=== PATIENT | female | born 1990 | race Caucasian/White ===

== ENCOUNTER 2023-04-15 12:43 | Outpatient (OUT) | payer OTHER, SELFPAY ==
[2023-04-15 14:11] LABS: Free T3 2.48 pg/mL (2.18-3.98); Glucose 81 mg/dL (74-106); Thyroid Stimulating Hormone 0.983 uIU/mL (0.358-3.740)
[2023-04-15 15:08] LABS: Free T4 0.96 ng/dL (0.76-1.46)
[2023-04-15 15:09] LABS: Estimated Average Glucose 108 mg/dL; Glycohemoglobin A1C 5.4 % (4.5-6.2)
[2023-04-16 04:07] LABS: Sex Horm Binding Glob, Serum 41.2 nmol/L (24.6-122.0)
[2023-04-16 06:09] LABS: Progesterone 10.7 ng/mL (.)
[2023-04-16 08:17] LABS: Thyroid Peroxidase (TPO) Ab <9 IU/mL (0-34)
[2023-04-16 13:08] LABS: C-Peptide, Serum 3.4 ng/mL (1.1-4.4)
[2023-04-16 14:10] LABS: Thyroglobulin Antibody <1.0 IU/mL (0.0-0.9)
[2023-04-18 21:06] LABS: Reverse T3, Serum 17.7 ng/dL (9.2-24.1)
[2023-04-19 19:16] LABS: Estrone, Serum 29 pg/mL (27-231)
[2023-04-20 17:20] LABS: Serotonin, Serum 131 ng/mL (31-207)
[2023-04-22 00:07] LABS: Free Testosterone(Direct) 0.3 pg/mL (0.0-4.2); Testosterone 7 ng/dL (13-71)
[2023-04-22 21:07] LABS: Cortisol, Free Dialysis, LCMS 0.227 ug/dL (.)
[2023-04-22 22:07] LABS: Thyroglobulin (TG-RIA) 4.9 ng/mL (.)
== END 2023-04-15 12:44 | disposition home or self-care (01) ==
PROVIDERS: PCP Family Medicine; Visit Provider Obstetrics & Gynecology
DX: R10.2 Pelvic and perineal pain (principal); R53.83 Other fatigue
CPT/HCPCS: 36415; 82306; 82530; 82627; 82670; 82679; 82728; 82947; 83036; 83525; 84144; 84260; 84270; 84402; 84403; 84432; 84436; 84439; 84443; 84481; 84482; 84681; 86376; 86800

== ENCOUNTER 2023-09-12 09:10 | Emergency (ER) | payer OTHER, SELFPAY ==
[2023-09-12 09:26] VITALS: BP 106/89; PULSE 127; RESP 18; TEMP 36.9; O2SAT 98; BMI 28.3
--- NOTE | 2023-09-12 09:32 | ED_ITS ---
HPI - Nausea/Vomiting/Diarrhea General Chief complaint: Abdominal Pain Stated complaint: NAUSEA Time Seen by Provider: 09/12/23 09:21 Source: patient Mode of arrival: walk-in History of Present Illness HPI Narrative: 32-year-old female presents for nausea and vomiting. The patient develop the symptoms late last night and she's been vomiting every hour. No diarrhea or fever or hematemesis. She was at a [employer] and so was around multiple people. Related Data Home Medications Medication Instructions Recorded Confirmed albuterol sulfate 90 mcg/actuation 2 inh inhalation Q6H PRN shortness 09/12/23 09/12/23 aerosol inhaler (Proventil HFA) of breath or wheezing epinephrine 0.3 mg/0.3 mL 0.3 mg IM ONCE PRN anaphylaxis 09/12/23 09/12/23 injection, auto-injector (EpiPen) lamotrigine 25 mg tablet 50 mg PO Q12H 09/12/23 09/12/23 Previous Rx's Medication Instructions Recorded dicyclomine 10 mg capsule 10 mg PO QID PRN abdominal pain 09/12/23 #20 caps ondansetron 4 mg disintegrating 4 mg PO Q6H PRN nausea and 09/12/23 tablet vomiting #20 tabs Allergies Allergy/AdvReac Type Severity Reaction Status Date / Time No Known Drug Allergies Allergy Verified 09/12/23 09:25 Review of Systems ROS Narrative A ten point review of systems is negative except as noted above. PFS PFS Surgical History (Updated 09/12/23 @ 12:10 by Wood Garcia) History of appendectomy ?Z90.49 - Acquired absence of other specified parts of digestive tract (ICD- 10) History of cholecystectomy ?Z90.49 - Acquired absence of other specified parts of digestive tract (ICD- 10) H/O: hysterectomy ?Z90.710 - Acquired absence of both cervix and uterus (ICD-10) Exam Narrative Exam Narrative: Nurses note and vital signs reviewed and patient is not hypoxic. General: The patient appears uncomfortable and in no apparent distress. Skin: Warm, dry, no pallor noted. There is no rash noted. Head: Normocephalic, atraumatic Eye: Normal conjunctiva, no drainage Ears, Nose, Mouth, and Throat: oral mucosa is moist. Nares patent. Cardiovascular: Regular Rate and Rhythm Respiratory: Patient is in no distress, no accessory muscle use, lungs are clear to auscultation, no wheezing, rales or rhonchi Back: non-tender GI: no tenderness to palpation, no masses appreciated. No rebound, guarding, or rigidity noted. Musculoskeletal: The patient has no evidence of calf tenderness, no pitting edema, symmetrical pulses noted bilaterally Neurological: A&O, normal speech Psychiatric: Cooperative Constitutional Vital Signs, click to edit/add: Last Vital Signs Temp 98.3 F 09/12/23 13:23 Pulse 96 H 09/12/23 15:57 Resp 16 09/12/23 15:57 BP 94/70 09/12/23 13:23 Pulse Ox 98 09/12/23 15:57 O2 Del Method Room Air 09/12/23 15:57 Course Vital Signs Vital signs: Vital Signs Temperature 98.5 F 09/12/23 09:26 Pulse Rate 127 H 09/12/23 09:26 Respiratory Rate 18 09/12/23 09:26 Blood Pressure 106/89 09/12/23 09:26 Pulse Oximetry 98 09/12/23 09:26 Oxygen Delivery Method Room Air 09/12/23 09:26 Temperature 98.3 F 09/12/23 13:23 Pulse Rate 96 H 09/12/23 15:57 Respiratory Rate 16 09/12/23 15:57 Blood Pressure 94/70 09/12/23 13:23 Pulse Oximetry 98 09/12/23 15:57 Oxygen Delivery Method Room Air 09/12/23 15:57 MDM - Nausea/Vomiting/Diarrhea MDM Narrative Medical decision making narrative: blood work is nonspecific. CAT scan is consistent with enteritis. She was given IV fluids and Zofran as well as a dose of IV morphine and IM Bentyl and she's feeling improved and is tolerating by mouth liquids. She doesn't require admission the hospital this point and will be discharged home. Treatment diagnosis and follow-up were discussed with the patient. Differential Diagnosis Differential diagnosis: Likely food poisoning, gastroenteritis, dehydration and other (gastritis) Lab Data Attestation: I reviewed the patient's lab results. Labs: Lab Results 09/12/23 Range/Units 09:45 WBC 10.3 (4.0-11.0) 10^3/uL RBC 4.94 (4.20-5.40) 10^6/uL Hgb 13.8 (12.0-16.0) g/dL Hct 42.1 (36.0-48.0) % MCV 85.2 (81.0-99.0) fL MCH 27.9 (26.7-34.0) pg MCHC 32.8 (29.9-35.2) g/dL RDW 12.4 (11.0-15.0) % Plt Count 342 (150-450) 10^3/uL MPV 9.0 L (9.5-13.5) fL Neut % (Auto) 87.0 H (43.0-75.0) % Lymph % (Auto) 7.2 L (20.5-60.0) % [place] % (Auto) 4.8 (1.7-12.0) % Eos % (Auto) 0.6 L (0.9-7.0) % Baso % (Auto) 0.2 (0.2-2.0) % Neut # (Auto) 9.0 H (1.4-6.5) 10^3/uL Lymph # (Auto) 0.7 L (1.2-3.8) 10^3/uL [place] # (Auto) 0.5 (0.3-0.8) 10^3/uL Eos # (Auto) 0.1 (0.0-0.7) 10^3/uL Baso # (Auto) 0.0 (0.0-0.1) 10^3/uL Abs Immat Gran (auto) 0.02 (0.00-0.03) 10^3/uL Imm/Tot Granulo (auto) 0.2 (0.0-0.5) % Sodium 134 L (136-145) mmol/L Potassium 3.5 (3.5-5.1) mmol/L Chloride 99 (98-107) mmol/L Carbon Dioxide 26.0 (21.0-32.0) mmol/L Anion Gap 12.5 BUN 13.0 (7.0-18.0) mg/dL Creatinine 0.72 (0.55-1.02) mg/dL Est GFR ( Amer) >60 (>=60) Est GFR (Non-Af Amer) >60 (>=60) BUN/Creatinine Ratio 18.1 Glucose 116 H (74-106) mg/dL Calcium 9.4 (8.5-10.1) mg/dL Imaging Data CT scan - abdomen: Radiologist's impression: Procedure: CT abdomen pelvis w con CLINICAL HISTORY: low abd pain, vomiting. Generalized abdominal pain, nausea, vomiting. EXAMINATION: Enhanced CT scan of the abdomen and pelvis: 09/12/2023. COMPARISON: Enhanced CT scan of the abdomen and pelvis: 02/21/2021. TECHNIQUE: 3 mm axial images from lung bases through ischial tuberosities following administration of intravenous contrast were obtained. No oral contrast was utilized. Sagittal, coronal reconstructions were also performed. FINDINGS: The lung bases appear normal. The heart size seems normal. CT ABDOMEN: The patient status post cholecystectomy. The liver demonstrates mild fatty infiltration without discrete lesions. Spleen, pancreas, adrenal glands, kidneys appear normal. The abdominal aorta has normal caliber. There is no retroperitoneal or mesenteric adenopathy. There is mild enhancement of the bowel wall involving several of the small bowel loops as well as there is mild thickened appearance to the ascending colon which could be secondary to incomplete distention. No significant induration of surrounding fat is seen. The patient status post appendectomy. CT PELVIS: The bladder seems normal. The uterus, ovaries are not seen. There is no ureterolithiasis. There is no pelvic adenopathy. No discrete focal fluid collections are seen. The visualized soft tissues demonstrate no gross abnormalities. IMPRESSION: 1. There is mild enhancement of some of the small bowel loops mid to lower abdomen without abnormal dilatation as well as there is mild thickened appearance to the ascending colon. These could be nonspecific changes however underlying enteritis/colitis is a consideration. There is no obstructive process. 2. Previous cholecystectomy, appendectomy, hysterectomy. 3. No nephro or ureterolithiasis. Electronically authenticated by: SUSAN HERMAN Date: 09/12/2023 13:49 Discharge Plan Discharge Chief Complaint: Abdominal Pain Clinical Impression: Gastroenteritis Patient Disposition: Home, Self-Care Time of Disposition Decision: 16:22 Condition: Good Mode of Transportation: Private Vehicle Prescriptions / Home Meds: New dicyclomine 10 mg capsule 10 mg PO QID PRN (Reason: abdominal pain) Qty: 20 0RF ondansetron 4 mg tablet,disintegrating 4 mg PO Q6H PRN (Reason: nausea and vomiting) Qty: 20 0RF No Action lamotrigine 25 mg tablet 50 mg PO Q12H Patient Comments: 50 mg in the am albuterol sulfate [Proventil HFA] 90 mcg/actuation HFA aerosol inhaler 2 inh inhalation Q6H PRN (Reason: shortness of breath or wheezing) epinephrine [EpiPen] 0.3 mg/0.3 mL auto-injector 0.3 mg IM ONCE PRN (Reason: anaphylaxis) Rx Instructions: for 2 doses Instructions: Gastroenteritis (DC), Acute Nausea and Vomiting (DC) Stand Alone Forms: Portal Instructions Referrals: RONNIE SHUKLA [Primary Care Provider] - 1 week
[2023-09-12 09:53] LABS: Basophils Percent Auto 0.2 % (0.2-2.0); Eosinophils Absolute Auto 0.1 10^3/uL (0.0-0.7); Eosinophils Percent Auto 0.6 % (0.9-7.0); Hematocrit 42.1 % (36.0-48.0); Hemoglobin 13.8 g/dL (12.0-16.0); Immature Granulocytes Abs Auto 0.02 10^3/uL (0.00-0.03); Immature Granulocytes Pct Auto 0.2 % (0.0-0.5); Lymphocytes Absolute Auto 0.7 10^3/uL (1.2-3.8); Lymphocytes Percent Auto 7.2 % (20.5-60.0); Mean Corpuscular HGB Conc 32.8 g/dL (29.9-35.2); Mean Corpuscular Hemoglobin 27.9 pg (26.7-34.0); Mean Corpuscular Volume 85.2 fL (81.0-99.0); Monocytes Absolute Auto 0.5 10^3/uL (0.3-0.8); Monocytes Percent Auto 4.8 % (1.7-12.0); Platelet Count 342 10^3/uL (150-450); Red Blood Count 4.94 10^6/uL (4.20-5.40); Red Cell Distribution Width 12.4 % (11.0-15.0); White Blood Count 10.3 10^3/uL (4.0-11.0)
[2023-09-12] MEDS: ONDANSETRON PF 4 MG/2 ML VIAL IV ×2 (09:53→11:55)
[2023-09-12] MEDS: 0.9 % SODIUM CHLORIDE 1,000 ML 1000 ML IV ×2 (09:53→11:55)
[2023-09-12 10:00] LABS: Anion Gap 12.5; BUN Creatinine Ratio 18.1; Calcium 9.4 mg/dL (8.5-10.1); Chloride 99 mmol/L (98-107); Estimated GFR (African America >60 (>=60); Estimated GFR (Non-African Ame >60 (>=60); Glucose 116 mg/dL (74-106); Potassium 3.5 mmol/L (3.5-5.1); Sodium 134 mmol/L (136-145)
[2023-09-12 11:00] VITALS: BP 110/67; PULSE 99; RESP 16; TEMP 36.9; O2SAT 100
--- NOTE | 2023-09-12 11:50 | CT_ITS ---
The [address] [address] Patient Name: GRACIELA SORIA MRN: [id number] date: 1990 Sex: F Assigned Patient Location: ER Current Patient Location: ER Accession/Order Number: [id number] Exam Date: 09/12/2023 12:15 Report Date: 09/12/2023 13:49 At the request of: MYAH MEYERS Procedure: CT abdomen pelvis w con CLINICAL HISTORY: low abd pain, vomiting. Generalized abdominal pain, nausea, vomiting. EXAMINATION: Enhanced CT scan of the abdomen and pelvis: 09/12/2023. COMPARISON: Enhanced CT scan of the abdomen and pelvis: 02/21/2021. TECHNIQUE: 3 mm axial images from lung bases through ischial tuberosities following administration of intravenous contrast were obtained. No oral contrast was utilized. Sagittal, coronal reconstructions were also performed. FINDINGS: The lung bases appear normal. The heart size seems normal. CT ABDOMEN: The patient status post cholecystectomy. The liver demonstrates mild fatty infiltration without discrete lesions. Spleen, pancreas, adrenal glands, kidneys appear normal. The abdominal aorta has normal caliber. There is no retroperitoneal or mesenteric adenopathy. There is mild enhancement of the bowel wall involving several of the small bowel loops as well as there is mild thickened appearance to the ascending colon which could be secondary to incomplete distention. No significant induration of surrounding fat is seen. The patient status post appendectomy. CT PELVIS: The bladder seems normal. The uterus, ovaries are not seen. There is no ureterolithiasis. There is no pelvic adenopathy. No discrete focal fluid collections are seen. The visualized soft tissues demonstrate no gross abnormalities. CT/CT abdomen pelvis w con IMPRESSION: 1. There is mild enhancement of some of the small bowel loops mid to lower abdomen without abnormal dilatation as well as there is mild thickened appearance to the ascending colon. These could be nonspecific changes however underlying enteritis/colitis is a consideration. There is no obstructive process. 2. Previous cholecystectomy, appendectomy, hysterectomy. 3. No nephro or ureterolithiasis. Electronically authenticated by: SUSAN HERMAN Date: 09/12/2023 13:49
[2023-09-12 13:23] VITALS: BP 94/70; PULSE 101; RESP 16; TEMP 36.8; O2SAT 100
[2023-09-12] MEDS: MORPHINE SULFATE 4 MG/ML VIAL IV (14:11)
[2023-09-12] MEDS: DICYCLOMINE HCL 20 MG/2 ML VIAL IM (14:11)
[2023-09-12 15:57] VITALS: PULSE 96; RESP 16; O2SAT 98
[2023-09-12 16:36] VITALS: BP 108/70; PULSE 96; RESP 16; O2SAT 99
== END 2023-09-12 16:40 | disposition home or self-care (01) ==
PROVIDERS: Emergency Provider Emergency Medicine; PCP Family Medicine
DX: K52.9 Noninfective gastroenteritis and colitis, unspecified (principal); Z79.899 Other long term (current) drug therapy; Z90.49 Acquired absence of other specified parts of digestive tract; Z90.710 Acquired absence of both cervix and uterus
CPT/HCPCS: 36415; 74177; 80048; 85025; 96361; 96372; 96374; 96375; 96376; 99285; J0500; Q9967

== ENCOUNTER 2025-05-13 15:05 | Emergency (ER) | payer OTHER, SELFPAY ==
--- OUTSIDE RECORDS SUMMARY | 2025-05-13 15:13 | XMS_ITS | CCD ---
Author Organization [facility] Care Team Providers Care Cath Lab Radiological Technologist Name Role Phone Annabel Ibarra Primary Care Provi chio ANNABEL IBARRA Primary Care Un available ANNABEL IBARRA Primary Care Un available JOHNY POLO Attending Unavailable PEDRO GARCIA Admitting Unavaila ble PEDRO GARCIA Attending Unavaila ble Annabel Carvajal Primary Care Unavailable ADRIAN DAVIDSON Consulting Unavaila ble Adrian Davidson Consulting Unavaila ble SpychAngely avitia Consulting Unavailable Charles Christianson Consulting Unavailable ANNABEL CARVAJAL Unav ailable Annabel Carvajal Primary Care Unavailable Giedraitis, Andrius Vytautas Attending Krystal vailable EBRAHEIM, SERA Admitting Unavailable EBRAHEIM, SERA Attending Unavailable SELF, REFERRED Referring Unavailable SELF, REFERRED Primary Care Unavailable DO Edgar Chase Attending Provider MD Annabel Shukla Primary Care Provider DESIRE ., DR LÓPEZ Admitting Unavailable DESIRE ., DR LÓPEZ Attending Unavailable POINT LOOKOUT, DR AMARILIS Huizar Consulting Unavailable GAYLA, DR TRUJILLO Primary Care Unavailable DESIRE ., DR LÓPEZ Consulting Unavailable REQUEST, DR SANTAMARIA LISTED Consulting Unavaila ble REQUEST, DR SANTAMARIA LISTED Consulting Unavaila ble DESIRE ., DR LÓPEZ Admitting Unavailable DESIRE ., DR LÓPEZ Attending Unavailable GAYLA, DR TRUJILLO Primary Care Unavailable DESIRE ., DR LÓPEZ Attending Unavailable DESIRE ., DR LÓPEZ Consulting Unavailable DESIRE ., DR LÓPEZ Admitting Unavailable GAYLA, DR TRUJILLO Primary Care Unavailable REQUEST, DR SANTAMARIA LISTED Consulting Unavaila ble DESIRE ., DR LÓPEZ Admitting Unavailable DESIRE ., DR LÓPEZ Attending Unavailable GAYLA, DR TRUJILLO Primary Care Unavailable OscarCaitlyne Unavailable Annabel Shukla MD Primary Care Provider Josué RECTIFICATION PRINTER, Anabelle Duncan Unavailable Jhonatan Hooper DO Unavailable [facility], Akiko Unavailable Rose HARDY, Bret Arana Attending Provider Bret Rose Attending Unavailable Bret Rose Admitting Unavailable ANNABEL SHUKLA Primary Care Unavailable Bret Rose Attending Unavailable Bret Rose Admitting Unavailable TIMMIS, JEISON Kendrick Referring Unavailable CRISSYMIS, JEISON H Consulting Unavailable Josué RECTIFICATION PRINTER, Anabelle A Unavailable DEBI TORRES Attending Unavailable [place], ANABELLE A Attending Unavailab le [place], ANABELLE A Referring Unavailab le [place], ANABELLE A Referring Unavailab le [place], ANABELLE A Referring Unavailab le TIMMIS, JEISON H Attending Unavailable KEDARCKENBUR[place], ANABELLE A Referring Unavailab le CRISSYMISJEISON H Attending Unavailable VAN AGUILA Attending Unavailable TIMMIS, JEISON Marks Referring Unavailable VAN AGUILA Referring Unavailable ANNABEL SHUKLA Attending Unavailable ANNABEL SHUKLA Attending Unavailable Allergies Allergy Classification Reported Allergen(s) Allergy Type Date of Onset Reaction(s) Facility (20 sources) Coconut Oil; Translations: [Unknown] Drug Allergy 06-25-20 Unknown [facility] (1 source) No Known Medication Allergies; Translations: [No Known Medication Allergies] Propensity to adverse reactions to drug (disorder) [facility]ository (3 sources) Coconut extract; Translations: [Coconut] Drug Allergy 09-11-20 13 Blurry Vision [facility] Repository (3 sources) Scopolamine; Translations: [scopolamine] Drug Allergy 11-14-19 24 vision disturbance [facility] (20 sources) butylscopolamine Drug Allergy 01-27-20 23 Unknown [facility] (20 sources) Coconut extract Drug Allergy 07-17-20 19 Anaphylaxis, Rash, Swelling, Unknown [facility] (20 sources) Honey bee venom Propensity to adverse reactions 05-03-20 19 [facility] Work Phone: (20 sources) Coconut Fatty Acid Propensity to adverse reactions 01-09-20 18 Angioedema [facility] (1 source) Coconut extract Drug Allergy 11-14-19 [facility] Repository (1 source) Scopolamine Drug Allergy 11-14-19 [facility] Repository (1 source) Beechams Veno's Expectorant; Translations: [Beechams Veno's Expectorant] Propensity to adverse reactions (disorder) [facility] Repository (11 sources) guaiFENesin Drug Allergy 03-28-20 25 [facility] Medications Current Medications Medication Drug Class(es) Dates Sig (Normalized) Sig (Original) [id number] 200 actuat albuterol 0.09 mg/actuat metered dose inhaler (20 sources) beta2-Adrenergic Agonist Start: 11-14-2023 Albuterol Sulfate 90 mcg/actuation HFA aerosol inhaler Active INHALATION November 14, 2023 1:00am Start: 09-25-2023 take 1-2 puff(s) by inhalation every four to six hours as needed Albuterol Sulfate HFA 108 (90 Base) MCG/ACT 1-2 puffs as needed Inhalation every 4-6 hours for 14 days Aug, Active Start: 06-02-2013 take 2 puff(s) by in halation every four hours albuterol HFA (Proventil HFA) 90 mcg/act inhaler Inhale 2 puffs every 4 (four) hours if needed 06/02/2013 Active take 1 puff(s) by in halation every four hours as needed Albuterol Sulfate HFA 108 (90 Base) MCG/ACT 1 puff as needed Inhalation every 4 hrs Active amoxicillin 500 mg oral capsule (9 sources) Penicillin-class Antibacterial Start: 11-14-2023 End: 02-03-2025 take 1 capsule by mouth in the morning amoxicillin (Amoxil) 500 MG capsule Take 500 mg by mouth in the morning and 500 mg before bedtime. 11/14/2023 02/03/2025 Discontinued amoxicillin 875 mg / clavulanate 125 mg oral tablet (1 source) Penicillin-class Antibacterial Start: 09-25-2023 take 1 tablet by mouth every twelve hours Amoxicillin-Pot Clavulanate 875-125 MG 1 tablet Orally every 12 hrs for 10 day(s) Aug, Active benzonatate 100 mg oral capsule (1 source) Non-narcotic Antitussive Start: 09-25-2023 take 1 capsule by mouth three times daily as needed Tessalon Perles 100 MG 1 capsule as needed Orally Three times a day for 7 days Aug, Active betamethasone 0.5 mg/ml / clotrimazole 10 mg/ml topical cream (8 sources) Azole Antifungal, Corticosteroid Start: 03-08-2024 End: 02-03-2025 clotrimazole-beta methasone (Lotrisone) cream Indications: Rash Apply 1 application topically Daily Apply to affected area daily for 7 days 45 g 03/08/2024 02/03/2025 Discontinued [id number] 0.3 ml EPINEPHrine 1 mg/ml auto-injector (20 sources) alpha-Adrenergic Agonist, beta-Adrenergic Agonist, Catecholamine Start: 11-14-2023 Epinephrine (Epipen) 0.3 mg/0.3 mL auto-injector Active 0.3 MG IM Every 4 hours as needed November 14, 2023 1:00am Start: 04-02-2015 EPINEPHrine (E piPen 2-Karl) 0.3 MG/0.3ML injection syringe 1 (one) time each day at the same time 04/02/2015 Active EpiPen Active esomeprazole 40 mg delayed release oral capsule (5 sources) Proton Pump Inhibitor Start: 04-10-2025 End: 04-10-2026 take 1 capsule by mouth before mealtime esomeprazole (NexIUM) [address] capsule Indications: Weight loss, unintentional , Epigastric pain Take 1 capsule (40 mg) by mouth in the morning. Take before meals. Do not open capsule. 30 capsule 04/10/2025 04/10/2026 Active ethinyl estradiol 0.035 mg / norgestimate 0.25 mg oral tablet (1 source) Progestin, Estrogen take 1 tablet by mouth once daily norgestimate-ethiny l estradiol (SPRINTEC 28) 0.25-35 MG-MCG per tablet Take 1 tablet by mouth daily 0 Active ibuprofen 600 mg oral tablet (20 sources) Nonsteroidal Anti-inflammatory Drug Start: 05-22-2019 take 1 tablet by mouth every six hours as needed ibuprofen 600 MG tablet Take 1 tablet by mouth every 6 (six) hours if needed 05/22/2019 Active lamoTRIgine 25 mg oral tablet (20 sources) Mood Stabilizer, Anti-epileptic Agent Start: 01-01-2025 End: 01-31-2025 take 2 tablets by mouth in the morning lamoTRIgine (LaMICtal) 25 MG tablet Indications: Seizure (HCC) Take 2 tablets (50 mg) by mouth in the morning and 2 tablets (50 mg) before bedtime. 120 tablet 01/01/2025 Active Start: 11-14-2023 Lamotrigine 25 mg tablet Active MG PO November 14, 2023 1:00am LaMICtal 25 MG 1 tablet Orally Active methocarbamol 750 mg oral tablet (1 source) Muscle Relaxant take 1 tablet by mouth once daily methocarbamol (ROBAXIN) 750 MG tablet Take 750 mg by mouth nightly 0 Active methylPREDNISolone 4 mg oral tablet (1 source) Corticosteroid Start: 2022 methylPREDNISolone 4 MG as directed Orally as directed on packaging for Aug, Active Multiple Vitamin (MULTIVITAMIN ADULT PO) (20 sources) take 1 tablet by mouth once daily Multiple Vitamin (MULTIVITAMIN ADULT PO) Take 1 tablet by mouth Daily Active Multivitamin tablet (1 source) Start: 2023 take 1 tablet by mouth once daily Multivitamin tablet Active 1 TAB PO Daily November 14, 2023 1:00am ondansetron 4 mg disintegrating oral tablet (8 sources) Serotonin-3 Receptor Antagonist Start: 2022 End: 2024 ondansetron ODT (Zofran-ODT) 4 MG disintegrating tablet dissolve 1 tablet ON TONGUE every 6 hours if needed for nausea OR vomiting 09/13/2023 02/03/2025 Discontinued predniSONE 10 mg oral tablet (1 source) take 2 tablets by mouth twice daily predniSONE (DELTASONE) 10 MG tablet Take 20 mg by mouth 2 times daily 0 Active divalproex sodium 250 mg delayed release oral tablet (1 source) Mood Stabilizer, Anti-epileptic Agent take 1 tablet by mouth twice daily divalproex (DEPAKOTE) [address] tablet Take 250 mg by mouth 2 times daily 0 Active Completed/Discontinued Medications Medication Drug Class(es) Dates Sig (Normalized) Sig (Original) 1 ml ketorolac tromethamine 15 mg/ml cartridge (1 source) Nonsteroidal Anti-inflammatory Drug, Cyclooxygenase Inhibitor Start: 05-22-2019 End: 05-22-2019 ketorolac (TORADOL) injection 15 mg 2 ml orphenadrine citrate 30 mg/ml injection (1 source) Muscle Relaxant Start: 06-06-2019 End: 06-06-2019 orphenadrine (NORFLEX) injection 60 mg Problems Active Problems Problem Classification Problem Date Documented Date Episodic/Chronic Abdominal pain (8 sources) Pelvic and perineal pain; Translations: [Epigastric pain] Onset: 01-01-2023 Episodic Allergic reactions (20 sources) Atopic dermatitis; Translations: [Other atopic dermatitis] Onset: 11-14-2019 01-26-2023 Chronic Anxiety disorders (20 sources) Mixed anxiety and depressive disorder; Translations: [Other specified anxiety disorders] Onset: 08-30-2015 01-26-2023 Chronic Asthma (20 sources) Asthma without status asthmaticus; Translations: [Unspecified asthma, uncomplicated] Onset: 11-05-2016 01-26-2023 Chronic Epilepsy; convulsions (20 sources) Seizure disorder; Translations: [Epilepsy, unspecified, not intractable, without status epilepticus] Onset: 01-26-2023 01-09-2025 Chronic Headache; including migraine (2 sources) Headache; Translations: [Headache, unspecified headache type] 01-14-2025 Episodic Lymphadenitis (20 sources) Lymphadenopathy; Translations: [Generalized enlarged lymph nodes] Onset: 03-28-2025 01-29-2025 Episodic Miscellaneous mental health disorders (20 sources) Primary insomnia; Translations: [Primary insomnia] Onset: 05-17-2018 03-04-2023 Chronic Mood disorders (2 sources) Mood disorder; Translations: [Unspecified mood [affective] disorder] 01-14-2025 Chronic Nutritional deficiencies (20 sources) Vitamin D deficiency; Translations: [Vitamin D deficiency, unspecified] Onset: 01-26-2023 01-26-2023 Chronic Other aftercare (2 sources) Patient encounter status; Translations: [Encounter for therapeutic drug level monitoring] 01-09-2025 Episodic Other complications of (20 sources) Anemia of ; Translations: [Anemia complicating , unspecified trimester] Onset: 10-27-2016 03-04-2023 Chronic Other connective tissue disease (1 source) Plantar fasciitis; Translations: [Plantar fasciitis] Episodic Other diseases of veins and lymphatics (1 source) 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, unspecified; Translations: [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, unspecified] Onset: 02-27-2025 Chronic Other inflammatory condition of skin (2 sources) Generalized pruritus ; Translations: [Pruritus, unspecified] 01-29-2025 Episodic Other liver diseases (2 sources) Elevated liver enzymes level; Translations: [Abnormal levels of other serum enzymes] 04-10-2025 Episodic Other nervous system disorders (20 sources) Ulnar neuropathy; Translations: [Lesion of ulnar nerve, unspecified upper limb] Onset: 03-04-2023 03-04-2023 Chronic Other non-traumatic joint disorders (20 sources) Joint pain; Translations: [Pain in unspecified joint] Onset: 03-04-2023 03-04-2023 Episodic Other nutritional; endocrine; and metabolic disorders (4 sources) Unintentional weight loss; Translations: [Abnormal weight loss] 01-29-2025 Episodic Other screening for suspected conditions (not mental disorders or infectious disease) (8 sources) Encounter for screening, unspecified; Translations: [Encounter for screening for malignant neoplasm of cervix] Onset: 03-19-2022 Episodic Past or Other Problems Problem Classification Problem Date Documented Date Episodic/Chronic Cancer of cervix (20 sources) Cervicovaginal cytology: Low grade squamous intraepithelial lesion; Translations: [Low grade squamous intraepithelial lesion on cytologic smear of cervix (LGSIL)] Onset: 01-26-2023 01-26-2023 Episodic Conditions associated with dizziness or vertigo (20 sources) Dizziness; Translations: [Dizziness and giddiness] Onset: 05-20-2023 01-09-2025 Episodic Deficiency and other anemia (20 sources) Iron deficiency anemia; Translations: [Iron deficiency anemia, unspecified] Onset: 01-26-2023 01-26-2023 Episodic Epilepsy; convulsions (20 sources) Seizure; Translations: [Unspecified convulsions] Onset: 04-08-2018 03-04-2023 Episodic Immunizations and screening for infectious disease (20 sources) Encounter for screening for human papillomavirus (HPV); Translations: [Anti-nuclear factor positive] Onset: 03-20-2022 03-04-2023 Episodic Mood disorders (20 sources) Mood disorders Onset: 11-20-2023 11-20-2023 Other complications of (20 sources) ultrasound scan abnormal; Translations: [Abnormal ultrasonic finding on screening of mother] Onset: 10-28-2016 03-04-2023 Episodic Other complications of (20 sources) Seizure disorder; Translations: [Diseases of the nervous system complicating , unspecified trimester] Onset: 10-27-2016 03-04-2023 Episodic Other connective tissue disease (20 sources) Pain of left upper arm; Translations: [Pain in left upper arm] Onset: 06-10-2020 03-04-2023 Episodic Other female genital disorders (1 source) Other specified noninflammatory disorders of vagina; Translations: [OTH SPEC NONINFLAMMATORY D/O VAGINA] Onset: 03-20-2022 Episodic Other nervous system disorders (20 sources) Abnormal gait; Translations: [Unspecified abnormalities of gait and mobility] Onset: 11-16-2019 03-04-2023 Episodic Other nervous system disorders (20 sources) Impairment of balance; Translations: [Other abnormalities of gait and mobility] Onset: 05-20-2023 05-20-2023 Episodic Other upper respiratory infections (20 sources) Acute pansinusitis, unspecified; Translations: [Sore throat symptom] Onset: 11-19-2023 Episodic Spondylosis; intervertebral disc disorders; other back problems (20 sources) Sciatica; Translations: [Sciatica, unspecified side] Onset: 06-05-2019 03-04-2023 Episodic Unclassified (1 source) Suspected COVID-19 virus infection Z20.822 Results Test Name Value Interpretation Reference Range Facility CT SOFT TISSUE NECK W IV CON TRASTon 04-09-2025 CT SOFT TISSUE NECK W IV CONTRAST CT SOFT TISSUE NECK WITH INTRAVENOUS CONTRAST MEDIUM. HISTORY: MILDLY PROMINENT LYMPH NODES, BILATERAL NECK. TECHNICAL FACTORS: CT soft tissue neck obtained and formatted as 2.5 mm contiguous axial images. Sagittal and coronal reconstruction obtained during postprocessing. COMPARISON: CT soft tissue neck, February 07, 2025. FINDINGS: Skull base:Normal Orbits: . Bilateral ocular globes, extraocular muscles, optic nerves, retrobulbar fat without anomaly. Facial sinuses: Bilateral frontal, ethmoid, sphenoid, and maxillary sinuses are patent. Nasopharynx: Normal Mastoids: Air cells well aerated. Oral cavity: Without anomaly. Oropharynx: Without anomaly. Bilateral parapharyngeal spaces and retropharyngeal spaces: Preserved. Salivary glands: Normal Hypopharynx, larynx, supraglottis, infra-glottis: : Without anomaly.. Lymph nodes: No lymph node enlargement. Vascular: Vascular structures enhance uniformly. Thyroid: Normal. Lung apices: Without anomaly. IMPRESSION: Negative CT soft tissue neck. All CT scans at this facility use dose modulation, iterative reconstruction, and/or weight based dosing when appropriate to reduce radiation dose to as low as reasonably achievable. ELECTRONICALLY SIGNED BY: Van Mata MD Invalid Interpretation Code Not Available Coding Summaryon 03-14-2025 Coding Summary HTMLBase 64 CebfypjeTVp3pSi+PGhlYWQ +[id number] NMTElOSywgQVBQTElOSyIgb mDbLN3bxLUcCFYj IC8+KG6jFJSzYvwhuSEzk1Q 2cSK9A69sil3jRIpecTH5GY DsWuZhdpvua9xjyGc5OTdkV mluOyBt WSGszE46VXA3zQ19Bu06tDX iyHYcc2roiSx8BbTpKSYyKR L7xEdrOCckr1QuNBMbT61ee SQmf0S3 OHMyrMsazRXkNeLokXS8oV8 kEOnjekxwq8hludjfMli8em 48wYSbq9Y4rJS0D9RpggB9J GJvbGQg TzsbrNLRdE3lqngso7ppndb aRhGvVPKmSPz5RKj7TUWndH fsUuRaYH52FEF9TVZlupXyH 2FsLWFs iQefJzO7d3G1Qu9PP8NSEra gA0TELTIHMKadhUU+PC90cj 07K0OkIvlkPkr4VWGbYJL2g GX3gD1r OBIdESzbn8B2nHI2P6LkrqQ tqh0db5ovETBdFNpzH74xhS Wrs0W3SQHzsAW6VRJvvRglH iBzaG93 Oyc+EFVozRwja4JaLeuxu1n xr5flaCo6PedrPVCxjmUlfL uhMSS9z9TlVf1bQQIxqRF6s OM9dW5r RjIoEtR5HWvdP006FhEkcKO dEjmaJ92qP1RswIX+PHRyPj u6KMZfhFasZB7nY5XqNPRoe mctbGVm cLsyOV2kVNFzdussUYMlxU5 wELCpB0y6IkZrLfL9CZqhD5 OgKONeildfRd58lU5vMiOlI oN1MSlp Z2PesaJ0NRYuxGYcCQvlSHI 8P28qz1R5KMJnGQXkMOS0fF N8oR6dlRzwaalcoWJerJhlw mVydGlj MPrqMSgdW793PDXnpIjgWfH vZGluZyBEYXRlOiAgMDYvMT gvMjAyNTwvdGQ+IDKmIHQ5s WxlPSAn xYJpNKzpDk5lvGdqjIotON3 mJIUqlanxKLZxoJ5wKPOdoJ GrnNmqDY5aCTHejsous371V iAxMHB0 JWBgeYWgD5JxgY0mNmCrLGQ nSVXeF4PmsBQhEFjkE459WA osXcL7CEXiozZfT8KsQDDkx WduOiB0 p6V1Pl1In5GjbdjkP1ZsgFW hQeUvVgbxPFs1F2AzSltciP I+UI94SDPqBD26QIc5QCQ8p WxlPSdi XIEpA5LryB0oKaCwNYTeNOS kOyc+PHRhYmxlIHdpZHRoPS qdIDZvHpXzuGlsOL8yDo9xN GVyLWNv eIgnwMXtIwEvq0dnWGBzQTn nXW2azMwjF0UbxIS3EHOrq3 y5Fe91K78pN1MulLY+PGNvb UJ2bPP8 eA4eQgMmEjP9WFguO675MbY ffARxJibnq7lip3jmiIk7Ob D5LASrjoOflWweUHJ3v3MfF t34E17d IHdpZHRoPSIxNSUiIHZhbGl bsq6thL4cRz7+FHSajYX7uJ L9kH4dXcMwOiS1KGvsP752I nRvcCIv Urlbz1ofc6estXm8QjMzLRG yjgLdqWbeDUV6e2OqAa12A0 GosEopz7PbNaq5mb93hPUmw 2N0kZP5 W6LnNQMyvbnkdQIjoTaeHQ1 xYAWamjthGPQzwN4mEVNeE2 y6GzXvDfV0CBuqX9FvjsP7I GJvbGQg AIOwpTZVjA2cnelgj8ccjlm vMpSzYFNeRFb9PRw9CDMvfL ysRiEjNPB1SoZ5MCI5sEYkh C4rvJjn micccC0vIpn+LKJ2bNDkpHR DFR8sNyifeXL+HWYbLNS0qF fyMCbkHDMopP3hCFIvP1v6E iAwLjA1 GFbpC9QeosR1IYCkwLGxVLM alBFBkH4syjvrd3vatjurDd XpZEDeOEm2LFj5QLUwyYrhW iBsZWZ0 RiM6WPE1dOZmjH3xtFoyqpv iaI9pVem+SqrzuPgjMJD2ML p6E0JfPhi9WYUddQmnSB0qx GFkZGlu Dm3bjVocvPouQN3vRJZvgsy du501XwWvo2dfWALflVDjFI piYFR3Z93vr9N9DEXbLJHsF BM8jXC5 tL2fmBlhjvduyUQvuLbbqpM cpTzpMFayYRawL832ZCGwjO coBoAbEFi8Q5FxXet9FGTes BoxQL9c tNZoROkcEm0kqDkcjSnrOJ9 eAQMhykpxl123SnDbn4wyEA NxmKCiALcfKTM2L34bm0S6I CMwMDAw NZJ6xTM1aI2obUzuoxnpwQH mdDsgdmVydGljYWwtYWxpZ2 40EGAcwUgpPzVkfHz2Y5RtW xk7GBYn cWmmLS7ewCGpIYlbJl9deVg nbUzxHM8zHBBhrfesm203Bg Mfq8tkVBJzrWXjIRlmFRT2L 48rh8K9 QEZmSONaTZW6jPW1kP2ecMi nbjogbGVmdDsgdmVydGljYW atDImzJ536JORbkSruCkNme GllbnQg WAnaDMs3D9QqDuumxLI+PC9 5ICNvAB73wTTbgHGde9iboR m7NtOqXTImBBZ5vJvvIAtrm 3JkZXIt K01bkSVte7G1HFVkrFctyUM tLwIqaBS5qX9kPMekzgadp0 vwgmunXoevm8ffsc19uN95X 29sIHdp ZHRoPSIzMCUiIHZhbGlnbj0 ppN3zZm6+MBFkpAW7dAD3dG 8vCCBhKrM8QBarQ307PaFpg CIvPjxj f2aao7gsjFs8CqP4AWEbmsR xrPfhBEZ0y9QhPj79N85jPC dpZHRoPSIyMCUiIHZhbGlnb h5uuU3k Ii8+EOVraUJ1tAW2dE1gJlF xVnL0AVbdQ540YbXjtDFjOs gbA00fF8GifZW+PBJbNbq8Z CBzdHls NT9seFDvJNpmZv6oNLE0ZvM iKqGlZKziV5HnQPFhisxolh nflAP7QAEkNKRsiX64Tv2xc DogMTBw jHEXlV3foilid4csjcqdFuQ fLEQiNLo1USm2YUMakVkcHt GhEMP7RdE2VLH5eCRkdV0sy Glnbjog hL3hP6WrBYStqvhlHz67yF2 yZmSjTpK1JKkoZsr+TU9SQU xFUywgTUFSSVNTQTwvdGQ+P HRkIHN0 lRuuMRcoUEVnyJ2gEYAoX1w 7BpIvZlL5TQutB7TrLZMlpf jkJl59kD2dGfLvNcU5WQrzM 6DlweC3 LBHgyZNcWYvtXPB5Z70le8F 3AHYvDJAwXGB5hDV6aB3spK lnbjogbGVmdDsgdmVydGljY WwtYWxp C304EPVbdEroRpYuAxK5VuJ 0ZSM4M1LzZpc2IDCaxJgpPT 6abXGbZMzeMl7nrZfgiSmfH Q2sJBJg lrmsBGKddD2qIPKncUVgiSd sQC1iVLOirwmnj784RhMqCC J0TFBnhUDsD1OonQ3aNgLgX DAwMDAw C2IykMYiDSefQ873IWbqFiJ 4UNNfdlOjT7VxIHLknWhlUs X8c8T3Zm8uJwUYNVXoxrwrz GQ+PHRk WMP4bSysNRbwNYSmmA1gSER iR0s9LrHhQkL7PTtfD2HzIS DxxyyzNg90oR8yGhMoIdB3V FfgW6Uq reJ7XZQssWEnYEueCRT1J27 ud6J9NVZbUEHtUDW6iMI7eE 1hbGlnbjogbGVmdDsgdmVyd GljYWwt MXqpQ287FBXnmOdhPzCHBJN MRTwvdGQ+GFIbDFX3kGaiDQ ecRDOdsI4hDUSwA2w2QsQhM cQ4VKye W7FsDQCehhgbXv86bW9oFxZ jYnV0QLglO4JsvzE6ZJHtsH JcNClsBUE4L09ab4L9TXNgY DAwMDA7 rGU9oW0rlHnvledytFHqgOj yfcSccIzkUYmxBFzcP609QJ NkmNawWo8EQS40XG70Y9EdP jwvdGFi bGU+PHRhYmxlIHdpZHRoPSc fWJQxVjMfqNgcSM9dIc6sWH VsVJAtzVkywVDaYyZmj4jfR XBzZTsg MF1xdQcnU6HzoFF6NTTvk6b 3Lj52C09mH1NblED+PGNvbC V1eWA4aF0qUxLfVmX1AIrkE 249InRv qQGjBgiom1cbo4csrOz7TzC vOWIzbvSlkMozBIK9k9TrFr 56O77qCYrxZHCkKSTeNRWqD HZhbGln rm9ubK0dTk7+TCKfyMU2wUT 9fV3aYhGwDlX8NTgvP215Bl DniEDjUlhvW01mT8VzlZD+P HRyPjx0 SQImjEkrGZ0lnBJuKRyqUi3 qSQI1HwMyDcDpODrjA6QdNJ PaosmqwjahlOL9SIZiNUJvr R86Ia8p rIzsFu5nAXFeYEO3KFJlpIN eJ8YqyB7gPrChHJKoBGEzD5 ZkkHVoKHjjK363TWgpSxY5R HZlcnRp O7JyPUSjmSvqLdU0s7B8Wy3 WwGdwpGIcXZ4xIiLgZIb6P7 EwOzr5KHZnsWliYH4yoIJqH VuhYa3z hVrwvGfgKN9yBHApfhguo72 8VjJef5fzTSEmlENpIBlfIC N4V89yt1P1DWMhVSXmLLD6r FM5mR6s bGlnbjogbGVmdDsgdmVydGl xOInqZNsvB504DYCsrPadHb YJFjx4X9AdHjm3ARXthBpzD Q9zoNUr ILepPw5coLpnhNqoFD9fLYK nxtodj313OaPto4byVOAutS YhJCqlTTX1W65qb4O3APJqQ DAwMDA7 jKG5jC4ymNqbmrvspIRchZf ewwAazKemQHrsHFelZ719AQ LsdAovSj9JZub3J1QnGfv6S CBzdHls PZ5zpWUxLDasPt2aeXqutNr jZK6vAJVfmozfy269XfHye9 iaOHCoiLKyRAeqQIN0Q98ab 0T1DOUg ZOZqNNF0cHA1cN6udRgxubk gbGVmdDsgdmVydGljYWwtYW qyI469BDUipGuvVmCtqAUwJ jwvdGQ+ IM70co43M9UlWmsoBvn7FGW dFGX8jLY7hX8tDXDyYYurg7 N7dSP9E6TnpuEnet5ct5gsP XBzZTog Y29 (more content not included)... [facility] Results [id number]#1.00OT GTIFF [facility] Results [id number]#1.00OT GTIFF [facility] Pathology Sendout [facility] Pathology Send Out. See Report Normal [facility] Comment on above: Order Comment: Left supraclaicular lymph node biopsy tissue samples in sterile cup. Sent for pathology and flow cytometry. Performed By: #### [id number] #### [facility] (DEFAULT) [address] [place] [address] Karlos [birth year]25 L --- Specimen: [id number] Received: 03/01/25 Status: ESMER Ramírez Num: [id number] Spec Type: Surgical Subm Dr: JEISON DELGADO MD Tissues: A Lymph Node - Biopsy (Needle or Incisional) (LEFT SUPRACLAICULAR LYMPH NO) Procedures: CD45, HE/2, Gross/Micro L4, AE1-AE3, BCL-2, BCL-6, CD10, CD138, CD20, CD23, CD30, CD5, CYCLIN D1, Ki-67, IHC First AB, IHC Add AB/10, DIFF QWIK Age/ Patient Sex Location Account Attending Physician Unique Haque 34/F [facility] [id number] Bret Rose MD SPEC NUM: [id number] RECD: 03/01/25 STATUS: ESMER RAMÍREZ NUM: [id number] [place]O: 03/01/[address] [facility] [address]: JEISON DELGADO MD ENTERED: 03/01/[address] [facility] [address]: [place],Lab Bret Rose MD SPEC TYPE: Surgical DEPT: MAG TEE ENTERED BY: [id number] RECV BY: [id number] ORDERED: CD45, HE/2, Gross/Micro L4, AE1-AE3, BCL-2, BCL-6, CD10, CD138, CD20, CD23, CD30, CD5, CYCLIN D1, Ki-67, IHC First AB, IHC Add AB/10, DIFF QWIK ORDERED: CD45, HE/2, Gross/Micro L4, AE1-AE3, BCL-2, BCL-6, CD10, CD138, CD20, CD23, CD30, CD5, CYCLIN D1, Ki-67, IHC First AB, IHC Add AB/10, IMMUNOHISTOCHEM, DIFF QWIK Supplemental Report Addendum 1 Entered: 03/07/25 Flow cytometry was canceled due to the inadequate specimen. Addendum Signed (signature on file) Bg Roman MD 03/07/25 1029 Pathological Diagnosis Supraclavicular lymph node, needle biopsy: - Small fragments of lymphoid tissue, favor reactive. - See Comment. Comment: Immunohistochemical stains were performed on the tissue block with appropriate staining controls.? B-cells are seen in interfollicular areas by CD20.? CD45, CD5 and BCL-2 highlight T-cells in the interfollicular area.? No follicles are highlighted with CD10 and BCL-6.? Specimen: [id number] Received: 03/01/25 Status: ESMER Ramírez Num: [id number] Spec Type: Surgical Subm Dr: JEISON DELGADO MD Tissues: A Lymph Node - Biopsy (Needle or Incisional) (LEFT SUPRACLAICULAR LYMPH NO) Procedures: CD45, HE/2, Gross/Micro L4, AE1-AE3, BCL-2, BCL-6, CD10, CD138, CD20, CD23, CD30, CD5, CYCLIN D1, Ki-67, IHC First AB, IHC Add AB/10, DIFF QWIK Patient: Unique Haque [id number] (Continued) Specimen: [id number] Received: 03/01/25 (Continued) Pathological Diagnosis (Continued) Signed (signature on file) Bg Roman MD 03/06/25 1540 Specimen: [id number] Received: 03/01/25 Status: ESMER Ramírez Num: [id number] Spec Type: Surgical Subm Dr: JEISON DELGADO MD Tissues: A Lymph Node - Biopsy (Needle or Incisional) (LEFT SUPRACLAICULAR LYMPH NO) Procedures: CD45, HE/2, Gross/Micro L4, AE1-AE3, BCL-2, BCL-6, CD10, CD138, CD20, CD23, CD30, CD5, CYCLIN D1, Ki-67, IHC First AB, IHC Add AB/10, DIFF QWIK Patient: Unique Haque [id number] (Continued) Specimen: [id number] Received: 03/01/25 (Continued) Pathological Diagnosis (Continued) CD23 highlight dendritic follicular cells.? AE1/AE3, CD30, Cyclin-D1 and CD138 are negative. Ki67 proliferative index is high in follicular cells (about 70%).? Immunostains support reactive lymphoid tissue. Pending flow cytometry. Clinical Information Enlarged lymph nodes R59.9 Gross Description Received in formalin labeled with the patients name, date of , and supraclavicular lymph node are two pale billy, focally erythematous, delicate needle core biopsy, 0.8 and 1 cm in length. Touch prep slides are prepared. One half of each core is placed in RPMI media hold for flow cytometry. The remainder of the specimen is entirely submitted in a single cassette for routine H E processing. (1, ns, [id number] A) Microscopic Description Microscopic examination is performed. CPT Codes 28870, 72107, 38103, 86508 x10, 89095 (more content not included)... Normal [facility] US Guidance for Aspiration/I nject/Biopsyon 03-01-2025 US Guidance for Aspiration/Inject/ Biopsy Begin Addendum #1 COLLECTION DATE: 03/01/2025 PATHOLOGICAL DIAGNOSIS: Supraclavicular lymph node, needle biopsy: -Small fragment of lymphoid tissue, favor reactive. - See comment COMMENT: Immunohistochemical stains were performed on the tissue block with appropriate staining controls. B-cells are seen in interfollicular areas by CD20. CD45, Cd5 and BCL-2 highlight T-cells in the interfollicular area. No follicles are highlighted with CD10 and BCL-6. CD23 highlight dendritic follicular cells. AE 1/AE3, CD30, Cyclin-D1 and CD138 are negative. Ki67 proliferative index is high in follicular cells (about 70%). Immunostains support reactive lymphoid tissue. Pending flow cytometry. Supplemental report Flow cytometry was cancelled due to the inadequate specimen. Final Dictated by: Bret Rose MD Dictated DT/TM: 03/13/25 9:16 Signed (Electronic Signature): Bret Rose MD 03/13/25 9:16 am Technologist: KENN LOPEZ EXAMINATION: US Guidance for Aspiration/Inject/Biops y HISTORY: Abnormal Lymph Node COMPARISON: CT soft tissue neck 02/07/2025, ultrasound soft tissue palpable mass 02/01/2025 TECHNIQUE: After obtaining informed consent, ultrasound-guided fine needle aspiration was performed in the usual sterile manner. FINDINGS: IMAGING: Ultrasound. BIOPSY NEEDLE: 25 gauge; 4 separate passes. LOCATION: Lower lateral left neck area of palpable lump. 11 mm slightly abnormal appearing lymph node; adjacent slightly smaller but similar appearing lymph node was sampled due to its proximity to vascular structures. SPECIMEN TYPE: Cellular tissue. LOCAL ANESTHETIC: Buffered Xylocaine. COMPLICATIONS: None. LABORATORY: Prepared slide smears and washings for cell block evaluation. OTHER: Negative. PATHOLOGY: Pending. An addendum will be added when results are available. IMPRESSION: 1. Uneventful ultrasound guided fine needle aspiration (FNA). 2. Pathology results are pending. Final Dictated by: Bret Rose MD Dictated DT/TM: 03/01/25 3:23 Signed (Electronic Signature): Bret Rose MD 03/01/25 3:28 pm Technologist: KENN LOPEZ [facility] Provider Orderson 02-21-2025 Provider Orders [id number] TGTIFF [facility] CT SOFT TISSUE NECK W IV CON TRASTon 02-07-2025 CT SOFT TISSUE NECK W IV CONTRAST CT SOFT TISSUE NECK W IV CONTRAST Reason for exam: Enlarged lymph nodes left side of neck Axial sections were obtained, with sagittal and coronal reconstructions. Findings: Sinuses: Unremarkable. Salivary glands:Unremarkable. Oral cavity/floor of mouth:Symmetric. Unremarkable. Tonsils:Symmetric. Unremarkable. Vallecula/epiglottis/pi riform sinuses:Symmetric. Unremarkable. Larynx: Symmetric. Unremarkable. Cervical trachea: Unremarkable. Thyroid: Unremarkable. Vascular structures: Unremarkable. Lymphadenopathy/masses: There are mildly prominent but not pathologically enlarged level II and posterior triangle lymph nodes on both sides of the neck, nonspecific. Osseous structures: Intact. Impression: Normal study. No evidence of pathologically enlarged lymph nodes or other masses in the neck. Dictated on: 02/07/2025 12:05 PM This report has been electronically signed and approved by the interpreting Radiologist. All CT scans at this institution are performed using dose optimization techniques as appropriate for the performed exam including the following: Automated exposure control Adjustment of the mA and/or kV according to patient size Use of iterative reconstruction technique Dictated on: 02/07/2025 12:03 PM This report has been electronically signed and approved by the interpreting Radiologist. Normal Not Available Comment on above: Order Comment: ENLAR GED LYMPH NODES LT SIDE OF NECK X 4 WKS US SOFT TISSUE PALPABLE MASS on 02-01-2025 US SOFT TISSUE PALPABLE MASS Ultrasound lump left neck HISTORY: Palpable lump for 2 weeks Grayscale and color Doppler sonography was performed to evaluate the palpable area of concern in the lower left neck. There are multiple round to ovoid hypoechoic lymph nodes. The largest of these measures 1.8 x 1.2 x 1 cm but 4 separate abnormal-appearing nodes are present. These do not appear to have normal gabriella architecture. IMPRESSION: Abnormal enlarged lymph nodes in the area of palpable concern. The largest of these measures 1.8 cm in dimension. Differential considerations include reactive lymph nodes from recent or ongoing infection although malignancy, specifically lymphoproliferative diseases, are not excluded. Normal Not Available CBC (INCLUDES DIFF/PLT)on Basophils (Bld) [#/Vol] 0.021 10*3/uL Normal 0-200 [facility] Comment on above: Performed By: #### 6 533, 43200 #### [facility] [address] [facility], [address] [place] [address] Nursing Home Director: Chetan Stovall MD #### [id number] #### [facility] [address] [address] [facility] [place] [address] Nursing Home Director: Amandeep Lockhart M.D.,PhD Basophils/100 WBC (Bld) 0.4 % Normal [facility] Comment on above: Performed By: #### 6 263, 35261 #### [facility] of [place] [address] [address] , [address] [place], [place] [id number] Nursing Home Director: Chetan Stovall MD #### [id number] #### [facility] [place] Director: Amandeep Lockhart M.D.,PhD Eosinophils (Bld) [#/Vol] 0.08 10*3/uL Normal 15-500 [facility] Comment on above: Performed By: #### 6 399, 16940 #### [facility] of [place] [address] [address] , [address] [place], [place] [phone] Nursing Home Director: Chetan Stovall MD #### [id number] #### [facility] [address] [place] [address] [place] Director: Amandeep Lockhart M.D.,PhD Eosinophils/100 WBC (Bld) 1.5 % Normal [facility] Comment on above: Performed By: #### 6 399, 71210 #### [facility] of [place] [address] [address] , [address] [place], [place] [phone] Nursing Home Director: Chetan Stovall MD #### [id number] #### [facility] [address] [place] [address] [place] Director: Amandeep Lockhart M.D.,PhD Erythrocyte distribution width (RBC) [Ratio] 12.9 % Normal 11.0-15.0 [facility] Comment on above: Performed By: #### 6 399, 60472 #### [facility] of [place] [address] [address] , [address] [place], [place] [phone] Nursing Home Director: Chetan Stovall MD #### [id number] #### [facility] [place] Director: Amandeep Lockhart M.D.,PhD Hematocrit (Bld) [Volume fraction] 41.1 % Normal 35.0-45.0 [facility] Comment on above: Performed By: #### 6 399, 58217 #### [facility] of [place] [address] [address] , [address] [place], [place] [phone] Nursing Home Director: Chetan Stovall MD #### [id number] #### [facility] [place] Nursing [place] Director: Amandeep Lockhart M.D.,PhD Hemoglobin (Bld) [Mass/Vol] 13.4 g/dL Normal 11.7-15.5 [facility] Comment on above: Performed By: #### 6 399, 37197 #### [facility] of [address], [address] [place], [place] [phone] Nursing Home Director: Chetan Stovall MD #### [id number] #### [facility] [address] [place] [address] [place] Director: Amandeep Lockhart M.D.,PhD Lymphocytes (Bld) [#/Vol] 1.813 10*3/uL Normal 850-3900 [facility] Comment on above: Performed By: #### 6 399, 82974 #### [facility] of [place] [address] [address] , [address] [place], [place] [address] Nursing Home Director: Chetan Stovall MD #### [id number] #### [facility] [place] Nursing [place] Director: Amandeep Lockhart M.D.,PhD Lymphocytes/100 WBC (Bld) 34.2 % Normal [facility] Comment on above: Performed By: #### 6 399, 51317 #### [facility] of [address], [address] [place], [place] [address] Nursing Home Director: Chetan Stovall MD #### [id number] #### [facility] [place] Director: Amandeep Lockhart M.D.,PhD MCH (RBC) [Entitic mass] 28.3 pg Normal 27.0-33.0 [facility] Comment on above: Performed By: #### 6 399, 32745 #### [facility] of [place] [address] Nursing Home Director: Chetan Stovall MD #### [id number] #### [facility] [place] Nursing [place] Director: Amandeep Lockhart M.D.,PhD MCHC (RBC) [Mass/Vol] 32.6 g/dL Normal 32.0-36.0 [facility] Comment on above: Result Comment: For adults, a slight decrease in the calculated MCHC value (in the range of 30 to 32 g/dL) is most likely not clinically significant; however, it should be interpreted with caution in correlation with other red cell parameters and the patient's clinical condition. Performed By: #### 6 399, 51165 #### [facility] [address] Nursing Home Director: Chetan Stovall MD #### [id number] #### [facility] [place] Nursing [place] Director: Amandeep Lockhart M.D.,PhD MCV (RBC) [Entitic vol] 86.9 fL Normal 80.0-100.0 [facility] Comment on above: Performed By: #### 6 399, 79593 #### [facility] of [place] [phone] Nursing Home Director: Chetan Stovall MD #### [id number] #### [facility] [place] Nursing [place] Director: Amandeep Lockhart M.D.,PhD Monocytes (Bld) [#/Vol] 0.313 10*3/uL Normal 200-950 [facility] Comment on above: Performed By: #### 6 399, 00141 #### [place] [address] Nursing Home Director: Chetan Stovall MD #### [id number] #### [facility]/[address] [place] Director: Amandeep Lockhart M.D.,PhD Monocytes/100 WBC (Bld) 5.9 % Normal [facility] Comment on above: Performed By: #### 6 399, 80023 #### [facility] of [place] [address], [address] [place], [place] [phone] Nursing Home Director: Chetan Stovall MD #### [id number] #### [facility]/[address] [place] Nursing [place] Director: Amandeep Lockhart M.D.,PhD Neutrophils (Bld) [#/Vol] 3.074 10*3/uL Normal 9786-5417 [facility] Comment on above: Performed By: #### 6 399, 23910 #### [facility] of [address], [address] [place], [place] [phone] Nursing Home Director: Chetan Stovall MD #### [id number] #### [facility]/[place] [id number] [facility] [place] Nursing [place] Director: Amandeep Lockhart M.D.,PhD Neutrophils/100 WBC (Bld) 58 % Normal [facility] Comment on above: Performed By: #### 6 399, 99681 #### [facility] of [address], [address] [place], [place] [address] Nursing Home Director: Chetan Stovall MD #### [id number] #### [facility] [place] Nursing [place] Director: Amandeep Lockhart M.D.,PhD Platelet mean volume (Bld) [Entitic vol] 10.0 fL Normal 7.5-12.5 [facility] Comment on above: Performed By: #### 6 399, 31186 #### [facility] of [place] [address], [address] [place], [place] [phone] Nursing Home Director: Chetan Stovall MD #### [id number] #### [facility]/[place] [id number] [facility] [place] Nursing [place] Director: Amandeep Lockhart M.D.,PhD Platelets (Bld) [#/Vol] 315 10*3/uL Normal 140-400 [facility] Comment on above: Performed By: #### 6 399, 19023 #### [facility] of [place] [address], [address] [place], [place] [phone] Nursing Home Director: Chetan Stovall MD #### [id number] #### [facility]/[place] [id number] [facility] [place] Nursing [place] Director: Amandeep Lockhart M.D.,PhD RBC (Bld) [#/Vol] 4.73 10*6/uL Normal 3.80-5.10 [facility] Comment on above: Performed By: #### 6 399, 39810 #### [facility] of [place] [address] [address] , [address] [place], [place] [phone] Nursing Home Director: Chetan Stovall MD #### [id number] #### [facility]/[place] [id number] [facility] [place] Nursing [place] Director: Amandeep Lockhart M.D.,PhD WBC (Bld) [#/Vol] 5.3 10*3/uL Normal 3.8-10.8 [facility] Comment on above: Performed By: #### 6 399, 60652 #### [facility] of [place] [address] [address] , [address] [place], [place] [phone] Nursing Home Director: Chetan Stovall MD #### [id number] #### [facility] [place] Nursing [place] Director: Amandeep Lockhart M.D.,PhD COMPREHENSIVE METABOLIC PANE [facility] 01-31-2025 Albumin [Mass/Vol] 5.2 g/dL High 3.6-5.1 [facility] Comment on above: Performed By: #### 6 399, 76515 #### [facility] of [place] [address] Nursing Home Director: Chetan Stovall MD #### [id number] #### [facility]/[place] [id number] [facility] [place] Nursing Home Director: Amandeep Lockhart M.D.,PhD Albumin/Globulin [Mass ratio] 2.3 {ratio} Normal 1.0-2.5 [facility] Comment on above: Performed By: #### 6 399, 06300 #### [facility] [place] [address] Nursing Home Director: Chetan Stovall MD #### 56505 #### [facility]/[place] [id number] [facility] [place] Nursing [place] Director: Amandeep Lockhart M.D.,PhD ALP [Catalytic activity/Vol] 52 U/L Normal 31-125 [facility] Comment on above: Performed By: #### 6 399, 59682 #### [facility] of [place] [address] Nursing Home Director: Chetan Stovall MD #### 57304 #### [facility]/[address] [place] Nursing [place] Director: Amandeep Lockhart M.D.,PhD ALT [Catalytic activity/Vol] 40 U/L High 6-29 [facility] Comment on above: Performed By: #### 6 399, 79133 #### [facility] [place] [id number] Nursing Home Director: Chetan Stovall MD #### [id number] #### [facility] [place] Nursing Home Director: Amandeep Lockhart M.D.,PhD AST [Catalytic activity/Vol] 31 U/L High 10-30 [facility] Comment on above: Performed By: #### 6 399, 33366 #### [facility] of [address], [address] [place] [address] Nursing Home Director: Chetan Stovall MD #### 80823 #### [facility]/[place] [id number] [facility] [place] Nursing [place] Director: Amandeep Lockhart M.D.,PhD Bilirubin [Mass/Vol] 0.8 mg/dL Normal 0.2-1.2 [facility] Comment on above: Performed By: #### 6 399, 54753 #### [facility] of [address], [address] [place] [address] Nursing Home Director: Chetan Stovall MD #### [id number] #### [facility] [place] Nursing [place] Director: Amandeep Lockhart M.D.,PhD BUN/CREATININE RATIO SEE NOTE: Normal 03-18 [facility] Comment on above: Result Comment: Not Reported: BUN and Creatinine are within reference range. Performed By: #### 6 399, 32171 #### [facility] of [address], [address] [place] [address] Nursing Home Director: Chetan Stovall MD #### 13977 #### [facility]/[address] [place] Nursing [place] Director: Amandeep Lockhart M.D.,PhD Calcium [Mass/Vol] 9.9 mg/dL Normal 8.6-10.2 [facility] Comment on above: Performed By: #### 6 399, 58599 #### [facility] of [address], [address] [place], [place] [address] Nursing Home Director: Chetan Stovall MD #### 27186 #### [facility] [place] Nursing [place] Director: Amandeep Lockhart M.D.,PhD Chloride [Moles/Vol] 104 mmol/L Normal 98-110 [facility] Comment on above: Performed By: #### 6 399, 07103 #### [facility] of [address], [address] [place], [place] [address] Nursing Home Director: Chetan Stovall MD #### 07998 #### [facility]/[address] [place] Nursing [place] Director: Amandeep Lockhart M.D.,PhD CO2 [Moles/Vol] 24 mmol/L Normal 20-32 [facility] Comment on above: Performed By: #### 6 399, 23070 #### [facility] of [place] [id number] Nursing Home Director: Chetan Stovall MD #### 07822 #### [facility]/[address] [place] Nursing [place] Director: Amandeep Lockhart M.D.,PhD Creatinine [Mass/Vol] 0.69 mg/dL Normal 0.50-0.97 [facility] Comment on above: Performed By: #### 6 399, 83887 #### [facility] of [place] [address] Nursing Home Director: Chetan Stovall MD #### [id number] #### [facility] [place] Nursing Home Director: Amandeep Lockhart M.D.,PhD GFR/1.73 sq M.predicted among non-blacks MDRD (S/P/Bld) [Vol rate/Area] 118 mL/min/{1.73_m2} Normal > OR = 60 [facility] Comment on above: Performed By: #### 6 399, 49052 #### [facility] of [address], [address] [place], [place] [address] Nursing Home Director: Chetan Stovall MD #### 06646 #### [facility] [place] Nursing [place] Director: Amandeep Lockhart M.D.,PhD Globulin (S) [Mass/Vol] 2.3 g/dL Normal 1.9-3.7 [facility] Comment on above: Performed By: #### 6 399, 48796 #### [facility] [address], [address] [place], [place] [address] Nursing Home Director: Chetan Stovall MD #### 46779 #### [facility] [place] Nursing Home Director: Amandeep Lockhart M.D.,PhD Glucose [Mass/Vol] 79 mg/dL Normal 65-99 [facility] Comment on above: Result Comment: Fasting reference interval Performed By: #### 6 399, 60563 #### [facility] [address], [address] [place] [address] Nursing Home Director: Chetan Stovall MD #### 71702 #### [facility] [place] Nursing Home Director: Amandeep Lockhart M.D.,PhD Potassium [Moles/Vol] 3.5 mmol/L Normal 3.5-5.3 [facility] Comment on above: Performed By: #### 6 399, 49009 #### [facility] [address], [address] [place], [place] [id number] Nursing Home Director: Chetan Stovall MD #### 93327 #### [facility] [place] Nursing [place] Director: Amandeep Lockhart M.D.,PhD Protein [Mass/Vol] 7.5 g/dL Normal 6.1-8.1 [facility] Comment on above: Performed By: #### 6 399, 17305 #### [facility] [address], [address] [place], [place] [address] Nursing Home Director: Chetan Stovall MD #### 92801 #### [facility] [place] Nursing [place] Director: Amandeep Lockhart M.D.,PhD Sodium [Moles/Vol] 139 mmol/L Normal 135-146 [facility] Comment on above: Performed By: #### 6 399, 66071 #### [facility] [address], [address] [place] [address] Nursing Home Director: Chetan Stovall MD #### [id number] #### [facility] [place] Nursing [place] Director: Amandeep Lockhart M.D.,PhD Urea nitrogen [Mass/Vol] 9 mg/dL Normal 7-25 [facility] Comment on above: Performed By: #### 6 399, 70463 #### [facility] [place] [address] Nursing Home Director: Chetan Stovall MD #### 99553 #### [facility] [place] Nursing Home Director: Amandeep Lockhart M.D.,PhD LAMOTRIGINEon 01-31-2025 LAMOTRIGINE 3.5 mcg/mL Normal 2.5-15.0 [facility] Comment on above: Result Comment: This test was developed and its analytical performance characteristics have been determined by [employer] [place], [place]. It has not been cleared or approved by the U.S. Food and Drug Administration. This assay has been validated pursuant to the CLIA regulations and is used for clinical purposes. Performed By: #### 6 399, 03356 #### [facility] [address], [address] [place] [address] Nursing Home Director: Chetan Stovall MD #### [id number] #### [facility] [place] Nursing Home Director: Amandeep Lockhart M.D.,PhD CBC W Auto Differential pane l (Bld)on 01-30-2025 Basophils (Bld) [#/Vol] 21 10*3/uL [facility] Basophils/100 WBC (Bld) 0.4 % [facility] Eosinophils (Bld) [#/Vol] 80 10*3/uL [facility] Eosinophils/100 WBC (Bld) 1.5 % [facility] Erythrocyte distribution width (RBC) [Ratio] 12.9 % 11.0 - 15.0 % [facility] Hematocrit (Bld) [Volume fraction] 41.1 % 35.0 - 45.0 % [facility] Hemoglobin (Bld) [Mass/Vol] 13.4 g/dL 11.7 - 15.5 g/dL [facility] Lymphocytes (Bld) [#/Vol] 1813 10*3/uL [facility] Lymphocytes/100 WBC (Bld) 34.2 % [facility] MCH (RBC) [Entitic mass] 28.3 pg 27.0 - 33.0 pg [facility] MCHC (RBC) [Mass/Vol] 32.6 g/dL 32.0 - 36.0 g/dL [facility] Comment on above: For adults, a slight decrease in the calculated MCHC value (in the range of 30 to 32 g/dL) is most likely not clinically significant; however, it should be interpreted with caution in correlation with other red cell parameters and the patient's clinical condition. MCV (RBC) [Entitic vol] 86.9 fL 80.0 - 100.0 fL [facility] Monocytes (Bld) [#/Vol] 313 10*3/uL [facility] Monocytes/100 WBC (Bld) 5.9 % [facility] Neutrophils (Bld) [#/Vol] 3074 10*3/uL [facility] Neutrophils/100 WBC (Bld) 58 % [facility] Platelet mean volume (Bld) [Entitic vol] 10 fL 7.5 - 12.5 fL [facility] Platelets (Bld) [#/Vol] 315 10*3/uL [facility] RBC (Bld) [#/Vol] 4.73 10*6/uL [facility] WBC (Bld) [#/Vol] 5.3 10*3/uL [facility] Performing Organizat ion Information Site ID: QPT Name: [email or web address] [facility] Address: [address] [place] [address], [address] [place] [id number] Director: Chetan Stovall MD [facility] XR CHEST 2 VIEWSon XR CHEST 2 VIEWS TITLE OF EXAM: XR CH EST 2 VIEWS REASON FOR EXAM: Enlarged lymph nodes, no chest concerns TECHNIQUE: Two radiographs of the chest. COMPARISON: None FINDINGS: Normal lung expansion. No diffuse or focal pulmonary abnormality. No significant effusion or pneumothorax. The cardiomediastinal silhouette is normal. No acute osseous or upper abdominal abnormality. IMPRESSION: No acute cardiopulmonary abnormality. DICTATED ON: 01/29/2025 11:00 AM This report has been electronically signed in approved by the interpreting radiologist. Normal Not Available COVID + FLU Quick Testingon 09-25-2023 SARS-CoV-2 (COVID-19) RNA MIGUELITO+probe Ql (Unsp spec) Negative [facility] Other COVID + FLU Quick Testing Negative [facility] Other US PELVIS AND TRANSVAGon US PELVIS AND TRANSVAG EXAMINATION: US PELVIS AND TRANSVAG HISTORY: Pelvic and perineal pain COMPARISON: 11/15/2020 FINDINGS: Transabdominal and transvaginal images The uterus is surgically absent The right ovary is normal in appearance measuring 2.6 x 1.5 x 1.5 cm The left ovary is normal in appearance measuring 1.5 x 1.6 x 1.1 cm No free fluid IMPRESSION: Normal appearance of the ovaries Electronically authenticated by: AMARILIS VELÁSQUEZ Date: 2023-01-01 11:59 Normal [facility] PAP ACOG PANEL 2: 21 to 29on 03-24-2022 . . Normal [facility] Comment on above: Performed By: #### [id number] #### [facility] [address] [place] [address] Dr. Avel Santizo Age Gdln ACOG Testing 21-29 Normal [facility] Comment on above: Performed By: #### [id number] #### [facility] [address] [place] [address] Dr. Avel Santizo DIAGNOSIS: Comment Normal [facility] Comment on above: Result Comment: NEGA TIVE FOR INTRAEPITHELIAL LESION OR MALIGNANCY. PREDOMINANCE OF COCCOBACILLI CONSISTENT WITH SHIFT IN VAGINAL THANIA IS PRESENT. Performed By: #### [id number] #### [facility] [address] [place] [address] Dr. Avel Santizo Methodology: Comment Normal [facility] Comment on above: Result Comment: This liquid based ThinPrep(R) pap test was screened with the use of an image guided system. Performed By: #### [id number] #### [facility] [address] [place] [address] Dr. Avel Santizo Note: Comment Normal [facility] Comment on above: Result Comment: The Pap smear is a screening test designed to aid in the detection of premalignant and malignant conditions of the uterine cervix. It is not a diagnostic procedure and should not be used as the sole means of detecting cervical cancer. Both false-positive and false-negative reports do occur. . Performed By: #### [id number] #### [facility] [address] [place] [address] Dr. Avel Santizo Performed by: Comment Normal [facility] Comment on above: Result Comment: Jennifer Berger Rolling Machine Operator Automatic (ASCP) Performed By: #### [id number] #### [facility] [address] [place] [address] Dr. Avel Santizo Reflex Criteria: Comment Normal [facility] Comment on above: Result Comment: The HPV DNA reflex criteria were not met with this specimen result therefore, no HPV testing was performed. . Performed By: #### 4 [id number] #### [facility] [address] [place] [address] Dr. Avel Santizo Specimen adequacy: Comment Normal [facility] Comment on above: Result Comment: Sati sfactory for evaluation. Endocervical and/or squamous metaplastic cells (endocervical component) are present. Performed By: #### 4 [id number] #### [facility] [address] [place] [address] Dr. Avel Santizo VAGINITIS/VAGINOSIS DNA PROB Mitch 03-22-2022 Alba species Negative Normal Negative [facility] Comment on above: Performed By: #### V AGINT #### [facility] [address] [place] [address] Dr. Avel Santizo Gardnerella vaginalis Positive Abnormal Negative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 2-Karl 0.3 mg injectable kit, 0.3 mg, IM, Once, PRN gabapentin 100 mg oral capsule, 100 mg, Oral, TID Pickaway-Linyah 0.25 mg-35 mcg oral tablet, 1 tabs, Oral, Daily predniSONE 20 mg oral tablet, 20 mg, 1 tabs, Oral, BID Vitamin B12 with Folic Acid sublingual tablet, 1 tabs, SL, Daily Allergies Coconut Oil (Unknown) Social History Alcohol Never Tobacco Never (less than 100 in lifetime) Use:. Diagnostic Results No qualifying data available (XRay) No qualifying data available (CT) No qualifying data available (Ultrasound) No qualifying data available (MRI) Electronically signed by ___ Taylor Figueroa MD 06/12/19 13:22 EDT Diagnosis: Lumbar neuritis Electronically signed by ___ Taylor Figueroa MD 06/26/19 14:28 EDT [facility] Inpatient Clinical Summaryon 06-08-2019 Inpatient Clinical Summary [address] [address] Clinical Summary Person Information Name: Unique Haque Age: 28 Years : 1990 Sex: Female PCP: Sha Shukla MD, Annabel Michelle Marital Status: Single Phone: PCP: [phone] Race: White Ethnicity: Not or Language: Mozambican Visit Id: Visit Reason: Back pain; Leg pain-swelling; Leg Pain Speciality: Acuity: Enc Type: Observation Med Service: Emergency Medicine Arrival: 06/07/2019 02:53:00 Discharge: Dispo Type: Place in Observation Address: [facility] [address] [place] [id number] Diagnosis: 1:Right low back pain; 2:Inability to walk; 3:Sacroiliac pain Discharged To: Home Treatments: Devices/Equipment: Professional Skilled Services: Special Services and Community Resources: Mode of Discharge Transportation: Discharge Orders Activity Restrictions No driving, until issues resolve with right leg and cleared by primary doctor. Diet Instruction Regular home diet Follow up 06/08/19 10:19:00 EDT, Provider: Sha Shukla MD, Annabel Martinez, 1 to 2 days Transmit to [facility] 06/08/19 10:51:00 EDT, Home Health, PT/OT Allergies Coconut Oil (Unknown) Functional Status: Sensory Deficits: None History of Falls: Mobility Assistance Prior to Admission: ADLs: Minimal assistance Gait: Unable to assess Ambulation Assist: Assistive Device: Gait belt, Walker Special Orthopedic Devices: Current Level of Assistance for Self-Care/Mobility: Cognitive Status: Orientation: Orientation Assessment Oriented x 4 Level of Consciousness: Alert Characteristics of Speech: Clear Aspiration Risk: None Affect/Behavior: Appropriate, Anxious, Fearful Laboratory or Other Results This Visit (last charted value for your 06/07/2019 visit) Hematology 06/07/2019 6:30 AM WBC: 12.4 x10 RBC: 4.31 x10 MCV: 83.2 fL -- Normal range between ( 80.0 and 100.0 ) MCHC: 33.7 % -- Normal range between ( 31.0 and 37.0 ) Hct: 35.9 % -- Normal range between ( 36.0 and 46.0 ) MCH: 28.1 pg -- Normal range between ( 27.0 and 35.0 ) Hgb: 12.1 g/dL -- Normal range between ( 12.0 and 16.0 ) Mean Platelet Volume: 7.8 fL -- Normal range between ( 6.7 and 10.6 ) Platelet: 366 x10 RDW: 14.5 % -- Normal range between ( 11.6 and 14.8 ) 06/07/2019 3:31 AM Sed Rate: 11 mm/hr -- Normal range between ( 0 and 23 ) Urinalysis 06/07/2019 3:31 AM UA Spec Grav: 1.009 -- Normal range between ( 1.003 and 1.035 ) UA pH: 8.0 Chemistry 06/07/2019 6:30 AM Creatinine Lvl: 0.54 mg/dL -- Normal range between ( 0.44 and 1.03 ) BUN: 5 mg/dL -- Normal range between ( 8 and 26 ) Glucose Lvl: 122 mg/dL -- Normal range between ( 74 and 118 ) Potassium Lvl: 4.1 mmol/L -- Normal range between ( 3.4 and 4.8 ) Sodium Lvl: 139 mmol/L -- Normal range between ( 133 and 142 ) Calcium Lvl: 9.4 mg/dL -- Normal range between ( 8.5 and 10.3 ) Chloride: 104 mmol/L -- Normal range between ( 98 and 110 ) CO2: 23 mmol/L -- Normal range between ( 22 and 32 ) Anion Gap: 16 -- Normal range between ( 7 and 17 ) eGFR Non-AA: >60 mL/min/1.73m? eGFR AA: >60 mL/min/1.73m? BUN Crea Ratio: 9.3 -- Normal range between ( 10.0 and 20.0 ) 06/07/2019 3:31 AM CRP: 0.79 mg/dL -- Normal range between ( 0.00 and 0.75 ) Ur Creatinine Tox Scrn: 51.3 mg/dL Toxicology 06/07/2019 3:31 AM Ur PCP Scrn: Negative ng/mL Ur Opiate Scrn: Negative ng/mL Ur Methadone Scn: Negative ng/mL Ur Cannab Scrn: Negative ng/mL Ur Amph Scrn: Negative ng/mL Ur Benzodia Scrn: Negative ng/mL Ur Lala Scrn: Negative ng/mL Ur Cocaine Scrn: Negative ng/mL Ur Oxy Screen: Negative ng/mL Diagnostic Radiology 06/07/2019 5:52 AM XR Hip 2-3 Views Right: XR Hip 2-3 Views Right Magnetic Resonance Imaging 06/07/2019 12:50 PM MRI Hip w/o Contrast Right: MRI Hip w/o Contrast Right 06/07/2019 4:57 AM MRI Spine Lumbar w/o Contrast: MRI Spine Lumbar w/o Contrast MRI Spine Thoracic w/o Contrast: MRI Spine Thoracic w/o Contrast Measurements: Height: Weight: Blood Pressure: 125 mmHg / BMI: Respiratory: Respirations: Unlabored, Quiet Respiratory Symptoms: None Cardiovascular: Heart Sounds: Heart Rhythm: Regular Gastrointestinal: GI Symptoms: Bowel Sounds: Hyperactive Vital Signs: Temp Axillary: Temp Temporal Artery: Temp Oral: 36.7 degC Temp Rectal: Apical Heart Rate: Peripheral Pulse Rate: 70 bpm Heart Rate: Respiratory Rate: 16 br/min Diet Diet: Feeding Tolerance: Appetite: Good [place] Assessment: 20 Procedures No Procedures Documented Immunizations No Immunizations Documented This Visit HERE ARE THE MEDICATION CHANGES THAT OCCURRED DURING YOUR HOSPITAL STAY New Medications Printed Prescriptions baclofen (baclofen 10 mg oral tablet) 10 Milligram Oral (given by mouth) every 6 hours standard times as needed spasm for 30 Days. Refills: 0. Last Dose: __ DME Refills: 0. Last Dose: __ gabapentin (gabapentin 100 mg oral capsule) 100 Milligram Oral (given by mouth) 3 times a day for 30 Days. Refills: 0. Last Dose: __ Medications That Were Updated - Follow Current Instructions Other Medications Current: divalproex sodium (Depakote 250 mg oral delayed release tablet) 1 Tabs Oral (given by mouth) 2 times a day. Last Dose: __ Medications That Have Not Changed Other Medications albuterol (albuterol 90 mcg/inh inhalation aerosol) 2 Puffs Inhale (breathe in) every 4 hours as needed as needed for wheezing. Last Dose: __ EPINEPHrine (EpiPen 2-Karl 0.3 mg injectable kit) 0.3 Milligram Intramuscular (in a muscle) once as needed allergic reaction. Last Dose: __ multivitamin (Vitamin B12 with Folic Acid sublingual tablet) 1 Tabs Sublingual (dissolve under the tongue) every day. Last Dose: __ norgestimate-ethinyl estradiol (Pickaway-Linyah 0.25 mg-35 mcg oral tablet) 1 Tabs Oral (given by mouth) every day. Last Dose: __ predniSONE (predniSONE 20 mg oral tablet) 1 Tabs Oral (given by mouth) 2 times a day for 5 Days. Last Dose: __ These Medications Were Removed and Should No Longer Be Taken methocarbamol (methocarbamol 750 mg oral tablet) 1 Tabs Oral (given by mouth) once a day (at bedtime) for 14 Days. Stop Taking Reason: Physician Request PROVIDED FOR YOU IS A LIST OF YOUR PATIENT?S CURRENT MEDICATIONS Printed Prescriptions baclofen (baclofen 10 mg oral tablet) 10 Milligram Oral (given by mouth) every 6 hours standard times as needed spasm for 30 Days. Refills: 0. DME Refills: 0. gabapentin (gabapentin 100 mg oral capsule) 100 Milligram Oral (given by mouth) 3 times a day for 30 Days. Refills: 0. Other Medications albuterol (albuterol 90 mcg/inh inhalation aerosol) 2 Puffs Inhale (breathe in) every 4 hours as needed as needed for wheezing. divalproex sodium (Depakote 250 mg oral delayed release tablet) 1 Tabs Oral (given by mouth) 2 times a day. EPINEPHrine (EpiPen 2-Karl 0.3 mg injectable kit) 0.3 Milligram Intramuscular (in a muscle) once as needed allergic reaction. multivitamin (Vitamin B12 with Folic Acid sublingual tablet) 1 Tabs Sublingual (dissolve under the tongue) every day. norgestimate-ethinyl estradiol (Pickaway-Linyah 0.25 mg-35 mcg oral tablet) 1 Tabs Oral (given by mouth) every day. predniSONE (predniSONE 20 mg oral tablet) 1 Tabs Oral (given by mouth) 2 times a day for 5 Days. Care Team Members: Attending Physician: Pedro Garcia MD Consulting Physician: Adrina Davidson III, MD Referring Physician: Follow up: [facility] Neurosurgery Progress Noteon 06-08-2019 Neurosurgery Progress Note Objective Vitals & Measurements T: 36.6 ?C (Oral) RR: 16 BP: 116/72 SpO2: 98% HT: 162 cm WT: 67.8 kg DOSE WT: 68.9 kg BMI: 25.83 Additional Vitals Peripheral Pulse Rate: 52 bpm Low Lab Results Microbiology No qualifying data available. Diagnostic Results Diagnostic Radiology XR Hip 2-3 Views Right 06/07/19 06:17:21 IMPRESSION: No acute fracture or dislocation of the pelvis or right hip is seen. If there is concern for an occult injury, cross-sectional imaging is recommended. Signed By: Satya HARDY, Turner Grant Computed Tomography No qualifying data available. Ultrasound No qualifying data available. Magnetic Resonance Imaging MRI Hip w/o Contrast Right 06/07/19 13:58:50 IMPRESSION: 1. There appears to be a possible small nondisplaced tear of the anterior labrum of the right hip. However, there is no evidence of significant chondromalacia of the right hip. 2. Possible mild peritendinitis adjacent to the right gluteus minimus tendon at its insertion on the greater trochanter without evidence of significant tendinopathy or tear of the tendon. Signed By: Lazarus Doss MD MRI Spine Lumbar w/o Contrast 06/07/19 05:08:59 IMPRESSION: Small right paracentral disc bulge with tiny annular tear at L3/L4 without central canal stenosis. This produces minimal encroachment upon the caudal aspect of the right neural foramen. Otherwise unremarkable MRI lumbar spine. Signed By: Meek HARDY, Lazarus Sood MRI Spine Thoracic w/o Contrast 06/07/19 05:15:46 IMPRESSION: No posterior disc abnormality, central canal stenosis, or foraminal narrowing at any thoracic level. No cord signal abnormality. Signed By: Meek HARDY, Lazarus Sood Nuclear Medicine No qualifying data available. Medications Inpatient acetaminophen, 650 mg, Oral, q6hr, PRN acetaminophen, 650 mg, Oral, q6hr, PRN albuterol 90 mcg/inh inhalation aerosol, 180 mcg, 2 puffs, Inhale, q4hr, PRN baclofen, 10 mg, Oral, [id number] Times, PRN Depakote, 250 mg, Oral, BID docusate sodium, 100 mg, Oral, Daily, PRN gabapentin, 100 mg, Oral, TID ketorolac, 30 mg, 1 mL, IV Push, q6hr, PRN Lidoderm 5% topical film, 1 patches, Topical, Daily MiraLax, 17 g, 1 EA, Oral, Daily, PRN naloxone, 0.4 mg, 1 mL, IV Push, q2min, PRN [place] 5 mg-325 mg oral tablet, 1 tabs, Oral, q4hr, PRN Normal Saline Flush 0.9% injectable solution, 10 mL, IV Push, As Indicated, PRN Normal Saline Flush 0.9% injectable solution, 10 mL, IV Push, BID ondansetron, 4 mg, 2 mL, IV Push, q4hr, PRN Assessment/Plan 1. Right low back pain 2. Inability to walk 3. Sacroiliac pain Patient reports she is a bit more comfortable Notes that if she is absolutely still, pain is well-controlled. Movement, such as walking, significantly increases her pain Tolerating diet No change to exam Assessment/plan Right sacroiliac and gluteal pain of uncertain etiology. The pain has a mechanical nature to it is indicated by her increasing pain with mobilization/weightbear ing. Given the absence of major structural abnormality in the spinal axis, may represent bursitis, sacroiliac dysfunction, gluteal tendinosis. No neurosurgical intervention specifically required May benefit from orthopedic evaluation and or pain management Neurosurgery will follow peripherally Electronically signed by ___ Adrian Davidson III, MD 06/08/19 06:13 EDT [facility] .eGFRon 06-07-2019 eGFR AA >60 Normal >=60 [facility] Comment on above: Result Comment: Resu lt = 0-14.9 mL/min/1.73 m2 Kidney failure or Dialysis Result = 15-29 mL/min/1.73 m2 Severe decrease in GFR Result = 30-59 mL/min/1.73 m2 Moderate decrease in GFR Result >= 60 mL/min/1.73 m2 Normal or increased GFR Performed By: #### C [id number] #### [facility] [address] [place] [address] eGFR Non-AA >60 Normal >=60 [facility] Comment on above: Result Comment: Resu lt = 0-14.9 mL/min/1.73 m2 Kidney failure or Dialysis Result = 15-29 mL/min/1.73 m2 Severe decrease in GFR Result = 30-59 mL/min/1.73 m2 Moderate decrease in GFR Result >= 60 mL/min/1.73 m2 Normal or increased GFR Chronic kidney disease is defined as either kidney damage or GFR < 60 mL/min/1.73 m2 for >= 3 months. Kidney damage is defined as pathologic abnormalities or markers of damage including abnormalities in blood or urine tests or imaging studies. This GFR is NOT used for medication dosing. Performed By: #### C [id number] #### [address] [address] Basic Metabolic Profon 06-07 (cont.) [facility] Comment on above: Result Comment: Aver age GFR for 20-29 years old: 116 mL/min/1.73sq m Chronic Kidney Disease: <60 mL/min/1.73sq m Kidney failure: <15 mL/min/1.73sq m eGFR calculated using average adult body mass. Additional eGFR calculator available at: http://www.[employer]/multiple_crcl_2012.htm Performed By: #### B MP, CDP #### [facility] [address] [place] [address] Hydro Plant Site Manager: Dilip Segura MD Anion gap [Moles/Vol] 15 mmol/L Normal 9-17 [facility] Comment on above: Performed By: #### B MP, CDP #### [facility] [address] [place], [place] [id number] [employer] Plant Site Manager: Dilip Segura MD BUN/CRE Ratio 11 Normal 9-20 [facility] Comment on above: Performed By: #### B MP, CDP #### [facility] [address] [place] [address] [employer] Plant Site Manager: Dilip Segura MD Calcium [Mass/Vol] 9.2 mg/dL Normal 8.6-10.4 [facility] Comment on above: Performed By: #### B MP, CDP #### [facility] [address] [place] [address] [employer] Plant Site Manager: Dilip Segura MD Chloride [Moles/Vol] 102 mmol/L Normal 98-107 [facility] Comment on above: Performed By: #### B MP, CDP #### [facility] [address] [place] [address] [employer] Plant Site Manager: Dilip Segura MD CO2 [Moles/Vol] 22 mmol/L Normal 20-31 [facility] Comment on above: Performed By: #### B MP, CDP #### [facility] [address] [place] [address] [employer] Plant Site Manager: Dilip Segura MD Creatinine [Mass/Vol] 0.56 mg/dL Normal 0.50-0.90 [facility] Comment on above: Performed By: #### B MP, CDP #### [facility] [address] [place], [place] [id number] [employer] Site Manager: Dilip Segura MD GFR, Amer >60 Normal >60 [facility] Comment on above: Performed By: #### B MP, CDP #### [facility] [address] [place], [place] [id number] [employer] Site Manager: Dilip Segura MD GFR,non Amer >60 Normal >60 [facility] Comment on above: Performed By: #### B MP, CDP #### [facility] [address] [place] [id number] [employer] Site Manager: Dilip Segura MD Glucose [Mass/Vol] 153 mg/dL High 70-99 [facility] Comment on above: Performed By: #### B MP, CDP #### [facility] [address] [place] [id number] [employer] Plant Site Manager: Dilip Segura MD Potassium [Moles/Vol] 3.6 mmol/L Low 3.7-5.3 [facility] Comment on above: Performed By: #### B MP, CDP #### [facility] [address] [place], [place] [id number] [employer] Plant Site Manager: Dilip Segura MD Sodium [Moles/Vol] 139 mmol/L Normal 135-144 [facility] Comment on above: Performed By: #### B MP, CDP #### [facility] [address] [place], [place] [id number] [employer] Plant Site Manager: Dilip Segura MD Staging: Normal [facility] Comment on above: Result Comment: Stag e 1: Some kidney damage normal GFR Stage 2: Mild kidney damage GFR 60-89 Stage 3: Moderate kidney damage GFR 30-59 Stage 4: Severe kidney damage GFR 15-29 Stage 5: Severe kidney damage GFR <15 ESRD - chronic treatment by dialysis or transplant Performed By: #### B MP, CDP #### [facility] [address] [place], [place] [id number] [employer] Site Manager: Dilip Segura MD Urea nitrogen [Mass/Vol] 6 mg/dL Normal 6-20 [facility] Comment on above: Performed By: #### B MP, CDP #### [facility] [address] [place], [place] [id number] [employer] Plant Site Manager: Dilip Segura MD Basic Metabolic Profileon Anion gap [Moles/Vol] 16 mmol/L Normal 7-17 [facility] Comment on above: Performed By: #### C [id number] #### [address] [address] Calcium [Mass/Vol] 9.4 mg/dL Normal 8.5-10.3 [facility] Comment on above: Performed By: #### C [id number] #### [address] [address] Chloride [Moles/Vol] 104 mmol/L Normal 98-110 [facility] Comment on above: Performed By: #### C [id number] #### [address] [address] CO2 [Moles/Vol] 23 mmol/L Normal 22-32 [facility] Comment on above: Performed By: #### C [id number] #### [address] [address] Creatinine [Mass/Vol] 0.54 mg/dL Normal 0.44-1.03 [facility] Comment on above: Performed By: #### C [id number] #### [address] [address] Glucose [Mass/Vol] 122 mg/dL High 74-118 [facility] Comment on above: Performed By: #### C [id number] #### [address] [address] Potassium [Moles/Vol] 4.1 mmol/L Normal 3.4-4.8 [facility] Comment on above: Performed By: #### C [id number] #### [address] [address] Sodium [Moles/Vol] 139 mmol/L Normal 133-142 [facility] Comment on above: Performed By: #### C [id number] #### [address] [address] Urea nitrogen [Mass/Vol] 5 mg/dL Low 8-26 [facility] Comment on above: Performed By: #### C [id number] #### [address] [address] Urea nitrogen/Creatinin e [Mass ratio] 9.3 mg/mg Low 10.0-20.0 [facility] [facility] Comment on above: Performed By: #### C [id number] #### [address] [address] CBCon 06-07-2019 Erythrocyte distribution width (RBC) [Ratio] 14.5 % Normal 11.6-14.8 [facility] Comment on above: Performed By: #### C BCI #### [address] [address] Hematocrit (Bld) [Volume fraction] 35.9 % Low 36.0-46.0 [facility] Comment on above: Performed By: #### C BCI #### [address] [address] Hemoglobin (Bld) [Mass/Vol] 12.1 g/dL Normal 12.0-16.0 [facility] Comment on above: Performed By: #### C BCI #### [address] [address] MCH (RBC) [Entitic mass] 28.1 pg Normal 27.0-35.0 [facility] Comment on above: Performed By: #### C BCI #### [address] [address] MCHC (RBC) [Mass/Vol] 33.7 % Normal 31.0-37.0 [facility] Comment on above: Performed By: #### C BCI #### [address] [address] MCV (RBC) [Entitic vol] 83.2 fL Normal 80.0-100.0 [facility] Comment on above: Performed By: #### C BCI #### [address] [address] Platelet mean volume (Bld) [Entitic vol] 7.8 fL Normal 6.7-10.6 [facility] Comment on above: Performed By: #### C BCI #### [address] [address] Platelets (Bld) [#/Vol] 366 x10*3/mcL High 150-350 [facility] Comment on above: Performed By: #### C BCI #### [address] [address] RBC (Bld) [#/Vol] 4.31 x10*6/mcL Normal 3.80-5.20 [facility] Comment on above: Performed By: #### C BCI #### [address] [address] WBC (Bld) [#/Vol] 12.4 x10*3/mcL High 4.5-11.0 [facility] Comment on above: Performed By: #### C BCI #### [address] [address] CBC with Diffon 06-07-2019 Abs. Basophil 0.03 k/uL Normal 0.00-0.20 [facility] Comment on above: Performed By: #### B SAMSON, CDP #### [address] [place], [facility] [employer] Site Manager: Dilip Segura MD Abs.Imm.Granulocyt e 0.08 k/uL Normal 0.00-0.30 [facility] Comment on above: Performed By: #### B SAMSON, CDP #### [facility] [address] [place] [address] [employer] Site Manager: Dilip Segura MD Abs.Neutrophil (Seg) 11.32 k/uL High 1.50-8.10 [facility] Comment on above: Performed By: #### B SAMSON, CDP #### [facility] [address] [place], [place] [id number] [employer] Site Manager: Dilip Segura MD Basophils/100 WBC (Bld) 0 % Normal 0-2 [facility] Comment on above: Performed By: #### B MP, CDP #### [facility] [address] [place], [place] [id number] [employer] Site Manager: Dilip Segura MD Eosinophils (Bld) [#/Vol] 10*3/uL Normal 0.00-0.44 [facility] Comment on above: Performed By: #### B MP, CDP #### [facility] [address] [place], [place] [id number] [employer] Site Manager: Dilip Segura MD Eosinophils/100 WBC (Bld) 0 % Low 1-4 [facility] Comment on above: Performed By: #### B MP, CDP #### [address] [place], [facility] [employer] Site Manager: Dilip Segura MD Erythrocyte distribution width (RBC) [Ratio] 13.6 % Normal 11.8-14.4 [facility] Comment on above: Performed By: #### B SAMSON, CDP #### [address] [place], [place] [id number] [employer] Site Manager: Dilip Segura MD Hematocrit (Bld) [Volume fraction] 37.2 % Normal 36.3-47.1 [facility] Comment on above: Performed By: #### B MP, CDP #### [address] [place], [place] [id number] [employer] Site Manager: Dilip Segura MD Hemoglobin (Bld) [Mass/Vol] 11.8 g/dL Low 11.9-15.1 [facility] Comment on above: Performed By: #### B MP, CDP #### [facility] [address] [place], [place] [id number] [employer] Site Manager: Dilip Segura MD Immature granulocytes (Bld) [#/Vol] 1 % High 0 [facility] Comment on above: Performed By: #### B MP, CDP #### [facility] [address] [place], [place] [id number] [employer] Site Manager: Dilip Segura MD Lymphocytes (Bld) [#/Vol] 1.23 10*3/uL Normal 1.10-3.70 [facility] Comment on above: Performed By: #### B MP, CDP #### [facility] [address] [place], [place] [id number] [employer] Site Manager: Dilip Segura MD Lymphocytes/100 WBC (Bld) 9 % Low 24-43 [facility] Comment on above: Performed By: #### B MP, CDP #### [facility] [address] [place], [place] [id number] [employer] Site Manager: Dilip Segura MD MCH (RBC) [Entitic mass] 27.8 pg Normal 25.2-33.5 [facility] Comment on above: Performed By: #### B MP, CDP #### [facility] [address] [place], [place] [id number] [employer] Site Manager: Dilip Segura MD MCHC (RBC) [Mass/Vol] 31.7 g/dL Normal 28.4-34.8 [facility] Comment on above: Performed By: #### B SAMSON, CDP #### [facility] [address] [place], [place] [id number] [employer] Site Manager: Dilip Segura MD MCV (RBC) [Entitic vol] 87.5 fL Normal 82.6-102.9 [facility] Comment on above: Performed By: #### B MP, CDP #### [facility] [address] [place] [address] [employer] Site Manager: Dilip Segura MD Monocytes (Bld) [#/Vol] 0.52 10*3/uL Normal 0.10-1.20 [facility] Comment on above: Performed By: #### B MP, CDP #### [facility] [address] [place], [place] [address] [employer] Site Manager: Dilip Segura MD Monocytes/100 WBC (Bld) 4 % Normal 3-12 [facility] Comment on above: Performed By: #### B MP, CDP #### [facility] [address] [place] [address] [employer] Site Manager: Dilpi Segura MD Neutrophil (Seg) 86 % High 36-65 [facility] Comment on above: Performed By: #### B MP, CDP #### [facility] [address] [place], [place] [id number] [employer] Site Manager: Dilip Segura MD NRBC Automated 0.0 per 100 WBC Normal 0.0 [facility] Comment on above: Performed By: #### B MP, CDP #### [facility] [address] [place], [place] [id number] [employer] Site Manager: Dilip Segura MD Platelet mean volume (Bld) [Entitic vol] 9.3 fL Normal 8.1-13.5 [facility] Comment on above: Performed By: #### B MP, CDP #### [facility] [address] [place] [address] [employer] Site Manager: Dilip Segura MD Platelets (Bld) [#/Vol] 357 10*3/uL Normal 138-453 [facility] Comment on above: Performed By: #### B MP, CDP #### [facility] [address] [place] [address] [employer] Site Manager: Dilip Segura MD RBC (Bld) [#/Vol] 4.25 10*6/uL Normal 3.95-5.11 [facility] Comment on above: Performed By: #### B MP, CDP #### [facility] [address] [place], [place] [id number] [employer] Site Manager: Dilip Segura MD WBC (Bld) [#/Vol] 13.2 10*3/uL High 3.5-11.3 [facility] Comment on above: Performed By: #### B MP, CDP #### [facility] [address] [place] [address] [employer] Site Manager: Dilip Segura MD Auto Diff Performed NOT REPORTED Normal [facility] Comment on above: Performed By: #### B MP, CDP #### [facility] [address] [place] [address] [employer] Site Manager: Dilip Segura MD Platelets (Bld) [#/Vol] NOT REPORTED Normal [facility] Comment on above: Performed By: #### B MP, CDP #### [facility] [address] [place] [address] [employer] Site Manager: Dilip Segura MD RBC morphology finding Nom (Bld) NOT REPORTED Normal [facility] Comment on above: Performed By: #### B MP, CDP #### [facility] [address] [place] [address] [employer] Site Manager: Dilip Segura MD WBC Morphology NOT REPORTED Normal [facility] Comment on above: Performed By: #### B MP, CDP #### [facility] [address] [place] [address] [employer] Plant Site Manager: Dilip Segura MD CRPon 06-07-2019 CRP [Mass/Vol] 0.79 mg/dL High 0.00-0.75 [facility] Comment on above: Result Comment: CRP measurement is useful for assessment of non-specific INFLAMMATORY RESPONSE to infection or injury AND is a sensitive MARKER of ACUTE INFLAMMATION including CARDIAC RISK ASSESSMENT. CARDIAC patients with elevated CRP are POTENTIALLY at a HIGHER RISK OF FUTURE CARDIAC EVENTS. Performed By: #### C RP #### [facility] [address] [place] [address] CT LUMBAR SPINE WO CONTRASTo n 06-07-2019 CT LUMBAR SPINE WO CONTRAST EXAMINATION: CT OF THE LUMBAR SPINE WITHOUT CONTRAST 06/06/2019 TECHNIQUE: CT of the lumbar spine was performed without the administration of intravenous contrast. Multiplanar reformatted images are provided for review. Dose modulation, iterative reconstruction, and/or weight based adjustment of the mA/kV was utilized to reduce the radiation dose to as low as reasonably achievable. COMPARISON: None HISTORY: ORDERING SYSTEM PROVIDED HISTORY: Fall TECHNOLOGIST PROVIDED HISTORY: Fall FINDINGS: BONES/ALIGNMENT: There is normal alignment of the spine. The vertebral body heights are maintained. No osseous destructive lesion is seen. DEGENERATIVE CHANGES: No significant degenerative changes of the lumbar spine. SOFT TISSUES/RETROPERITONEUM : No paraspinal mass is seen. Prior cholecystectomy. IMPRESSION: Unremarkable non-contrast CT of the lumbar spine. Interpreted by: Jose Eduardo Boyd DO Signed by: Jose Eduardo Boyd DO 06/07/19 Final result Normal [facility] CT Lumbar Spine WO Contrasto n 06-07-2019 Unremarkable non-contrast CT of the lumbar spine. [facility] [employer] [place] [employer] Incoming Radiant Results From [place] [employer] - 06/07/2019 1:09 AM EDT EXAMINATION: CT OF THE LUMBAR SPINE WITHOUT CONTRAST 06/06/2019 TECHNIQUE: CT of the lumbar spine was performed without the administration of intravenous contrast. Multiplanar reformatted images are provided for review. Dose modulation, iterative reconstruction, and/or weight based adjustment of the mA/kV was utilized to reduce the radiation dose to as low as reasonably achievable. COMPARISON: None HISTORY: ORDERING SYSTEM PROVIDED HISTORY: Fall TECHNOLOGIST PROVIDED HISTORY: Fall FINDINGS: BONES/ALIGNMENT: There is normal alignment of the spine. The vertebral body heights are maintained. No osseous destructive lesion is seen. DEGENERATIVE CHANGES: No significant degenerative changes of the lumbar spine. SOFT TISSUES/RETROPERITONEUM : No paraspinal mass is seen. Prior cholecystectomy. IMPRESSION: Unremarkable non-contrast CT of the lumbar spine. [facility] [employer] EXAMINATION: CT OF T HE LUMBAR SPINE WITHOUT CONTRAST 06/06/2019 TECHNIQUE: CT of the lumbar spine was performed without the administration of intravenous contrast. Multiplanar reformatted images are provided for review. Dose modulation, iterative reconstruction, and/or weight based adjustment of the mA/kV was utilized to reduce the radiation dose to as low as reasonably achievable. COMPARISON: None HISTORY: ORDERING SYSTEM PROVIDED HISTORY: Fall TECHNOLOGIST PROVIDED HISTORY: Fall FINDINGS: BONES/ALIGNMENT: There is normal alignment of the spine. The vertebral body heights are maintained. No osseous destructive lesion is seen. DEGENERATIVE CHANGES: No significant degenerative changes of the lumbar spine. SOFT TISSUES/RETROPERITONEUM : No paraspinal mass is seen. Prior cholecystectomy. [facility], [place] [employer] Progress Noteon 06-07-2019 [employer] Progress Note Met with patient regarding transitions of care. Patient states that she has family support, transportation to and from appointments, and can afford her medications. She denies the need for a walker or cane but has not been up with physical therapy yet. My information left at bedside should patient need assistance at discharge. At this time patient denies needs and will return home when medically stable. Patient discussed in transitions of care huddle. Electronically signed by ___ Azucena Bradley 06/07/19 09:31 EDT Attempted to make an appointment with pain management. They states that the process was for physician to put in a referral and their doctors will go over the information accept the patient and then the office will call the patient to make the appointment. An appointment was not able to be made at this time. Hospitalist aware. Electronically signed by ___ Azucena Bradley 06/07/19 09:58 EDT [facility] ED Clinical Summaryon 2018 ED Clinical Summary [address] [address] ED Clinical Summary Person Information Name: Unique Haque Andreina[place] Age: 28 Years : 1990 Sex: Female PCP: Sha Shukla MD, Annabel Martinez Marital Status: Single Phone: Race: White Ethnicity: Not or Language: Mozambican Visit Reason: Back pain; Leg pain-swelling; Leg Pain Acuity: 3 Enc Type: Observation Med Service: Emergency Medicine Arrival: 06/07/2019 02:53:00 Discharge: LOS: 000 03:07 Checkin: 06/07/2019 02:53:00 Checkout: 06/07/2019 06:00:06 Dispo Type: Place in Observation Address: [address] [place] [address] Provider Notes: History of Present Illness Patient is a 28 her female previously healthy presents for evaluation of right lower back pain. Patient has had pain?over the last 1 week. Patient states that she has had multiple visits secondary to same. Pain is located in the right lower back.?No significant radiation.?She states that she feels as though she was having right lower extremity weakness and decreased sensation now as well.?She denies any fevers, chills, systemic symptoms. There is no neck pain or headache.?She denies any upper extremity or facial numbness, weakness, paresthesias.?She denies any history of intravenous drug abuse. She denies any history of cancer.?She denies any history of immunocompromise.?Denie s any loss of bowel or bladder control.?She denies any previous surgeries or problems to the lower back.?Patient was seen in outside hospital emergency room tonight.?Patient was transferred to our hospital for MRI?of the spine after consultation with neurosurgeon, Dr. Davidson who is requesting an MRI of the T/L spine. Review of Systems GENERAL: [Negative for weakness, malaise] EYES: [Negative for injury, pain, redness, discharge] ENT: [Negative for injury, pain , sore throat and discharge] NECK: [Negative for injury, pain, swelling, and stiffness] CARDIOVASCULAR: [Negative for chest pain, palpitations] RESPIRATORY: [Negative for shortness of breath, cough, wheezing, and pleuritic chest pain] ABDOMEN/GI: [Negative for pain, nausea, vomiting] BACK: [Negative for injury or bruising] : [Negative for injury, bleeding, discharge, frequency, hematuria, urgency] MUSCULOSKELETAL: [Positive for back pain.?Negative for arthralgias, injury and deformity] SKIN: [Negative for injury, rash, discoloration] NEURO: [Positive for weakness, numbness to the right leg.?Negative for tingling] Physical Exam CONSTITUTIONAL: [well appearing in no acute distress] SKIN: [Warm, dry, and intact without rash] EYES: [extraocular movements are grossly intact, clear conjunctiva] HENT: [Normocephalic, atraumatic, moist mucus membranes] NECK: [no obvious swelling, normal range of motion] PULMONARY: [normal chest rise and fall, no respiratory distress or stridor CARDIOVASCULAR: [regular rate, distal extremities are warm and well perfused] GASTROINSTESTINAL: [nondistended, non-tender] NEUROLOGIC: [normal speech, moves all extremities. Strength is 5/5 in the bilateral upper extremities with normal sensation bilaterally.?In the left leg, strength is 5/5 all areas tested including the hip, knee, ankle.?In the right leg,?patient does have some discomfort with moving?the right hip which does prohibit adequate strength testing.?Strength appears to be 5/5?at the knee?with flexion, extension and at the ankle. There is diminished sensation?over all areas tested in the right leg.?Normal sensation over the left side.] MUSCULOSKELETAL: [There is no pain to the cervical or thoracic spine.?There is some discomfort to the lumbar spine, particularly over the right paraspinal muscles.?No visible swelling or deformity. No palpable step-off. There is pain with inversion and eversion of the right hip.] PSYCHIATRIC: [normal mood and affect] Diagnosis: 1:Right low back pain; 2:Inability to walk Problems No Problems Documented Smoking Status: Smoking Status Never (less than 100 in lifetime) Functional Status: Sensory Deficits: History of Falls: Mobility Assistance Prior to Admission: ADLs: Current Level of Assistance for Self-Care/Mobility: Cognitive Status: Allergies No Known Allergies Laboratory or Other Results This Visit (last charted value for your 06/07/2019 visit) Hematology 06/07/2019 3:31 AM Sed Rate: 11 mm/hr -- Normal range between ( 0 and 23 ) Urinalysis 06/07/2019 3:31 AM UA Spec Grav: 1.009 -- Normal range between ( 1.003 and 1.035 ) UA pH: 8.0 Chemistry 06/07/2019 3:31 AM CRP: 0.79 mg/dL -- Normal range between ( 0.00 and 0.75 ) Ur Creatinine Tox Scrn: 51.3 mg/dL Toxicology 06/07/2019 3:31 AM Ur PCP Scrn: Negative ng/mL Ur Opiate Scrn: Negative ng/mL Ur Methadone Scn: Negative ng/mL Ur Cannab Scrn: Negative ng/mL Ur Amph Scrn: Negative ng/mL Ur Benzodia Scrn: Negative ng/mL Ur Lala Scrn: Negative ng/mL Ur Cocaine Scrn: Negative ng/mL Ur Oxy Screen: Negative ng/mL Measurements: Height: Weight: 68.9 kg Blood Pressure: /82 mmHg BMI: Procedures No Procedures Documented Immunizations No Immunizations Documented This Visit Final Med List: No Medications Documented Care Team Members: Attending Physician: Pedro Garcia MD Consulting Physician: Adrian Davidson III, MD Referring Physician: Provider Role Assigned Unassigned Zoya HARDY, Casey Soto ED Provider 06/07/2019 02:58:01 Beatriz Orellana ED Nurse 06/07/2019 03:11:20 Follow up: Discharge Orders: Place in Observation 06/07/19 5:31:00 EDT, Ortho/Neuro 6th floor, 06/07/19 5:31:00 EDT, Didi HARDY, Didi Vasquez MD, Madhusudhan Request for Admit 06/07/19 5:29:00 EDT, 06/07/19 5:29:00 EDT, Ortho/Neuro 6th floor Patient Education Information: [facility] Poison Help line: . [facility] Hotline: [place] Tobacco Quit Line: [place], [place]) [address]: [phone] [place], [place]) [address]: [phone] [facility] [address] [facility] [place], [place]: [phone] [facility] ED Note-Physicianon 06-07-20 19 ED Note-Physician Chief Complaint pt comes [place] [facility] right leg pain/numbness History of Present Illness Patient is a 28 her female previously healthy presents for evaluation of right lower back pain. Patient has had pain over the last 1 week. Patient states that she has had multiple visits secondary to same. Pain is located in the right lower back. No significant radiation. She states that she feels as though she was having right lower extremity weakness and decreased sensation now as well. She denies any fevers, chills, systemic symptoms. There is no neck pain or headache. She denies any upper extremity or facial numbness, weakness, paresthesias. She denies any history of intravenous drug abuse. She denies any history of cancer. She denies any history of immunocompromise. Denies any loss of bowel or bladder control. She denies any previous surgeries or problems to the lower back. Patient was seen in outside hospital emergency room tonight. Patient was transferred to our hospital for MRI of the spine after consultation with neurosurgeon, Dr. Davidson who is requesting an MRI of the T/L spine. Review of Systems GENERAL: [Negative for weakness, malaise] EYES: [Negative for injury, pain, redness, discharge] ENT: [Negative for injury, pain , sore throat and discharge] NECK: [Negative for injury, pain, swelling, and stiffness] CARDIOVASCULAR: [Negative for chest pain, palpitations] RESPIRATORY: [Negative for shortness of breath, cough, wheezing, and pleuritic chest pain] ABDOMEN/GI: [Negative for pain, nausea, vomiting] BACK: [Negative for injury or bruising] : [Negative for injury, bleeding, discharge, frequency, hematuria, urgency] MUSCULOSKELETAL: [Positive for back pain. Negative for arthralgias, injury and deformity] SKIN: [Negative for injury, rash, discoloration] NEURO: [Positive for weakness, numbness to the right leg. Negative for tingling] Physical Exam CONSTITUTIONAL: [well appearing in no acute distress] SKIN: [Warm, dry, and intact without rash] EYES: [extraocular movements are grossly intact, clear conjunctiva] HENT: [Normocephalic, atraumatic, moist mucus membranes] NECK: [no obvious swelling, normal range of motion] PULMONARY: [normal chest rise and fall, no respiratory distress or stridor CARDIOVASCULAR: [regular rate, distal extremities are warm and well perfused] GASTROINSTESTINAL: [nondistended, non-tender] NEUROLOGIC: [normal speech, moves all extremities. Strength is 5/5 in the bilateral upper extremities with normal sensation bilaterally. In the left leg, strength is 5/5 all areas tested including the hip, knee, ankle. In the right leg, patient does have some discomfort with moving the right hip which does prohibit adequate strength testing. Strength appears to be 5/5 at the knee with flexion, extension and at the ankle. There is diminished sensation over all areas tested in the right leg. Normal sensation over the left side.] MUSCULOSKELETAL: [There is no pain to the cervical or thoracic spine. There is some discomfort to the lumbar spine, particularly over the right paraspinal muscles. No visible swelling or deformity. No palpable step-off. There is pain with inversion and eversion of the right hip.] PSYCHIATRIC: [normal mood and affect] Vitals & Measurements T: 36.7 ?C (Oral) RR: 16 BP: 128/82 SpO2: 99% DOSE WT: 68.9 kg Additional Vitals Peripheral Pulse Rate: 80 bpm Procedure No qualifying data available. ASA Documentation Medical Decision Making Patient presents for evaluation of right low back pain. Physical examination, pain is primarily paraspinal. There is no significant midline tenderness cervical, thoracic, lumbar spine. This is into the low low back. Patient is holding the hip in nearly a flexed fashion. Patient did complain of some paresthesias over the frontal portion of the leg going down towards the toes. Psych cannot explain. Patient adamantly denies any drug use could inject or drug use. She does not have any history of immunocompromise. MRIs were obtained of the thoracic and lumbar spine. I did review these with the neurosurgeon. He does not believe that there is any surgical pathology visualized. Radiologist does say possible small right paracentral disc bulge at L3/L4. This would not be expected to cause severe pain likely. On examination, there is pain with inversion and eversion of the right hip. I attribute from outside hospital did show a slight leukocytosis, 13. Patient's urine sample is clean without signs of infection per outside hospital urinalysis. There is no flank pain therefore believe kidney stone is less likely. Patient has already had an appendectomy which would make something like an appendicitis less likely. Patient has not had any vaginal bleeding, vaginal discharge, lower suspicion for pelvic pathology. Patient was tried to ambulate and she still continues to have pain with any sort of weight onto the right hip. I question whether there could be a hip pathology however given normal ESR, this would make something such as a septic arthritis much less likely. Additionally, patient is afebrile. We will obtain x-ray of the right hip with plan for admission to the hospital for symptomatic control, possible orthopedic surgery evaluation and further evaluation inpatient as necessary. Given that she has pain into the lower portion of her back, it is felt that primary intracranial or cervical pathology would be less likely therefore MRIs of this area have been deferred. Assessment/Plan 1. Right low back pain 2. Inability to walk Orders: MRI Spine Lumbar w/o Contrast MRI Spine Thoracic w/o Contrast Request for Admit Problem List/Past Medical History Ongoing No qualifying data Historical No qualifying data Medications Home No active home medications Inpatient acetaminophen, 1000 mg, Oral, Once fentaNYL, 25 mcg, 0.5 mL, IV Push, Once Valium, 5 mg, Oral, Once Prescriptions No active Prescriptions Allergies No active allergies Lab Results Miscellaneous Hematology LATEST RESULTS Sed Rate 06/07/19 03:31 11 Routine Chemistry LATEST RESULTS CRP 06/07/19 03:31 0.79 High Random Urine Chemistry LATEST RESULTS Ur Creatinine Tox Scrn 06/07/19 03:31 51.3 Urine Toxicology LATEST RESULTS Ur Amph Scrn 06/07/19 03:31 Negative Ur Lala Scrn 06/07/19 03:31 Negative Ur Benzodia Scrn 06/07/19 03:31 Negative Ur Cannab Scrn 06/07/19 03:31 Negative Ur Cocaine Scrn 06/07/19 03:31 Negative Ur Methadone Scn 06/07/19 03:31 Negative Ur Oxy Screen 06/07/19 03:31 Negative Ur Opiate Scrn 06/07/19 03:31 Negative Ur PCP Scrn 06/07/19 03:31 Negative UA Macroscopic LATEST RESULTS UA Spec Grav 06/07/19 03:31 1.009 UA pH 06/07/19 03:31 8.0 Abnormal Diagnostic Results XRay No qualifying data available (XRay) Computerized Tomagraphy No qualifying data available (CT) Ultrasound No qualifying data available (Ultrasound) Magnetic Resonance Imaging MRI Spine Lumbar w/o Contrast * Preliminary * 06/07/19 05:08:59 IMPRESSION: 1. Small right paracentral disc bulge with tiny annular tear at L3/L4 without central canal stenosis. This produces minimal encroachment upon the caudal aspect of the right neural foramen. Otherwise unremarkable MRI lumbar spine. Signed By: Meek HARDY, Lazarus Sood MRI Spine Thoracic w/o Contrast * Preliminary * 06/07/19 05:15:46 IMPRESSION: 1. No posterior disc abnormality, central canal stenosis or foraminal narrowing at any thoracic level. No cord signal abnormality. Signed By: Meek HARDY, Lazarus Sood Electronically signed by ___ Zoya HARDY, Casey Soto 06/07/19 05:39 EDT [facility] ESRon 06-07-2019 ESR (Bld) [Velocity] 11 mm/h Normal 0-23 [facility] Comment on above: Performed By: #### E SR #### [facility] [address] [place] [address] HCG, ,Urineon 06-07 Beta HCG ( test) Ql (U) Negative Normal NEG [facility] Comment on above: Result Comment: Spec imens with hCG levels near the threshold of the test (25 mIU/mL) may give a negative or indeterminate result. In such cases, another test should be performed with a new specimen in 48-72 hours. If early is suspected clinically in this setting, correlation with quantitative serum b-hCG level is suggested. [facility] has confirmed the use of plasma for this test. This has not been cleared or approved by the U.S. Food and Drug Administration. The FDA has determined that such clearance is not necessary. Performed By: #### U AX, ALEXANDRA, [facility] #### [facility] [address] [place] [address] [employer] Site Manager: Dilip Segura MD History and Physicalon 06-07 History and Physical Chief [facility]/numbness History of Present Illness 28 year old female with history of Asthma is presented with 2 weeks of right lower back pain, hip pain, numbness and weakness in right leg. she woke up with this pain. Pain radiates down to right leg. She is having difficulty walking. she feel numb in right leg. she also feel weakness in right leg. She denies injury. She denies any other neurological symptoms. Bowel and bladder function normal. she denies chronic back pain. She took two courses of Medrol dose pack and robaxin without much relief. She feels much better when she lay on left side. She even fell due to not able to weight bear on right leg. ER events: Out side ER showed leucocytosis. CT without contrast L spine negative per ER. Report not sent. Out side ER spoke to Dr. Davidson who recommended MRI T/L spine. She is sent to out ER. CRP mildly increased. drug screen negative. MRI without contrast showed tiny annular lear L3/4 with right paracentral disc bulge. patient recieved Fentanyl, Valium, Toradol, Tylenol Review of Systems Constitutional: [No fevers, chills, sweats] Eye: [No recent visual problems] ENMT: [No ear pain, nasal congestion, sore throat] Respiratory: [No shortness of breath, cough] Cardiovascular: [No Chest pain, palpitations, syncope] Gastrointestinal: [No nausea, vomiting, diarrhea] Genitourinary: [No hematuria] Dudley/Lymph: [Negative for bruising tendency, swollen lymph glands] Endocrine: [Negative for excessive thirst, excessive hunger] Musculoskeletal: [severe back pain, no neck pain, joint pain, muscle pain, Right hip decreased range of motion] Integumentary: [No rash, pruritus, abrasions] Neurologic: [Alert & oriented X 4] Psychiatric: [No anxiety, depression] Physical Exam Vitals & Measurements T: 36.7 ?C (Oral) RR: 16 BP: 128/82 SpO2: 99% DOSE WT: 68.9 kg General: [Alert and oriented, well nourished, no acute distress]. Eye: [PERRL, EOMI, normal conjunctiva]. HENT: [Normocephalic, clear tympanic membranes, normal hearing, moist oral mucosa, no scleral icterus, no sinus tenderness]. Neck: [Supple, non-tender, no carotid bruits, no JVD, no lymphadenopathy]. Lungs: [Clear to auscultation and percussion, non-labored respiration]. Heart: [Normal rate, regular rhythm, no murmur, gallop or edema]. Abdomen: [Soft, non-tender, non-distended, normal bowel sounds, no masses]. Musculoskeletal: [severe right hip tenderness. SLR positive. decrease sensations in right leg with decreased reflexes]. Skin: [Skin is warm, dry and pink, no rashes or lesions]. Neurologic: [Awake, alert, and oriented X3, CN II-XII intact]. Psychiatric: [Cooperative, appropriate mood and affect]. Additional Vitals Peripheral Pulse Rate: 80 bpm Assessment/Plan 1. Right low back pain Pain control. MRI Hip with and without contrast. obtain blood cultures due to leucocytosis. Dr. Davidson consult. Once patient pain controlled, if patient continue to have neurological symptoms, consider MRI L spine with contrast. 2. Inability to walk PT eval Problem List/Past Medical History Ongoing No qualifying data Historical No qualifying data Medications Home No active home medications Inpatient acetaminophen, 650 mg, Oral, q6hr, PRN acetaminophen, 650 mg, Oral, q6hr, PRN docusate sodium, 100 mg, Oral, Daily, PRN ketorolac, 30 mg, 1 mL, IV Push, q6hr, PRN Lidoderm 5% topical film, 1 patches, Topical, Daily MiraLax, 17 g, 1 EA, Oral, Daily, PRN naloxone, 0.4 mg, 1 mL, IV Push, q2min, PRN Normal Saline Flush 0.9% injectable solution, 10 mL, IV Push, As Indicated, PRN Normal Saline Flush 0.9% injectable solution, 10 mL, IV Push, BID ondansetron, 4 mg, 2 mL, IV Push, q4hr, PRN Robaxin, 500 mg, Oral, QID, PRN traMADol, 50 mg, Oral, q6hr, PRN Prescriptions No active Prescriptions Allergies No Known Allergies Social History Alcohol Never Tobacco Never (less than 100 in lifetime) Use:. Lab Results Microbiology No qualifying data available. Diagnostic Results Diagnostic Radiology No qualifying data available. Computed Tomography No qualifying data available. Ultrasound No qualifying data available. Magnetic Resonance Imaging MRI Spine Lumbar w/o Contrast * Preliminary * 06/07/19 05:08:59 IMPRESSION: 1. Small right paracentral disc bulge with tiny annular tear at L3/L4 without central canal stenosis. This produces minimal encroachment upon the caudal aspect of the right neural foramen. Otherwise unremarkable MRI lumbar spine. Signed By: Meek HARDY, Lazarus Sood MRI Spine Thoracic w/o Contrast * Preliminary * 06/07/19 05:15:46 IMPRESSION: 1. No posterior disc abnormality, central canal stenosis or foraminal narrowing at any thoracic level. No cord signal abnormality. Signed By: Meek HARDY, Lazarus Sood Nuclear Medicine No qualifying data available. Electronically signed by ___ Didi HARDY, [facility] 06/07/19 07:21 EDT [facility] MRI Hip w/o Contrast Righton 06-07-2019 MRI Hip w/o Contrast Right History: Low back pain radiating into the right hip and down the right leg for the past 2 weeks. Numbness and tingling sensations in the right lower extremity. Inability to walk on the right leg. MRI right hip 06/07/2019. COMPARISON: Radiographs of the pelvis and right hip 06/07/2019. TECHNIQUE: Multiplanar, multisequence MRI images of bilateral hips and the right hip were obtained without contrast. FINDINGS: There is no evidence of avascular necrosis or fracture of the proximal right femur. No significant chondromalacia of the right hip is seen. There is a small, subtle linear focus of increased signal intensity extending between the anterior labrum and the adjacent acetabulum as best seen on the axial oblique proton density sequence. No paralabral cyst is seen. There is a small amount of soft tissue edema adjacent to the distal right gluteus minimus tendon at its insertion. No significant tendinopathy or tear of the gluteal tendons is seen. There is no iliopsoas bursitis. No muscle edema is seen. IMPRESSION: 1. There appears to be a possible small nondisplaced tear of the anterior labrum of the right hip. However, there is no evidence of significant chondromalacia of the right hip. 2. Possible mild peritendinitis adjacent to the right gluteus minimus tendon at its insertion on the greater trochanter without evidence of significant tendinopathy or tear of the tendon. Final Dictated by: Lazarus Doss MD Dictated DT/TM: 06/07/2019 1:58 pm Signed by: Lazarus Doss MD Signed (Electronic Signature): 06/07/2019 2:05 pm (If Report Is Signed, Electronically Signed in Other Vendor System) [facility] MRI Spine Lumbar w/o Contras ton 06-07-2019 MRI Spine Lumbar w/o Contrast EXAM: MRI Spine Lumbar w/o Contrast HISTORY: Weakness, low back pain radiating down right leg. Right leg numbness and tingling. Symptoms started 2 weeks ago have gotten worse over the past couple of days. COMPARISON: None. TECHNIQUE: Sagittal T1, T2, and STIR images of the lumbar spine as well as axial T1 and T2 images at the level the intervertebral disc spaces were performed. No intravenous contrast was administered. FINDINGS: Lumbar vertebral body height and alignment are preserved. No focal marrow signal abnormality. There is preservation of the disc space without loss of disc T2 signal intensity. Cord terminates at approximately the level of L1. At T12/L1, there is no significant posterior disc abnormality, central canal stenosis, or foraminal narrowing on the sagittal images. At L1/L2 and L2/L3, there is no significant posterior disc abnormality, central canal stenosis, or foraminal narrowing. At L3/L4 there is a small right paracentral disc bulge with tiny annular tear without central canal stenosis. Minimal encroachment upon the caudal aspect of the right neural foramen. At L4/L5, there is no significant posterior disc abnormality, central canal stenosis, or foraminal narrowing. No significant posterior disc abnormality, central canal stenosis, or foraminal narrowing at L5/S1. Paraspinal soft tissues are unremarkable. IMPRESSION: Small right paracentral disc bulge with tiny annular tear at L3/L4 without central canal stenosis. This produces minimal encroachment upon the caudal aspect of the right neural foramen. Otherwise unremarkable MRI lumbar spine. Final Dictated by: Lazarus Eden MD Dictated DT/TM: 06/07/2019 5:08 am Signed by: Lazarus Eden MD Signed (Electronic Signature): 06/07/2019 7:08 am Transcribed DT/TM: 06/07/2019 5:22 (If Report Is Signed, Electronically Signed in Other Vendor System) [facility] MRI Spine Thoracic w/o Contr fawad 06-07-2019 MRI Spine Thoracic w/o Contrast EXAM: MRI Spine Thoracic w/o Contrast HISTORY: Weakness, low back pain, and right leg pain that began 2 weeks ago and has gotten worse over the past couple of days. COMPARISON: None. TECHNIQUE: Triplane localizer, sagittal T1, T2 and STIR images and axial T2 images of the thoracic spine were performed. No intravenous contrast was administered. FINDINGS: Thoracic vertebral body height and alignment are preserved. No severe vertebral disc space narrowing or abnormal loss of disc signal intensity. No cord signal abnormality is identified. No posterior disc abnormality, central canal stenosis or foraminal narrowing at any thoracic level. IMPRESSION: No posterior disc abnormality, central canal stenosis, or foraminal narrowing at any thoracic level. No cord signal abnormality. Final Dictated by: Lazarus Eden MD Dictated DT/TM: 06/07/2019 5:15 am Signed by: Lazarus Eden MD Signed (Electronic Signature): 06/07/2019 7:08 am Transcribed DT/TM: 06/07/2019 5:23 (If Report Is Signed, Electronically Signed in Other Vendor System) [facility] Neurosurgery Consultationon 06-07-2019 Neurosurgery Consultation Chief Complaint pt comes from [facility] c.o right leg pain/numbness Physical Exam Vitals & Measurements T: 36.7 ?C (Oral) RR: 18 BP: 110/72 SpO2: 97% WT: 67.8 kg DOSE WT: 68.9 kg Additional Vitals Body Mass Index Measured: 25.83 kg/m2 Peripheral Pulse Rate: 73 bpm Assessment/Plan 1. Right low back pain 2. Inability to walk 3. Sacroiliac pain Very pleasant 28-year-old right-handed female with a history of elbow fracture left side with resultant ulnar neuropathy-patient was offered ulnar transposition in [facility] and the patient refused. Patient has chronic numbness in the left ulnar distribution consistent with compression at the elbow. Otherwise, the patient proves to be fairly healthy other than depression and seizure disorder for which she is on Depakote. Approximately 2 weeks ago, she developed pain in her right foot and visited the emergency room. She was told she had plantar fasciitis and subsequently followed up with a protective services case worker who informed her that she did not have plantar fasciitis and had a pinched nerve in the back as well as tendinitis of the foot. Steroids were ordered and provided no relief. Her syndrome continued to worsen and noted only involved her right foot but she developed pain in the right sacroiliac region. This is progressed to the point where the patient collapsed yesterday and was unable to walk. She subsequently went to the emergency room in [place] and was transferred to [facility]. Patient denies any recent infections, fevers, chills. No recent trauma such as falls or motor vehicle accidents. Patient reports generalized numbness in the entire right lower extremity. Denies any symptoms of headache, nausea, vomiting, diplopia, syncope. Denies chest pain or shortness breath. Denies symptoms in the upper extremities or left lower extremity nor any cervical or thoracic pain. 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 with a bachelor's in software design and a planned Masters in engineering Denies nicotine or alcohol No legal or Workmen's Compensation claims on today's visit Constitutional: [No fevers, chills, sweats] Eye: [No recent visual problems] ENMT: [No ear pain, nasal congestion, sore throat] Respiratory: [No shortness of breath, cough] Cardiovascular: [No Chest pain, palpitations, syncope] Gastrointestinal: [No nausea, vomiting, diarrhea] Genitourinary: [No hematuria] GENERAL PHYSICAL EXAM: GENERAL: well developed, well nourished, modest distress with any movement of the right lower extremity HEAD: normocephalic, atraumatic EYES: anicteric, atraumatic MUCOUS MEMBRANES: Moist, no evidence of dehydration NECK: supple, full age-appropriate range of motion, no deformity noted; no cervical adenopathy; no tracheal deviation; no winging of the scapula; no drooping of the shoulder; no evidence of neurotension signs such as Lhermitte's or Spurling sign CHEST: CARDIAC: SHOULDER: Full range of motion on active and passive evaluation; no evidence of impingement or rotator cuff tendinopathy, negative empty can testing [] PERIPHERAL NERVES: no tinel's signs carpal, cubital, or peroneal, no digital compression provocation except left cubital tunnel where she has tenderness to percussion/Tinel sign consistent with her history SPINE: no evidence of scoliosis, rib hump, deformities or step-offs. No trigger points or myospasm cervical, thoracic, lumbar spine VASCULAR: strong pulses with rapid capillary refill, no evidence of Raynaud's phenomenon, autonomic disturbance, venous insufficiency, or thoracic outlet syndrome. HIP: no Fabere's or Amandeep's sign LUMBAR: Limited range of motion on straight leg raise secondary to increased pain at the sacroiliac SACROILIAC: March tenderness over the sacroiliac region right side PAIN BEHAVIOR: No evidence of Chava's findings or overt pain behavior. NEUROLOGICAL EXAM: MENTAL STATUS: Awake alert and appropriate with normal mental status exam and executive function CRANIAL NERVES: Round reactive pupils without ophthalmoplegia, no visual field defects to confrontation, no nystagmus, no evidence of Nuirka syndrome, equal facies, equal auditory perception to confrontation, bilaterally upgoing palate, midline tongue without atrophy or fasciculations and full range of motion, equal trapezial strength and sternocleidomastoid strength. MOTOR: normal tone and bulk in all groups with full power taking into account giveaway power and pain aversion; no evidence of atrophy or fasciculations. DEEP TENDON REFLEXES: All reflexes 2+ ;no evidence of myelopathic features such as Sellers's, pectoral reflex, clonus, Babinski SENSORY EXAM: CEREBELLAR: No lateralization, no dysmetria or dysdiadochokinesia. GAIT: Laboratory: C reactive protein minimally elevated and sedimentation rate 11 Imaging: MRI thoracic spine [facility] May 2019 unremarkable MRI lumbar spine [facility] May 2019 reveals annular tear L3 4 with no neurologic impingement; no evidence of instability, spondylolysis, infectious process nor neoplasm Assessment/plan: Young female with a 2 week history of initially right foot pain followed by numbness and now significant right sacroiliac dysfunction. Her imaging demonstrates small annular tear at L3 4, but otherwise, patient has no structural explanation for her presentation and has no requirement for neurosurgical intervention. The patient may be suffering myospasm induced by annular tear leading to sacroiliac dysfunction/right lower extremity dysfunction or may have independent sacroiliac arthrosis. She certainly does not have neural compressive phenomenon to explain her presentation based on imaging of the cervical, thoracic, and lumbar spine. The remote possibility of autoimmune condition is present but with the unremarkable inflammatory markers, this seems less likely, particularly given the absence of polyarthralgia or myalgia No specific surgical recommendations Recommend therapy evaluation by PT and OT Consideration of pain management consultation for consideration of sacroiliac blockade Standard thromboembolic prophylaxis Neurosurgery will follow peripherally Time spent evaluating the patient-approximately 25 minutes [id number] Problem List/Past Medical History Ongoing Sacroiliac pain Historical No qualifying data Medications Home No active home medications Inpatient acetaminophen, 650 mg, Oral, q6hr, PRN acetaminophen, 650 mg, Oral, q6hr, PRN docusate sodium, 100 mg, Oral, Daily, PRN ketorolac, 30 mg, 1 mL, IV Push, q6hr, PRN Lidoderm 5% topical film, 1 patches, Topical, Daily MiraLax, 17 g, 1 EA, Oral, Daily, PRN naloxone, 0.4 mg, 1 mL, IV Push, q2min, PRN Normal Saline Flush 0.9% injectable solution, 10 mL, IV Push, As Indicated, PRN Normal Saline Flush 0.9% injectable solution, 10 mL, IV Push, BID ondansetron, 4 mg, 2 mL, IV Push, q4hr, PRN Robaxin, 500 mg, Oral, QID, PRN traMADol, 50 mg, Oral, q6hr, PRN Prescriptions No active Prescriptions Allergies No Known Allergies Social History Alcohol Never Tobacco Never (less than 100 in lifetime) Use:. Lab Results Microbiology No qualifying data available. Electronically signed by ___ Adrian Davidson III, MD 06/07/19 06:39 EDT [facility] Progress Note - [facility] Progress Note - Generic Subjective Patient seen and evaluated resting in bed still having pain in her right side and decreased sensation of the right foot and positive straight leg raise of the right leg. Review of Systems Constitutional: No fevers, chills, sweats Respiratory: No shortness of breath, cough Cardiovascular: No Chest pain, palpitations, syncope Gastrointestinal: No nausea, vomiting, diarrhea Genitourinary: No hematuria Peripheral: no calf tenderness numbness or tingling Objective Vitals & Measurements T: 36.4 ?C (Oral) RR: 16 BP: 123/77 SpO2: 98% HT: 162 cm WT: 67.8 kg DOSE WT: 68.9 kg BMI: 25.83 Additional Vitals Body Mass Index Measured: 25.83 kg/m2 Peripheral Pulse Rate: 91 bpm Lab Results Microbiology No qualifying data available. Labs (Last four charted values) WBC H 12.4 (JUN 07) Hgb 12.1 (JUN 07) Hct L 35.9 (JUN 07) Plt H 366 (JUN 07) Na 139 (SEP ) K 4.1 (SEP ) CO2 23 (JUN 07) Cl 104 (JUN 07) Cr 0.54 (JUN 07) BUN L 5 (JUN 07) Diagnostic Results Diagnostic Radiology XR Hip 2-3 Views Right 06/07/19 06:17:21 IMPRESSION: No acute fracture or dislocation of the pelvis or right hip is seen. If there is concern for an occult injury, cross-sectional imaging is recommended. Signed By: Satya HARDY, [facility] Magnetic Resonance Imaging MRI Spine Lumbar w/o Contrast 06/07/19 05:08:59 IMPRESSION: Small right paracentral disc bulge with tiny annular tear at L3/L4 without central canal stenosis. This produces minimal encroachment upon the caudal aspect of the right neural foramen. Otherwise unremarkable MRI lumbar spine. Signed By: Meek HARDY, Lazarus Sood MRI Spine Thoracic w/o Contrast 06/07/19 05:15:46 IMPRESSION: No posterior disc abnormality, central canal stenosis, or foraminal narrowing at any thoracic level. No cord signal abnormality. Signed By: Meek HARDY, Lazarus Sood Physical Exam Lungs: Clear to auscultation, non-labored respiration Heart: Normal rate, regular rhythm, no murmur, gallop or edema. Abdomen: Soft, non-tender, non-distended, normal bowel sounds, no masses. Mental Status: Alert and oriented x3. Skin: pink warm dry and intact Peripheral: 2+ dorsalis pedal pulses and 2+ radial pulses Musculoskeletal: 5/5 strength ambika ue right leg weakness Medications Inpatient acetaminophen, 650 mg, Oral, q6hr, PRN acetaminophen, 650 mg, Oral, q6hr, PRN albuterol 90 mcg/inh inhalation aerosol, 180 mcg, 2 puffs, Inhale, q4hr, PRN baclofen, 10 mg, Oral, [id number] Times, PRN Depakote, 250 mg, Oral, BID docusate sodium, 100 mg, Oral, Daily, PRN gabapentin, 100 mg, Oral, TID ketorolac, 30 mg, 1 mL, IV Push, q6hr, PRN Lidoderm 5% topical film, 1 patches, Topical, Daily methocarbamol, 750 mg, Oral, HS (at bedtime) MiraLax, 17 g, 1 EA, Oral, Daily, PRN naloxone, 0.4 mg, 1 mL, IV Push, q2min, PRN [place] 5 mg-325 mg oral tablet, 1 tabs, Oral, q4hr, PRN Normal Saline Flush 0.9% injectable solution, 10 mL, IV Push, As Indicated, PRN Normal Saline Flush 0.9% injectable solution, 10 mL, IV Push, BID ondansetron, 4 mg, 2 mL, IV Push, q4hr, PRN Assessment/Plan 1. Right low back pain -mri of the right hip pain -add baclofen and gabapentin -norco for severe pain -no improvement with steroids hold, ok to continue toradol 2. Inability to walk -pt eval 3. Sacroiliac pain -pain management If patient is able to walk and no acute findings on mri can be discharged home tonight or tomorrow, pain management referral made. Orders: albuterol, 2 puffs, Inhale, Aerosol, q4hr, PRN wheezing, First Dose: 06/07/19 10:01:00 EDT, [facility], 10 mg, Oral, Tab, [id number] Times, PRN spasm, First Dose: 06/07/19 9:24:00 EDT, Dispense From Location: [id number] divalproex sodium, 250 mg, Oral, Tab-DR, BID, First Dose: 06/07/19 10:14:00 EDT, Dispense From Location: [id number] gabapentin, 100 mg, Oral, Cap, TID, First Dose: 06/07/19 14:00:00 EDT, Dispense From Location: [id number]-[id number] hydrocodone-acetaminoph en, 1 tabs, Oral, Tab, q4hr, PRN severe pain [7-10 on pain scale], First Dose: 06/07/19 10:10:00 EDT, Dispense From Location: [place] methocarbamol, 750 mg, Oral, Tab, HS (at bedtime), First Dose: 06/07/19 21:00:00 EDT, Dispense From Location: [place] Communication Order Consult to Case Management Occupational Therapy Evaluation and Treatment Inpatient Referral to Pain Specialist Electronically signed by ___ Kat Jeffries CNP 06/07/19 10:52 EDT Normal [facility] UA w/Reflex Cultureon 2018 Acetoacetic Acid,Ur Negative Normal NEG [facility] Comment on above: Performed By: #### ALEXANDRA PAIGE PANDA #### [facility] [address] [place] [address] Hydro Plant Site Manager: Dilip Segura MD Bilirubin, SemiQt,Ur Negative Normal NEG [facility] Comment on above: Performed By: #### ALEXANDRA PAIGE UHCG #### [facility] [address] [place], [place] [id number] [employer] Plant Site Manager: Dilip Segura MD Color (U) YELLOW Normal YEL [facility] Comment on above: Performed By: #### U AX, UMICAO, UHCG #### [facility] [address] [place], [place] [id number] [employer] Plant Site Manager: Dilip Segura MD Glucose Ql (U) Negative Normal NEG [facility] in Hospital Comment on above: Performed By: #### U AX, UMICAO, CG #### [facility] [address] [place], [place] [id number] [employer] Plant Site Manager: Dilip Segura MD Hemoglobin, Ur TRACE Abnormal NEG [facility] Comment on above: Performed By: #### U AXDULCEO CG #### [facility] [address] [place] [address] [place] [place], [place] [id number] [employer] Site Manager: Dilip Segura MD Leukocyte esterase Test strip Ql (U) Negative Normal NEG [facility] Comment on above: Performed By: #### U [facility]DRA [facility] #### [address] [place], [place] [phone] Hydro Plant Site Manager: Dilip Segura MD Nitrite,Ur Negative Normal [facility] Comment on above: Performed By: #### U AXRACHEALICAO CG #### [facility] [address] [place], [place] [id number] Hydro Plant Site Manager: Dilip Segura MD pH (U) 6.5 [pH] Normal 5.0-9.0 [facility] Comment on above: Performed By: #### U AXDULCEO CG #### [facility] [address] [place], [place] [phone] [employer] Plant Site Manager: Dilip Segura MD Protein Ql (U) Negative Normal NEG [facility] in [facility] Comment on above: Performed By: #### U AX UMICAO [facility] #### [facility] [address] [place], [place] [id number] [employer] Plant Site Manager: Dilip Segura MD Specific gravity (U) [Rel density] 1.025 High 1.010-1.020 [facility] Comment on above: Performed By: #### U AX RACHEALPERNELL [facility] #### [facility] [address] [place], [place] [phone] Hydro Plant Site Manager: Dilip Segura MD Turbidity CLEAR Normal CLEAR [facility] Comment on above: Performed By: #### U [facility] #### [facility] [address] [place], [place] [id number] Hydro Plant Site Manager: Dilip Segura MD Urobilinogen,Ur Normal Normal NORM [facility] Comment on above: Performed By: #### U [facility] #### [facility] [address] [place], [place] [id number] Hydro Plant Site Manager: Dilip Segura MD Comment NOT REPORTED Normal [facility] Comment on above: Performed By: #### U [facility] #### [facility] [address] [place], [place] [id number] Hydro Plant Site Manager: Dilip Segura MD [facility] 06-07-2019 Creatinine [Mass/Vol] 51.3 mg/dL Normal [facility] Comment on above: Performed By: #### C D:[id number] #### [facility] [address] [place] [address] Ur Amph Scrn Negative Normal NEG = <1000 [facility] Comment on above: Performed By: #### C D:[id number] #### [address] [place] [address] Ur Lala Scrn Negative Normal NEG = <200 [facility] Comment on above: Performed By: #### C D:[id number] #### [address] [address] [place] [address] Ur Benzodia Scrn Negative Normal NEG = <200 [facility] Comment on above: Performed By: #### C D:[id number] #### [facility] [address] [place] [address] Ur Cannab Scrn Negative Normal NEG = <50 [facility] Comment on above: Performed By: #### C D:[id number] #### [facility] [address] [place] [address] Ur Cocaine Scrn Negative Normal NEG = <300 [facility] Comment on above: Performed By: #### C [id number] #### [address] [place] [address] Ur Methadone Scn Negative Normal NEG = <300 [facility] Comment on above: Performed By: #### C D:[id number] #### [address] [place] [address] Ur Opiate Scrn Negative Normal NEG = <300 [facility] Comment on above: Performed By: #### C D:[id number] #### [facility] [address] [place] [address] [place] [address] Ur Oxy Screen Negative Normal NEG = <100 [facility] Comment on above: Performed By: #### C D:[id number] #### [address] [place] [address] Ur Oxy Scrn Qnt 0 ng/mL Normal <=99 [facility] Comment on above: Performed By: #### C D:[id number] #### [facility] [address] [place] [address], [place] [address] Ur PCP Scrn Negative Normal NEG = <25 [facility] Comment on above: Performed By: #### C D:[id number] #### [address] [place] [address] UA pH 8.0 Abnormal 4.5 - 7.8 [facility] Comment on above: Performed By: #### C D:[id number] #### [facility] [address] [place] [address] UA Spec Grav 1.009 Normal 1.003-1.035 [facility] Comment on above: Performed By: #### C D:[id number] #### [facility] [address] [place] [address] Urinalysis,Microon 9 ----- Normal [facility] Comment on above: Performed By: #### [facility] #### [facility] [address] [place] [address] Hydro Plant Site Manager: Dilip Segura MD Bacteria LM.HPF (Urine sed) [#/Area] 1+ Abnormal NONE [facility] Comment on above: Performed By: #### ALEXANDRA PAIGE [facility] #### [facility] [address] [place] [phone] Hydro Plant Site Manager: Dilip Segura MD Epithelial cells LM.HPF (Urine sed) [#/Area] 2 TO 5 Normal 0-25 [facility] Comment on above: Performed By: #### U [facility] #### [address] [place] [phone] [employer] Site Manager: Dilip Segura MD Mucus Strands 3+ Abnormal [facility] Comment on above: Performed By: #### U ALEXANDRA NIETO [facility] #### [facility] [address] [place] [phone] [employer] Site Manager: Dilip Segura MD RBC (U) [#/Vol] 0 TO 2 Normal 0-2 [facility] Comment on above: Performed By: #### [facility] #### [facility] [address] [place] [address] Hydro Plant Site Manager: Dilip Segura MD WBC (U) [#/Vol] 0 TO 2 Normal 0-5 [facility] Comment on above: Performed By: #### U AX, UMICAO, UHCG #### [facility] [address] [place] [address] [employer] Plant Site Manager: Dilip Segura MD Amorphous sediment LM Ql (Urine sed) NOT REPORTED Normal NONE [facility] Comment on above: Performed By: #### U AX, UMICAO, UHCG #### [facility] [address] [place], [place] [phone] [employer] Plant Site Manager: Dilip Segura MD Casts LM.LPF (Urine sed) [#/Area] NOT REPORTED Normal [facility] Comment on above: Performed By: #### U AX, UMICAO, UHCG #### [facility] [address] [place] [address] Hydro Plant Site Manager: Dilip Segura MD Crystals LM Nom (Urine sed) NOT REPORTED Normal [facility] Comment on above: Performed By: #### U AX, UMICAO, UHCG #### [facility] [address] [place] [address] Hydro Plant Site Manager: Dilip Segura MD Epithelial, Renal NOT REPORTED Normal 0 [facility] Comment on above: Performed By: #### U AX, UMICAO, UHCG #### [facility] [address] [place] [address] [employer] Plant Site Manager: Dilip Segura MD Other Observations NOT REPORTED Normal NREQ [facility] Comment on above: Performed By: #### U AX, UMICAO, UHCG #### [facility] [address] [place] [address] Hydro Plant Site Manager: Dilip Segura MD Trichomonas NOT REPORTED Normal NONE [facility] Comment on above: Performed By: #### U AX, UMICAO, UHCG #### [facility] [address] [place], [place] [phone] Hydro Plant Site Manager: Dilip Segura MD Yeast LM Ql (Urine sed) NOT REPORTED Normal NONE [facility] Comment on above: Performed By: #### U ALEXANDRA NIETO, [facility] #### [facility] [address] [place] [address] Hydro Plant Site Manager: Dilip Segura MD XR Hip 2-3 Views Righton XR Hip 2-3 Views Right EXAM: XR Hip 2-3 Views Right HISTORY: Injury. COMPARISON: None available. TECHNIQUE: One view of the pelvis and one view of the right hip were obtained. FINDINGS: No acute fracture or dislocation is seen. The femoral heads are well-seated in the acetabula. The sacroiliac joints, hip joints, and pubic symphysis are preserved. A surgical clip overlies the right hemipelvis. IMPRESSION: No acute fracture or dislocation of the pelvis or right hip is seen. If there is concern for an occult injury, cross-sectional imaging is recommended. Final Dictated by: Turner Hernadez MD Dictated DT/TM: 06/07/2019 6:17 am Signed by: Turner Hernadez MD Signed (Electronic Signature): 06/07/2019 6:36 am Transcribed DT/TM: 06/07/2019 6:20 (If Report Is Signed, Electronically Signed in Other Vendor System) Normal [facility] Basic Metabolic Panelon 05-28 Anion gap [Moles/Vol] 15 mmol/L 9 - 17 mmol/L [place] Bun/Cre Ratio 11 [place] Calcium [Mass/Vol] 9.2 mg/dL 8.6 - 10. 4 mg/dL [place] Chloride [Moles/Vol] 102 mmol/L 98 - 107 mmol/L [place] CO2 [Moles/Vol] 22 mmol/L 20 - 31 mmol/L [place] Creatinine [Mass/Vol] 0.56 mg/dL 0.5 - 0.9 mg/dL [place] GFR >60 >60 mL/min [place] GFR Non- >60 >60 mL/min [place] Glucose [Mass/Vol] 153 mg/dL High 70 - 99 mg/dL [place] Interpretation and review of laboratory results Abnormal [place] Potassium [Moles/Vol] 3.6 mmol/L Low 3.7 - 5.3 mmol/L [place] Sodium [Moles/Vol] 139 mmol/L 135 - 144 mmol/L [place] Urea nitrogen [Mass/Vol] 6 mg/dL 6 - 20 mg/dL [place] CBC auto differentialon 05-28 Basophils (Bld) [#/Vol] 0.03 10*3/uL [place] Basophils/100 WBC (Bld) 0 % 0 - 2 % [place] Differential Type NOT REPORTED [place] Eosinophils (Bld) [#/Vol] 10*3/uL [place] Eosinophils/100 WBC (Bld) 0 % Low 1 - 4 % [place] Erythrocyte distribution width (RBC) [Ratio] 13.6 % 11.8 - 14.4 % [place] Hematocrit (Bld) [Volume fraction] 37.2 % 36.3 - 47.1 % [place] Hemoglobin (Bld) [Mass/Vol] 11.8 g/dL Low 11.9 - 15.1 g/dL [place] Immature granulocytes (Bld) [#/Vol] 1 % High 0 [place] Immature granulocytes (Bld) [#/Vol] 0.08 10*3/uL [place] Interpretation and review of laboratory results Abnormal [place] Lymphocytes (Bld) [#/Vol] 1.23 10*3/uL [place] Lymphocytes/100 WBC (Bld) 9 % Low 24 - 43 % [place] MCH (RBC) [Entitic mass] 27.8 pg 25.2 - 33.5 pg [place] MCHC (RBC) [Mass/Vol] 31.7 g/dL 28.4 - 34.8 g/dL [place] MCV (RBC) [Entitic vol] 87.5 fL 82.6 - 102.9 fL [place] Monocytes (Bld) [#/Vol] 0.52 10*3/uL [place] Monocytes/100 WBC (Bld) 4 % 3 - 12 % [place] Platelet mean volume (Bld) [Entitic vol] 9.3 fL 8.1 - 13.5 fL [place] Platelets (Bld) [#/Vol] 357 10*3/uL [place] Platelets (Bld) [#/Vol] NOT REPORTED [place] RBC (Bld) [#/Vol] 4.25 10*6/uL 3.95 - 5.1 1 m/uL [place] RBC morphology finding Nom (Bld) NOT REPORTED [place] Segmented neutrophils/100 WBC (Bld) 86 % High 36 - 65 % [place] Segs Absolute 11.32 [place] WBC (Bld) [#/Vol] 0.0 10*3/uL 0.0 per 10 0 WBC [place] WBC (Bld) [#/Vol] 13.2 10*3/uL [place] WBC Morphology NOT REPORTED [place] Metabolic Panelon 06-06-2019 GFR/1.73 sq M predicted among non-blacks MDRD (S/P/Bld) [Vol rate/Area] [place] Comment on above: Stage 1: Some kidney damage normal GFR Stage 2: Mild kidney damage GFR 60-89 Stage 3: Moderate kidney damage GFR 30-59 Stage 4: Severe kidney damage GFR 15-29 Stage 5: Severe kidney damage GFR <15 ESRD - chronic treatment by dialysis or transplant Average GFR for 20-2 9 years old: 116 mL/min/1.73sq m Chronic Kidney Disease: <60 mL/min/1.73sq m Kidney failure: <15 mL/min/1.73sq m eGFR calculated using average adult body mass. Additional eGFR calculator available at: http://www.[employer]Spot [employer]/multiple_crcl_2012.htm Microscopic Urinalysison Amorphous, UA NOT REPORTED None [place] Bacteria, UA 1+ Abnormal None [place] Casts UA NOT REPORTED /LPF [place] Crystals UA NOT REPORTED None /HPF [place] Epithelial Cells UA 2 TO 5 [place] Interpretation and review of laboratory results Abnormal [place] Mucus, UA 3+ Abnormal None [place] Other Observations UA NOT REPORTED NOT REQ. [place] RBC (U) [#/Vol] 0 TO 2 [place] Renal Epithelial, Urine NOT REPORTED 0 /HPF [place] Trichomonas, UA NOT REPORTED None [facility] [place] WBC, UA 0 TO 2 [place] Yeast, UA NOT REPORTED None [place] - [place] , Urineon 9 Beta HCG ( test) Ql (U) Negative NEGATIVE [place] Comment on above: Specimens with hCG l evels near the threshold of the test (25 mIU/mL) may give a negative or indeterminate result. In such cases, another test should be performed with a new specimen in 48-72 hours. If early is suspected clinically in this setting, correlation with quantitative serum b-hCG level is suggested. [facility] has confirmed the use of plasma for this test. This has not been cleared or approved by the U.S. Food and Drug Administration. The FDA has determined that such clearance is not necessary. Urinalysis Reflex to Culture on 06-06-2019 Bilirubin Urine Negative NEGATIVE [place] Color, UA YELLOW YELLOW [place] Glucose, Ur Negative NEGATIVE [place] Interpretation and review of laboratory results Abnormal [place] Ketones Ql (U) Negative NEGATIVE [place] Leukocyte esterase Test strip Ql (U) Negative NEGATIVE [place] Nitrite, Urine Negative NEGATIVE [place] pH, UA 6.5 [place] Protein (U) [Mass/Vol] Negative NEGATIVE [place] Specific [place], UA 1.025 High [place] Turbidity UA CLEAR CLEAR [place] Urinalysis Comments NOT REPORTED [place] Urine Hgb TRACE Abnormal NEGATIVE [place] Urobilinogen, Urine Normal Normal [place] XR FOOT RIGHT (MIN 3 VIEWS)o n 05-22-2019 XR FOOT RIGHT (MIN 3 VIEWS) EXAMINATION: THREE XRAY VIEWS OF THE RIGHT FOOT 05/22/2019 1:19 pm COMPARISON: None. HISTORY: ORDERING SYSTEM PROVIDED HISTORY: pain to foot TECHNOLOGIST PROVIDED HISTORY: pain to foot FINDINGS: No fracture or malalignment identified. The joint spaces are maintained. Bipartite medial sesamoid. No discrete soft tissue abnormality identified. IMPRESSION: No acute osseous abnormality or arthropathic features identified. Interpreted by: Casey Hanna MD Signed by: Casey Hanna MD 05/22/19 Final result Normal [facility] No acute osseous abnormality or arthropathic features identified. [place] EXAMINATION: THREE X RAY VIEWS OF THE RIGHT FOOT 05/22/2019 1:19 pm COMPARISON: None. HISTORY: ORDERING SYSTEM PROVIDED HISTORY: pain to foot TECHNOLOGIST PROVIDED HISTORY: pain to foot FINDINGS: No fracture or malalignment identified. The joint spaces are maintained. Bipartite medial sesamoid. No discrete soft tissue abnormality identified. [place] An[place], [facility] Incoming Radiant Results From [employer] - 05/22/2019 1:26 PM EDT EXAMINATION: THREE XRAY VIEWS OF THE RIGHT FOOT 05/22/2019 1:19 pm COMPARISON: None. HISTORY: ORDERING SYSTEM PROVIDED HISTORY: pain to foot TECHNOLOGIST PROVIDED HISTORY: pain to foot FINDINGS: No fracture or malalignment identified. The joint spaces are maintained. Bipartite medial sesamoid. No discrete soft tissue abnormality identified. IMPRESSION: No acute osseous abnormality or arthropathic features identified. [place] Vital Signs Date Time Vital Sign Value Performing Clinician Facility 05-01-2025 10: Body height 162.6 cm Annabel Shukla MD Work Phone: [facility] 05-01-2025 [id number] Body mass index (BMI) [Ratio] 26.3 kg/m2 Annabel Shukla MD Work Phone: [facility] 05-01-2025 10:11-0400 Body weight 69.49 kg Annabel Shukla MD Work Phone: [facility] 05-01-2025 10:11-0400 Diastolic blood pressure 70 mm[Hg] Annabel Shukla MD Work Phone: [facility] 05-01-2025 10:11-0400 Heart rate 74 /min Annabel Shukla MD Work Phone: [facility] 05-01-2025 10:11-0400 SaO2% (BldA) [Mass fraction] 96 % Annabel Shukla MD Work Phone: [facility] 05-01-2025 10:11-0400 Systolic blood pressure 118 mm[Hg] Annabel Shukla MD Work Phone: [facility] 04-10-2025 10:39-0400 Body height 162.6 cm Annabel Shukla MD Work Phone: [facility] 04-10-2025 10:39-0400 Body mass index (BMI) [Ratio] 26.71 kg/m2 Annabel Shukla MD Work Phone: [facility] 04-10-2025 10:39-0400 Body weight 70.58 kg Annabel Shukla MD Work Phone: [facility] 04-10-2025 10:39-0400 Diastolic blood pressure 78 mm[Hg] Annabel Shukla MD Work Phone: [facility] 04-10-2025 10:39-0400 Heart rate 70 /min Annabel Shukla MD Work Phone: [facility] 04-10-2025 10:39-0400 SaO2% (BldA) [Mass fraction] 99 % Annabel Shukla MD Work Phone: [facility] 04-10-2025 10:39-0400 Systolic blood pressure 122 mm[Hg] Annabel Shukla MD Work Phone: [facility] 04-02-2025 14:39-0400 Body height 162.6 cm Van Aguila DO Work Phone: [facility] 04-02-2025 14:39-0400 Body mass index (BMI) [Ratio] 28.49 kg/m2 Van Aguila DO Work Phone: [facility] 04-02-2025 14:39-0400 Body weight 75.3 kg Van Aguila DO Work Phone: [facility] 03-28-2025 08:57-0400 Body height 162.6 cm Jeison Delgado MD Work Phone: [facility] 03-28-2025 08:57-0400 Body mass index (BMI) [Ratio] 28.49 kg/m2 Jeison Delgado MD Work Phone: [facility] 03-28-2025 08:57-0400 Body weight 75.3 kg Jeison Delgado MD Work Phone: [facility] 03-28-2025 08:57-0400 Diastolic blood pressure 74 mm[Hg] Jeison Delgado MD Work Phone: [facility] 03-28-2025 08:57-0400 Heart rate 79 /min Jeison Delgado MD Work Phone: [facility] 03-28-2025 08:57-0400 Systolic blood pressure 124 mm[Hg] Jeison Delgado MD Work Phone: [facility] 02-14-2025 10:26-0400 Body height 162.6 cm Jeison Delgado MD Work Phone: [facility] 02-14-2025 10:26-0400 Body mass index (BMI) [Ratio] 28.49 kg/m2 Jeison Delgado MD Work Phone: [facility] 02-14-2025 10:26-0400 Body weight 75.3 kg Jeison Delgado MD Work Phone: [facility] 02-14-2025 10:26-0400 Diastolic blood pressure 77 mm[Hg] Jeison Delgado MD Work Phone: [facility] 02-14-2025 10:26-0400 Heart rate 78 /min Jeison Delgado MD Work Phone: [facility] 02-14-2025 10:26-0400 Systolic blood pressure 136 mm[Hg] Jeison Delgado MD Work Phone: [facility] 01-29-2025 11:58-0400 Body height 162.6 cm Anabelle Hagonzaloenburg RECTIFICATION PRINTER Work Phone: [facility] 01-29-2025 11:58-0400 Body mass index (BMI) [Ratio] 28.49 kg/m2 Anabelle Hackenburg RECTIFICATION PRINTER Work Phone: [facility] 01-29-2025 11:58-0400 Body weight 75.3 kg Anabelle Hagonzaloenburg RECTIFICATION PRINTER Work Phone: [facility] 01-29-2025 11:58-0400 Diastolic blood pressure 70 mm[Hg] Anabelle Hackenburg RECTIFICATION PRINTER Work Phone: [facility] 01-29-2025 11:58-0400 Heart rate 66 /min Anabelle Hackenburg RECTIFICATION PRINTER Work Phone: [facility] 01-29-2025 11:58-0400 Respiratory rate 18 /min Anabelle Hackenburg RECTIFICATION PRINTER Work Phone: [facility] 01-29-2025 11:58-0400 SaO2% (BldA) [Mass fraction] 98 % Anabelle Hackenburg RECTIFICATION PRINTER Work Phone: [facility] 01-29-2025 11:58-0400 Systolic blood pressure 118 mm[Hg] Anabelle Hackenburg RECTIFICATION PRINTER Work Phone: [facility] 01-09-2025 10:19-0400 Body height 162.6 cm Debi Brian RECTIFICATION PRINTER Work Phone: [facility] 01-09-2025 10:19-0400 Body mass index (BMI) [Ratio] 29.7 kg/m2 Debi Torres RECTIFICATION PRINTER Work Phone: [facility] [employer] 01-09-2025 10:19-0400 Body weight 78.47 kg Debi Torres RECTIFICATION PRINTER Work Phone: [facility] [employer] 01-09-2025 10:19-0400 Diastolic blood pressure 78 mm[Hg] Debi Torres RECTIFICATION PRINTER Work Phone: [facility] [employer] 01-09-2025 10:19-0400 Heart rate 67 /min Debi Torres RECTIFICATION PRINTER Work Phone: [facility] [employer] 01-09-2025 10:19-0400 Respiratory rate 16 /min Debi Torres RECTIFICATION PRINTER Work Phone: [facility] [employer] 01-09-2025 10:19-0400 SaO2% (BldA) [Mass fraction] 100 % Debi Torres RECTIFICATION PRINTER Work Phone: [facility] [employer] 01-09-2025 10:19-0400 Systolic blood pressure 118 mm[Hg] Debi Torres RECTIFICATION PRINTER Work Phone: [facility] [employer] 09-25-2023 10:30-0500 Body height 162.56 cm Ana Moore Other [employer] Other 09-25-2023 10:30-0500 Body mass index (BMI) [Ratio] 28.42 kg/m2 Ana Moore Other [facility] Other 09-25-2023 10:30-0500 Body temperature 98.2 [degF] Ana Moore Other [facility] Other 09-25-2023 10:30-0500 Body weight 75.12 kg Ana Moore Other [facility] Other 09-25-2023 10:30-0500 Respiratory rate 18 /min Ana Moore Other [facility] Other 09-25-2023 10:30-0500 SaO2% (BldA) [Mass fraction] 96 % Ana Gallegohn Other [facility] Other 06-06-2019 22:30-0400 BMI (Body Mass Index) 23.17 kg/m2 [facility] 06-06-2019 22:30-0400 Body Temperature 98.6 [degF] [facility] 06-06-2019 22:30-0400 Body weight 61.24 kg [facility] , [place] 06-06-2019 22:30-0400 BP Diastolic 87 mm[Hg] [facility] , [place] 06-06-2019 22:30-0400 BP Systolic 125 mm[Hg] [facility] , [place] 06-06-2019 22:30-0400 Height 162.6 cm [facility] [place] 06-06-2019 22:30-0400 Pulse (Heart Rate) 93 /min [facility] 06-06-2019 22:30-0400 Pulse Oximetry 98 % [facility] [place] 06-06-2019 22:30-0400 Respiratory Rate 16 /min [facility] 05-22-2019 13:46-0400 Respiratory Rate 16 /min [facility] [place] [facility] 13:09-0400 Body Temperature 97.9 [degF] Annabel [facility], [place] 05-22-2019 13:09-0400 BP Diastolic 91 mm[Hg] Annabel [facility] 05-22-2019 13:09-0400 BP Systolic 128 mm[Hg] Annabel [facility] 05-22-2019 13:09-0400 Pulse (Heart Rate) 78 /min [facility] 13:09-0400 Pulse Oximetry 99 % Annabel Ibarra [facility] Encounters Encounter Date Encounter Type Care Provider Facility Start: 05-01-2025 End: 05-01-2025 Julio César Shukla MD Work Phone: [facility] Start: 05-01-2025 End: 05-01-2025 Bamboo flowsbhumika Shukla MD Work Phone: [facility] Start: 05-01-2025 End: 05-01-2025 Office outpatient visit 15 minutes Annabel Shukla MD Work Phone: [facility] Comment on above: Epigastric pain (Kassei pj Dx); Arthralgia, unspecified joint Start: 05-01-2025 End: 05-01-2025 ambulatory ANNABEL SHUKLA Not Available Start: 04-10-2025 End: 04-10-2025 Bamboo flowsbhumika Shukla MD Work Phone: [facility] Start: 04-10-2025 End: 04-10-2025 Bamboo deanna Shukla MD Work Phone: [facility] Start: 04-10-2025 End: 04-10-2025 Office outpatient visit 25 minutes Annabel Shukla MD Work Phone: [facility] Comment on above: Weight loss, uninten tional (Primary Dx); Epigastric pain; Elevated liver enzymes; Lymphadenopathy Start: 04-10-2025 End: 04-10-2025 ambulatory ANNABEL SHUKLA Not Available Start: 04-09-2025 End: 04-09-2025 ambulatory VAN AGUILA Not Available Start: 04-02-2025 End: 04-02-2025 Office outpatient visit 25 minutes Van Aguila DO Work Phone: [facility] [place] Comment on above: LAD (lymphadenopathy ), supraclavicular Start: 04-02-2025 End: 04-02-2025 ambulatory VAN AGUILA Not Available Start: 04-02-2025 End: 04-02-2025 Bamboo flowsheet Van Aguila DO Work Phone: [facility] [place] Start: 04-02-2025 End: 04-02-2025 Bamboo flowsheet Van Aguila DO Work Phone: [facility] [place] Start: 03-28-2025 End: 03-28-2025 Bamboo flowsheet Jeison Delgado MD Work Phone: [facility] Start: 03-28-2025 End: 03-28-2025 Bamboo flowsbhumika Delgado MD Work Phone: [facility] Start: 03-28-2025 End: 03-28-2025 Office outpatient visit 25 minutes Jeison Delgado MD Work Phone: [facility] Comment on above: LAD (lymphadenopathy ), supraclavicular (Primary Dx) Start: 03-28-2025 End: 03-28-2025 ambulatory JEISON DELGADO Not Available Start: 03-01-2025 End: 03-01-2025 Departed Referred Bret Rose MD Work Phone: [facility] Start: 03-01-2025 End: 03-01-2025 ambulatory Bret Rose [facility] Work Phone: Start: 02-14-2025 End: 02-14-2025 Bamboo flowsbhumika Delgado MD Work Phone: [facility] Start: 02-14-2025 End: 02-14-2025 Bamboo flowsbhumika Delgado MD Work Phone: [facility] Start: 02-14-2025 End: 02-14-2025 Office outpatient new 45 minutes Jeison Delgado MD Work Phone: [facility] Comment on above: Enlarged lymph nodes Start: 02-14-2025 End: 02-14-2025 ambulatory JEISON DELGADO Not Available Start: 02-07-2025 End: 02-07-2025 ambulatory ANABELLE A HAGONZALOENBURG Not Available Start: 02-03-2025 End: 02-03-2025 Orders Only Anabelle A Hagonzaloenburg RECTIFICATION PRINTER Work Phone: [facility] Comment on above: Enlarged lymph nodes (Primary Dx); Lymphadenopathy Start: 02-01-2025 End: 02-01-2025 ambulatory ANABELLE A HACKENBURG Not Available Start: 01-29-2025 End: 01-29-2025 Bamboo flowsheet Anabelle A Hackenburg RECTIFICATION PRINTER Work Phone: [facility] Start: 01-29-2025 End: 01-30-2025 Bamboo flowsheet Anabelle A Hackenburg RECTIFICATION PRINTER Work Phone: [facility] Start: 01-29-2025 End: 01-30-2025 External Result Encounter Debi Torres RECTIFICATION PRINTER Work Phone: [facility] Unsolicited Start: 01-29-2025 End: 02-01-2025 Follow-up encounter Anabelle Banuelosburg RECTIFICATION PRINTER Work Phone: [facility] Start: 01-29-2025 End: 01-29-2025 Office outpatient visit 25 minutes Anabelle A Hagonzaloenburg RECTIFICATION PRINTER Work Phone: [facility] Comment on above: Generalized pruritus (Primary Dx); Lymphadenopathy; Weight loss, unintentional Start: 01-29-2025 End: 01-29-2025 ambulatory ANABELLE A HACKENBURG Not Available Start: 01-09-2025 End: 01-09-2025 Office outpatient visit 15 minutes Debi Brian RECTIFICATION PRINTER Work Phone: [facility] [place] Comment on above: Seizure disorder (CM S/HCC) (Primary Dx); Encounter for medication monitoring; Mood disorder (CMS/HCC); Headache, unspecified headache type; Dizziness Start: 01-09-2025 End: 01-09-2025 ambulatory DEBI TORRES Not Available Start: 09-25-2023 End: 09-25-2023 ambulatory Ana Moore Other [place] [employer] Other Start: 09-25-2023 Office outpatient ne w 20 minutes Ana Moore [facility] [place] Start: 01-01-2023 End: 01-02-[address] JHONATAN HOOPER . Facility: Start: 12-31-2022 End: 01-01-2023 ambulatory NONE LISTED REQUEST Facility: Start: 11-25-2022 End: 11-25-2022 ambulatory MD Annabel Shukla Work Phone: [facility] Work Phone: Start: 11-25-2022 End: 11-25-2022 Patient encounter procedure MD Annabel Shukla Work Phone: [facility] [place] Work Phone: Start: 03-19-2022 End: 03-19-[address] JHONATAN HOOPER . Facility: Start: 06-28-2020 End: 07-15-2020 Patient encounter procedure SERA ESPANA Facility:[facility] Start: 06-26-2019 End: 06-26-2019 Patient encounter procedure Annabel Shukla Facility:[facility] Start: 06-07-2019 End: 06-08-2019 Patient encounter procedure PEDRO GARCIA Facility:[facility] Start: 06-07-2019 End: 06-07-2019 Emergency department patient visit ANNABEL Posadas [facility] Start: 06-06-2019 End: 06-07-2019 Emergency department patient visit Johny Polo Work Phone: [facility] Start: 05-22-2019 End: 05-22-2019 Emergency department patient visit [facility]NABEL Posadas [facility] Start: 05-22-2019 End: 05-22-2019 Emergency department patient visit Annabel [facility] Comment on above: Plantar fasciitis (P rimary Dx) Procedures Date Procedure Procedure Detail Performing Clinician Start: 01-29-2025 Complete blood count with white cell differential, automated Debi Torres RECTIFICATION PRINTER Work Phone: Start: 03-19-2022 Microscopic observat ion [Identifier] in Cervix by Cyto stain Debi Torres RECTIFICATION PRINTER Work Phone: Start: 06-07-2019 Ct lumbar spine w/o contrast material ANNABEL SHULTZTERESAGAYLA Start: 06-07-2019 Basic metabolic pane l calcium total ANNABEL BREWSTERTIENJOSÉ Start: 06-07-2019 Blood count complete auto&auto difrntl wbc ANNABEL BREWSTERTIENJOSÉ Start: 06-07-2019 Urinalysis microscop ic only ANNABEL BELLAANAIGAYLA Start: 06-07-2019 Urine test visual color cmprsn meths ANNABEL IBARRA Start: 06-07-2019 Urnls dip stick/tabl et rgnt auto w/o microscopy ANNABEL SHULTZJORDANJOSÉ Start: 06-06-2019 Ct lumbar spine w/o contrast material Johny A [employer] Work Phone: Start: 06-06-2019 Basic metabolic pane l calcium total Johny A Chris Work Phone: Start: 06-06-2019 Blood count complete auto&auto difrntl wbc Johny A [employer] Work Phone: Start: 06-06-2019 Urinalysis microscop ic only Johny A Crhis Work Phone: Start: 06-06-2019 Urine test visual color cmprsn meths Johny A Chris Work Phone: Start: 06-06-2019 Urnls dip stick/tabl et rgnt auto w/o microscopy Johny A Chris Work Phone: Start: 05-22-2019 Radex foot complete minimum 3 views ANNABEL IBARRA Start: 05-22-2019 Radex foot complete minimum 3 views Yolanda Francisco Work Phone: Plan of Treatment Date Care Activity Detail Author Start: 03-19-2027 Screening for malignant neoplasm of cervix [facility] Start: 07-17-2025 End: 07-17-2025 Patient encounter procedure 07/17/2025 11:00 AM EDT Office Visit [facility] [place] [address] [address] [place] [phone] Debi Torres NP [address] [place] [phone] [facility] [place] Start: 05-28-2025 Influenza vaccination [facility] Start: 05-07-2025 End: 05-07-2025 Patient encounter procedure 05/07/2025 2:15 PM EDT Office Visit [facility] [place] [address] [place] [phone] Van Aguila DO [address] [place] [address] [facility] Start: 05-01-2025 End: 05-01-2026 Nuclear Ab [Titer] in Serum by Immunofluorescence [facility] Lab Routine Arthralgia, unspecified joint Expected: 05/01/2025 (Approximate), Expires: 05/01/2026 [facility] Work Phone: Comment on above: Expected: 05/01/2025 (Approximate), Expi res: 05/01/2026 Start: 05-01-2025 End: 05-01-2025 Patient encounter procedure 05/01/2025 10:20 AM EDT Office Visit [facility] [address] [facility] [place] [address] Annabel Shukla MD [address] [facility] [address] [place], [place] [id number] Arrived [facility] Comment on above: Arrived Start: 04-10-2025 End: 04-10-2026 CBC W Auto Differential panel - Blood CBC and differential Lab Routine Weight loss, unintentional Expected: 04/10/2025 (Approximate), Expires: 04/10/2026 [facility] Work Phone: Comment on above: Expected: 04/10/2025 (Approximate), Expi res: 04/10/2026 Start: 04-10-2025 End: 04-10-2026 Erythrocyte sedimentation rate Sedimentation rate, automated Lab Routine Weight loss, unintentional Expected: 04/10/2025 (Approximate), Expires: 04/10/2026 [facility] Comment on above: Expected: 04/10/2025 (Approximate), Expi res: 04/10/2026 Start: 04-10-2025 End: 04-10-2026 Lactate dehydrogenase [Enzymatic activity/volume] in Serum or Plasma by Lactate to pyruvate reaction Lactate dehydrogenase Lab Routine Weight loss, unintentional Expected: 04/10/2025 (Approximate), Expires: 04/10/2026 [facility] Comment on above: Expected: 04/10/2025 (Approximate), Expi res: 04/10/2026 Start: 04-10-2025 End: 04-10-2026 Protein electrophoresis, serum Protein electrophoresis, serum Lab Routine Weight loss, unintentional Expected: 04/10/2025 (Approximate), Expires: 04/10/2026 [facility] Comment on above: Expected: 04/10/2025 (Approximate), Expi res: 04/10/2026 Start: 04-10-2025 End: 04-10-2025 Patient encounter procedure 04/10/2025 10:40 AM EDT Office Visit [facility] [address] [place] [phone] Annabel Shukla MD [address] [place] [address] Arrived [facility] Comment on above: Arrived Start: 04-02-2025 End: 04-02-2025 Patient encounter procedure 04/02/2025 3:00 PM EDT Office Visit [facility] [place] [address] [place] [address] Van Aguila W, DO [address] [place] [address] LAD (lymphadenopathy), supraclavicular [facility] Comment on above: LAD (lymphadenopathy), supraclavicular Start: 04-02-2025 End: 04-02-2026 CT Neck W contrast IV CT soft tissue neck w IV contrast Imaging STAT LAD (lymphadenopathy), supraclavicular Expected: 04/02/2025, Expires: 04/02/2026 [facility] Work Phone: Comment on above: Expected: 04/02/2025, Expires: Start: 03-28-2025 End: 03-28-2025 Patient encounter procedure 03/28/2025 9:00 AM EDT Office Visit [facility] [address] [facility] [address] [place] [address] Jeison Delgado MD [address] [place] [address] [place] [address] Arrived [facility] Comment on above: Arrived Start: 02-14-2025 End: 02-14-2025 Patient encounter procedure 02/14/2025 10:30 AM EDT Office Visit [facility] [address] [facility] [address] [place] [address] Jeison Delgado MD [address] [facility] [address] [place] [address] Enlarged lymph nodes [facility] Comment on above: Enlarged lymph nodes Start: 02-03-2025 End: 02-03-2026 CT Neck W contrast IV CT soft tissue neck w IV contrast Imaging STAT Enlarged lymph nodes Lymphadenopathy Expected: 02/03/2025, Expires: 02/03/2026 [facility] Work Phone: Comment on above: Expected: 02/03/2025, Expires: Start: 02-01-2025 End: 02-01-2025 Professional / ancillary services management 02/01/2025 10:45 AM EDT Ancillary Procedure [facility] [address] [address] [place] [phone] [facility] Start: 01-29-2025 End: 01-29-2026 TSH W/REFLEX TO FT4 TSH W/REFLEX TO FT4 Lab Routine Generalized pruritus Lymphadenopathy Expected: 01/29/2025 (Approximate), Expires: 01/29/2026 [facility] Work Phone: Comment on above: Expected: 01/29/2025 (Approximate), Expi res: 01/29/2026 Start: 01-29-2025 End: 01-29-2026 US Soft Tissue Palpable Mass US Soft Tissue Palpable Mass Imaging Routine Lymphadenopathy Expected: 01/29/2025, Expires: 01/29/2026 [facility] Comment on above: Expected: 01/29/2025, Expires: Start: 01-29-2025 End: 01-29-2026 XR Chest 2 Views XR chest 2 views Imaging STAT Generalized pruritus Lymphadenopathy Expected: 01/29/2025, Expires: 01/29/2026 [facility] Comment on above: Expected: 01/29/2025, Expires: Start: 01-29-2025 End: 01-29-2025 Patient encounter procedure 01/29/2025 12:00 PM EDT Office Visit [facility] [address] [facility] [place] [phone] Anabelle Moses NP [address] [facility], [place] [phone] Arrived [facility] Comment on above: Arrived Start: 01-09-2025 End: 01-09-2026 CBC W Auto Differential panel - Blood CBC and differential Lab Routine Encounter for medication monitoring Expected: 01/09/2025 (Approximate), Expires: 01/09/2026 [facility] Work Phone: Comment on above: Expected: 01/09/2025 (Approximate), Expi res: 01/09/2026 Start: 01-09-2025 End: 01-09-2026 Comprehensive metabolic 2000 panel - Serum or Plasma Comprehensive metabolic panel Lab Routine Encounter for medication monitoring Expected: 01/09/2025 (Approximate), Expires: 01/09/2026 [facility] Comment on above: Expected: 01/09/2025 (Approximate), Expi res: 01/09/2026 Start: 01-09-2025 End: 01-09-2026 Lamotrigine level Lamotrigine level Lab Routine Encounter for medication monitoring Expected: 01/09/2025 (Approximate), Expires: 01/09/2026 [facility] Comment on above: Expected: 01/09/2025 (Approximate), Expi res: 01/09/2026 Start: 11-25-2022 MR Unspecified body region [facility] Start: 11-25-2022 MRI of head MR head/brain wo/w con [facility] Start: 05-28-2019 Influenza vaccination Flu vaccine (#1) [place], [place] Start: 2013 Cervical cancer screen Cervical cancer screen [place], [place] Start: 2011 DTaP/Tdap/Td vaccine (1 - Tdap) DTaP/Tdap/Td vaccine (1 - Tdap) [place] Start: 2007 HIV screen HIV screen [place], [place] Start: 2007 HPV vaccine (1 - Female 3-dose series) HPV vaccine (1 - Female 3-dose series) [place] Start: 2005 Varicella Vaccine (1 of 2 - 13+ 2-dose series) Varicella Vaccine (1 of 2 - 13+ 2-dose series) [place] Immunizations Immunization Date Immunization Notes Care Provider Laura villanueva 06-07-2021 influenza, injectabl e, quadrivalent, preservative free Debi Torres RECTIFICATION PRINTER Work Phone: [facility] 06-07-2021 influenza virus vacc ine, unspecified formulation Debi Torres RECTIFICATION PRINTER Work Phone: [facility] 01-28-2021 Moderna SARS-CoV-2 Vaccination Debi Torres RECTIFICATION PRINTER Work Phone: [facility] 12-30-2020 Moderna SARS-CoV-2 Vaccination Debi Torres RECTIFICATION PRINTER Work Phone: [facility] 08-28-2019 influenza, seasonal, injectable Debi Torres RECTIFICATION PRINTER Work Phone: [facility] 06-05-2019 influenza, injectabl e, quadrivalent, preservative free Debi Torres RECTIFICATION PRINTER Work Phone: [facility] 06-05-2019 Seasonal trivalent influenza vaccine, adjuvanted, preservative free Debi oTrres RECTIFICATION PRINTER Work Phone: [facility] 10-08-2014 tetanus toxoid, redu kip diphtheria toxoid, and acellular pertussis vaccine, adsorbed Debi Torres RECTIFICATION PRINTER Work Phone: [facility] Payers Date Payer Category Payer Private Health Insurance [employer] [id number] 2025 Self-pay [id number] 2023 Private Health Insurance [id number] 2019 Unknown 2019 Unknown [facility] xxxxxxxxxxxx 2019-Present [phone] [address] [place] [address] xxxxxxxxxxxx [id number] 1992 Unknown [id number] [id number] 73 1992 Unknown [id number] 2.16.840.1.119962.3.579.2.1 73 1992 Unknown [id number] 2.16.840.1.534536.3.579.2.1 96 1992 Unknown [id number] 2.16.840.1.247702.3.579.2.1 96 1992 Unknown [id number] 2.16.840.1.675855.3.579.2.6 47 1992 Unknown [id number] 2.16.840.1.349000.3.579.2.5 93 1992 Unknown [id number] 2.16.840.1.173150.3.579.2.5 93 1992 Unknown [id number] 2.16.840.1.862651.3.579.2.5 93 1992 Unknown [id number] 2.16.840.1.463151.3.579.2.5 93 1992 Unknown [id number] 2.16.840.1.359062.3.579.2.7 18 1992 Unknown [id number] 2.16.840.1.223948.3.579.2.1 259 1992 Unknown [id number] 2.16.840.1.182627.3.579.2.1 259 1992 Unknown [id number] 2.16.840.1.161409.3.579.2.1 259 1992 Unknown [id number] 2.16.840.1.548551.3.579.2.1 259 1992 Unknown [id number] 2.16.840.1.684577.3.579.2.1 259 1992 Unknown [id number] 2.16.840.1.402014.3.579.2.1 259 1992 Unknown [id number] 2.16.840.1.498628.3.579.2.1 259 1992 Unknown [id number] 2.16.840.1.738736.3.579.2.1 259 1992 Unknown [id number] 2.16.840.1.770515.3.579.2.1 259 1992 Unknown [id number] 2.16.840.1.927238.3.579.2.1 259 1992 Unknown [id number] 2.16.840.1.499257.3.579.2.1 259 1959 Unknown [id number] Unknown [id number] 2.16.840.1.484924.19 Unknown [id number] 2.16.840.1.168812.3.579.2.5 31 Social History Date Type Detail Facility Start: 05-22-2019 End: 06-06-2019 Tobacco smoking status MEIS Never smoker [place], [place] Start: 1990 Sex Assigned At Not on file [place], [place] Start: 1990 Sex Assigned At Female [facility] Start: 09-16-2023 End: 05-01-2025 Sex Assigned At [facility] Start: 02-27-2023 End: 02-14-2025 Tobacco smoking status [facility] Ex-smoker [facility] History of tobacco use Current smoker [facility] History of tobacco use Cigarette Smoker [facility] Start: 02-27-2023 End: 02-14-2025 Tobacco use and exposure Smokeless tobacco non-user [facility] Start: 01-09-2025 End: 05-01-2025 Alcoholic beverage intake Ex-drinker (finding) [facility] Start: 09-16-2023 End: 05-01-2025 History of Social function [facility] Within the last year , have you been afraid of your partner or ex-partner? No [facility] Do you belong to any clubs or organizations such as sikhism groups, unions, fraternal or athletic groups, or school groups? Yes [facility] Are you now , , , , never or living with a partner? Living with partner [facility] How often to you hav e a drink containing alcohol? Monthly or less [facility] How many standard dr inks containing alcohol do you have on a typical day? 1 or 2 [facility] How often do you hav e 6 or more drinks on 1 occasion? Never [facility] How hard is it for y ou to pay for the very basics like food, housing, medical care, and heating Somewhat hard [facility] Do you feel stress - tense, restless, nervous, or anxious, or unable to sleep at night because your mind is troubled all the time - these days [OSQ] Only a little [facility] (I/We) worried wheth er (my/our) food would run out before (I/we) got money to buy more. Never true [facility] In the past 12 month s, has lack of transportation kept you from medical appointments or from getting medications? No [facility] Start: 03-01-2023 Alcohol Comment caffeine: coffee [facility] Start: 02-14-2025 Tobacco Comment Smoked for 3 months in High school [facility] Tobacco smoking stat us MEIS Unknown if ever smoked [facility] Work Phone: Start: 03-02-2025 Sex Female (finding) [facility] Clinical Notes 09-25-2023 to 05-01-2025 Annabel Shukla MD - 05/01/2025 10:20 AM Nida Shukla MD - 04/10/2025 10:40 AM Nida Shukla MD - 04/10/2025 10:40 AM Romie Aguila DO - 04/02/2025 3:00 PM EDT Note Date & Type Note Facility 05-01-2025 History of Presen t illness Narrative Subjective Patient ID: Unique Haque is a 34 y.o. female who presents for Follow-up. HPI History of Present Illness The patient presents for abdominal pain, constipation, fatigue, and hair loss. She reports persistent abdominal pain, which she describes as sharp and stabbing, causing immediate nausea upon eating. This pain has been ongoing for several years. She has previously consulted a diamond finishing supervisor who found no abnormalities and also saw a general surgeon for her abdominal pain. She has been taking Nexium 40 mg, which she believes is causing her to feel unwell. Even after reducing the dose to 20 mg, she continues to experience nausea and fatigue. She takes gummies at night to stimulate her appetite, as she struggles to eat during the day. She has been trying to maintain a healthy diet and has started taking multivitamins, magnesium, vitamin C, vitamin D, and vitamin B2. She has been taking magnesium supplements at night to manage her constipation, which has improved but not completely resolved. She also reports constant fatigue and hair loss. She experiences constant pain in her legs and arms. She recalls seeing a dielectric testing machine operator between 2013 and 2015 due to arm pain and a nerve issue in her elbow. The dielectric testing machine operator suggested surgery, but she declined as it would have rendered her arm unusable for several months. She had a hysterectomy due to continuous bleeding and was diagnosed with endometriosis. She has noticed unusual sores on her labia since her hysterectomy, which she attributes to thin skin. She uses an estrogen cream for relief. Social History: Diet: She tries to eat health-conscious foods and takes gummies at night to stimulate her appetite. PAST SURGICAL HISTORY: - Hysterectomy due to continuous bleeding and endometriosis - Nerve issue in elbow (surgery declined) FAMILY HISTORY The patient's family history includes breast cancer, ovarian cancer, diabetes, heart issues requiring stents (mostly in men), lupus (in women), fibromyalgia, and severe dermatitis requiring medicated shampoos, lotions, and face washes. Objective BP 118/70 Pulse 74 Ht 5' 4 Wt 153 lb 3.2 oz SpO2 96% BMI 26.30 kg/m Physical Exam Physical Exam General Appearance: Patient appears drowsy and fatigued. Vital signs: Within normal limits. Skin: Warm and dry, no rash. Neurological: Normal. Psychiatric: Normal. Assessment & Plan Assessment & Plan 1. Abdominal pain. - Weight loss has stabilized. - Nexium 20 mg causes nausea and fatigue without alleviating abdominal pain. - Referral to a diamond finishing supervisor will be made for further evaluation. She has not seen GI, but saw a GS for EGD and sopef - Advised to discontinue Nexium and monitor if fatigue improves. 2. Constipation. - Magnesium taken at night has shown some improvement in constipation. 3. Fatigue. - Liver enzymes have normalized, suggesting a viral process may have been the cause of previous symptoms, including swollen lymph nodes and elevated liver enzymes. - CHINTAN test will be conducted today to rule out lupus or other rheumatologic conditions. 4. Hair loss. - Thyroid function is normal, which is a common cause of hair loss. - Further evaluation will be conducted based on the results of the CHINTAN test. documented in this encounter [facility] 04-10-2025 History of Presen t illness Narrative Associated Problem(s): Lymphadenopathy Per CT, resolved in the neck. Subjective Patient ID: Unique Haque is a 34 y.o. female who presents for Follow-up. HPI History of Present Illness The patient presents for evaluation of weight loss, abdominal pain, lymphadenopathy, and eye swelling. She has been experiencing headaches every 2 weeks, as reported to her neurologist in 12/2024. She was advised to monitor the frequency and intensity of these headaches. In 12/2024, she weighed 187 pounds but noticed a decrease to 177 pounds during a subsequent visit. She consulted Dr. Kim after discovering a lump in her neck, which was confirmed by the doctor. An ultrasound revealed 4 enlarged lymph nodes, leading to a referral to an ENT specialist. Her partner observed that she frequently falls ill with fever or fatigue, often monthly. She has been experiencing more frequent fevers, lasting longer than before. Last week, she had a fever from Wednesday to Wednesday, accompanied by night sweats. She continues to feel the lymph node and questions if an infection would be reflected in her white blood cell count. She has no history of liver issues and does not consume alcohol. She underwent x-rays and lab tests, which showed elevated liver enzymes. A recheck of her liver enzymes last week showed normal results. She also reports persistent skin itchiness, for which she has been taking Benadryl and using gummies to aid sleep. In 01/2025, she began experiencing stomach pain after eating, which she believes may have contributed to her unintentional weight loss. She consulted Dr. Delgado in 02/2025 when her weight was 166 pounds, indicating a loss of 20 pounds. She has been losing about 2 pounds every 2 weeks, with her current weight being 152 pounds. A biopsy was performed, but insufficient tissue was obtained for a flow test. She was referred to Dr. Aguila, who performed an ultrasound and advised a follow-up scan in a month. Dr. Delgado suggested that her pathology report could indicate a reactive lymph node, possibly due to an infection or reaction to another part of her body. She experiences severe stomach cramps and goosebumps all over her body but has regular bowel movements hours later. She can only consume a few bites of food before experiencing pain and cannot drink anything cold directly in the morning, midday, or at night. She has been consuming saltines excessively as it is the only food her stomach can tolerate. She vomited yesterday after attempting to eat pizza. She takes gummies at night to alleviate her stomach pain and itching, allowing her to eat and sleep normally. She has tried medication to reduce stomach acid but did not find it helpful. She does not experience acid reflux symptoms. She had her gallbladder removed due to similar symptoms in the past. Last month, she woke up with a painful, puffy eye, which she initially thought was a stye. The swelling recurred last week. The swelling is not on her eyelid or inside the eye. The swelling subsided with the use of heat compresses. Diet: She has been consuming saltines excessively as it is the only food her stomach can tolerate. Alcohol: She does not consume alcohol. Coffee/Tea/Caffeine-containing Drinks: She drinks tea in the morning. PAST SURGICAL HISTORY: - Gallbladder removal due to similar symptoms in the past. FAMILY HISTORY The patient is adopted and knows that there is no history of liver issues in her biological family. Breast cancer, ovarian cancer, diabetes, and heart issues run in her biological family. Objective BP 122/78 Pulse 70 Ht 5' 4 Wt 155 lb 9.6 oz SpO2 99% BMI 26.71 kg/m Physical Exam Physical Exam General Appearance: Normal. Vital signs: Within normal limits. HEENT: Within normal limits. Respiratory: Clear to auscultation, no wheezing, rales or rhonchi. Cardiovascular: regular rate and rhythm with no murmur. Gastrointestinal: Soft, tenderness over epigastrium, no distention, no masses. Extremities: no edema, palpable pulses. Skin: Warm and dry, no rash. Neurological: Normal. Psychiatric: Normal. Assessment & Plan Weight loss, unintentional Orders: CBC and differential; Future Sedimentation rate, automated; Future Lactate dehydrogenase; Future Protein electrophoresis, serum; Future esomeprazole (NexIUM) [address] capsule; Take 1 capsule (40 mg) by mouth in the morning. Take before meals. Do not open capsule. Epigastric pain Orders: esomeprazole (NexIUM) [address] capsule; Take 1 capsule (40 mg) by mouth in the morning. Take before meals. Do not open capsule. Elevated liver enzymes Resolved. She may have had a mono or CMV type virus that caused reacticve nodes and elevated LFTS. Lymphadenopathy Per CT, resolved in the neck. Assessment & Plan 1. Weight loss. - Weight has decreased from 187 pounds to 155 pounds without intentional efforts. - Weight loss is concerning, especially given ongoing abdominal pain. - Blood work will be conducted today to investigate potential causes. - Results will be communicated upon receipt. 2. Abdominal pain. - Pain described as stabbing and twisting, exacerbated by eating and drinking certain beverages. - Prescribing medication to alleviate stomach discomfort. - If medication does not provide relief, a scope may be necessary to evaluate for the presence of an ulcer. 3. Lymphadenopathy. - Lymph nodes have resolved, and liver enzymes have normalized. - Continues to experience weight loss, fevers, and other symptoms. - Could be a reactive process; further blood work will be conducted today to investigate potential causes. 4. Eye swelling. - Reported experiencing eye swelling and pain last month, managed with heat compresses. - Swelling recurred last week. - No immediate intervention planned, but will be monitored. documented in this encounter [facility] 04-02-2025 History of Presen t illness Narrative Allergies as of 04/02/2025 - Reviewed 03/28/2025 Allergen Reaction Noted Coconut (cocos nucifera) Anaphylaxis, Rash, Swelling, and Unknown 07/17/2019 Coconut fatty acid Angioedema 01/08/2018 Bee venom 05/03/2019 Coconut oil Unknown 06/25/2021 Guaifenesin 03/28/2025 Scopolamine Unknown 01/26/2023 Past Medical History: Diagnosis Date Allergic Anxiety Asthma (HCC) BMI 28.0-28.9,adult Cholecystitis COVID-19 Depression Elbow fracture Generalized epilepsy (HCC) Groin pain Low grade squamous intraepithelial lesion (LGSIL) on Papanicolaou smear of cervix Pap smear of cervix to confirm normal smear following abnormal smear Seizures (HCC) Shingles Strain of muscle, fascia and tendon of long head of biceps, left arm, initial encounter biceps tendon strain left arm Torticollis Current Outpatient Medications: albuterol HFA (Proventil HFA) 90 mcg/act inhaler, Inhale 2 puffs every 4 (four) hours if needed, Disp: , Rfl: EPINEPHrine (EpiPen 2-Karl) 0.3 MG/0.3ML injection syringe, 1 (one) time each day at the same time, Disp: , Rfl: ibuprofen 600 MG tablet, Take 1 tablet by mouth every 6 (six) hours if needed, Disp: , Rfl: lamoTRIgine (LaMICtal) 25 MG tablet, Take 2 tablets (50 mg) by mouth in the morning and 2 tablets (50 mg) before bedtime., Disp: 120 tablet, Rfl: 0 Multiple Vitamin (MULTIVITAMIN ADULT PO), Take 1 tablet by mouth Daily, Disp: , Rfl: Past Surgical History: Procedure Laterality Date APPENDECTOMY 2012 CHOLECYSTECTOMY COLONOSCOPY EGD EXPLORATORY LAPAROTOMY FRACTURE SURGERY elbow fracture HYSTERECTOMY 2020 [place] LAP,DIAGNOSTIC ABDOMEN VAGINAL DELIVERY WISDOM TOOTH EXTRACTION Bilateral Social History Socioeconomic History Marital status: Unmarried Spouse name: Not on file Number of children: Not on file Years of education: Not on file Highest education level: Not on file Occupational History Not on file Tobacco Use Smoking status: Former Types: Cigarettes Smokeless tobacco: Never Tobacco comments: Smoked for 3 months in High school Vaping Use Vaping status: Never Used Substance and Sexual Activity Alcohol use: Not Currently Comment: caffeine: coffee Drug use: Not Currently Comment: THC gummie Sexual activity: Yes Partners: Male control/protection: None Other Topics Concern Not on file Social History Narrative Not on file Social Drivers of Health Financial Resource Strain: Medium Risk (09/16/2023) Overall Financial Resource Strain (CARDIA) Difficulty of Paying Living Expenses: Somewhat hard Food Insecurity: No Food Insecurity (09/16/2023) Hunger Vital Sign Worried About Running Out of Food in the Last Year: Never true Ran Out of Food in the Last Year: Never true Transportation Needs: No Transportation Needs (09/16/2023) PRAPARE - Transportation Lack of Transportation (Medical): No Lack of Transportation (Non-Medical): No Physical Activity: Insufficiently Active (09/16/2023) Exercise Vital Sign Days of Exercise per Week: 3 days Minutes of Exercise per Session: 10 min Stress: No Stress Concern Present (09/16/2023) Citizen Of [place] of Occupational Health - Occupational Stress Questionnaire Feeling of Stress : Only a little Social Connections: Moderately Integrated (09/16/2023) Social Connection and Isolation Panel [NHANES] Frequency of Communication with Friends and Family: More than three times a week Frequency of Social Gatherings with Friends and Family: Never Attends Sikh Services: Never Active Member of Clubs or Organizations: Yes Attends Club or Organization Meetings: 1 to 4 times per year Marital Status: Living with partner Intimate Partner Violence: Not At Risk (09/16/2023) Humiliation, Afraid, Rape, and Kick questionnaire Fear of Current or Ex-Partner: No Emotionally Abused: No Physically Abused: No Sexually Abused: No Housing Stability: Low Risk (09/16/2023) Housing Stability Vital Sign Unable to Pay for Housing in the Last Year: No Number of Places Lived in the Last Year: 1 Unstable Housing in the Last Year: No Subjective Patient ID: HPI 34-year-old female referred by Dr. Delgado for consideration of a left posterior lymph node biopsy. Patient noted an enlarged left posterior triangle lymph node couple of months ago. I have a CT scan that was performed in January showing a somewhat rounded left posterior inferior triangle lymph node that measures little over a cm and a half. She apparently underwent at least a needle biopsy, possibly a core biopsy which were nondiagnostic. She has some very minor potential B symptoms such as night sweats. The weight loss. No infectious history. Review of Systems ROS The specialty specific review of systems is noncontributory except for that recorded in the intake questionnaire and /or described in the history of present illness. Objective ENT Physical Exam Physical Exam Constitutional: Appearance: Normal appearance. HENT: Head: Atraumatic. Ears: External ear shows no abnormality Bilateral ear canals are clear Tympanic membranes intact, no evidence of middle ear fluid or other pathology. Nose: External nose appears to be normal Nares patent. Septal deviation to the right No evidence of polyp, mass or pus bilaterally. Oral Cavity: No evidence of trismus Lips appear normal Dental decent Tongue of normal size and configuration, floor of mouth mucosa clear. Buccal mucosa shows no evidence of ulceration, mass or other abnormality Hard palate soft palate mucosa intact with no evidence of mass, ulceration or other abnormality Uvula of normal size and configuration Oropharynx: Tonsils small Posterior pharyngeal wall normal Neck: No evidence of palpable abnormality Thyroid without evidence of thyromegaly or mass. No cervical lymphadenopathy present. Cardiovascular: Rate and Rhythm: Normal rate and regular rhythm. . Skin: General: Skin is warm and dry. Neurological: General: No focal deficit present. Mental Status: alert and oriented to person, place, and time. THYROID ULTRASOUND EXAMINATION Indication: Cervical adenopathy After informed consent was obtained the patient was placed supine on the examining table. Patient was asked to extend the neck. Topical ultrasound jelly was used. Interrogation left posterior neck with ultrasound as well as anterior jugular chain does not show any pathologic adenopathy. A few small lymph nodes measuring up to 1.03 cm were noted all of which are ovoid with a nice fatty hilus. Assessment/Plan Unique was seen today for swollen glands. Diagnoses and all orders for this visit: LAD (lymphadenopathy), supraclavicular Comments: This more likely represents reactive lymphadenopathy and discussed that with the patient. Orders: - Ambulatory referral to ENT - CT soft tissue neck w IV contrast; Future There is nothing concerning at least at this point by palpation and/or ultrasound. I reassured the patient. I am going to repeat the CT scan in a month if it. So the 1 done in January. I will see her back in a month documented in this encounter [facility] 03-28-2025 History of Presen t illness Narrative Subjective Patient ID: Unique Haque is a 34 y.o. female who presents for Enlarged lymph nodes (Follow up [facility] 03/01/25) Path most c/w reactive LAD. Flow cytometry sample was not adequate for evaluation. Pt has had 25# wt loss, unexplained fevers and night sweats. Family History Adopted: Yes Problem Relation Name Age of Onset No Known Problems Sister No Known Problems Brother No Known Problems Daughter Active Ambulatory Problems Diagnosis Date Noted Asthma without status asthmaticus ([facility]) 01/26/2023 Mixed anxiety and depressive disorder 01/26/2023 Epilepsy ([facility]) 01/26/2023 Iron deficiency anemia 01/26/2023 Low grade squamous intraepithelial lesion (LGSIL) on cervicovaginal cytologic smear 01/26/2023 Other atopic dermatitis 01/26/2023 Panic attacks 01/26/2023 Vitamin D deficiency 01/26/2023 Abnormal gait 11/16/2019 Anemia affecting ([facility]) 10/27/2016 Echogenic bowel of fetus on ultrasound 10/28/2016 Joint pain 03/04/2023 Pain of left upper arm 06/10/2020 Positive antinuclear antibody 03/04/2023 Primary insomnia 05/17/2018 Ulnar neuropathy 03/04/2023 Sciatica 06/05/2019 Exacerbation of asthma ([facility]) 11/05/2016 Seizure disorder during ([facility]) 10/27/2016 Seizure ([facility]) 04/08/2018 Panic disorder 08/30/2015 Atopic dermatitis 11/14/2019 Cervicalgia 05/20/2023 Vertigo of central origin 05/20/2023 Balance disorder 05/20/2023 Sore throat 11/19/2023 Anxiety 03/28/2025 Lymphadenopathy 03/28/2025 Resolved Ambulatory Problems Diagnosis Date Noted No Resolved Ambulatory Problems Past Medical History: Diagnosis Date Allergic Asthma ([facility]) BMI 28.0-28.9,adult Cholecystitis COVID-19 Depression Elbow fracture Generalized epilepsy ([facility]) Groin pain Low grade squamous intraepithelial lesion (LGSIL) on Papanicolaou smear of cervix Pap smear of cervix to confirm normal smear following abnormal smear Seizures ([facility]) Shingles Strain of muscle, fascia and tendon of long head of biceps, left arm, initial encounter Torticollis Past Surgical History: Procedure Laterality Date APPENDECTOMY 2012 CHOLECYSTECTOMY COLONOSCOPY EGD EXPLORATORY LAPAROTOMY FRACTURE SURGERY elbow fracture HYSTERECTOMY 2020 [place] LAP,DIAGNOSTIC ABDOMEN VAGINAL DELIVERY WISDOM TOOTH EXTRACTION Bilateral Allergies Allergen Reactions Coconut (Cocos Nucifera) Anaphylaxis, Rash, Swelling and Unknown Coconut Fatty Acid Angioedema Bee Venom Coconut Oil Unknown Guaifenesin Scopolamine Unknown Current Outpatient Medications on File Prior to Visit Medication Sig Dispense Refill albuterol HFA (Proventil HFA) 90 mcg/act inhaler Inhale 2 puffs every 4 (four) hours if needed EPINEPHrine (EpiPen 2-Karl) 0.3 MG/0.3ML injection syringe 1 (one) time each day at the same time ibuprofen 600 MG tablet Take 1 tablet by mouth every 6 (six) hours if needed lamoTRIgine (LaMICtal) 25 MG tablet Take 2 tablets (50 mg) by mouth in the morning and 2 tablets (50 mg) before bedtime. 120 tablet 0 Multiple Vitamin (MULTIVITAMIN ADULT PO) Take 1 tablet by mouth Daily No current facility-administered medications on file prior to visit. Objective Last Recorded Vitals Vitals: 03/28/25 0857 BP: 124/74 Pulse: 79 ENT Physical Exam Constitutional Appearance: patient appears well-developed, well-nourished and well-groomed, Communication/Voice: communication appropriate for developmental age; vocal quality normal; Assessment/Plan Diagnoses and all orders for this visit: LAD (lymphadenopathy), supraclavicular Core needle bx and flow cytometry are nondiagnostic, though lean toward reactive LAD. Given pt's wt loss, elevated LFTs, and B sx all c/w lymphoma, I would recommend an excisional bx. I will have Unique see Dr Aguila for his opinion and tx. documented in this encounter [facility] 02-27-2025 Note Education Materials Oncology Surgery to Biopsy a Lymph Node: What to Expect A lymph node biopsy is a procedure to remove a small piece of tissue from your lymph node. Lymph nodes are clumps of tissue that help your body fight infections and get rid of harmful germs. They're part of your body's defense system, or immune system. A lymph node biopsy may be done to: ? Look for infections or cancer cells in a lymph node. ? Find out why a lymph node is swollen. ? Find out more about a condition you have. Tell a health care provider about: ? Any allergies you have. ? All medicines you take. These include vitamins, herbs, eye drops, and creams. ? Any problems you or family members have had with anesthesia. ? Any bleeding problems you have. ? Any surgeries you have had. ? Any medical conditions you have. ? Whether you're or may be . What are the risks? Your health care provider will talk with you about risks. These may include: ? Infection. ? Bleeding. ? Allergic reactions to medicines. ? Damage to nearby structures or organs, such as a nerve. ? Damage to lymph vessels, causing a buildup of fluid (lymphedema). What happens before the procedure? When to stop eating and drinking Eat and drink only as you've been told. You may be told this: ? 8 hours before your procedure ? Stop eating most foods. Do not eat meat, fried foods, or fatty foods. ? Eat only light foods, such as toast or crackers. ? All liquids are OK except energy drinks and alcohol. ? 6 hours before your procedure ? Stop eating. ? Drink only clear liquids, such as water, clear fruit juice, black coffee, plain tea, and sports drinks. ? Do not drink energy drinks or alcohol. ? 2 hours before your procedure ? Stop drinking all liquids. ? You may be allowed to take medicines with small sips of water. If you don't eat and drink as told, your procedure may be delayed or canceled. Medicines ? Ask about changing or stopping: ? Any medicines you take. ? Any vitamins, herbs, or supplements you take. ? Do not take aspirin or ibuprofen unless you're told to. Surgery safety For your safety, you may: ? Need to wash your skin with a soap that kills germs. ? Get antibiotics. ? Have your procedure site marked. ? Have hair removed at the procedure site. General instructions ? Do not smoke, vape, or use nicotine or tobacco for at least 2 weeks before the procedure. ? If you'll be going home right after the procedure, plan to have a responsible adult: ? Drive you home from the hospital or clinic. You won't be allowed to drive home. ? Stay with you for the time you're told. What happens during the procedure? ? An IV will be put into a vein in your hand or arm. ? You may be given: ? A sedative to help you relax. ? Anesthesia to keep you from feeling pain. ? The surgeon will make a cut where the lymph node is located. ? A small piece of tissue from the lymph node will be removed and sent to a lab for testing. ? The cut from surgery will be closed with stitches (sutures) or skin glue. A small bandage may be taped over the cut from surgery. These steps may vary. Ask what you can expect. What happens after the procedure? ? You'll be watched closely until you leave. This includes checking your pain level, blood pressure, heart rate, and breathing rate. ? You'll be given pain medicine as needed. ? Ask when your test results will be ready and how to get them. You may need to call or meet with your provider to get your results. This information is not intended to replace advice given to you by your health care provider. Make sure you discuss any questions you have with your health care provider. Document Revised: 03/06/2024 Document Reviewed: 03/06/2024 [employer] Patient Education ? 2023 [employer] Surgery to Biopsy a Lymph Node: What to Know After After surgery to biopsy a lymph node, it's common to have soreness, mild swelling, and bruising. Follow these instructions at home: Medicines ? Take your medicines only as told. ? Take your antibiotics as told. Do not stop taking them even if you start to feel better. ? You may need to take steps to help treat or prevent trouble pooping (constipation), such as: ? Taking medicines to help you poop. ? Eating foods high in fiber, like beans, whole grains, and fresh fruits and vegetables. ? Drinking more fluids as told. ? Ask your health care provider if it's safe to drive or use machines while taking your medicine. Incision care ? Take care of your cut as told. Make sure you: ? Wash your hands with soap and water for at least 20 seconds before and after you change your bandage. If you can't use soap and water, use hand crew scheduler. ? Change your bandage. ? Leave stitches or skin glue alone. ? Leave tape strips alone unless you're told to take them off. You may trim the edges of the tap (more content not included)... [facility] 02-14-2025 History of Presen t illness Narrative Subjective Patient ID: Unique Haque is a 34 y.o. female who presents for Enlarged Lymp Nodes Pt reports a couple week h/o left supraclavicular pain and discomfort. Noticed a nodule in the area. US obtained that shows an 18mm LN, and a CT shows multiple mildly enlarge supraclavicular LN. CBC and CMP unremarkable. No blood thinners. 25# wt loss in 3 mo. Last week febrile, and the next day she was fine. Sig other notes pt has been ill monthly. No night sweats. Review of Systems All other systems reviewed and are negative. Family History Adopted: Yes Problem Relation Name Age of Onset No Known Problems Sister No Known Problems Brother No Known Problems Daughter Active Ambulatory Problems Diagnosis Date Noted Asthma without status asthmaticus ([facility]) 01/26/2023 Mixed anxiety and depressive disorder 01/26/2023 Epilepsy 01/26/2023 Iron deficiency anemia 01/26/2023 Low grade squamous intraepithelial lesion (LGSIL) on cervicovaginal cytologic smear 01/26/2023 Other atopic dermatitis 01/26/2023 Panic attacks ([facility]) 01/26/2023 Vitamin D deficiency 01/26/2023 Abnormal gait 11/16/2019 Anemia affecting 10/27/2016 Echogenic bowel of fetus on ultrasound 10/28/2016 Joint pain 03/04/2023 Pain of left upper arm 06/10/2020 Positive antinuclear antibody 03/04/2023 Primary insomnia 05/17/2018 Ulnar neuropathy 03/04/2023 Sciatica 06/05/2019 Exacerbation of asthma ([facility]) 11/05/2016 Seizure disorder during ([facility]) 10/27/2016 Seizure ([facility]) 04/08/2018 Panic disorder ([facility]) 08/30/2015 Atopic dermatitis 11/14/2019 Cervicalgia 05/20/2023 Vertigo of central origin 05/20/2023 Balance disorder 05/20/2023 Sore throat 11/19/2023 Resolved Ambulatory Problems Diagnosis Date Noted No Resolved Ambulatory Problems Past Medical History: Diagnosis Date Allergic Anxiety Asthma BMI 28.0-28.9,adult Cholecystitis COVID-19 Depression ([facility]) Elbow fracture Generalized epilepsy ([facility]) Groin pain Low grade squamous intraepithelial lesion (LGSIL) on Papanicolaou smear of cervix Pap smear of cervix to confirm normal smear following abnormal smear Seizures ([facility]) Shingles Strain of muscle, fascia and tendon of long head of biceps, left arm, initial encounter Torticollis Past Surgical History: Procedure Laterality Date APPENDECTOMY 2012 CHOLECYSTECTOMY COLONOSCOPY EGD EXPLORATORY LAPAROTOMY FRACTURE SURGERY elbow fracture HYSTERECTOMY 2020 [place] LAP,DIAGNOSTIC ABDOMEN VAGINAL DELIVERY WISDOM TOOTH EXTRACTION Bilateral Allergies Allergen Reactions Coconut (Cocos Nucifera) Anaphylaxis, Rash, Swelling and Unknown Coconut Fatty Acid Angioedema Bee Venom Coconut Oil Unknown Scopolamine Unknown Current Outpatient Medications on File Prior to Visit Medication Sig Dispense Refill albuterol HFA (Proventil HFA) 90 mcg/act inhaler Inhale 2 puffs every 4 (four) hours if needed EPINEPHrine (EpiPen 2-Karl) 0.3 MG/0.3ML injection syringe 1 (one) time each day at the same time ibuprofen 600 MG tablet Take 1 tablet by mouth every 6 (six) hours if needed lamoTRIgine (LaMICtal) 25 MG tablet Take 2 tablets (50 mg) by mouth in the morning and 2 tablets (50 mg) before bedtime. 120 tablet 0 Multiple Vitamin (MULTIVITAMIN ADULT PO) Take 1 tablet by mouth Daily No current facility-administered medications on file prior to visit. Objective Last Recorded Vitals Vitals: 02/14/25 1026 BP: 136/77 Pulse: 78 ENT Physical Exam Constitutional Appearance: patient appears well-developed, well-nourished and well-groomed, Head and Face Appearance: head appears normal and face appears atraumatic; Ear Ear Canals: right ear canal normal; left ear canal normal; Tympanic Membranes: right tympanic membrane normal; left tympanic membrane normal; Nose External Nose: nares patent bilaterally; external nose normal; Internal Nose: septum normal; Oral Cavity/Oropharynx Tongue: normal; Oral mucosa: normal; Hard palate: normal; Soft palate: normal; Tonsils: normal; Neck Neck: neck normal; neck palpation normal; Thyroid: thyroid normal; Neck comments: LT supraclavicular LN c/w CT and US. Respiratory Inspection: breathing unlabored; normal breathing rate; Auscultation: breath sounds are clear; Cardiovascular Inspection: extremities are warm and well perfused; no peripheral edema present; Auscultation: regular rate and rhythm; Assessment/Plan Diagnoses and all orders for this visit: Enlarged lymph nodes - Ambulatory referral to ENT Pt has moderately enlarged left supraclavicular LN and B sx concerning for lymphoma. This is also the location of Virchow nodes that drain the chest and abdomen. I will arrange for an US-guided core needle bx for path and flow cytometry. If not diagnostic, pt will need an excisional bx. documented in this encounter [facility] 02-03-2025 Telephone encount er Note Please let her know that Dr. Delgado wants her to get a neck CT. The order is in. Once she gets that scheduled, she should call their office to schedule an appointment. [facility] 02-03-2025 Miscellaneous Notes Formattin g of this note might be different from the original. Please let her know that Dr. Delgado wants her to get a neck CT. The order is in. Once she gets that scheduled, she should call their office to schedule an appointment. documented in this encounter [facility] 02-01-2025 Telephone encount er Note Pt does not have preference. Go ahead and schedule [facility] 02-01-2025 Miscellaneous Notes Formattin g of this note might be different from the original. Pt does not have preference. Go ahead and schedule documented in this encounter [facility] 01-29-2025 History of Presen t illness Narrative Images from the original note were not included. Unique Haque is a 34 y.o. female presents with chief complaint of Annual Exam HPI: HPI History of Present Illness The patient presents for evaluation of pruritus and weight loss. She reports experiencing generalized pruritus, which she manages with Claritin. When Claritin is ineffective, she resorts to Benadryl, which induces sleep. However, the efficacy of Benadryl has diminished, prompting her to seek alternative solutions, including taking a quarter of a gummy to alleviate itching and aid sleep. Approximately 2 weeks ago, she observed an increase in the size of previously noted swollen areas on her neck. She does not report any other swollen lymph nodes. Concurrently, she experienced a widespread breakout on her scalp, characterized by redness and hair loss. She initiated treatment with Head and Shoulders shampoo and a specialized lotion, which resolved the facial symptoms. The rest of her body remains itchy without any rashes. She also reports redness on her hand, attributed to frequent use of crew scheduler. She has no history of thyroid disease, liver issues, or kidney problems. She reports no fevers or night sweats but does report feeling cold constantly. She has not yet completed the blood work ordered by her previous physician. No one else at home is experiencing itching. She has experienced unintentional weight loss, with her current weight being 163 pounds, down from 173 pounds during her last doctor's visit. SOCIAL HISTORY She tries not to smoke. She quit her job to stay at home with the [employer] and works 2 days a week from -[employer]. SUBJECTIVE: MEDICATIONS: Current Outpatient Medications Medication Instructions albuterol HFA (Proventil HFA) 90 mcg/act inhaler 2 puffs, Every 4 hours PRN amoxicillin (AMOXIL) 500 mg, 2 times daily clotrimazole-betamethasone (Lotrisone) cream 1 application , Topical, Daily, Apply to affected area daily for 7 days EPINEPHrine (EpiPen 2-Karl) 0.3 MG/0.3ML injection syringe Every 24 hours ibuprofen 600 MG tablet 1 tablet, Every 6 hours PRN lamoTRIgine (LAMICTAL) 50 mg, Oral, 2 times daily Multiple Vitamin (MULTIVITAMIN ADULT PO) 1 tablet, Daily ondansetron ODT (Zofran-ODT) 4 MG disintegrating tablet dissolve 1 tablet ON TONGUE every 6 hours if needed for nausea OR vomiting I have reviewed and reconciled the history and medication list with the patient today. REVIEW OF SYMPTOMS: Review of Systems Constitutional: Positive for unexpected weight change. Skin: Negative for rash. Itching Hematological: Positive for adenopathy. OBJECTIVE: Visit Vitals BP 118/70 Pulse 66 Resp 18 Ht 5' 4 Wt 166 lb SpO2 98% BMI 28.49 kg/m Smoking Status Former BSA 1.84 m Physical Exam Vitals and nursing note reviewed. Constitutional: Appearance: Normal appearance. HENT: Head: Normocephalic and atraumatic. Right Ear: Tympanic membrane normal. Left Ear: Tympanic membrane normal. Nose: Nose normal. Eyes: Extraocular Movements: Extraocular movements intact. Conjunctiva/sclera: Conjunctivae normal. Pupils: Pupils are equal, round, and reactive to light. Neck: Comments: Left supraclavicular adenopathy Cardiovascular: Rate and Rhythm: Normal rate and regular rhythm. Heart sounds: Normal heart sounds. Pulmonary: Effort: Pulmonary effort is normal. Breath sounds: Normal breath sounds. Musculoskeletal: Cervical back: Normal range of motion and neck supple. Skin: General: Skin is warm and dry. Neurological: Mental Status: She is alert. ASSESSMENT AND PLAN: Assessment/Plan Diagnoses and all orders for this visit: Generalized pruritus - TSH W/REFLEX TO FT4; Future - XR chest 2 views; Future Lymphadenopathy - TSH W/REFLEX TO FT4; Future - XR chest 2 views; Future - US Soft Tissue Palpable Mass; Future Weight loss, unintentional Assessment & Plan 1. Pruritus. - Reports generalized itching and has been using Claritin and Benadryl with limited relief. - No associated rashes or history of thyroid, liver, or kidney issues. - An ultrasound of the nodules will be conducted. - A chest x-ray will be ordered to rule out any potential lymphadenopathy. Blood work, including thyroid function tests, will be performed. 2. Weight loss. - Experienced unintentional weight loss, dropping from 173 pounds to 163 pounds. - No associated symptoms such as night sweats or fever. - Blood work will be conducted to further investigate the cause of the weight loss. - Thyroid function tests will be included in the blood work. documented in this encounter [facility] 01-09-2025 History of Presen t illness Narrative Images from the original note were not included. Chief Complaint Patient presents with Seizure Disorder Headache Subjective Unique Haque is a 34 y.o. female. History of Present Illness The patient presents today for follow-up. She had labs completed for review. She was most recently evaluated in our office on 08/11/2023. She denies any dizziness since that time. The patient continues to take lamotrigine 50 mg twice a day and denies any seizure-like activity since the prior neurology appointment. In particular, she denies loss of consciousness, alteration of awareness, staring episodes, involuntary movements, or tonic-clonic activity. She also denies confusion upon arousal from sleep, tongue or cheek lacerations, bowel or bladder incontinence, or unexplained injuries. The patient does not miss doses of lamotrigine. Her most recent seizure was in 2017. She confirms these were triggered by stress, alcohol use, and in the past. 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 The patient does report new onset headaches which started approximately 6 months ago. She is having approximately 1 headache every 2 weeks. These are located in the left frontal region. Severity is moderate, and she describes them as throbbing. They are not accompanied by nausea, vomiting, or increased sensitivity to light or sounds. They have no associated features. She denies visual disturbance including worsening vision, double vision, or vision loss. She denies pulsatile tinnitus. She notes her headaches worsen when laying down. She denies any further new concerns. Review of Systems Constitutional: Negative for appetite change, chills, fatigue, fever and unexpected weight change. HENT: Negative for trouble swallowing and voice change. Eyes: Negative for visual change, double vision or loss of vision Respiratory: Negative for cough, shortness of breath and wheezing. Cardiovascular: Negative for chest pain and palpitations. Gastrointestinal: Negative for abdominal pain, blood in stool, nausea and vomiting. Musculoskeletal: Negative for arthralgias, back pain, gait problem and myalgias. Neurological: Positive for headaches. Negative for dizziness, tremors, seizures, syncope, facial asymmetry, speech difficulty, weakness, light-headedness and numbness. Psychiatric/Behavioral: Negative for confusion, hallucinations and suicidal ideas. Positive for history of anxiety and depression Home Medication List EpiPen 2-Karl 0.3 MG/0.3ML injection syringe; Generic drug: EPINEPHrine ibuprofen 600 MG tablet lamoTRIgine 25 MG tablet; Commonly known as: LaMICtal; Take 2 tablets (50 mg) by mouth in the morning and 2 tablets (50 mg) before bedtime. MULTIVITAMIN ADULT PO Proventil HFA 90 mcg/act inhaler; Generic drug: albuterol HFA Past Medical History: Diagnosis Date Allergic Anxiety Asthma BMI 28.0-28.9,adult Cholecystitis COVID-19 Depression (CMS/HCC) Elbow fracture Generalized epilepsy (CMS/HCC) Groin pain Low grade squamous intraepithelial lesion (LGSIL) on Papanicolaou smear of cervix Pap smear of cervix to confirm normal smear following abnormal smear Seizures (CMS/HCC) Strain of muscle, fascia and tendon of long head of biceps, left arm, initial encounter biceps tendon strain left arm Torticollis Past Surgical History: Procedure Laterality Date APPENDECTOMY 2013 CHOLECYSTECTOMY COLONOSCOPY EGD EXPLORATORY LAPAROTOMY FRACTURE SURGERY elbow fracture HYSTERECTOMY [place] LAP,DIAGNOSTIC ABDOMEN VAGINAL DELIVERY WISDOM TOOTH EXTRACTION Bilateral Family History Adopted: Yes Problem Relation Name Age of Onset No Known Problems Sister No Known Problems Brother No Known Problems Daughter Social History Tobacco Use Smoking status: Former Types: Cigarettes Smokeless tobacco: Never Substance Use Topics Alcohol use: Not Currently Comment: caffeine: coffee Allergies: Coconut (cocos nucifera), Coconut fatty acid, Bee venom, Coconut oil, and Scopolamine Vitals: 01/09/25 1019 BP: 118/78 Pulse: 67 Resp: 16 SpO2: 100% Body mass index is 29.7 kg/m . weight: 173 lb Neurologic exam: Mental status and general appearance: Awake and alert with unlabored respirations. Oriented to person, place, and time. Recent and remote memory are intact. Speech is clear and fluent without aphasia. Speech is non-dysarthric. Attention and concentration are normal. Fund of knowledge is appropriate for level of education. Pleasant. Cranial nerves: CN II: Visual acuity is normal. Visual morrison full to confrontation. CN III, IV, : Pupils are equal, round, and reactive to light. Extraocular movements intact. No ptosis present. CN V: Facial sensation is normal. CN VII: Full and symmetric facial movement. CN VIII: Hearing is normal to finger rub bilaterally. CN IX and X: Palate elevates symmetrically. CN XI: Shoulder shrug is normal bilaterally. CN XII: Tongue is midline without atrophy or fasciculation. Motor: RUE strength deltoid , biceps , triceps , wrist extensors , wrist flexor , and duplicating machine operator strength 5/5. LUE strength deltoid , biceps , triceps , wrist extensors , wrist flexor , and duplicating machine operator strength 5/5. RLE strength iliopsoas, quadriceps, tibialis anterior, and plantar flexion strength 5/5. LLE strength iliopsoas, quadriceps, tibialis anterior, and plantar flexion strength 5/5. Tone and bulk are normal. Sensory: Sensation is intact to light touch throughout all four extremities. Reflexes: RUE biceps reflex 2+ , brachioradialis reflex 2+. LUE biceps reflex 2+ , brachioradialis reflex 2+. RLE knee reflex 2+. LLE knee reflex 2+. Sellers's sign negative. Coordination: [id number] testing normal. Rapid alternating movements are normal. Gait: Normal. Review and summary of old records: CMP on 09/23/2023: Within normal limits aside from BUN 6 (L). GFR 124. [place] [facility]: No acute cranial pathology or abnormal postcontrast enhancement. There is a punctate nonspecific focus of T2 and FLAIR hyperintense signal in the subcortical white matter of the parasagittal right frontal lobe. Routine EEG at [facility] on 11/18/22: Normal. The patient states she also had an EEG completed in [place], [place], previously which she was told was normal. Assessment/Plan Diagnoses and all orders for this visit: Seizure disorder ([facility]) Ms. Haque is a 34-year-old female with a longstanding history of seizure. She has not had a known seizure since 2017. She reports having generalized tonic-clonic seizures triggered by stress, alcohol use, and period in the past. She also reports more recent episodes of syncope with convulsive symptoms. She states these were different than her seizures. They were preceded by a sensation of warmth and lightheadedness. Given the brief duration, quick awakening, and absence of confusion/lethargy after regaining consciousness, I believe her more recent episodes may be more likely to represent convulsive syncope than seizure. Would also consider PNES, though my suspicion for these is lower. She previously took Depakote and has been maintained on lamotrigine more recently. No seizure-like activity or syncope reported since the prior neurology appointment. Routine EEG on 11/18/22 was normal, and MRI brain on 11/25/22 did not identify any definitive epileptogenic focus. PLAN: - The patient is taking lamotrigine 50 mg by mouth twice a day (for mental health purposes, however, this would also provide coverage for epileptic seizure prevention) - Medication compliance and stress management discussed - Consider further work up and/or cardiology referral if episodes return. Deferred today Encounter for medication monitoring Lamotrigine use. PLAN: - Check labs (CBC, CMP, and lamotrigine use) Mood disorder (CMS/HCC) The patient has a documented history of borderline personality disorder, bipolar 2 disorder, anxiety, and depression which could certainly increase her risk of psychogenic nonepileptic seizures. PLAN: - Follow up closely with psychiatry for management Headache, unspecified headache type The patient presents today reporting new onset headaches starting approximately 6 months ago. She is having approximately 2 per month. These seem to be located in the left frontal region and have no accompanying features. They are positional and can worsen when laying down which raises suspicion for possible intracranial hypertension. She denies any subjective visual disturbance including vision loss, visual field defect, or double vision, and she denies pulsatile tinnitus. Her neurologic exam today is generally unremarkable. Does not meet criteria for migraine. PLAN: - Though no confirmed diagnosis, I informed the patient that positional headaches such as the ones she is describing do raise suspicion for possible increased pressure in the skull. I recommended MRI of the brain to investigate for possible findings of IIH, intracranial tumor, or alternative abnormality which could explain her symptoms. I also recommended consideration of lumbar puncture thereafter. The patient verbalizes understanding but does not wish to pursue any work up for symptoms at this time and politely declines. She understands that, without further work up, underlying pathology could be missed, and this could be debilitating. She understands that IIH cannot be definitively diagnosed without further workup, and this could lead to visual impairment or vision loss if not properly identified and treated. She understands these risks - Follow up with eye doctor for updated eye exams to assess for possible papilledema Dizziness The patient previously reported intermittent dizziness in addition to vague, subjective imbalance. MRI of the brain on 11/25/22 was unremarkable for central etiology. Symptoms resolved with vestibular rehabilitation and have not returned since. This would suggest a possible peripheral cause. PLAN: - Continue home VT exercises as needed Diagnosis and treatment options discussed in detail. All questions answered. The patient verbalizes understanding and is agreeable to the plan. Discussion in layman's terms. Follow up in the office within 6 months (the patient does not wish to follow up sooner than this). The patient understands to call our office for a sooner follow-up appointment should she develop worsening headaches or any subjective visual changes. Also, if she develops any new symptoms or neurologic concerns. Debi Torres NP [facility] Advanced Neurology documented in this encounter [facility] 09-25-2023 Evaluation note Encounter Date Diagnosis Assessment Notes Aug, Suspected COVID-19 virus infection (ICD-10 - Z20.822) Aug, Acute non-recurrent pansinusitis (ICD-10 - J01.40) Advised flu and covid were negative. Will tx tody for bacterial sinusitis based on physical exam and duration of symptoms. Take antibiotic as prescribed, complete entire course of therapy even if symptoms resolve. Steroid as directed, with food, avoid additional NSAIDs while on steroid. Supportive care as directed, push fluids and rest, Tylenol as directed for aches/fever, warm moist compress over sinuses several times a day, cool mist humidifier, nasal saline spray as directed. Symptoms should improve in the next 3 days, if symptoms persist follow up with PCP. Immediate eval for warning s/sx as discussed including worsening SOB, fevers unresponsive to antipyretic, severe dehydration. Patient verbalizes understanding and is agreeable to treatment plan. DrDoctor Other Evaluation noteNo assessment information available [facility] Work Phone: Evaluation note* Diagnosis Seizure disorder (CMS/HCC)- Primary Unspecified epilepsy without mention of intractable epilepsy Encounter for medication monitoring Encounter for therapeutic drug monitoring Mood disorder ([facility]/HCC) Unspecified episodic mood disorder Headache, unspecified headache type Dizziness Dizziness and giddiness documented in this encounter [facility] HealthcareEvaluation note* Diagnosis Generalized pruritus- Primary Unspecified pruritic disorder Lymphadenopathy Enlargement of lymph nodes Weight loss, unintentional Loss of weight documented in this encounter [facility] HealthcareEvaluation note* Diagnosis Enlarged lymph nodes- Primary Enlargement of lymph nodes Lymphadenopathy Enlargement of lymph nodes documented in this encounter [facility] HealthcareEvaluation note* Diagnosis Enlarged lymph nodes Enlargement of lymph nodes documented in this encounter [facility]Evaluation note* Diagnosis LAD (lymphadenopathy), supraclavicular- Primary documented in this encounter [facility]* Diagnosis LAD (lymphadenopathy), supraclavicular documented in this encounter [facility]* Diagnosis Weight loss, unintentional- Primary Loss of weight Epigastric pain Abdominal pain, epigastric Elevated liver enzymes Other nonspecific abnormal serum enzyme levels Lymphadenopathy Enlargement of lymph nodes documented in this encounter [facility]* Diagnosis Weight loss, unintentional- Primary Loss of weight Epigastric pain Abdominal pain, epigastric Elevated liver enzymes Other nonspecific abnormal serum enzyme levels Lymphadenopathy Enlargement of lymph nodes Epigastric pain- Primary Abdominal pain, epigastric Arthralgia, unspecified joint documented [facility] Narrative - Reported* Type Description Date Medical History Seizures Medical History chronic depression Surgical History elbow surgery 2001 Surgical History appendectomy 2012 Surgical History cholecystectomy 2014 Surgical History laparoscopy 2019 Surgical History hysterectomy 2020 Hospitalization History See Above DrDoctor Other Discharge Instructions * Instructions* Yolanda Francisco PA-C - 05/22/2019 Ice and stretch your foot. Call to arrange follow-up with footwear sales representative for continued pain. * Attachments The following attachments cannot be sent through Care Everywhere. 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 Advance Directives and Living Will Power of Overhead Foreman Advance Directive Response Recorded Date/ Time Advance Directives No May 5:31pm Advance Directive Response Recorded Date/ Time Advance Directives No May 6:31pm Summary Purpose Family History No Family History Records FoundNo Family History Records FoundNo Family History Records FoundNo Family History Records FoundNo Family History Records FoundNo Family History Records FoundNo Family History Records FoundNo Family History Records FoundNo Family History Records Found Procedure Findings Note PROCEDURE: Right L3 transfor aminal epidural steroid injection under fluoroscopic guidance. Physician: Taylor Figueroa MD PRE- AND POSTOPERATIVE DIAGNOSES: Pain secondary to lumbar spinal stenosis with neurogenic claudication. SOLUTION USED: 80 mg Depo-Medrol, 1 mL 2% preservative free lidocaine, 1 mL 0.9% normal saline, 1 mL 0.125 preservative free Marcaine. COMPLICATIONS: None. ANESTHESIA: Local. PROCEDURE DESCRIPTION: After informed consent was obtained, the patient was brought to the operating room and was placed in the prone position. Standard monitoring was applied. The skin overlying the area was prepped and draped in standard sterile fashion. A 22-gauge spinal needle was inserted through the skin and directed toward the indicated nerve root foramen under fluoroscopic guidance. Omnipaque dye 0.3 mL was injected and appropriate epidural distribution was established without intravascular or intrathecal spread. Subsequently, 1 mL of the corticosteroid and local anesthetic solut (more content not included)... Note Admission Information Date o f Arrival: 06/07/2019 Date of Discharge: 06/08/2019 Discharge Dx: Right low back pain, inability to walk, sacroiliac pain, anterior labrum tear of the right hip, mild peritendinitis adjacent to the right gluteus minimus tendon. Consulting Providers: Dr. Davidson (Neuro surgery) History of Present Illness 28 year old female with history of Asthma is presented with 2 weeks of right lower back pain, hip pain, numbness and weakness in right leg. she woke up with this pain. Pain radiates down to right leg. She is having difficulty walking. she feel numb in right leg. she also feel weakness in right leg. She denies injury. She denies any other neurological symptoms. Bowel and bladder function normal. she denies chronic back pain. She took two courses of Medrol dose pack and robaxin without much relief. She feels much better when she lay on left side. She even fell due to not able to weight bear on right leg. ER events: Out side ER showed leucocytosis. CT without co (more content not included)... Hospital Course Note Admission Information Date o f Arrival: 06/07/2019 Date of Discharge: 06/08/2019 Discharge Dx: Right low back pain, inability to walk, sacroiliac pain, anterior labrum tear of the right hip, mild peritendinitis adjacent to the right gluteus minimus tendon. Consulting Providers: Dr. Davidson (Neuro surgery) History of Present Illness 28 year old female with history of Asthma is presented with 2 weeks of right lower back pain, hip pain, numbness and weakness in right leg. she woke up with this pain. Pain radiates down to right leg. She is having difficulty walking. she feel numb in right leg. she also feel weakness in right leg. She denies injury. She denies any other neurological symptoms. Bowel and bladder function normal. she denies chronic back pain. She took two courses of Medrol dose pack and robaxin without much relief. She feels much better when she lay on left side. She even fell due to not able to weight bear on right leg. ER events: Out side ER showed leucocytosis. CT without co (more content not included)... Chief Complaint and Reason for Visit Chief Complaint g40.909 Chief Complaint Admit Date Unknown March 01, 2025 1:31p m Additional Source Comments Reason for Visit (unrecogniz ed section and content) Reason Comments Foot Pain right foot and ankle pain started when waking up this morning. no know injury Reason Comments Fall approx 2100, has pin ched nerve x2 weeks. Now patient states that she can not walk or bear weight. No LOC Reason Comments Seizure Disorder Headache Reason Comments Annual Exam Reason Comments Enlarged Lymp Nodes Specialty Diagnoses / Procedures Referred By Contantonio t Referred To Contact Otolaryngology Diagnoses Enlarged lymph nodes Procedures OK OFFICE/OUTPATIENT [facility] 60 MINUTES Anabelle Moses NP [address] [place] [address] Phone: tel: fax: Jeison Delgado MD [address] [place] [id number] Phone: tel: fax: Referral ID Status Reason Start Date Expiration Date V isits Requested Visits Authorized [id number] Closed Specialty Services Required 02/02/2025 08/01/2025 1 1 Reason Comments Enlarged lymph nodes Follow up [facility] 03/01/25 Reason Comments Swollen Glands Shirley referral Specialty Diagnoses / Procedures Referred By Contac t Referred To Contact Otolaryngology Diagnoses LAD (lymphadenopathy), supraclavicular Procedures OK OFFICE/OUTPATIENT [facility] 60 MINUTES Jeison Delgado MD [address] [address] Phone: tel: fax: Van Aguila W, DO [address] [facility] [place] [address] Phone: tel: fax: Referral ID Status Reason Start Date Expiration Date V isits Requested Visits Authorized [id number] Closed Specialty Services Required 03/28/2025 09/24/2025 1 1 Reason Comments Follow-up INFORMATION SOURCE (unrecogn ized section and content) DATE CREATED AUTHOR 06/07/2019 [facility] DATE CREATED AUTHOR AUTHOR'S ORGANIZ ATION 07/20/2019 [facility] DATE CREATED AUTHOR AUTHOR'S ORGANIZ ATION 07/14/2020 [facility] DATE CREATED AUTHOR AUTHOR'S ORGANIZ ATION 01/18/2022 [facility] DATE CREATED AUTHOR AUTHOR'S ORGANIZ ATION 01/29/2023 [facility] DATE CREATED AUTHOR AUTHOR'S ORGANIZ ATION 02/02/2025 [facility] DATE CREATED AUTHOR AUTHOR'S ORGANIZ ATION 03/08/2025 [facility] DATE CREATED AUTHOR AUTHOR'S ORGANIZ ATION 03/20/2025 [facility] DATE CREATED AUTHOR AUTHOR'S ORGANIZ ATION 05/04/2025 [facility] EPIC Care Teams (unrecognized sec tion and content) Team Status: Inactive Member Role Status Dates Edgar Chase DO Attending Provider Active Annabel Shukla MD Primary Care Provider Active Team Status: Active Member Role Status Dates Annabel Shukla MD Primary Care Provider Active Cath Lab Radiological Technologist Relationship Specialty Start Date End Date Annabel Shukla MD [address] [facility] [address] PCP - General Family Medicine 02/16/23 Jhonatan Hooper DO [address] [place] [address] [place] [address] PCP - FFS [facility] 09/27/24 Anabelle Moses NP [address] [facility] [place], [place] [id number] Nurse Practitioner Family Medicine 02/16/23 Cath Lab Radiological Technologist Relationship Specialty Start Date End Date Annabel Shukla MD [address] [place] [facility] [place] [address] PCP - General Family Medicine 02/16/23 Jhonatan Hooper, DO [facility] [place] [address] PCP - S [facility] 09/27/24 Anabelle Moses NP [address] [facility] [place] [address] Nurse Practitioner Family Medicine 02/16/23 Cath Lab Radiological Technologist Relationship Specialty Start Date End Date Annabel Shukla MD [address] [facility] [address] PCP - General Family Medicine 02/16/23 Jhonatan Hooper, DO [facility] [place] [address] PCP - S [facility] 09/27/24 Anabelle Moses RECTIFICATION PRINTER [address] [place] [address] Nurse Practitioner Family Medicine 02/16/23 Cath Lab Radiological Technologist Relationship Specialty Start Date End Date Annabel Shukla MD [address] [facility] [place] [address] PCP - General Family Medicine 02/16/23 Jhonatan Hooper, DO [facility] [place] [address] PCP - [facility] 09/27/24 Anabelle Moses NP [address] [place] [address] Nurse Practitioner Family Medicine 02/16/23 Cath Lab Radiological Technologist Relationship Specialty Start Date End Date Annabel Shukla MD [address] [place] [address] PCP - General Family Medicine 02/16/23 Jhonatan Hooper DO [address] [place] [address] [place] [address] [facility] 09/27/24 Anabelle Moses NP [address] [place] [address] Nurse Practitioner Family Medicine 02/16/23 Cath Lab Radiological Technologist Relationship Specialty Start Date End Date Annabel Shukla MD [address] [place] [address] PCP - General Family Medicine 02/16/23 Jhonatan Hooper DO [address] [place] [address] [place] [address] PCP [facility] 09/27/24 Anabelle Moses NP [address] [place] [address] Nurse Practitioner Family Medicine 02/16/23 Akiko Bhagat LSW Physical Trainer Family Medicine 02/07/25 Cath Lab Radiological Technologist Relationship Specialty Start Date End Date Annabel Shukla MD [address] [place] [address] PCP - General Family Medicine 02/16/23 Jhonatan Hooper, [address] [place] [address] PCP - S [facility] 09/27/24 Anabelle Moses NP [address] [facility] [place] [address] Nurse Practitioner Family Medicine 02/16/23 Akiko Bhagat LSW Physical Trainer Family Medicine 02/07/25 Team Status: Inactive Member Role Status Dates Bret Rose MD Attending Provider Active Start: March 01, 2025 End: March 01, 2025 Cath Lab Radiological Technologist Relationship Specialty Start Date End Date Annabel Shukla MD [address] [facility] [place] [address] PCP - General Family Medicine 02/16/23 Jhonatan Hooper, DO [address] [place] [address] PCP - S [facility] 09/27/24 Anabelle Moses NP [address] [facility] [place] [address] Nurse Practitioner Family Medicine 02/16/23 Cath Lab Radiological Technologist Relationship Specialty Start Date End Date Annabel Shukla MD [address] [facility] [place] [address] PCP - General Family Medicine 02/16/23 Jhonatan Hooper, DO [address] [place] [address] PCP - S [facility] 09/27/24 Anabelle Moses NP [address] [place] [address] Nurse Practitioner Family Medicine 02/16/23 Cath Lab Radiological Technologist Relationship Specialty Start Date End Date Annabel Shukla MD [address] [place] [address] PCP - General Family Medicine 02/16/23 Jhonatan Hooper, DO [facility] [place] [address] PCP [facility] 09/27/24 Anabelle Moses NP [address] [place] [address] Nurse Practitioner Family Medicine 02/16/23 Cath Lab Radiological Technologist Relationship Specialty Start Date End Date Annabel Shukla MD [address] [place] [address] PCP - General Family Medicine 02/16/23 Jhonatan Hooper, DO [address] [place], [place] [address] [address] PCP - [facility] 09/27/24 Anabelle Moses NP [address] [place] [address] Nurse Practitioner Family Medicine 02/16/23 Cath Lab Radiological Technologist Relationship Specialty Start Date End Date Annabel Shukla MD [address] [place] [address] PCP - General Family Medicine 02/16/23 Anabelle Moses NP [address] [facility] [place] [address] Nurse Practitioner Family Medicine 02/16/23 Cath Lab Radiological Technologist Relationship Specialty Start Date End Date Annabel Shukla MD [address] [facility] [place] [address] PCP - General Family Medicine 02/16/23 Anabelle Mosse NP [address] [facility] [place] [address] Nurse Practitioner Family Medicine 02/16/23 Goals (unrecognized section and content) Goals may be documented in a n alternate sectionNo InformationGoals may be documented in an alternate section FOR RECORDS PERTAINING TO PATIENTS WHO ARE OR HAVE BEEN ENROLLED IN A CHEMICAL DEPENDENCY/SUBSTANCEABUSE PROGRAM, SOME INFORMATION MAY BE OMITTED. This clinical summary was aggregated from multiple sources. Caution should be exercised in using it in the provision of clinical care. This summary normalizes information from multiple sources, and as a consequence, information in this document may materially change the coding, format and clinical context of patient data. In addition, data may be omitted in some cases. CLINICAL DECISIONS SHOULD BE BASED ON THE PRIMARY CLINICAL RECORDS. [employer] provides no warranty or guarantee of the accuracy or completeness of information in this document.
[2025-05-13 15:16] VITALS: BP 137/71; PULSE 83; TEMP 36.8; O2SAT 98; BMI 26.6
--- NOTE | 2025-05-13 15:17 | ED_ITS ---
HPI HPI - Extremity Injury (Upper) General Chief Complaint: Extremity Injury, Upper Stated Complaint: INJURED R WRIST Time Seen by Provider: 05/13/25 15:08 Source: patient and family History of Present Illness HPI narrative: 34-year-old female presents to the ER for evaluation of right wrist pain. She is right-hand dominant. Prior to arrival patient was using a battery-operated sawzall to trim a tree branch when it became jammed and kicked back hitting her wrist. Patient's hand was on the handle. She denies falling on her wrist. States her wrist quickly became painful with this incident and she noticed that even the metal blade bent in half. She denies pain to her elbow or shoulder. She does note pain to be moderate radiating from her wrist up to her mid forearm on the radial aspect. She denies pain to the distal thumb or index finger. Patient did not take any medication prior to arrival and then declines the need for any Tylenol or Motrin but was willing to accept an ice pack. complaint: injury to: Reports right Onset (ago): minute(s) Other Extremity Injury: Right: wrist Hand dominance: right Place: Reports home Severity: moderate Relieving factors: Reports rest Exacerbating factors: Reports movement of extremity Associated symptoms: Reports denies other symptoms Related Data Home Medications ?Medication ?Instructions ?Recorded ?Confirmed albuterol sulfate 90 mcg/actuation 2 inh inhalation Q6 H PRN shortness 09/12/23 09/12/23 aerosol inhaler (Proventil HFA) of breath or wheezing epinephrine 0.3 mg/0.3 mL 0.3 mg IM ONCE PRN anaphylax is 09/12/23 09/12/23 injection, auto-injector (EpiPen) lamotrigine 25 mg tablet 50 mg PO Q12H 09/12/2309/12 Previous Rx's ?Medication ?Instructions ?Recorded dicyclomine 10 mg capsule 10 mg PO QID PRN abdominal p ain 09/12/23 #20 caps ondansetron 4 mg disintegrating 4 mg PO Q6H PRN nausea and 09/12/23 tablet vomiting #20 tabs Allergies Allergy/AdvReac Type Severity Reaction Status Date / Time No Known Drug Allergies Allergy Verified 05/13/25 15:09 Opioid HPI Opioid Management Most Recent Pain and Opioid Data: Last Pain Scale 6 09/12/23, 14:11 Review of Systems ROS Constitutional Denies: fever or chills Eyes Denies: change in vision or blurry vision Ears, nose, mouth, and throat Denies: neck pain Cardiovascular Denies: chest pain Respiratory Denies: cough Musculoskeletal Reports: extremity pain (right wrist); Denies: back pain or neck pain Integumentary/Breast Denies: rash or itching Neurological Denies: numbness in extremities Hematologic/Lymphatic Denies: easy bruising PFSH PFSH Surgical History (Updated 09/12/23 @ 12:10 by Wood Garcia) History of appendectomy ?Z90.49 - Acquired absence of other specified parts of digestive tract (ICD- 10) History of cholecystectomy ?Z90.49 - Acquired absence of other specified parts of digestive tract (ICD- 10) H/O: hysterectomy ?Z90.710 - Acquired absence of both cervix and uterus (ICD-10) Exam Narrative Exam Narrative: Nurse's notes and vital signs reviewed. Patient is not hypoxic. General: The patient appears well and in no apparent distress. Patient is resting comfortably on cart. Skin: Warm, dry, no pallor noted. no skin injury Head: Normocephalic, atraumatic Eye: Normal conjunctiva Respiratory: Patient is in no distress Musculoskeletal: The Right wrist shows no obvious deformity. There was slight swelling noted radial aspect of wrist/ base of thumb. The patient had limited ROM due to pain at the wrist. The patient had tenderness noted on the distal radial styloid and anatomical snuff box. Mild pain mid wrist scapholunate region. compartments are soft. no pain to metacarpals 2-5. The patient had no tenderness to ulnar aspect on palpation, but axial loading could not be preformed with acute pain. The patient had no pain with axial loading of the thumb of gentle stressing of IP and MCP joint. no Ulnar collateral tenderness. Pulses are intact at brachial and radial 2+. There was no deficit at the elbow or shoulder. The patient has normal capillary refill to all distal digits. The patient has no evidence of cyanosis or mottling. The patient is able to flex and extend all digits without difficulty. Neurological: A&O x4, normal sensory, normal motor Psychiatric: Cooperative MDM - Extremity Injury (Upper) MDM Narrative Medical decision making narrative: Patient declined the need for Motrin or Tylenol and ice pack was applied, x-ray performed given location of pain. We discussed the possibility of an occult scaphoid injury given her location of pain and mechanism of injury, significant force into the webspace of her thumb and index finger. She does have limited range of motion of her wrist as well most likely diagnosis is wrist sprain pending further rule out of a scaphoid injury. We discussed the importance of follow-up with orthopedics for reevaluation and x-ray at a later date even if symptoms are improved. Patient be placed in a Velcro thumb spica today encouraged not to lift push or pull with the right hand pending follow-up with orthopedics. Patient may take Tylenol Motrin as needed for pain. Patient placed in a Velcro thumb spica to right wrist and neurovascular intact status post application with good alignment. The patient is to followup with primary care physician orthopedics in next 7- 10 days or to return to the emergency department should any of the signs or symptoms worsen or new symptoms develop. Patient had questions answered. The patient agrees with the following Diagnosis and Treatment plan and the patient will be discharged home. Patient was able to verbalize the importance of follow-up for reevaluation and likely repeat imaging given her location of pain to rule out scaphoid fracture. And for further management of her sprain. She has no pain to the thumb involving the UCL and is able to make the okay sign without difficulty against resistance Differential Diagnosis Differential diagnosis: Likely sprain and strain of wrist, fracture of wrist and other Imaging Data Right wrist x-ray 4 view: My impression: AP lateral oblique and scaphoid view: Normal alignment, no acute fracture. Minimal soft tissue swelling along the first dorsal compartment. Discharge Plan Discharge Chief Complaint: Extremity Injury, Upper Clinical Impression: Acute pain of right wrist, Right wrist sprain Patient Disposition: Home, Self-Care Condition: Good Prescriptions / Home Meds: No Action lamotrigine 25 mg tablet 50 mg PO Q12H Patient Comments: 50 mg in the am albuterol sulfate [Proventil HFA] 90 mcg/actuation HFA aerosol inhaler 2 inh inhalation Q6H PRN (Reason: shortness of breath or wheezing) epinephrine [EpiPen] 0.3 mg/0.3 mL auto-injector 0.3 mg IM ONCE PRN (Reason: anaphylaxis) Rx Instructions: for 2 doses dicyclomine 10 mg capsule 10 mg PO QID PRN (Reason: abdominal pain) Qty: 20 0RF ondansetron 4 mg tablet,disintegrating 4 mg PO Q6H PRN (Reason: nausea and vomiting) Qty: 20 0RF Print Language: Estonian Instructions: Wrist Injury (ED) Additional Instructions: Please call either PCP or ortho for follow up in 7-10 days for re-evaluation: Repeat imaging may be needed to rule out occult fracture. Referrals: RONNIE SHUKLA [Primary Care Provider, Family Practice] - 1 week Yobani eMyer DO [Physician, Orthopedics] - 1 week
--- NOTE | 2025-05-13 15:17 | XR_ITS ---
The [address] [address] Patient Name: GRACIELA SORIA MRN: [id number] date: 1990 Sex: F Assigned Patient Location: ED.MAIN Current Patient Location: ED.MAIN Accession/Order Number: [id number] Exam Date: 05/13/2025 15:41 Report Date: 05/13/2025 15:43 At the request of: ANGEL MENDEZ Procedure: XR wrist RT min 3V RIGHT WRIST - 4 views CLINICAL HISTORY: pain snuff box COMPARISON: None FINDINGS: No acute bony process. Joint spaces appear maintained. No bony erosions. No focal soft tissue abnormality. XR/XR wrist RT min 3V IMPRESSION: NO ACUTE BONY PROCESS. Impression dictated by: Reyes Bah Jr., D.O. 05/13/2025 3:43 PM Dictation Location: [place] [address] Electronically authenticated by: [id number] Date: 05/13/2025 15:43
== END 2025-05-13 15:46 | disposition home or self-care (01) ==
PROVIDERS: Emergency Provider Emergency Medicine; PCP Family Medicine
DX: M25.531 Pain in right wrist (principal); S63.591A Other specified sprain of right wrist, initial encounter; W31.2XXA Contact with powered woodworking and forming machines, initial encounter
CPT/HCPCS: 73110; 99283

== ENCOUNTER 2025-05-29 12:36 | Outpatient (REF) | payer OTHER, SELFPAY ==
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
--- OUTSIDE RECORDS SUMMARY | 2025-05-18 14:30 | XMS_ITS | Encounter Summary ---
Author Organization [facility] Address [address] [place] [address] Care Team Providers Care Ham Passer Name Role Phone Annabel Boyd MD Primary Care Provider [phone] Noris Moses ASSEMBLING MACHINE OPERATOR Unavailable [phone] Encounter Details Date Type Department Care Team (Latest Contact Info) Description 05/18/2025 2:30 PM EDT Ancillary Procedure [facility] [address] [place] [address] Right wrist pain Social History Tobacco Use Types Packs/Day [...] 09/16/2023 How often do you attend chur or temple services? Never 09/16/2023 Do you belong to any clubs o r organizations such as anabaptist groups, unions, fraternal or athletic groups, or [...] Recorded Patient Health Questionnaire-2 Score 0 09/16/2023 [facility] Occupational Stress Questionnaire Answer Date [...] place to sleep or slept in a half-way (including now)? No 09/16/2023 Comments Unknown Sex and Gender Information Value Date Recorded Sex Assigned at Not on file Legal Sex Female 6:54 PM EDT Gender Identity Not on file Sexual Orientation Not on file documented as of this encounter Plan of Treatment Upcoming Encounters Date Type Department Care Team (Late st Contact Info) Description 06/04/2026 9:00 AM EDT Procedure Visit [facility] [address] [place] [place] [address] Jhonatan Hooper DO [address] [place] [address] documented as of this encounter Procedures Procedure Name Priority Date/Time Associated Diagnosis Comments XR WRIST 3+ VIEWS RIGHT Routine 05/18/2025 2:52 PM EDT Right wrist pain documented in this encounter Results * XR wrist 3+ [...] abnormality. ELECTRONICALLY SIGNED BY: Chester Rincon DO us Annabel Boyd MD IMG XR PROCEDURES Final Resul t documented in this encounter Visit Diagnoses Diagnosis Right wrist pain Pain in joint, forearm documented in this encounter Additional Health Concerns Assessment Noted Time PHQ-9 Depression Total Score: 0 11/20/19 24 10:04 AM EST documented as of this encounter Care Teams Ham Passer Relationship Specialty Start Date End Date Annabel Boyd MD [address] [place] [address] PCP - General Family Medicine 02/16/23 Noris Moses NP [address] [place] [address] Nurse Practitioner Family Medicine 02/16/23 documented as of this encounter
--- OUTSIDE RECORDS SUMMARY | 2025-05-29 10:30 | XMS_ITS | Encounter Summary ---
Author Organization [facility] Address [address] [place] [address] Care Team Providers Care White Kid Buffer Name Role Phone Annabel Boyd MD Primary Care Provider [phone] Noris Moses GATE AGENT Unavailable [phone] Reason for Visit * Reason Comments Well Women Visit Encounter Details Date Type Department Care Team (Latest Contact Info) Description 05/29/2025 10:30 AM EDT Procedure Visit [facility] [address] [phone] Oralia Fitzpatrick PA [address] [place] [address] Well woman exam with routine gynecological exam; Chronic vaginitis Social History Tobacco Use Types Packs/Day Years [...] How often do you attend chur or mandaeism services? Never 09/16/2023 Do you belong to any clubs o r organizations such as alevism groups, unions, fraternal or athletic groups, or [...] Recorded Patient Health Questionnaire-2 Score 0 09/16/2023 [facility] - Occupational Stress [...] a half-way (including now)? No 09/16/2023 Comments No Sex and Gender Information Value Date Recorded Sex Assigned at Not on file Legal Sex Female 6:54 PM EDT Gender Identity Not on file Sexual Orientation Not on file documented as of this encounter Last Filed Vital Signs Vital Sign Reading Time Taken Comments Blood Pressure 120/72 05/29/2025 10:37 AM EDT Pulse - - Temperature - - Respiratory Rate - - Oxygen Saturation - - Inhaled Oxygen Concentration - - Weight 71.4 kg (157 lb 6.4 oz) 05/29/2025 10:37 AM EDT Height - - Body Mass Index 27.02 05/18/2025 2:19 PM EDT documented in this encounter Progress Notes * VANESSA Hidalgo - 05/29/2025 10:30 AM EDT Reason for Appointment: Patient ID: Unique Haque is a 34 y.o. female who presents for Well Women Visit Patient presents today for Annual Exam. MEDICATIONS Current Outpatient Medications Medication Instructions albuterol HFA (Proventil HFA) 90 mcg/act inhaler 2 puffs, Every 4 hours PRN clobetasol (Temovate) 0.05 % cream 1 application , Topical, Daily EPINEPHrine (EpiPen 2-Karl) 0.3 MG/0.3ML injection syringe Every 24 hours ibuprofen 600 MG tablet 1 tablet, Every 6 hours PRN lamoTRIgine (LAMICTAL) 50 mg, Oral, 2 times daily Multiple Vitamin (MULTIVITAMIN ADULT PO) 1 tablet, Daily ALLERGIES Allergies Allergen Reactions Coconut (Cocos Nucifera) Anaphylaxis, Rash, Swelling and Unknown Coconut Fatty Acid Angioedema Bee Venom Coconut Oil Unknown Guaifenesin Scopolamine Unknown PROBLEMS Active Ambulatory Problems Diagnosis Date Noted Asthma without status asthmaticus ([facility]) 01/26/2023 Mixed anxiety and depressive disorder 01/26/2023 Epilepsy ([facility]) 01/26/2023 Iron deficiency anemia 01/26/2023 Low grade squamous intraepithelial lesion (LGSIL) on cervicovaginal cytologic smear 01/26/2023 Other atopic dermatitis 01/26/2023 Panic attacks 01/26/2023 Vitamin D deficiency 01/26/2023 Abnormal gait 11/16/2019 Anemia affecting ([facility]) 10/27/2016 Echogenic bowel of fetus on ultrasound 10/28/2016 Joint pain 03/04/2023 Pain of left upper arm 06/10/2020 Positive antinuclear antibody 03/04/2023 Primary insomnia 05/17/2018 Ulnar neuropathy 03/04/2023 Sciatica 06/05/2019 Exacerbation of asthma ([facility]) 11/05/2016 Seizure disorder during ([facility]) 10/27/2016 Seizure ([facility]) 04/08/2018 Panic disorder 08/30/2015 Atopic dermatitis 11/14/2019 Cervicalgia 05/20/2023 Vertigo of central origin 05/20/2023 Balance disorder 05/20/2023 Sore throat 11/19/2023 Anxiety 03/28/2025 Lymphadenopathy 03/28/2025 Resolved Ambulatory Problems Diagnosis Date Noted No Resolved Ambulatory Problems Past Medical History: Diagnosis Date Allergic Asthma ([facility]) BMI 28.0-28.9,adult Cholecystitis COVID-19 Depression Elbow fracture Generalized epilepsy ([facility]) Groin pain Low grade squamous intraepithelial lesion (LGSIL) on Papanicolaou smear of cervix Pap smear of cervix to confirm normal smear following abnormal smear Seizures ([facility]) Shingles Strain of muscle, fascia and tendon of long head of biceps, left arm, initial encounter Torticollis HISTORY PAST MEDICAL HISTORY SOCIAL HISTORY Past Medical History: Diagnosis Date Allergic Anxiety [...] encounter biceps tendon strain left arm Torticollis Social History Tobacco Use Smoking status: Former Types: Cigarettes Smokeless tobacco: Never Tobacco comments: Smoked for 3 months in High school Vaping Use Vaping status: Never Used Substance Use Topics Alcohol use: Not Currently Comment: caffeine: coffee Drug use: Not Currently Comment: THC gummie FAMILY HISTORY Family History Adopted: Yes Problem Relation Name Age of Onset No Known Problems Sister No Known Problems Brother No Known Problems Daughter SURGICAL HISTORY Past Surgical History: Procedure Laterality Date APPENDECTOMY 2012 CHOLECYSTECTOMY COLONOSCOPY EGD EXPLORATORY LAPAROTOMY FRACTURE SURGERY elbow fracture HYSTERECTOMY 2020 ND LAP,DIAGNOSTIC ABDOMEN VAGINAL DELIVERY WISDOM TOOTH EXTRACTION Bilateral REVIEW OF SYSTEMS Review of Systems: Review of Systems Constitutional: Negative. HENT: Negative. Eyes: Negative. Respiratory: Negative. Cardiovascular: Negative. Gastrointestinal: Negative. Genitourinary: Negative. Musculoskeletal: Negative. Skin: Negative. Neurological: Negative. All other systems reviewed and are negative. Hematological: Negative. Endocrine: Negative. Allergic/Immunologic: Negative. OBJECTIVE Objective: Physical Exam Constitutional: Appearance: Normal appearance. Genitourinary: Right Adnexa: absent. Cervix is absent. Breasts: Breasts are soft. Right: Normal. Left: Normal. HENT: Head: Normocephalic. Nose: Nose normal. Mouth/Throat: Mouth: Mucous membranes are moist. Cardiovascular: Rate and Rhythm: Normal rate. Pulmonary: Effort: Pulmonary effort is normal. Abdominal: General: Bowel sounds are normal. Palpations: Abdomen is soft. Musculoskeletal: General: Normal range of motion. Cervical back: Normal range of motion. Neurological: General: No focal deficit present. Mental Status: She is alert. Skin: General: Skin is warm and dry. Psychiatric: Mood and Affect: Mood normal. Vitals and nursing note reviewed. Exam conducted with a fabrication inspector present. Vitals: Estimated body mass index is 27.02 kg/m?? as calculated from the following: Height as of 05/18/25: 5' 4 . Weight as of this encounter: 157 lb 6.4 oz. BP: 120/72 No LMP recorded. Patient has had a hysterectomy. ASSESSMENT & PLAN ICD-10-CM 1. Well woman exam with routine gynecological exam Z01.419 Pap Smear HPV DNA probe, amplified DISCONTINUED: clobetasol (Temovate) 0.05 % cream 2. Chronic vaginitis N76.1 clobetasol (Temovate) 0.05 % cream Annual Exam: Patient presents today for an annual exam. Patient states she is doing well and has no complaints. Pap was obtained without difficulty. Orders Placed This Encounter Procedures HPV DNA probe, amplified Follow Up: Patient is to return in one year for annual unless needed otherwise. Documented by VANESSA Hidalgo on behalf of: VANESSA Hidalgo documented in this encounter Plan of Treatment Upcoming Encounters Date Type Department Care Team (Late st Contact Info) Description 06/04/2026 9:00 AM EDT Procedure Visit [facility] [address] [place] [address] Jhonatan Hooper DO [address] [place] [address] Scheduled Orders Name Type Priority Associated Diagnoses Orde r Schedule Pap Smear Pathology and Cytology Routine Well woman exam with routine gynecological exam Ordered: 05/29/2025 HPV DNA probe, amplified Microbiology Routine Well woman exam with routine gynecological exam Ordered: 05/29/2025 documented as of this encounter Visit Diagnoses Diagnosis Well woman exam with routine gynecological exam Routine gynecological examination Chronic vaginitis Unspecified vaginitis and vulvovaginitis documented in this encounter Additional Health Concerns Assessment Noted Time PHQ-9 Depression Total Score: 0 11/20/19 24 10:04 AM EST documented as of this encounter Care Teams White Kid Buffer Relationship Specialty Start Date End Date Annabel Boyd MD [address] [place] [address] PCP - General Family Medicine 02/16/23 Noris Moses NP [address] [place] [address] Nurse Practitioner Family Medicine 02/16/23 documented as of this encounter
--- OUTSIDE RECORDS SUMMARY | 2025-05-29 12:40 | XMS_ITS | Encounter Summary ---
Author Organization [facility] Address [address] [place] [address] Care Team Providers Care Field Producer Name Role Phone Annabel Boyd MD Primary Care Provider [phone] Noris Moses SEQUINS SLINGER Unavailable [phone] Jhonatan Hooper DO Unavailable Encounter Details Date Type Department Care Team (Late st Contact Info) Description 03/07/2025 Orders Only [facility] [address] [place] [address] Malinda Watson MD [address] [facility] [address] [place] [address] Social History Tobacco Use Types Packs/Day Years [...] How often do you attend chur or roman catholic services? Never 09/16/2023 Do you belong to any clubs o r organizations such as yazidi groups, unions, fraternal or athletic groups, or [...] Recorded Patient Health Questionnaire-2 Score 0 09/16/2023 [facility] Occupat ional Health - [...] place to sleep or slept in a fdc (including now)? No 09/16/2023 Comments Unknown Sex [...] EDT Procedure Visit [facility] [address] [facility] [place] [address] Jhonatan Hooper DO [address] [facility] [place] [address] documented as of this encounter Procedures Procedure Name Priority Date/Time Associated Diagnosis Comments GENERAL PATHOLOGY Routine 03/01/2025 6:56 AM EDT documented in this encounter Results * GENERAL PATHOLOGY (03/01/2025 6:56 AM EDT) Malinda Watson MD [facility] Final Result documented in this encounter Visit Diagnoses Not on filedocumented in this encounter Additional Health Concerns Assessment Noted Time PHQ-9 Depression Total Score: 0 11/20/19 24 10:04 AM EST documented as of this encounter Care Teams Field Producer Relationship Specialty Start Date End Date Annabel Boyd MD [address] [place] [address] PCP - General Family Medicine 02/16/23 Jhonatan Hooper DO [address] [place] [address] [place] [address] PCP - FFS [facility] 09/27/24 03/26/25 Noris Moses NP [address] [place] [address] Nurse Practitioner Family Medicine 02/16/23 documented as of this encounter
--- OUTSIDE RECORDS SUMMARY | 2025-05-29 12:40 | XMS_ITS | Encounter Summary ---
Author Organization [facility] Healthcare Address [address] [place] [address] Care Team Providers Care Casino Games Dealer Name Role Phone Annabel Boyd MD Primary Care Provider [phone] Noris Moses BUILDING MAINTENANCE MECHANIC Unavailable [phone] Jhonatan Hooper DO Unavailable Akiko Bhagat SPORTS DEVELOPMENT OFFICER Unavailable [phone] Encounter Details Date Type Department Care Team (Late st Contact Info) Description 02/08/2025 Results Follow-Up [facility] Family Medicine [address] [place] [address] Noris Moses BUILDING MAINTENANCE MECHANIC [address] [place] [phone] CT soft tissue neck w IV contrast Social History Tobacco Use Types Packs/Day Years Used Date Smoking Tobacco: Former Cigarettes Smokeless Tobacco: Never Alcohol Use Standard Drinks/Week Comments Not Currently [...] How often do you attend chur or muslim services? Never 09/16/2023 Do you belong to any clubs o r organizations such as shinto groups, unions, fraternal or athletic groups, or [...] Recorded Patient Health Questionnaire-2 Score 0 09/16/2023 [facility] of Occupat ional Health - Occupational [...] place to sleep or slept in a usp (including now)? No 09/16/2023 Comments Unknown Sex and Gender Information Value Date Recorded Sex Assigned at Not on file Legal Sex Female 6:54 PM EDT Gender Identity Not on file Sexual Orientation Not on file documented as of this encounter Miscellaneous Notes * Telephone Encounter - Annabel Cancino MA - 02/08/2025 9:42 AM EDT Scheduled 02/14 * Telephone Encounter - Annabel Cancino MA - 02/08/2025 9:42 AM EDT ----- Message from Noris Moses sent at 02/08/2025 8:52 AM EDT ----- CT looks normal. She should be able to call [facility] office to schedule an appointment. ----- Message ----- From: Kaylie,Incoming Img Gladis Sent: 02/07/2025 2:17 PM EDT To: Noris Moses NP documented in this encounter Plan of Treatment Upcoming Encounters Date Type Department Care Team (Late st Contact Info) Description 06/04/2026 9:00 AM EDT Procedure Visit [facility] [address] [place] [address] Jhonatan Hooper DO [address] [place] [address] documented as of this encounter Visit Diagnoses Not on filedocumented in this encounter Additional Health Concerns Assessment Noted Time PHQ-9 Depression Total Score: 0 11/20/19 10:04 AM EST documented as of this encounter Care Teams Casino Games Dealer Relationship Specialty Start Date End Date Annabel Boyd MD [address] [facility] [place] [address] PCP - General Family Medicine 02/16/23 Jhonatan Hooper DO [address] [place] [address] PCP - FFS [facility] 09/27/24 03/26/25 Noris Moses NP [address] [place] [address] Nurse Practitioner Family Medicine 02/16/23 Akiko Bhagat LSW [address] [place] [address] Spice Cleaner Family Medicine 02/07/25 03/05/25 documented as of this encounter
--- OUTSIDE RECORDS SUMMARY | 2025-05-29 12:40 | XMS_ITS | Encounter Summary ---
Author Organization [facility] Address [address] [place] [address] Care Team Providers Care Pipe Organ Technician Name Role Phone Annabel Boyd MD Primary Care Provider [phone] Noris Moses MATRIX REPAIRER Unavailable [phone] Jhonatan Hooper DO Unavailable Akiko Bhagat STAFFING MGR Unavailable [phone] Encounter Details Date Type Department Care Team (Late st Contact Info) Description 03/04/2025 Abstract [facility] [place] [facility] [address] [place] [address] Annabel Boyd MD [address] [place] [address] Social History Tobacco Use Types Packs/Day Years [...] How often do you attend chur or uatsdin services? Never 09/16/2023 Do you belong to any clubs o r organizations such as buddhist groups, unions, fraternal or athletic groups, or [...] Recorded Patient Health Questionnaire-2 Score 0 09/16/2023 [facility] of Occupat ional Health - [...] place to sleep or slept in a prison (including now)? No 09/16/2023 Comments Unknown Sex [...] Procedure Visit [facility] [address] [facility] [address] [place] [address] Jhonatan Hooper DO [address] [facility] [place] [address] documented as of this encounter Visit Diagnoses Not on filedocumented in this encounter Additional Health Concerns Assessment Noted Time PHQ-9 Depression Total Score: 0 11/20/19 24 10:04 AM EST documented as of this encounter Care Teams Pipe Organ Technician Relationship Specialty Start Date End Date Annabel Boyd MD [address] [place] [address] PCP - General Family Medicine 02/16/23 Jhonatan Hooper DO [address] [place] [address] [place] [address] PCP - [facility] 09/27/24 03/26/25 Noris Moses NP [address] [place] [address] Nurse Practitioner Family Medicine 02/16/23 Akiko Bhagat LSW [address] [place] [address] Government Operations Consultant Family Medicine 02/07/25 03/05/25 documented as of this encounter
--- OUTSIDE RECORDS SUMMARY | 2025-05-29 12:40 | XMS_ITS | Encounter Summary ---
Author Organization [facility] Healthcare Address [address] [place] [address] Care Team Providers Care Agricultural Produce Packer Name Role Phone Annabel Boyd MD Primary Care Provider [phone] Noris Moses RETAIL MARKETING MANAGER Unavailable [phone] Encounter Details Date Type Department Care Team (Late st Contact Info) Description 04/03/2025 Results Follow-Up [facility] Family Medicine [address] [place] [address] Noris Moses RETAIL MARKETING MANAGER [address] [place] [phone] AST, ALT Social History Tobacco Use Types Packs/Day Years [...] often do you attend chur ch or sikh services? Never 09/16/2023 Do you belong to any clubs o r organizations such as mandaen groups, unions, fraternal or athletic groups, or [...] Recorded Patient Health Questionnaire-2 Score 0 09/16/2023 [facility] Occupat ional Health - [...] money to buy more. Never true 09/16/20 Within the past 12 months, t he [...] place to sleep or slept in a long-term (including now)? No 09/16/2023 Comments Unknown Sex and Gender Information Value Date Recorded Sex Assigned at Not on file Legal Sex Female 6:54 PM EDT Gender Identity Not on file Sexual Orientation Not on file documented as of this encounter Plan of Treatment Upcoming Encounters Date Type Department Care Team (Late st Contact Info) Description 06/04/2026 9:00 AM EDT Procedure Visit [facility] [place] [address] [place] [address] Jhonatan Hooper DO [address] [facility] [address] [place], [place] [address] documented as of this encounter Visit Diagnoses Not on filedocumented in this encounter Additional Health Concerns Assessment Noted Time PHQ-9 Depression Total Score: 0 11/20/19 10:04 AM EST documented as of this encounter Care Teams Agricultural Produce Packer Relationship Specialty Start Date End Date Annabel Boyd MD [address] [place] [address] PCP - General Family Medicine 02/16/23 Noris Moses NP [address] [place] [address] Nurse Practitioner Family Medicine 02/16/23 documented as of this encounter
--- OUTSIDE RECORDS SUMMARY | 2025-05-29 12:40 | XMS_ITS | Encounter Summary ---
Author Organization [facility] Address [address] [place] [address] Care Team Providers Care Shuttle Spotter Name Role Phone Annabel Boyd MD Primary Care Provider [phone] Noris Moses LIQUID YEAST SUPERVISOR Unavailable [phone] Noris Moses LIQUID YEAST SUPERVISOR Unavailable [phone] Jhonatan Hooper DO Unavailable Akiko Bhagat ASSISTANT PRODUCTION EDITOR Unavailable [phone] Encounter Details Date Type Department Care Team (Late st Contact Info) Description 09/22/2023 Abstract [facility] [address] [place] [address] Debi Torres NP Social History Tobacco Use Types Packs/Day Years [...] How often do you attend chur or latter day services? Never 09/16/2023 Do you belong to any clubs o r organizations such as restorationism groups, unions, fraternal or athletic groups, or [...] Recorded Patient Health Questionnaire-2 Score 0 09/16/2023 [facility] of Occupat ional Health - Occupational [...] place to sleep or slept in a assisted (including now)? No 09/16/2023 Comments Unknown Sex [...] EDT Procedure Visit [facility] [address] [facility] [place] [place] [address] Jhonatan Hooper DO [address] [facility] [place] [address] documented as of this encounter Visit Diagnoses Not on filedocumented in this encounter Additional Health Concerns Assessment Noted Time PHQ-9 Depression Total Score: 6 09/16/20 4:33 PM EST documented as of this encounter Care Teams Shuttle Spotter Relationship Specialty Start Date End Date Annabel Boyd MD [address] [place] [address] PCP - General Family Medicine 02/16/23 Noris Moses NP [address] [facility] [address] [place] [address] [facility] - [facility] 03/27/2312/25 Jhonatan Hooper DO [address] [place] [address] [place] [address] PCP - [facility] 09/27/24 03/26/25 Noris Moses NP [address] [place] [address] Nurse Practitioner Family Medicine 02/16/23 Akiko Bhagat LSW [address] [place] [address] Social Work Job Titles Family Medicine 02/07/25 03/05/25 documented as of this encounter
--- OUTSIDE RECORDS SUMMARY | 2025-05-29 12:40 | XMS_ITS | Encounter Summary ---
Author Organization [facility] Address [address] [place] [address] Care Team Providers Care Leather Splitter Name Role Phone Annabel Boyd MD Primary Care Provider [phone] Noris Moses SPORTS LAWYER Unavailable [phone] Reason for Visit * Reason Onset Date Comments Med Refill 05/01/2025 Encounter Details Date Type Department Care Team (Late st Contact Info) Description 05/01/2025 Refill [facility] [address] [place] [phone] Debi Torres NP Seizure (HCC) Social History Tobacco Use Types Packs/Day Years [...] often do you attend chur ch or hoahaoism services? Never 09/16/2023 Do you belong to any clubs o r organizations such as mosque groups, unions, fraternal or athletic groups, or [...] Recorded Patient Health Questionnaire-2 Score 0 09/16/2023 [facility] Answer Date Recorded [...] place to sleep or slept in a snf (including now)? No 09/16/2023 Comments Unknown Sex and Gender Information Value Date Recorded Sex Assigned at Not on file Legal Sex Female 6:54 PM EDT Gender Identity Not on file Sexual Orientation Not on file documented as of this encounter Plan of Treatment Upcoming Encounters Date Type Department Care Team (Late st Contact Info) Description 06/04/2026 9:00 AM EDT Procedure Visit [facility] [address] [facility] [place] [address] Jhonatan Hopoer DO [address] [facility] [address] [place], [place] [address] documented as of this encounter Visit Diagnoses Diagnosis Seizure (HCC) Other convulsions documented in this encounter Additional Health Concerns Assessment Noted Time PHQ-9 Depression Total Score: 0 11/20/19 24 10:04 AM EST documented as of this encounter Care Teams Leather Splitter Relationship Specialty Start Date End Date Annabel Boyd MD [address] [facility] [place] [address] PCP - General Family Medicine 02/16/23 Noris Moses NP [address] [place] [address] Nurse Practitioner Family Medicine 02/16/23 documented as of this encounter
--- OUTSIDE RECORDS SUMMARY | 2025-05-29 12:40 | XMS_ITS | Encounter Summary ---
Author Organization [facility] Address [address] [place] [address] Care Team Providers Care Septic Tank Servicer Name Role Phone Annabel Boyd MD Primary Care Provider [phone] Noris Moses RESTAURANT CULINARY MANAGER Unavailable [phone] Encounter Details Date Type Department Care Team (Late st Contact Info) Description 05/14/2025 [facility] [address] [place] [phone] Annabel Boyd MD [address] [place], [place] [address] Social History Tobacco Use Types Packs/Day Years [...] often do you attend chur ch or roman catholic services? Never 09/16/2023 Do [...] Recorded Patient Health Questionnaire-2 Score 0 09/16/[address]23 [facility] - Occupational Stress Questionnaire Answer Date [...] place to sleep or slept in a jail (including now)? No 09/16/2023 Comments Unknown Sex [...] Procedure Visit [facility] [address] [place] [address] Jhonatan Hooper DO [address] [facility] [address] [place], [place] [address] documented as of this encounter Visit Diagnoses Not on filedocumented in this encounter Additional Health Concerns Assessment Noted Time PHQ-9 Depression Total Score: 0 11/20/19 24 10:04 AM EST documented as of this encounter Care Teams Septic Tank Servicer Relationship Specialty Start Date End Date Annabel Boyd MD [address] [place] [address] PCP - General Family Medicine 02/16/23 Noris Moses NP [address] [place] [address] Nurse Practitioner Family Medicine 02/16/23 documented as of this encounter
--- OUTSIDE RECORDS SUMMARY | 2025-05-29 12:40 | XMS_ITS | Encounter Summary ---
Author Organization [facility] Healthcare Address [address] [place] [address] Care Team Providers Care Manager Math Name Role Phone Annabel Boyd MD Primary Care Provider [phone] Noris Moses KETTLE SKIMMER Unavailable [phone] Encounter Details Date Type Department Care Team (Late st Contact Info) Description 05/02/2025 Results Follow-Up [facility] Family Medicine [address] [place] [address] Debi Martinez NP [address] [place] [address] [place] Social History Tobacco Use Types Packs/Day Years [...] any clubs o r organizations such as denominational groups, unions, fraternal or athletic groups, or [...] Recorded Patient Health Questionnaire-2 Score 0 09/16/2023 [facility] Occupat ional [facility] - Occupational Stress Questionnaire Answer Date [...] place to sleep or slept in a retirement (including now)? No 09/16/2023 Comments Unknown Sex and Gender Information Value Date Recorded Sex Assigned at Not on file Legal Sex Female 6:54 PM EDT Gender Identity Not on file Sexual Orientation Not on file documented as of this encounter Plan of Treatment Upcoming Encounters Date Type Department Care Team (Late st Contact Info) Description 06/04/2026 9:00 AM EDT Procedure Visit [facility] [address] [place] [address] Jhonatan Hooper DO [address] [facility] [address] [place], [place] [address] documented as of this encounter Visit Diagnoses Not on filedocumented in this encounter Additional Health Concerns Assessment Noted Time PHQ-9 Depression Total Score: 0 11/20/19 24 10:04 AM EST documented as of this encounter Care Teams Manager Math Relationship Specialty Start Date End Date Annabel Boyd MD [address] [place] [address] PCP - General Family Medicine 02/16/23 Noris Moses NP [address] [place] [address] Nurse Practitioner Family Medicine 02/16/23 documented as of this encounter
--- OUTSIDE RECORDS SUMMARY | 2025-05-29 12:40 | XMS_ITS | Encounter Summary ---
Author Organization [facility] Healthcare Address [address] [place] [address] Care Team Providers Care Metal Reed Tuner Name Role Phone Annabel Boyd MD Primary Care Provider Noris Moses COLLATOR Unavailable [phone] Encounter Details Date Type Department Care Team (Late st Contact Info) Description 05/14/2025 Results Follow-Up [facility] Orthopaedics [address] [place] [address] Dilip Ching PA [address] [place] [address] XR wrist 3+ views right Social History Tobacco Use Types Packs/Day Years [...] any clubs o r organizations such as taoist groups, unions, fraternal or athletic groups, or [...] place to sleep or slept in a longterm (including now)? No 09/16/2023 Comments Unknown Sex [...] EDT Procedure Visit [facility] [address] [facility] [place] [address] Jhonatan Hooper DO [address] [facility] [place] [address] documented as of this encounter Visit Diagnoses Not on filedocumented in this encounter Additional Health Concerns Assessment Noted Time PHQ-9 Depression Total Score: 0 11/20/19 24 10:04 AM EST documented as of this encounter Care Teams Metal Reed Tuner Relationship Specialty Start Date End Date Annabel Boyd MD [address] [place] [address] PCP - General Family Medicine 02/16/23 Noris Moses NP [address] [place] [address] Nurse Practitioner Family Medicine 02/16/23 documented as of this encounter
--- OUTSIDE RECORDS SUMMARY | 2025-05-29 12:40 | XMS_ITS | Encounter Summary ---
Author Organization [facility] Address [address] [place] [address] Care Team Providers Care Ict Support Engineer Name Role Phone Annabel Boyd MD Primary Care Provider [phone] Noris Moses VICE PRESIDENT SUPPLY CHAIN Unavailable [phone] Noris Moses VICE PRESIDENT SUPPLY CHAIN Unavailable [phone] Jhonatan Hooper DO Unavailable Akiko Bhagat IT SOLUTIONS ARCHITECT Unavailable [phone] Encounter Details Date Type Department Care Team (Late st Contact Info) Description 03/01/2023 Abstract [facility] [address] [facility] [place] [address] Jhonatan Hooper DO [address] [facility] [address] [place], [place] [address] Social History Tobacco Use Types Packs/Day Years Used Date Smoking Tobacco: Former Cigarettes Smokeless Tobacco: Never Alcohol Use Standard Drinks/Week Comments Not Currently 0 (1 standard drink = 0.6 oz pur e alcohol) caffeine: coffee PHQ-2 Answer Date Recorded Patient Health Questionnaire-2 Score 0 02/16/2023 Comments Unknown Sex and Gender Information Value Date Recorded Sex Assigned at Not on file Legal Sex Female 6:54 PM EDT Gender Identity Not on file Sexual Orientation Not on file documented as of this encounter Plan of Treatment Upcoming Encounters Date Type Department Care Team (Late Contact Info) Description 06/04/2026 9:00 AM EDT Procedure Visit [facility] [place] [facility] [address] [place] [address] Jhonatan Hooper DO [address] [place] [address] documented as of this encounter Visit Diagnoses Not on filedocumented in this encounter Care Teams Ict Support Engineer Relationship Specialty Start Date End Date Annabel Boyd MD [address] [facility] [place] [address] PCP - General Family Medicine 02/16/23 Noris Moses NP [address] [facility] 1 [place] [address] PCP - [facility] 03/27/2312/25 Jhonatan Hooper DO [address] [place] [address] PCP - [facility] 09/27/24 03/26/25 Noris Moses NP [address] [facility] [place] [address] Nurse Practitioner Family Medicine 02/16/23 Akiko Bhagat, TREVOR [address] [place] [address] Landmen Family Medicine 02/07/25 03/05/25 documented as of this encounter
--- OUTSIDE RECORDS SUMMARY | 2025-05-29 12:40 | XMS_ITS | Encounter Summary ---
Author Organization [facility] Address [address] [place] [address] Care Team Providers Care Machine Former Name Role Phone Annabel Boyd MD Primary Care Provider [phone] Noris Moses BIOMATERIALS ENGINEER Unavailable [phone] Noris Moses BIOMATERIALS ENGINEER Unavailable [phone] Jhonatan Hooper DO Unavailable Akiko Bhagat NEPHROLOGIST Unavailable [phone] Encounter Details Date Type Department Care Team (Late st Contact Info) Description 09/22/2023 Abstract [facility] [address] [facility] [place] [phone] Debi Torres NP Social History Tobacco Use [...] How often do you attend chur or sabianism services? Never 09/16/2023 Do you belong to any clubs o r organizations such as muslim groups, unions, fraternal or athletic groups, or [...] Recorded Patient Health Questionnaire-2 Score 0 09/16/2023 [facility] of Occupat ional Health - Occupational [...] place to sleep or slept in a group home (including now)? No 09/16/2023 Comments Unknown Sex [...] [address] [facility] [place] [address] Jhonatan Hooper DO [address] [facility] [address] [place], [place] [address] documented as of this encounter Visit Diagnoses Not on filedocumented in this encounter Additional Health Concerns Assessment Noted Time PHQ-9 Depression Total Score: 6 09/16/20 4:33 PM EST documented as of this encounter Care Teams Machine Former Relationship Specialty Start Date End Date Annabel Boyd MD [address] [place] [address] PCP - General Family Medicine 02/16/23 Noris Moses NP [address] [facility] [address] [place] [address] PCP - [facility] 03/27/2312/25 Jhonatan Hooper DO [address] [place] [address] [place] [address] PCP - [facility] 09/27/24 03/26/25 Noris Moses NP [address] [place], [place] [address] Nurse Practitioner Family Medicine 02/16/23 Akiko Bhagat, TREVOR [address] [facility] [place] [address] Knitter Mechanic Family Medicine 02/07/25 03/05/25 documented as of this encounter
--- OUTSIDE RECORDS SUMMARY | 2025-05-29 12:40 | XMS_ITS | Encounter Summary ---
Author Organization [facility] Address [address] [place] [address] Care Team Providers Care Procedures Tech Name Role Phone Annabel Boyd MD Primary Care Provider [phone] Noris Moses WATER TESTER Unavailable [phone] Noris Moses WATER TESTER Unavailable [phone] Jhonatan Hooper DO Unavailable Akiko Bhagat INSTRUMENTATION AND CONTROLS TECHNICIAN Unavailable [phone] Encounter Details Date Type Department Care Team (Late st Contact Info) Description 05/20/2023 Abstract [facility] [address] [place] [address] Annabel Boyd MD [address] [place], [place] [id number] Social History Tobacco Use Types Packs/Day Years [...] Description 06/04/2026 9:00 AM EDT Procedure Visit [facility] [address] [facility] [address] Jhonatan Hooper DO [address] [facility] [place] [address] documented as of this encounter Visit Diagnoses Not on filedocumented in this encounter Care Teams Procedures Tech Relationship Specialty Start Date End Date Annabel Boyd MD [address] [facility] [place] [address] PCP - General Family Medicine 02/16/23 Noris Moses NP [address] [facility] 1 [place] [address] PCP - [facility] 03/27/2312/25 Jhonatan Hooper DO [address] [facility] [place] [address] PCP - [facility] 09/27/24 03/26/25 Noris Moses NP [address] [facility] [place] [address] Nurse Practitioner Family Medicine 02/16/23 Akiko Bhagat LSW [address] [facility] [place] [address] [facility] 02/07/25 03/05/25 documented as of this encounter
--- OUTSIDE RECORDS SUMMARY | 2025-05-29 12:40 | XMS_ITS | Encounter Summary ---
Author Organization [facility] Address [address] [place] [address] Care Team Providers Care Lab Coordinator Name Role Phone Annabel Boyd MD Primary Care Provider [phone] Noris Moses CARDIOLOGY TECHNICIAN Unavailable [phone] Noris Moses CARDIOLOGY TECHNICIAN Unavailable [phone] Jhonatan Hooper DO Unavailable Akiko Bhagat SANDBLASTING SUPERVISOR Unavailable [phone] Encounter Details Date Type Department Care Team (Late st Contact Info) Description 08/12/2023 Abstract [facility] [address] [place] [address] Annabel Boyd MD [address] [place], [place] [id number] Social History Tobacco Use Types Packs/Day Years [...] AM EDT Procedure Visit [facility] [address] [facility] [place] [address] Jhonatan Hooper DO [address] [facility] [place] [address] documented as of this encounter Visit Diagnoses Not on filedocumented in this encounter Care Teams Lab Coordinator Relationship Specialty Start Date End Date Annabel Boyd MD [address] [facility] [place] [address] PCP - General Family Medicine 02/16/23 Noris Moses NP [address] [facility] 1 [place] [address] PCP - [facility] 03/27/2312/25 Jhonatan Hooper DO [address] [facility] [place] [address] PCP - [facility] 09/27/24 03/26/25 Noris Moses NP [address] [facility] [place] [address] Nurse Practitioner Family Medicine 02/16/23 Akiko Bhagat LSW [address] [facility] [place] [address] Lens Grinding Machine Operator Family Medicine 02/07/25 03/05/25 documented as of this encounter
--- OUTSIDE RECORDS SUMMARY | 2025-05-29 12:40 | XMS_ITS | Encounter Summary ---
Author Organization [facility] Address [address] [place] [address] Care Team Providers Care Leadership Program Intern Name Role Phone Annabel Boyd MD Primary Care Provider [phone] Noris Moses GENERAL CAR SUPERVISOR YARD Unavailable [phone] Noris Moses GENERAL CAR SUPERVISOR YARD Unavailable [phone] Jhonatan Hooper DO Unavailable Akiko Bhagat DOG BEAUTICIAN Unavailable [phone] Encounter Details Date Type Department Care Team (Late st Contact Info) Description 02/27/2023 Abstract [facility] [address] [facility] [place] [address] Jhonatan Hooper DO [address] [facility] [address] [place], [place] [id number] Social History Tobacco Use Types Packs/Day Years Used Date Smoking Tobacco: Former Cigarettes Smokeless Tobacco: Never Tobacco Cessation:Counseling Given: Not Answered Alcohol Use Standard Drinks/Week Comments Not Currently [...] EDT Procedure Visit [facility] [address] [facility] [place] [address] Jhonatan Hooper DO [address] [place] [address] documented as of this encounter Visit Diagnoses Not on filedocumented in this encounter Care Teams Leadership Program Intern Relationship Specialty Start Date End Date Annabel Boyd MD [address] [facility] [place] [address] PCP - General Family Medicine 02/16/23 Noris Moses NP [facility] 1 [place] [address] PCP - [facility] 03/27/2312/25 Jhonatan Hooper DO [facility] [place] [address] PCP - [facility] 09/27/24 03/26/25 Noris Moses NP [address] [place] [address] Nurse Practitioner Family Medicine 02/16/23 Akiko Bhagat LSW [address] [place] [address] [facility] Director Family Medicine 02/07/25 03/05/25 documented as of this encounter
--- OUTSIDE RECORDS SUMMARY | 2025-05-29 12:40 | XMS_ITS | Encounter Summary ---
Author Organization [facility] Address [address] [place] [address] Care Team Providers Care Readers' Advisory Service Librarian Name Role Phone Annabel Boyd MD Primary Care Provider [phone] Noris Moses SHEET METAL HELPER Unavailable [phone] Reason for Visit * Reason Onset Date Comments Med Refill 04/12/2025 Encounter Details Date Type Department Care Team (Late st Contact Info) Description 04/12/2025 Refill CHINTAN EULA [address] [place] [phone] Debi Torres NP Seizure (HCC) Social History [...] often do you attend chur ch or jain services? Never 09/16/2023 Do you belong to any clubs o r organizations such as presybeterian groups, unions, fraternal or athletic groups, or [...] Score 0 09/16/2023 [facility] Questionnaire Answer Date Recorded [...] EDT Procedure Visit [facility] [address] [place] [address] Jhonatan Hooper DO [address] [facility] [address] [place], [place] [address] documented as of this encounter Visit Diagnoses Diagnosis Seizure (HCC) Other convulsions documented in this encounter Additional Health Concerns Assessment Noted Time PHQ-9 Depression Total Score: 0 11/20/19 24 10:04 AM EST documented as of this encounter Care Teams Readers' Advisory Service Librarian Relationship Specialty Start Date End Date Annabel Boyd MD [address] [facility] [place] [address] PCP - General Family Medicine 02/16/23 Noris Moses NP [address] [place] [address] Nurse Practitioner Family Medicine 02/16/23 documented as of this encounter
--- OUTSIDE RECORDS SUMMARY | 2025-05-29 12:40 | XMS_ITS | Encounter Summary ---
Author Organization [facility] Address [address] [place] [address] Care Team Providers Care Wood Furniture Assembler Name Role Phone Annabel Boyd MD Primary Care Provider [phone] Noris Moses DIMENSIONAL ENGINEER Unavailable [phone] Encounter Details Date Type Department Care Team (Latest Contact Info) Description 04/16/2025 Results Follow-Up [facility] Family Medicine [address] [place] [address] Annabel Boyd MD [address] [place] [address] CBC and differential, Sedimentation rate, automated, Lactate dehydrogenase, Protein electrophoresis, serum Social History Tobacco Use Types Packs/Day Years [...] How often do you attend chur or cheondoism services? Never 09/16/2023 Do you belong to any clubs o r organizations such as yarsani groups, unions, fraternal or athletic groups, or [...] Recorded Patient Health Questionnaire-2 Score 0 09/16/2023 [facility] Occupat ional Health - Occupational [...] place to sleep or slept in a custodial (including now)? No 09/16/2023 Comments Unknown Sex [...] EDT Procedure Visit [facility] [address] [facility] [place] [address] Jhonatan Hooper DO [address] [facility] [address] [place], [place] [address] documented as of this encounter Visit Diagnoses Not on filedocumented in this encounter Additional Health Concerns Assessment Noted Time PHQ-9 Depression Total Score: 0 11/20/19 24 10:04 AM EST documented as of this encounter Care Teams Wood Furniture Assembler Relationship Specialty Start Date End Date Annabel Boyd MD [address] [place] [address] PCP - General Family Medicine 02/16/23 Noris Moses NP [address] [place] [address] Nurse Practitioner Family Medicine 02/16/23 documented as of this encounter
--- OUTSIDE RECORDS SUMMARY | 2025-05-29 12:40 | XMS_ITS | Encounter Summary ---
Author Organization [facility] Address [address] [place] [address] Care Team Providers Care Cell Changer Name Role Phone Annabel Boyd MD Primary Care Provider [phone] Noris Moses BULB FARMWORKER Unavailable [phone] Encounter Details Date Type Department Care Team (Late st Contact Info) Description 03/28/2025 Orders Only [facility] [address] [place] [address] Malinda Watson MD [address] [facility] [address] [place] [address] Social History Tobacco Use Types Packs/Day Years [...] How often do you attend chur or yazdanism services? Never 09/16/2023 Do you belong to [...] Recorded Patient Health Questionnaire-2 Score 0 09/16/2023 [facility] - Occupational Stress Questionnaire Answer Date [...] place to sleep or slept in a chcf (including now)? No 09/16/2023 Comments Unknown Sex [...] EDT Procedure Visit [facility] [address] [facility] [place] [address] Jhonatan Hooper DO [address] [facility] [place] [address] documented as of this encounter Procedures Procedure Name Priority Date/Time Associated Diagnosis Comments GENERAL PATHOLOGY Routine 03/01/2025 8:53 AM EDT documented in this encounter Results * GENERAL PATHOLOGY (03/01/2025 8:53 AM EDT) us Malinda Watson MD [facility] Final Result documented in this encounter Visit Diagnoses Not on filedocumented in this encounter Additional Health Concerns Assessment Noted Time PHQ-9 Depression Total Score: 0 11/20/19 24 10:04 AM EST documented as of this encounter Care Teams Cell Changer Relationship Specialty Start Date End Date Annabel Boyd MD [address] [place] [address] PCP - General Family Medicine 02/16/23 Noris Moses NP [address] [place] [address] Nurse Practitioner Family Medicine 02/16/23 documented as of this encounter
--- OUTSIDE RECORDS SUMMARY | 2025-05-29 12:41 | XMS_ITS | Encounter Summary ---
Author Organization [facility] Address [address] [place] [address] Care Team Providers Care Demurrage Clerk Name Role Phone Annabel Boyd MD Primary Care Provider [phone] Noris Moses OPERATIONAL ASSISTANT Unavailable [phone] Encounter Details Date Type Department Care Team (Late st Contact Info) Description 05/13/2025 Orders Only [facility] Family Medicine [address] [place] [address] Dilip Ching, PA [address] [place] [address] Social History Tobacco Use Types Packs/Day Years [...] often do you attend chur ch or episcopal services? Never 09/16/2023 Do you belong to any clubs o r organizations such as islam groups, unions, fraternal or athletic groups, or [...] 09/16/2023 [facility]at ional [facility] - Occupational Stress Questionnaire Answer Date [...] the money to buy more. Never true 12/21/20 23 Within the past 12 months, t [...] place to sleep or slept in a alf (including now)? No 09/16/2023 Comments Unknown Sex [...] EDT Procedure Visit [facility] [address] [facility] [place] [address] Jhonatan Hooper DO [address] [facility] [place] [address] documented as of this encounter Procedures Procedure Name Priority Date/Time Associated Diagnosis Comments XR WRIST 3+ VIEWS RIGHT Routine 05/13/2025 5:20 PM EDT documented in this encounter Results * XR wrist 3+ views right (05/13/2025 5:20 PM EDT) Anatomical Region Laterality Modality Upper Extremities, Wrist Right Radiogr aphic Imaging us Dilip MENDEZ IMG XR PROCEDURES Final Resul t documented in this encounter Visit Diagnoses Not on filedocumented in this encounter Additional Health Concerns Assessment Noted Time PHQ-9 Depression Total Score: 0 11/20/19 24 10:04 AM EST documented as of this encounter Care Teams Demurrage Clerk Relationship Specialty Start Date End Date Annabel Boyd MD [address] [place] [address] PCP - General Family Medicine 02/16/23 Noris Moses NP [address] [place] [address] Nurse Practitioner Family Medicine 02/16/23 documented as of this encounter
--- OUTSIDE RECORDS SUMMARY | 2025-05-29 12:41 | XMS_ITS | Clinical Summary ---
Author Organization [facility] Address [address] [place] [address] Care Team Providers Care Benefits Director Name Role Phone Annabel Ibarra MD Primary Care Prov ider Allergies Active Allergy Reactions Criticality Noted Date Comments Bee Venom 05/03/2019 Coconut Fatty Acids Angioedema (swelling) High 01/08 Coconut Oil Rash,Swelling 07/17/2019 Medications EPINEPHrine 0.1 MG/0.1ML Solution Auto-injector Inject as directed Indications: Life Threatening Allergic Reaction. Active norgestimate-et hinyl estradiol 0.25-35 MG-MCG Tab tablet Take 1 tablet by mouth Daily (with dinner). Active divalproex (DEPAKOTE) [address] tablet EC/DR At bedtime. Activ e Active Problems No known active problems Social History Tobacco Use Types Packs/Day Years Used Date Smoking Tobacco: Never Assessed Comments Unknown Sex and Gender Information Value Date Recorded Sex Assigned at Not on file Legal Sex Female 1:12 PM EDT Gender Identity Not on file Sexual Orientation Not on file Last Filed Vital Signs Vital Sign Reading Time Taken Comments Blood Pressure - - Pulse - - Temperature - - Respiratory Rate - - Oxygen Saturation - - Inhaled Oxygen Concentration - - Weight 61.2 kg (135 lb) 07/17/2019 2:37 PM EDT Height 162.6 cm (5' 4 ) 07/17/2019 2:37 PM EDT Body Mass Index 23.17 07/17/2019 2:37 PM EDT Plan of Treatment Health Maintenance Due Date Last Done Comments HEPATITIS C VIRUS SCREENING 1992 HIV SCREENING DISCUSSION 2007 HEP B VACCINE (1 of 3 - 19+ 3-dose series) 2011 CERVICAL CANCER SCREENING DISCUSSION 2013 HPV VACCINE (1 - 3-dose SCDM series) 2019 COVID-19 VACCINE (1 - 2023-2 5 season) 2024 TETANUS 10/08/2024 10/08/2014 INFLUENZA VACCINE (#1) 2025 06/05/2019 TDAP (ADULT) Completed 10/08/2014 PNEUMOCOCCAL VACCINE SERIES Aged Out No longer eligible based on patient's age to complete this topic Insurance Medicare [employer] Care Teams Benefits Director Relationship Specialty Start Date End Date Annabel Ibarra MD [address] [place] [address] PCP - General Family Medicine 07/11/19
--- OUTSIDE RECORDS SUMMARY | 2025-05-29 12:41 | XMS_ITS | Encounter Summary ---
Author Organization [facility] Address [address] [place] [address] Care Team Providers Care Cartographic Designer Name Role Phone Annabel Boyd MD Primary Care Provider [phone] Noris Moses METAL HANDLER Unavailable [phone] Encounter Details Date Type Department Care Team (Late st Contact Info) Description 05/21/2025 Results [facility] Family Medicine [address] [place] [address] Annabel Boyd MD [address] [place] [address] XR wrist 3+ views right Social History [...] How often do you attend chur or mormon services? Never 09/16/2023 Do you belong to any clubs o r organizations such as anglican groups, unions, fraternal or athletic groups, or [...] Recorded Patient Health Questionnaire-2 Score 0 09/16/2023 [facility] of Occupat ional Health - Occupational [...] Telephone Encounter - Annabel Cancino MA - 05/21/2025 3:15 PM EDT Spoke with pt and she voices understanding * Telephone Encounter - Annabel Cancino MA - 05/21/2025 3:15 PM EDT ----- Message from Dr. Annabel Boyd sent at 05/21/2025 1:51 PM EDT ----- This xray also says negative. She can try without the brace and if pain recurs, we will need to proceed with MRI of the wrist to look at scaphoid. ----- Message ----- From: Interface, Incoming Img Psone Background Sent: 05/18/2025 4:03 PM EDT To: Annabel Boyd MD documented in this encounter Plan of Treatment Upcoming Encounters Date Type Department Care Team (Late st Contact Info) Description 06/04/2026 9:00 AM EDT Procedure Visit [facility] [address] [facility] [place] [address] Jhonatan Hooper DO [address] [facility] [place] [address] documented as of this encounter Visit Diagnoses Not on filedocumented in this encounter Additional Health Concerns Assessment Noted Time PHQ-9 Depression Total Score: 0 11/20/19 10:04 AM EST documented as of this encounter Care Teams Cartographic Designer Relationship Specialty Start Date End Date Annabel Boyd MD [address] [facility] [place] [address] PCP - General Family Medicine 02/16/23 Noris Moses NP [address] [facility] [place] [address] Nurse Practitioner Family Medicine 02/16/23 documented as of this encounter
--- OUTSIDE RECORDS SUMMARY | 2025-05-29 12:41 | XMS_ITS | Encounter Summary ---
Author Organization [facility] Address [address] [place] [address] Care Team Providers Care Curb Worker Name Role Phone Annabel Boyd MD Primary Care Provider [phone] Noris Moses MEASUREMENT OPERATOR Unavailable [phone] Encounter Details Date Type Department Care Team (Late st Contact Info) Description 05/18/2025 Bamboo flowsheet [facility] [place] [facility] [address] [place] [phone] Annabel Boyd MD [address] [place] [address] Social History Tobacco Use Types [...] often do you attend chur ch or sabianist services? Never 09/16/2023 Do you belong to any clubs o r organizations such as yarsanism groups, unions, fraternal or athletic groups, or [...] Recorded Patient Health Questionnaire-2 Score 0 09/16/2023 [facility] Occupat ional [facility] - Occupational Stress Questionnaire Answer Date Recorded [...] Procedure Visit [facility] [address] [place] [address] Jhonatan Hooper DO [address] [facility] [address] [place], [place] [address] documented as of this encounter Visit Diagnoses Not on filedocumented in this encounter Additional Health Concerns Assessment Noted Time PHQ-9 Depression Total Score: 0 11/20/19 24 10:04 AM EST documented as of this encounter Care Teams Curb Worker Relationship Specialty Start Date End Date Annabel Boyd MD [address] [place] [address] PCP - General Family Medicine 02/16/23 Noris Moses NP [address] [place] [address] Nurse Practitioner Family Medicine 02/16/23 documented as of this encounter
--- OUTSIDE RECORDS SUMMARY | 2025-05-29 12:41 | XMS_ITS | Clinical Summary ---
Author Organization [employer] Address [id number] [place] [address] Care Team Providers Care Buttoner Name Role Phone Annabel Boyd MD Primary Care Provider Allergies Active Allergy Reactions Criticality Noted Date Comments Bee Venom Protein (Honey Bee) 2018 Coconut Angioedema High 01/08/2018 Medications norgestimate-et hinyl estradiol (ORTHO-CYCLEN) 0.25-35 mg-mcg per tablet Take 1 tablet by mouth daily. Active EPINEPHrine 0.1 mg/0.1 mL auto-injectorIn dications:anaph ylaxis Inject as directed Indications: Life Threatening Allergic Reaction. 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 Seizure disorder during 10/27/2016 Overview (10/27/2016): Depakote Anemia affecting 10/27/2016 Family History * Patient is adopted Medical History Relation Name Comments Scoliosis Brother Angel No Known Problems Father No Known Problems Mother Relation Name Status Comments Brother Angel Alive Father Mother Alive Social History Tobacco Use Types Packs/Day Years Used Date Smoking Tobacco: Never Smokeless Tobacco: Never Alcohol Use Standard Drinks/Week Comments No 0 (1 standard drink = 0.6 oz pur e alcohol) Childcare Answer Date Recorded Childcare Unknown 03/08/2019 Employment Answer Date Recorded Employment Unknown 03/08/2019 Purpose - Life Answer Date Recorded Purpose and direction in life Unknown Comments No Sex and Gender Information Value Date Recorded Sex Assigned at Female 12/17/2021 8:54 AM EDT Legal Sex Female 12:06 PM EDT Gender Identity Female 12/17/2021 8:54 AM EDT Sexual Orientation Not on file Last Filed Vital Signs Vital Sign Reading Time Taken Comments Blood Pressure 110/70 05/24/2020 9:02 AM EDT Pulse 76 01/08/2018 6:58 PM EDT Temperature 36.3 C (97.3 F) 05/24/2020 9:02 AM EDT Respiratory Rate 20 01/08/2018 6:58 PM EDT Oxygen Saturation 99% 05/04/2019 12:18 AM EDT Inhaled Oxygen Concentration - - Weight 69.9 kg (154 lb) 05/24/2020 9:02 AM EDT Height 162.6 cm (5' 4 ) 05/24/2020 9:02 AM EDT Body Mass Index 26.43 05/24/2020 9:02 AM EDT Plan of Treatment Health Maintenance Due Date Last Done Comments Depression Screening 2004 Tobacco Screening 2004 Adult BMI Screening 2010 DTaP,Tdap and Td Vaccines (1 - Tdap) 2011 Pap Smear 2013 Influenza Vaccine 05/28/2025 07/31/2021 Medical Devices Not on file Insurance [place] [employer] [facility] Care Teams Buttoner Relationship Specialty Start Date End Date Annabel Boyd MD [address] [place] [id number] PCP - General Family Medicine 10/27/16
--- OUTSIDE RECORDS SUMMARY | 2025-05-29 12:41 | XMS_ITS | Encounter Summary ---
Author Organization [facility] Address [address] [place] [address] Care Team Providers Care Wood Lathe Operator Name Role Phone Annabel Boyd MD Primary Care Provider [phone] Noris Moses WET CHEMISTRY ANALYST Unavailable [phone] Encounter Details Date Type Department Care Team (Late st Contact Info) Description 05/29/2025 Bamboo flowsheet [facility] [address] [place] [phone] Oralia Fitzpatrick PA [address] [place], [place] [phone] Social History Tobacco Use Types Packs/Day Years [...] How often do you attend chur or adventist services? Never 09/16/2023 Do you belong to any clubs o r organizations such as yazdanism groups, unions, fraternal or athletic groups, or [...] Score 0 09/16/2023 [facility] Questionnaire Answer Date [...] place to sleep or slept in a mcc (including now)? No 09/16/2023 Comments No Sex [...] AM EDT Procedure Visit [facility] [address] [phone] Jhonatan Hooper DO [address] [place], [place] [phone] documented as of this encounter Visit Diagnoses Not on filedocumented in this encounter Additional Health Concerns Assessment Noted Time PHQ-9 Depression Total Score: 0 11/20/19 24 10:04 AM EST documented as of this encounter Care Teams Wood Lathe Operator Relationship Specialty Start Date End Date Annabel Boyd MD [address] [place] [address] PCP - General Family Medicine 02/16/23 Noris Moses NP [address] [place] [address] Nurse Practitioner Family Medicine 02/16/23 documented as of this encounter
--- OUTSIDE RECORDS SUMMARY | 2025-05-29 12:41 | XMS_ITS | Clinical Summary ---
Author Organization [facility] Address [address] [facility] [address], [address] [place] [address] Care Team Providers Care Supervisor Industrial Arts Education Name Role Phone Annabel Ibarra MD Primary Care Pr ovider Allergies No known active allergies Medications ibuprofen (ADVIL;MOTRIN) 600 MG tablet Take 1 tablet by mouth every 6 hours as needed for Pain 14 tablet 05/22/2019 Active predniSONE (DELTASONE) 10 MG tablet Take 20 mg by mouth 2 times daily Active methocarbamol (ROBAXIN) 750 MG tablet Take 750 mg by mouth nightly Active norgestimate-et hinyl estradiol (SPRINTEC 28) 0.25-35 MG-MCG per tablet Take 1 tablet by mouth daily Active divalproex (DEPAKOTE) [address] tablet Take 250 mg by mouth 2 times daily Active Social History Tobacco Use Types Packs/Day Years Used Date Smoking Tobacco: Never Smokeless Tobacco: Never Comments No Sex and Gender Information Value Date Recorded Sex Assigned at Not on file Legal Sex Female 1:02 PM EDT Gender Identity Not on file Sexual Orientation Not on file Last Filed Vital Signs Vital Sign Reading Time Taken Comments Blood Pressure 125/87 06/06/2019 10:30 PM EDT Pulse 93 06/06/2019 10:30 PM EDT Temperature 37 C (98.6 F) 06/06/2019 10:30 PM EDT Respiratory Rate 16 06/06/2019 10:30 PM EDT Oxygen Saturation 98% 06/06/2019 10:30 PM EDT Inhaled Oxygen Concentration - - Weight 61.2 kg (135 lb) 06/06/2019 10:30 PM EDT Height 162.6 cm (5' 4 ) 06/06/2019 10:30 PM EDT Body Mass Index 23.17 06/06/2019 10:30 PM EDT Plan of Treatment Not on file Insurance [facility] Care Teams Supervisor Industrial Arts Education Relationship Specialty Start Date End Date Annabel Ibarra MD [address] [place], [place] [id number] PCP - General Family Medicine 05/22/19
--- OUTSIDE RECORDS SUMMARY | 2025-05-29 12:41 | XMS_ITS | Clinical Summary ---
Author Organization [facility] Address [address] [place] [address] Care Team Providers Care Lens Examiner Name Role Phone Annabel Boyd MD Primary Care Provider [phone] Noris Moses SECTION SUPERVISOR Unavailable [phone] Allergies Active Allergy Reactions Criticality Noted Date Comments Bee Venom 05/03/2019 Coconut (Cocos Nucifera) Anaphylaxis,Yasir h,Swelling,Un known High 07/17/2019 Coconut Fatty Acid Angioedema High 01/08/2018 Coconut Oil Unknown 06/25/2021 Guaifenesin 03/28/2025 Scopolamine Unknown 01/26/2023 Medications Multiple Vitamin (MULTIVITAMIN ADULT PO) Take 1 tablet by mouth Daily Active albuterol HFA (Proventil HFA) 90 mcg/act inhaler Inhale 2 puffs every 4 (four) hours if needed 013 Active EPINEPHrine (EpiPen 2-Karl) 0.3 MG/0.3ML injection syringe 1 (one) time each day at the same time 015 Active ibuprofen 600 MG tablet Take 1 tablet by mouth every 6 (six) hours if needed 019 Active lamoTRIgine (LaMICtal) 25 MG tabletIndication s:Seizure (HCC) Take 2 tablets (50 mg) by mouth in the morning and 2 tablets (50 mg) before bedtime. 120 tablet 025 Active clobetasol (Temovate) 0.05 % creamIndications :Chronic vaginitis Apply 1 application topically Daily for 14 days 45 g 6 025 2024 Active esomeprazole (NexIUM) [address] capsuleIndicatio ns:Weight loss, unintentional,Ep igastric pain Take 1 capsule (40 mg) by mouth in the morning. Take before meals. Do not open capsule. 30 capsule 025 2024 Discontinued clobetasol (Temovate) 0.05 % creamIndications :Well woman exam with routine gynecological exam Apply 1 application topically Daily for 14 days 45 g 1 025 2024 Discontinued(O ther) Active Problems Problem Noted Date Diagnosed Date Anxiety 03/28/2025 Lymphadenopathy 03/28/2025 Assessment & Plan (04/10/2025 1:07 PM EDT): Per CT, resolved in the neck. 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) 10/27/2016 Seizure disorder during 10/27/2016 Overview (03/04/2023): Depakote Panic disorder 08/30/2015 Encounters Date Type Department Care Team Description 05/29/2025 10:30 AM EDT Procedure Visit [facility] [address] [facility] [place] [address] Oralia Fitzpatrick PA Well woman exam with routine gynecological exam; Chronic vaginitis 05/29/2025 [facility] [address] [facility] [place] [phone] Oralia Fitzpatrick PA 05/21/2025 Results Follow-Up [facility] [address] [place] [address] Annabel Boyd MD XR wrist 3+ views right 05/18/2025 2:30 PM EDT Ancillary Procedure [facility] [address] [place] [address] Right wrist pain 05/18/2025 2:20 PM EDT Office Visit [facility] [address] [place] [phone] Annabel Boyd MD Right wrist pain (Primary Dx); Epigastric pain 05/18/2025 Bamboo flowsheet [facility] [address] [place] [phone] Annabel Boyd MD 05/18/2025 Travel 05/14/2025 Results Follow-Up [facility] [address] [facility] [place] [phone] Dilip Ching PA XR wrist 3+ views right 05/14/2025 Abstract [facility] [address] [place] [address] Annabel Boyd MD 05/13/2025 Orders Only [facility] [address] [place] [phone] Dilip Ching PA 05/02/2025 Results Follow-Up [facility] [address] [facility] [place] [phone] Debi Martinez, SECTION SUPERVISOR CHINTAN 05/01/2025 10:20 AM EDT Office Visit [facility] [address] [place] [phone] Annabel Boyd MD Epigastric pain (Primary Dx); Arthralgia, unspecified joint 05/01/2025 Refill [facility] [address] [place] [phone] Debi Torres NP Seizure (HCC) 05/01/2025 Bamboo flowsheet [place] [address] [place] [phone] Annabel Boyd MD 05/01/2025 Travel 04/16/2025 Results Follow-Up [place] [address] [place] [phone] Annabel Boyd MD CBC and differential, Sedimentation rate, automated, Lactate dehydrogenase, Protein electrophoresis, serum 04/12/2025 Refill [facility] [address] [place] [phone] Debi Torres NP Seizure (HCC) 04/10/2025 10:40 AM EDT Office Visit [place] [address] [place] [phone] Annabel Boyd MD Weight loss, unintentional (Primary Dx); Epigastric pain; Elevated liver enzymes; Lymphadenopathy 04/10/2025 Bamboo flowsheet [place] [address] [place] [phone] Annabel Boyd MD 04/10/2025 Travel 04/09/2025 1:00 PM EDT Ancillary Procedure [facility] [address] [facility] [address] [place] [phone] LAD (lymphadenopathy), supraclavicular 04/09/2025 Travel 04/03/2025 Results Follow-Up [place] [address] [place] [phone] Noris Moses NP AST, ALT 04/02/2025 3:00 PM EDT Office Visit [facility] [address] [place] [address] Van Aguila, DO LAD (lymphadenopathy), supraclavicular 04/02/2025 Bamboo flowsheet [facility] [address] [place] [address] Van Aguila, DO 04/02/2025 Travel 03/28/2025 9:00 AM EDT Office Visit [facility] [address] [place] [phone] Malinda Watson MD LAD (lymphadenopathy), supraclavicular (Primary Dx) 03/28/2025 Telephone [place] [address] [place] [phone] Annabel Boyd MD recheck labs 03/28/2025 Orders Only [facility] [address] [place] [phone] Malinda Watson MD 03/28/2025 Bamboo flowsheet [facility] [address] [facility] [address] [place] [phone] Malinda Watson MD 03/28/2025 Travel 03/07/2025 Orders Only [facility] [address] [place] [phone] Malinda Watson MD 03/04/2025 Abstract [facility] [address] [facility] [place] [phone] Annabel Boyd MD from Last 3 Months Immunizations Immunization Administration Dates Next Due Influenza, injectable, quadrivalent, preservativ e free 06/07/2021,06/05/2019 Influenza, seasonal, injectable 08/28/2019 Influenza, trivalent, adjuvanted 06/05/2019 Moderna SARS-CoV-2 Vaccination 01/28/2021,2020 Tdap 10/08/2014 Family History * Patient is adopted Medical History Relation Name Comments No Known Problems Brother No Known Problems Daughter No Known Problems Sister Relation Name Status Comments Brother x1 Daughter x1 Father Alive Mother Alive Sister x1 Son x1 Social History Tobacco Use Types Packs/Day Years Used Date Smoking Tobacco: Former Cigarettes Smokeless Tobacco: Never Tobacco Cessation:Counseling Given: Not Answered Comments:Smoked for 3 months in High school [...] often do you attend chur ch or yarsanism services? Never 09/16/2023 Do you belong to [...] Recorded Patient Health Questionnaire-2 Score 0 09/16/2023 [facility] - Occupational Stress Questionnaire Answer Date [...] a longterm (including now)? No 09/16/2023 Comments No Sex and Gender Information Value Date Recorded Sex Assigned at Not on file Legal Sex Female 6:54 PM EDT Gender Identity Not on file Sexual Orientation Not on file Last Filed Vital Signs Vital Sign Reading Time Taken Comments Blood Pressure 120/72 05/29/2025 10:37 AM EDT Pulse 78 05/18/2025 2:19 PM EDT Temperature 36.5 C (97.7 F) 11/20/2023 9:57 AM EST Respiratory Rate 18 05/18/2025 2:19 PM EDT Oxygen Saturation 99% 05/18/2025 2:19 PM EDT Inhaled Oxygen Concentration - - Weight 71.4 kg (157 lb 6.4 oz) 05/29/2025 10:37 AM EDT Height 162.6 cm (5' 4 ) 05/18/2025 2:19 PM EDT Body Mass Index 27.02 05/18/2025 2:19 PM EDT Plan of Treatment Upcoming Encounters Date Type Department Care Team (Late st Contact Info) Description 06/04/2026 9:00 AM EDT Procedure Visit [facility] [address] [facility] [place] [address] Jhonatan Hooper DO [address] [facility] [place] [address] Health Maintenance Due Date Last Done Comments Influenza Vaccine (#1) 2025 , 08/28/2019, 06/05/2019, Additional history exists Cervical Cancer Screening 03/19/2027 HPV/Cotest 03/19/2027 Pap Smear 03/19/2027 03/19/2022 Procedures Procedure Name Priority Date/Time Associated Diagnosis Comments XR WRIST 3+ VIEWS RIGHT Routine 05/18/2025 2:52 PM EDT Right wrist pain XR WRIST 3+ VIEWS RIGHT Routine 05/13/2025 5:20 PM EDT CHINTAN SCREEN W/REFLEX Routine 05/01/2025 3:25 PM EDT Arthralgia, unspecified joint PROTEIN ELECTROPHORESIS, SERUM Routine 04/10/2025 11:14 AM EDT Weight loss, unintentional LD Routine 04/10/2025 11:14 AM EDT Weight loss, unintentional SED RATE BY MODIFIED WESTERGREN Routine 04/10/2025 11:14 AM EDT Weight loss, unintentional CBC (INCLUDES DIFF/PLT) Routine 04/10/2025 11:14 AM EDT Weight loss, unintentional CT SOFT TISSUE NECK W IV CONTRAST STAT 04/09/2025 1:20 PM EDT LAD (lymphadenopathy), supraclavicular ALT Routine 04/02/2025 10:39 AM EDT Elevated liver enzymes AST Routine 04/02/2025 10:39 AM EDT Elevated liver enzymes GENERAL PATHOLOGY Routine 03/01/2025 8:5 3 AM EDT GENERAL PATHOLOGY Routine 03/01/2025 6:5 6 AM EDT PAP SMEAR Routine 03/19/2022 12:00 AM EDT from Last 3 Months or Most Recently Relevant to Health Maintenance Results * XR wrist 3+ views right (05/18/2025 2:52 PM EDT) Only the most recent of2 resultswithin the time period is included. Anatomical Region Laterality Modality Upper Extremities, Wrist [...] MD IMG XR PROCEDURES Final Resul t * CHINTAN (05/01/2025 3:25 PM EDT) CHINTAN SCREEN, IFA NEGATIVE NEGATIVE [facility] Comment: CHINTAN IFA is a first line screen for detecting the presence of up to approximately 150 autoantibodies in various autoimmune diseases. A negative CHINTAN IFA result suggests an CHINTAN-associated autoimmune disease is not present at this time, but is not definitive. If there is high clinical suspicion for Sjogren's syndrome, testing for anti-SS-A/Ro antibody should be considered. Anti-Marybeth-1 antibody should be considered for clinically suspected inflammatory myopathies. AC-0: Negative International Consensus on CHINTAN Patterns (https://doi.org/10.1515/geyl-5145-3694) For additional information, please refer to http://education.Goalbook.Elecar/faq/FKM353 (This link is being provided for informational/ educational purposes only.) Blood Venous blood specimen / Unknown 05/01/2025 3:25 PM EDT 05/01/2025 3:26 PM EDT Narrative Resulting Agency Comment Performing Organization Information Site ID: QPT Name: [facility] Address: [address] [place] [address], [address] [place] [phone] Director: Chetan Stovall MD Annabel Boyd MD LAB BLOOD ORDERABLES Final Re sult [facility] * Sedimentation rate, automated (04/10/2025 11:14 AM EDT) SED RATE BY MODIFIED EUN 2 < OR = 20 mm/h [facility] Blood Venous blood specimen / Unknown 04/10/2025 11:14 AM EDT 04/10/2025 11:15 AM EDT Narrative Resulting Agency Comment Performing Organization Information Site ID: QPT Name: [facility] Address: [address] , [address] [place] [address] Director: Chetan Stovall MD Annabel Boyd MD LAB BLOOD ORDERABLES Final Re sult [facility] * (ABNORMAL) CBC and differential (04/10/2025 11:14 AM EDT) WHITE BLOOD CELL COUNT 5.7 3.8 - 10.8 Thousand/u L [facility] RED BLOOD CELL COUNT 4.65 3.80 - 5.10 Million/uL [facility] HEMOGLOBIN 13.2 11.7 - 15.5 g/dL [facility] HEMATOCRIT 42.7 35.0 - 45.0 % [facility] MCV 91.8 80.0 - 100.0 fL [facility] MCH 28.4 27.0 - 33.0 pg [facility] MCHC 30.9(L) 32.0 - 36.0 g/dL [facility] Comment: For adults, a slight decrease in the calculated MCHC value (in the range of 30 to 32 g/dL) is most likely not clinically significant; however, it should be interpreted with caution in correlation with other red cell parameters and the patient's clinical condition. RDW 13.0 11.0 - 15.0 % [facility] PLATELET COUNT 332 140 - 400 Thousand/u L [facility] MPV 9.4 7.5 - 12.5 fL [facility] ABSOLUTE NEUTROPHILS 3,534 1,500 - 7,800 cells/uL [facility] ABSOLUTE LYMPHOCYTES 1,676 850 - 3,900 cells/uL [facility] ABSOLUTE MONOCYTES 359 200 - 950 cells/uL [facility] ABSOLUTE EOSINOPHILS 80 15 - 500 cells/uL [facility] ABSOLUTE BASOPHILS 51 0 - 200 cells/uL [facility] NEUTROPHILS 62 % [facility] LYMPHOCYTES 29.4 % [facility] MONOCYTES 6.3 % [facility] EOSINOPHILS 1.4 % [facility] BASOPHILS 0.9 % [facility] Blood Venous blood specimen / Unknown 04/10/2025 11:14 AM EDT 04/10/2025 11:15 AM EDT Narrative Resulting Agency Comment Performing Organization Information Site ID: QPT Name: [facility] Address: [address] [place] [address], [address] [place] [address] Director: Chetan Stovall MD us Annabel Boyd MD LAB BLOOD ORDERABLES Final Re sult Performing Organization Address [facility] Co de Phone Number [facility] * (ABNORMAL) Protein electrophoresis, serum (04/10/2025 11:14 AM EDT) Pathologist [facility] PROTEIN, TOTAL 7.8 6.1 - 8.1 g/dL [facility] ALBUMIN 4.9(H) 3.8 - 4.8 g/dL [facility] ALPHA 1 GLOBULIN 0.3 0.2 - 0.3 g/dL [facility] ALPHA 2 GLOBULIN 0.8 0.5 - 0.9 g/dL [facility] BETA 1 GLOBULIN 0.5 0.4 - 0.6 g/dL [facility] BETA 2 GLOBULIN 0.4 0.2 - 0.5 g/dL [facility] GAMMA GLOBULIN 1.0 0.8 - 1.7 g/dL [facility] INTERPRETATION [facility] Comment: Evaluation reveals a non-specific pattern. It is frequently seen in otherwise healthy individuals, but may also reflect dehydration. In the absence of dehydration the pattern is probably without clinical significance. Blood Venous blood specimen / Unknown 04/10/2025 11:14 AM EDT 04/10/2025 11:15 AM EDT Narrative Resulting Agency Comment Performing Organization Information Site ID: QPT Name: [facility] Address: [facility], [address] [place] [address] Director: Chetan Stovall MD us Annabel Boyd MD LAB BLOOD ORDERABLES Final Re sult Performing Organization Address [facility] Co de Phone Number [facility] * Lactate dehydrogenase (04/10/2025 11:14 AM EDT) Pathologist [facility] LD 157 100 - 200 U/L [facility] Blood Venous blood specimen / Unknown 04/10/2025 11:14 AM EDT 04/10/2025 11:15 AM EDT Narrative Resulting Agency Comment Performing Organization Information Site ID: QPT Name: [facility] Address: [address] [facility], [address] [place] [address] Director: Chetan Stovall MD Annabel Boyd MD LAB BLOOD ORDERABLES Final Re sult [facility] * CT soft tissue neck w IV contrast (04/09/2025 1:20 PM EDT) Anatomical Region Laterality Modality Head, Neck Computed Tomogra phy 04/09/2025 2:04 PM EDT Impressions 04/09/2025 2:[address] soft tissue neck. All CT scans at this facility use dose modulation, iterative reconstruction, and/or weight based dosing when appropriate to reduce radiation dose to as low as reasonably achievable. ELECTRONICALLY SIGNED BY: Van Mata MD Narrative 04/09/2025 2:[address] SOFT TISSUE NECK WITH INTRAVENOUS CONTRAST [...] uniformly. Thyroid: Normal. Lung apices: Without anomaly. Procedure Note Van Mata MD - 04/09/2025 CT SOFT TISSUE NECK WITH INTRAVENOUS CONTRAST MEDIUM. HISTORY: MILDLY PROMINENT LYMPH NODES, BILATERAL NECK. TECHNICAL FACTORS: CT soft tissue neck obtained and formatted as 2.5 mmcontiguous axial images. Sagittal and coronal reconstruction obtainedduring postprocessing. COMPARISON: CT soft tissue neck, February 07, 2025. FINDINGS: Skull base:Normal Orbits: . Bilateral ocular globes, extraocular muscles, optic nerves,retrobulbar fat without anomaly. Facial sinuses: Bilateral frontal, ethmoid, sphenoid, and maxillarysinuses are patent. Nasopharynx: Normal Mastoids: Air cells [...] scans at this facility use dose modulation, iterativereconstruction, and/or weight based dosing when appropriate to reduceradiation dose to as low as reasonably achievable. ELECTRONICALLY SIGNED BY: Van Mata MD Van Aguila DO IMG CT PROCEDURES Final Res ult * ALT (04/02/2025 10:39 AM EDT) ALT 19 6 - 29 U/L [facility] Blood Venous blood specimen / Unknown 04/02/2025 10:39 AM EDT 04/02/2025 10:41 AM EDT Narrative Resulting Agency Comment Performing Organization Information Site ID: QPT Name: [facility] Address: [address] [place] [address], [address] [place] [phone] Director: Chetan Stovall MD us Noris Moses SECTION SUPERVISOR LAB BLOOD ORDERABLES Fi nal Result [facility] * AST (04/02/2025 10:39 AM EDT) AST 17 10 - 30 U/L [facility] Blood Venous blood specimen / Unknown 04/02/2025 10:39 AM EDT 04/02/2025 10:41 AM EDT Narrative Resulting Agency Comment Performing Organization Information Site ID: QPT Name: [facility] Address: [address] , [address] [place] [address] Director: Chetan Stovall MD us Noris Moses SECTION SUPERVISOR LAB BLOOD ORDERABLES Fi nal Result [facility] * GENERAL PATHOLOGY (03/01/2025 8:53 AM EDT) Only the most recent of2 resultswithin the time period is included. us Malinda Watson MD [facility] Final Result * Pap Smear (03/19/2022 12:00 AM EDT) Swab Cervical swab / Unknown Historical Provider MD LAB CYTOLOGY ORDERABLES F inal Result EXTERNAL LAB from Last 3 Months or Most Recently Relevant to Health Maintenance Insurance [employer] Care Teams Lens Examiner Relationship Specialty Start Date End Date Annabel Boyd MD [address] [facility] [place] [address] PCP - General Family Medicine 02/16/23 Noris Moses NP [address] [place] [address] Nurse Practitioner Family Medicine 02/16/23
--- OUTSIDE RECORDS SUMMARY | 2025-05-29 12:41 | XMS_ITS | Encounter Summary ---
Author Organization [facility] Address [address] [place] [address] Care Team Providers Care Embedded Software Development Engineer Name Role Phone Annabel Boyd MD Primary Care Provider [phone] Noris Moses GLOBAL ACCOUNT MANAGER Unavailable [phone] Encounter Details Date Type Department Care Team (Latest Contact Info) Description 05/18/2025 Travel Social History Tobacco Use Types Packs/Day Years [...] often do you attend chur ch or druze services? Never 09/16/2023 Do you belong to any clubs o r organizations such as gnosticist groups, unions, fraternal or athletic groups, or [...] Recorded Patient Health Questionnaire-2 Score 0 09/16/2023 [facility] - Occupational Stress Questionnaire Answer Date [...] place to sleep or slept in a long term (including now)? No 09/16/2023 Comments Unknown Sex [...] EDT Procedure Visit [facility] [address] [place] [address] Jhonatan Hooper DO [address] [place] [address] documented as of this encounter Visit Diagnoses Not on filedocumented in this encounter Additional Health Concerns Assessment Noted Time PHQ-9 Depression Total Score: 0 11/20/19 24 10:04 AM EST documented as of this encounter Care Teams Embedded Software Development Engineer Relationship Specialty Start Date End Date Annabel Boyd MD [address] [facility] [place] [address] PCP - General Family Medicine 02/16/23 Noris Moses NP [address] [facility] [place] [address] Nurse Practitioner Family Medicine 02/16/23 documented as of this encounter
--- OUTSIDE RECORDS SUMMARY | 2025-05-29 12:46 | XMS_ITS | CCD ---
Author Organization [facility] Care Team Providers Care Service Liaison Representative Name Role Phone Annabel Ibarra Primary Care Provi chio ANNABEL IBARRA Primary Care Un available ANNABEL IBARRA Primary Care Un available JOHNY POLO Attending Unavailable PEDRO GARCIA Admitting Unavaila ble PEDRO GARCIA Attending Unavaila Annabel Espinoza Primary Care Unavailable ADRIAN DAVIDSON Consulting Unavaila ble Adrian Davidson Consulting Unavaila ble SpychAngely avitia Consulting Unavailable Charles Christianson Consulting Unavailable ANNABEL CARVAJAL Unav ailable Annabel Carvajal Primary Care Unavailable Giedraitis, Andrius Vytautas Attending Krystal vailable EBRAHEIM, SERA Admitting Unavailable EBRAHEIMEVELINAIL Attending Unavailable SELF, REFERRED Referring Unavailable SELF, REFERRED Primary Care Unavailable DO Edgar Chase Attending Provider MD Annabel Shukla Primary Care Provider DESIRE ., DR LÓPEZ Admitting Unavailable DESIRE ., DR LÓPEZ Attending Unavailable INKSTER, DR AMARILIS Huizar Consulting Unavailable GAYLA, DR [...] Unavailable GAYLA, DR TRUJILLO Primary Care Unavailable MooreAna acosta Unavailable Annabel Shukla MD Primary Care Provider Josué SURVEYOR HELPER, Anabelle Duncan Unavailable Jhonatan Hooper DO Unavailable [facility], [place] Unavailable [phone] Rose HARDY, Bret Arana Attending Provider Bret Rose Attending Unavailable Bret Rose Admitting Unavailable ANNABEL SHUKLA Primary Care Unavailable Bret Rose Attending Unavailable Bret Rose Admitting Unavailable TIMMIS, JEISON Kendrick Referring Unavailable TIMMIS, JEISON H Consulting Unavailable Josué SURVEYOR HELPER, Anabelle A Unavailable DEBI TORRES Attending Unavailable HACKENBURG, ANABELLE A Attending Unavailab le HACKENBURG, ANABELLE A Referring Unavailab le HACKENBURG, ANABELLE A Referring Unavailab le HACKENBURG, ANABELLE A Referring Unavailab le TIMMIS, JEISON H Attending Unavailable HACKENBURG, ANABELLE A Referring Unavailab le TIMMIS, JEISON H Attending Unavailable VAN AGUILA Attending Unavailable TIMMIS, JEISON H Referring Unavailable MURVAN CORRALES Referring Unavailable GAYLAANNABEL FOSTER Attending Unavailable GAYLAANNABEL Attending Unavailable GAYLA, ANNABEL Attending Unavailable GAYLAANNABEL Referring Unavailable Allergies Allergy Classification Reported Allergen(s) Allergy Type Date of Onset Reaction(s) Facility (20 sources) Coconut Oil; Translations: [Unknown] Drug Allergy 06-25-20 Unknown [facility] Repository (1 source) No Known Medication Allergies; Translations: [No Known Medication Allergies] Propensity to adverse reactions to drug (disorder) [facility] Repository (3 sources) Coconut extract; Translations: [Coconut] Drug Allergy 09-11-20 13 Blurry Vision [facility] Repository (3 sources) Scopolamine; Translations: [scopolamine] Drug Allergy 11-14-19 24 vision disturbance [facility] (20 sources) butylscopolamine Drug Allergy 01-27-20 23 Unknown [facility] (20 sources) Coconut extract Drug Allergy 07-17-20 19 Anaphylaxis, Rash, Swelling, Unknown [facility] (20 sources) Honey bee venom Propensity to adverse reactions 05-03-20 19 [facility] Work Phone: (20 sources) Coconut Fatty Acid Propensity to adverse reactions 01-09-20 Angioedema [facility] (1 source) Coconut extract Drug Allergy 11-14-19 [facility] Repository (1 source) Scopolamine Drug Allergy 11-14-19 [facility] Repository (1 source) Beechams Veno's Expectorant; Translations: [Beechams Veno's Expectorant] Propensity to adverse reactions (disorder) [facility] Repository (16 sources) guaiFENesin Drug Allergy 03-28-20 25 [facility] Medications Current Medications Medication Drug Class(es) Dates Sig (Normalized) Sig (Original) [id number] 200 actuat albuterol 0.09 mg/actuat metered dose [...] Azole Antifungal, Corticosteroid Start: 03-08-2024 End: 02-03-2025 clotrimazole-betam ethasone (Lotrisone) cream Indications: Rash Apply 1 application topically Daily Apply to affected area daily for 7 days 45 g 03/08/2024 02/03/2025 Discontinued clobetasol propionate 0.5 mg/ml topical cream (2 sources) Corticosteroid Start: 05-29-2025 End: 06-12-2025 clobetasol (Temovate) 0.05 % cream Indications: Well woman exam with routine gynecological exam Apply 1 application topically Daily for 14 days 45 g 1 05/29/2025 05/29/2025 Discontinued (Other) [id number] 0.3 ml EPINEPHrine 1 mg/ml auto-injector (20 [...] esomeprazole 40 mg delayed release oral capsule (10 sources) Proton Pump Inhibitor Start: 04-10-2025 End: 04-10-2026 take 1 capsule by mouth before mealtime esomeprazole (NexIUM) [address] capsule Indications: Weight loss, unintentional , Epigastric pain Take 1 capsule (40 mg) by mouth in the morning. Take before meals. Do not open capsule. 30 capsule 04/10/2025 05/29/2025 Discontinued ethinyl estradiol 0.035 mg / norgestimate 0.25 [...] Problem Date Documented Date Episodic/Chronic Abdominal pain (12 sources) Pelvic and perineal pain; Translations: [Epigastric [...] Translations: [Headache, unspecified headache type] 01-14-2025 Episodic Inflammatory diseases of female pelvic organs (1 source) Chronic vaginitis; Translations: [Subacute and chronic vaginitis] 05-29-2025 Episodic Lymphadenitis (20 sources) Lymphadenopathy; Translations: [Generalized [...] 03-04-2023 03-04-2023 Chronic Other non-traumatic joint disorders (2 sources) Pain of right wrist; Translations: [Pain in right wrist] 05-18-2025 Episodic Other nutritional; endocrine; and metabolic disorders [...] and mobility] Onset: 05-20-2023 05-20-2023 Episodic Other non-traumatic joint disorders (20 sources) Joint pain; Translations: [Pain in unspecified joint] Onset: 03-04-2023 03-04-2023 Episodic Other upper respiratory infections (20 sources) Acute pansinusitis, unspecified; Translations: [Sore throat symptom] Onset: 11-19-2023 Episodic Spondylosis; intervertebral disc disorders; other back problems (20 sources) Sciatica; Translations: [Sciatica, unspecified side] Onset: 06-05-2019 03-04-2023 Episodic Unclassified (1 source) Suspected COVID-19 virus infection Z20.822 Results Test Name Value Interpretation Reference Range Facility XR WRIST 3+ VIEWS RIGHTon XR WRIST 3+ VIEWS RIGHT EXAM: XR WRIST 3+ VIEWS RIGHT HISTORY: Wrist pain since injury COMPARISON: None available TECHNIQUE: 4 views of the wrist obtained. FINDINGS: No acute fracture or dislocation. Carpal and radiocarpal alignment is satisfactory. Soft tissues are within normal limits. IMPRESSION: No acute osseous abnormality. ELECTRONICALLY SIGNED BY: Adrian Rincon DO Normal Not Available XR Wrist - right 3 Viewson 0 05-18-2025 No acute osseous abnormality. ELECTRONICALLY SIGNED BY: Adrian Rincon DO IMAGING EXAM: XR WRIST 3+ VIEWS RIGHT HISTORY: Wrist pain since injury COMPARISON: None available TECHNIQUE: 4 views of the wrist obtained. FINDINGS: No acute fracture or dislocation. Carpal and radiocarpal alignment is satisfactory. Soft tissues are within normal limits. IMAGING Adrian Rincon DO - 05/18/2025 EXAM: XR WRIST 3+ VIEWS RIGHT HISTORY: Wrist pain since injury COMPARISON: None available TECHNIQUE: 4 views of the wrist obtained. FINDINGS: No acute fracture or dislocation. Carpal and radiocarpal alignment is satisfactory. Soft tissues are within normal limits. IMPRESSION: No acute osseous abnormality. ELECTRONICALLY SIGNED BY: Adrian Rincon DO [facility] Radiology Study observation (narrative) [facility] XR Wrist - right 3 ViewsOrde red By: Adrian Rincon on 05-18-2025 [facility] [email or web address] e Work Phone: CT SOFT TISSUE NECK W IV CON [...] Coding Summaryon 03-14-2025 Coding Summary HTMLBase 64 TxjbzgxyOWv2lEs+PGhlYWQ +RV6RYWOnF22poFAphQ9vS1 NMTElOSywgQVBQTElOSyIgb dWlDD2saPYkSORk IC8+BW3uLNStZmqzjPOzk8H 0rET2B47cyu2gQIitkXI4RH BxNcDurjnft3vurQn5LSfwS mluOyBt AVUhpH61MIH6yF67Qu74sDY kfQGsn7lbmSa2XjHvMURcKD I6hWrjNBlcl0OeMPQfR48ub CBtr5X0 ZAJihIfdgHAwGkYipYW1gC2 sYVdakrhwf9ppmizvZrj1np 99hBShv0Y4wLW3N2PwejP7R GJvbGQg FdzpxYFKvR2wrvprh1rygfu zFqTaVKNcOVr1DCi0ZSEunF ipMtHuJT19RBV3SCMibeWxV 2FsLWFs jYduGvC7r2J6Bg8AS8SVZug uE9RWISNDDOnasSF+PC90cj 51S8CmOvjtKes8WMTqPBA3d OB9uX6f JRDmDAnug7B6lIP2H2KrkdR zsk4zn7rhXNCgPGxlG54xzE Rmk4E5ZNWjtVD7CYVwpOyvO iBzaG93 Oyc+XNAtkVtxc7TeHnoqy0f xk1vruIq4ZwqjAQSwygIcpB eqYOC7u1CrKs9tNSQblZX2w VO3zV0o KgErGwO8HTjqY493KuKmlZE sZwofO12bK5JwyZB+PHRyPj r7DFAkaAkqWR6iW4NoMBCmi mctbGVm xQtkXN2nNUClatypAAQtvG9 kPUSkO6y8QyKdOdK9QZksD7 QmTWAcsgbrPy63dW0xGmBcZ lJ2HXpw C3RzcjR4YRItoERuLAlzKRD 3U11fu5S0DCBaPSQsMEZ5rG E1gY8oaFghizeiiOLbzRpvi mVydGlj UEjqDKwlL629BECmjGvsXqL vZGluZyBEYXRlOiAgMDYvMT gvMjAyNTwvdGQ+GFShOMP7z WxlPSAn wLXeWAaeBm2ouRkzkIqiJC0 tUVQibnsfXGBgiD9yHPXikM DxuKoxYH3zNWJagxzpg635G iAxMHB0 FXQfpIWkD5JstD0iLrMjIYT hZOQhS7AcmUXoQOixQ954ZP evOhY3XIAdigDwT4ZoZVWsi WduOiB0 u3B0Gq0Tc4ZjpekdN1DpjTL dQjFfUphnNAg5Y0HyZgcidP I+QE02FVFwNU13LBf3PRJ5h WxlPSdi MTVwD1ZyzQ9fItIsKQJwRSW kOyc+PHRhYmxlIHdpZHRoPS niLTLbPkPqePwlUB9uKm7uV GVyLWNv fEflbLPwIpBch4alJFEpRAu tIE4vcChoD9UdrGL7MVPsw9 a3Yu99W52tU8MhfHX+PGNvb MW0pFD5 pX2zMzUaCwK8AZftM227SlG vwXHeGslpf9tfn0jjfZd7Wj T9FLFfkdDyqDbjSWN5b5FpC k63C83d IHdpZHRoPSIxNSUiIHZhbGl iqy3sgM9cCb1+RMQevDM4oS Q6eJ7vTiGgSgO2JSkmQ480U nRvcCIv Fewnt2ejm9yeuDh8IiWuEQZ kjcRsgHibIJM9z6QrOq10V1 DqiNhjj4KpDxo4md85zFZla 5M6oLT9 Q6YeFBDjvfyjsVYgpDvkER7 pBRImulyzFFAtiB0vOOEvN4 w8VaCkUgI0JQbeC9XdgmB1N GJvbGQg JRSejIOFuM7chzhxe9iwoxf oNhOmBOHnTIb6HMb0MPUbjQ vyIiHuKCG2PrJ3HEE9tZTrh N1kySzd wlvncW3zQak+HJW4pZOumKR MQN9jWnbhkSO+ERGsWFL0zP vlONfhFNRczX0oIQBfV3z4I iAwLjA1 VDkoW8UscyS5KAOsrYPdCMU kjBZZuA6amzuus4pwoyvzWl XhALNkYDx6LVy2GZXvoNfcU iBsZWZ0 QrP7UZB6sEDdlZ7cqFzajdr cjF5sUlp+XyylkXxuQUS4PP d6G4SeJtu1NJJohQovJA6ck GFkZGlu Iv4wiCicxRuqWE9eRKAulue ww363GhJjv3gnZXNayDKuKD xzVTB3T51nc5K4KHAyVVGyH EF1fHT3 kB0wmHmazdifnXReuOflvuP lsFteDQtwUZuiE175QKQinY saNyNoOGn9C8FcWpp0GJIne XbzCP4v oVYcMPvvRm9raIipkRqnUF7 bQCLhdsxhg480ZpLeu9xuLQ WrgDNaAOdlXLJ6V80wh3X2B CMwMDAw GEZ2sQF9hV8hgJptbacagXE mdDsgdmVydGljYWwtYWxpZ2 42PZDmbVecTlLusKu3C2VhH gx1CVGh bQmbKJ5vsZGjKVjiFs2quAg xxHfhLI4eVPMqammdi815Mb Qpw4bqHGKbmANrYUkgFJZ7I 80pk8H2 DWPhJJAuWTX9nTE3sJ3idXp nbjogbGVmdDsgdmVydGljYW jkCVlcO322HFDhuThuXbWvj GllbnQg CJjhKEn0Y3CrCjfvhJK+PC9 7MBFgFZ58pVIwjJZcd7fxaH z8YjGdIRLsEYA1bZczKAgay 3JkZXIt N45dbXWjb5M3LKVgwRzzzBZ sRnFunVB1wR1mNUlphyjdn7 mlmbqkEzotr1mgqw90bX74P 29sIHdp ZHRoPSIzMCUiIHZhbGlnbj0 ugN3iOr9+OMUelFH5tTN1uH 1dSYNxErP7HBziZ660OmAhq CIvPjxj o2noq1lgwBj0GeP9SONtiiZ odMqiGEA1y9TtTr48G38aLR dpZHRoPSIyMCUiIHZhbGlnb c5gfU9v Ii8+HIDkkWJ4dFB3lN1eRbR wHmM1KTyyP451KvSnoGLbWe fpU31bK6OtiOB+ENTrQiq4P CBzdHls IS6kwZAmNTclPp0bSAP8IkV wNwKtSYmrH3KpWRHagqbcps ctfKR1TVGxEEXcuI17Kr8mp DogMTBw qUDLaV8pzcqmo8sclrwgRcO rSBVjVRr3UBw5QXYzkYhyNe IoDRV1ShU4KEI9dWQsxQ6cg Glnbjog rS1xE5VmISSkwkynLl56uK1 eSuPnMeS6JVabPwd+TU9SQU xFUywgTUFSSVNTQTwvdGQ+P HRkIHN0 vRglEIxlYNIzhD1oPDJhI4w 1LlNpIsI6PZybB7QmNPFjox phYg24sZ6xHsHkPwT8VLtyB 8EpqmU1 FSXzqIYmXGkiLBF3T67tm6O 1AHUiVDDcCWR3kZD6qI3vmE lnbjogbGVmdDsgdmVydGljY WwtYWxp A329PKPpaIldBoUyJmJ3XlH 1COR3Q5QwZrk5WBYlnJmjTT 5iaHYoFWqvLz3zhKscxJnaQ I0yYRXh jcwxPGLvvR8iFLAvoDDtmMz oWZ2kOKGabgcqk026GpNxXZ B5VCJukQXuO3OogK1sRmOaQ DAwMDAw B1OdbDDjLHsvR767XTthMhY 2AISkrwTiU5QiEESyuTzxIe X5c1Y7Lt9xBcSGPYTjmrqvh GQ+PHRk NCJ6qQmiWMkgJJKctM5tUNN hP0e9WjItHyU9TNukS8XhSG UkbohjYe11wB0iEpFbMcT5O QlrH4Yc crF5NREwbFQxJDlvNOO4B51 uu9K1CPUaQLLnMWS2vQI5pW 1hbGlnbjogbGVmdDsgdmVyd GljYWwt LJrvE534GOIiqIamRfFNNCW MRTwvdGQ+FONwLPF3nWsxGW qyIBDztT5gKDPsJ6y9GsBdO xR5CSqg D9BgPSRsvqwwSj18aF8rCzD rCqU1CYccL2KefdT7RIFvkG BtYXmpYJG0B34ok6I6AXSjV DAwMDA7 fHF0rQ4efEpvygnzsJDjbHo oeaTjaQixXMoxYLpnP411HI HckAreVw5BKO37XH70I8DyD jwvdGFi bGU+PHRhYmxlIHdpZHRoPSc eVNGxOsZonSehEZ9aKr8cQX GcMCEnrNlrpPVwVsQxg3anF XBzZTsg ME1ijTolI1DrsMM7GBYil6w 3Mi32S76wT1UqjFK+PGNvbC W7hXA9gP8uLsUrCjG5SBsnR 249InRv sHJfCjizx8kyb4ncuKf5RhI dRUVbmxUznDyoOTZ4q0EyTh 83S76nTHupKBRsGISvMUEdG HZhbGln fo2zsL9fSq0+JTHewPL4oVH 3qW6vJgSfTlR9APmjP562Ou UdmYTzAvwjN20vE2FzzZA+P HRyPjx0 ZVDftWcyHS0byMMxAWrkQp0 mSST4ZbJnVaGqZNiiD5WdZV TeareedxkaeWN5UTToNCBbb H49Bs4g hOqnRh0vRJWrBRK1RCFxgHG jG0WkuS7xWrOhZSHxGDTiT1 MuhSLiWKnsA273WXyxNkF7U HZlcnRp B8GmUVEooBraMhD4p2M7Br6 KhBksdJPbUA2eVmRcDPc8F2 IfKak7TVDfhRomKT0ujHSkA UidRy9b jQxelNdtQA4tSFAuetxuy51 5VnEdg3sgHBSmkNJgAWufHZ N7T85uy3T1NAPuCWGvPVG4c WT0zT1g bGlnbjogbGVmdDsgdmVydGl zCAwyOJegV020IUUhjPkcKx PBOak8A7FoKrt4RVJngLbfO P2qjMQh FWfiZf4dnYchnMawKS1yGIK sgakpb258ImHbe9qqMPOtmF YrVKgvJZT9Z99ph2V0QVMmH DAwMDA7 mAM5tY9teLakdintzWWilEg nwxTzhJiaSTbbVHqdJ304QL VviLhySw3NOii8A7PiNcw5K CBzdHls YR2ieJPwOQzxGc4ehNeusSs hHO4jCFDqbpnjv275EqHyk8 vhCEHfpEFlLOozPRT1H45an 7U5QGDk JLNlGXE1aMO2tQ4hjDigikh gbGVmdDsgdmVydGljYWwtYW mvE128LKOmfGdvVbZvoNHfM jwvdGQ+ BI21lr05U2EzTmykLre8VAM mKLQ7sJE2qS6oAZDdSTpvq3 K1sRX1W1QaknEojd1ye0fzI XBzZTog Y29 (more content not included)... [facility] - [facility] Result[facility] Lab - AP Results [id number] GTIFF [facility] - AP Results [id number] IFF [facility] Pathology Sendout Teston Pathology Send Out. See Report Normal [facility] Comment on above: Order Comment: Left supraclaicular lymph node biopsy tissue samples in sterile cup. Sent for pathology and flow cytometry. Performed By: #### 2 [id number] #### [facility] (DEFAULT) [address] [place] [address] Karlos 03-01-2025 L --- Specimen: [id number] Received: 03/01/25 Status: ESMER Ramírez Num: [id number] Spec Type: Surgical Subm Dr: JEISON DELGADO MD Tissues: A Lymph Node - Biopsy (Needle or Incisional) (LEFT SUPRACLAICULAR LYMPH NO) Procedures: CD45, HE/2, Gross/Micro L4, AE1-AE3, BCL-2, BCL-6, CD10, CD138, CD20, CD23, CD30, CD5, CYCLIN D1, Ki-67, IHC First AB, IHC Add AB/10, DIFF QWIK Age/ Patient Sex Location Account Attending Physician Unique Haque 34/F LAM [id number] Bret Rose MD SPEC NUM: [id number] RECD: 03/01/25 STATUS: ESMER RAMÍREZ NUM: [id number] YOKO: 03/01/[address] [facility] [address]: JEISON DELGADO MD ENTERED: 03/01/25 [facility] DR: Lev[place],Lab Bret Rose MD SPEC TYPE: Surgical DEPT: MAG TEE ENTERED BY: [id number] RECV BY: [id number] ORDERED: CD45, HE/2, Gross/Micro L4, AE1-AE3, BCL-2, [...] are highlighted with CD10 and BCL-6.? Specimen: [id number] Received: 03/01/25 Status: ESMER Ramírez Num: [id number] Spec Type: Surgical Subm Dr: JEISON DELGADO MD Tissues: A Lymph Node - Biopsy (Needle or Incisional) (LEFT SUPRACLAICULAR LYMPH NO) Procedures: CD45, HE/2, Gross/Micro L4, AE1-AE3, BCL-2, BCL-6, CD10, CD138, CD20, CD23, CD30, CD5, CYCLIN D1, Ki-67, IHC First AB, IHC Add AB/10, DIFF QWIK Patient: Unique Haque [id number] (Continued) Specimen: [id number] Received: 03/01/25 (Continued) Pathological Diagnosis (Continued) Signed (signature on file) Bg Roman MD 03/06/25 1540 Specimen: [id number] Received: 03/01/25 Status: ESMER Ramírez Num: [id number] Spec Type: Surgical Subm Dr: JEISON DELGADO MD Tissues: A Lymph Node - Biopsy (Needle or Incisional) (LEFT SUPRACLAICULAR LYMPH NO) Procedures: CD45, HE/2, Gross/Micro L4, AE1-AE3, BCL-2, BCL-6, CD10, CD138, CD20, CD23, CD30, CD5, CYCLIN D1, Ki-67, IHC First AB, IHC Add AB/10, DIFF QWIK Patient: Unique Haque [id number] (Continued) Specimen: [id number] Received: 03/01/25 (Continued) Pathological Diagnosis (Continued) CD23 [...] for routine H E processing. (1, ns, SE09-819 A) Microscopic Description Microscopic examination is performed. CPT Codes 37001, 84237, 75552, 30706 x10, 41190 (more content not included)... Normal [facility] US Guidance for Aspiration/I nject/Biopsyon [...] MD 03/01/25 3:28 pm Technologist: KENN LOPEZ [facility] Provider Orderson 02-21-2025 Provider Orders [id number] TGTIFF [facility] CT SOFT TISSUE NECK W IV [...] Comment on above: Performed By: #### 6 027, 73951 #### [facility] [address], [address] [place] [address] Internal Specialist: Chetan Stovall MD #### [id number] #### [facility] [address] [facility] [place] [place] [address] Internal Specialist: Amandeep Lockhart M.D.,PhD Basophils/100 WBC (Bld) 0.4 % Normal [facility] Comment on above: Performed By: #### 6 399, [id number] #### [facility] [address] , [address] [place], [place] [address] Internal Specialist: Chetan Stovall MD #### [id number] #### [facility] [place], [place] Internal Specialist: Amandeep Lockhart M.D.,PhD Eosinophils (Bld) [#/Vol] 0.08 10*3/uL Normal 15-500 [facility] Comment on above: Performed By: #### 6 399, 96719 #### [facility] of [place] [address] [address] , [address] [place], [place] [id number] Internal Specialist: Chetan Stovall MD #### [id number] #### [facility] [place] Internal Specialist: Amandeep Lockhart M.D.,PhD Eosinophils/100 WBC (Bld) 1.5 % Normal [facility] Comment on above: Performed By: #### 6 399, 47440 #### [facility] of [place] [address] [address] , [address] [place], [place] [id number] Internal Specialist: Chetan Stovall MD #### [id number] #### [facility] [place] Internal Specialist: Amandeep Lockhart M.D.,PhD Erythrocyte distribution width (RBC) [Ratio] 12.9 % Normal 11.0-15.0 [facility] Comment on above: Performed By: #### 6 399, 09071 #### [facility] of [place] [address] [address] , [address] [place], [place] [id number] Internal Specialist: Chetan Stovall MD #### [id number] #### [facility] [place] Internal Specialist: Amandeep Lockhart M.D.,PhD Hematocrit (Bld) [Volume fraction] 41.1 % Normal 35.0-45.0 [facility] Comment on above: Performed By: #### 6 399, 07173 #### [facility] of [place] [address], [address] [place], [place] [id number] Internal Specialist: Chetan Stovall MD #### [id number] #### [facility]/[place] [id number] [facility] [address] [place] Internal Specialist: Amandeep Lockhart M.D.,PhD Hemoglobin (Bld) [Mass/Vol] 13.4 g/dL Normal 11.7-15.5 [facility] Comment on above: Performed By: #### 6 399, 08999 #### [facility] of [place] [address] [address] , [address] [place], [place] [id number] Internal Specialist: Chetan Stovall MD #### [id number] #### [facility] [address] [place] [address] [place] Internal Specialist: Amandeep Lockhart M.D.,PhD Lymphocytes (Bld) [#/Vol] 1.813 10*3/uL Normal 850-3900 [facility] Comment on above: Performed By: #### 6 399, 00536 #### [facility] of [address], [address] [place] [address] Internal Specialist: Chetan Stovall MD #### [id number] #### [facility]/[address] [place] Internal Specialist: Amandeep Lockhart M.D.,PhD Lymphocytes/100 WBC (Bld) 34.2 % Normal [facility] Comment on above: Performed By: #### 6 399, 80965 #### [facility] of [place] [address] [address] , [address] [place], [place] [phone] Internal Specialist: Chetan Stovall MD #### [id number] #### [facility] [address] [place] [address] [place] Internal Specialist: Amandeep Lockhart M.D.,PhD MCH (RBC) [Entitic mass] 28.3 pg Normal 27.0-33.0 [facility] Comment on above: Performed By: #### 6 399, 89014 #### [facility] of [address] Internal Specialist: Chetan Stovall MD #### [id number] #### [facility]/[place] [id number] [facility] [place] Internal Specialist: Amandeep Lockhart M.D.,PhD MCHC (RBC) [Mass/Vol] 32.6 [...] clinical condition. Performed By: #### 6 399, 03013 #### [facility] [place] [address] Internal Specialist: Chetan Stovall MD #### [id number] #### [facility]/[address] [place], [place] Internal Specialist: Amandeep Lockhart M.D.,PhD MCV (RBC) [Entitic vol] 86.9 fL Normal 80.0-100.0 [facility] Comment on above: Performed By: #### 6 399, [id number] #### [facility] of [place] [id number] Internal Specialist: Chetan Stovall MD #### [id number] #### [facility]/[place] [id number] [facility] [place], [place] Internal Specialist: Amandeep Lockhart M.D.,PhD Monocytes (Bld) [#/Vol] 0.313 10*3/uL Normal 200-950 [facility] Comment on above: Performed By: #### 6 399, [id number] #### [facility] [place] [id number] Internal Specialist: Chetan Stovall MD #### [id number] #### [facility] [place] Internal Specialist: Amandeep Lockhart M.D.,PhD Monocytes/100 WBC (Bld) 5.9 % Normal [facility] Comment on above: Performed By: #### 6 399, [id number] #### [facility] of [address], [address] [place], [place] [id number] Internal Specialist: Chetan Stovall MD #### [id number] #### [facility] [place], [place] Internal Specialist: Amandeep Lockhart M.D.,PhD Neutrophils (Bld) [#/Vol] 3.074 10*3/uL Normal 7219-9813 [facility] Comment on above: Performed By: #### 6 399, [id number] #### [facility] of [address], [address] [place], [place] [id number] Internal Specialist: Chetan Stovall MD #### [id number] #### [facility] [place] Internal Specialist: Amandeep Lockhart M.D.,PhD Neutrophils/100 WBC (Bld) 58 % Normal [facility] Comment on above: Performed By: #### 6 399, [id number] #### [facility] of [address], [address] [place], [place] [id number] Internal Specialist: Chetan Stovall MD #### [id number] #### [facility] [address] [place] Internal Specialist: Amandeep Lockhart M.D.,PhD Platelet mean volume (Bld) [Entitic vol] 10.0 fL Normal 7.5-12.5 [facility] Comment on above: Performed By: #### 6 399, 00759 #### [facility] of [address], [address] [place] [address] Internal Specialist: Chetan Stovall MD #### [id number] #### [facility]/[place] [id number] [facility] [address] [place] Internal Specialist: Amandeep Lockhart M.D.,PhD Platelets (Bld) [#/Vol] 315 10*3/uL Normal 140-400 [facility] Comment on above: Performed By: #### 6 399, 72530 #### [facility] of [place] [address], [address] [place] [address] Internal Specialist: Chetan Stovall MD #### [id number] #### [facility]/[place] [id number] [facility] [address] [place] Internal Specialist: Amandeep Lockhart M.D.,PhD RBC (Bld) [#/Vol] 4.73 10*6/uL Normal 3.80-5.10 [facility] Comment on above: Performed By: #### 6 399, 00548 #### [facility] of [place] [address] [address] , [address] [place] [address] Internal Specialist: Chetan Stovall MD #### [id number] #### [facility]/[place] [id number] [facility] [address] [place] Internal Specialist: Amandeep Lockhart M.D.,PhD WBC (Bld) [#/Vol] 5.3 10*3/uL Normal 3.8-10.8 [facility] Comment on above: Performed By: #### 6 399, 13387 #### [facility] of [place] [address] [address] , [address] [place], [place] [id number] Internal Specialist: Chetan Stovall MD #### [id number] #### [facility]/[place] [id number] [facility] [address] [place] Internal Specialist: Amandeep Lockhart M.D.,PhD COMPREHENSIVE METABOLIC PANE [facility] 01-31-2025 Albumin [Mass/Vol] 5.2 g/dL High 3.6-5.1 [facility] Diagnostics Comment on above: Performed By: #### 6 399, [id number] #### [facility] of [address], [address] [place] [address] Internal Specialist: Chetan Stovall MD #### [id number] #### [facility]/[place] [id number] [facility] [place] Internal Specialist: Amandeep Lockhart M.D.,PhD Albumin/Globulin [Mass ratio] 2.3 {ratio} Normal 1.0-2.5 [facility] Comment on above: Performed By: #### 6 399, [id number] #### [facility] of [address], [address] [place] [address] Internal Specialist: Chetan Stovall MD #### [id number] #### [facility]/[address] [place], [place] Internal Specialist: Amandeep Lockhart M.D.,PhD ALP [Catalytic activity/Vol] 52 U/L Normal 31-125 [facility] Comment on above: Performed By: #### 6 399, 69238 #### [facility] of [address], [address] [place] [address] Internal Specialist: Chetan Stovall MD #### [id number] #### [facility]/[address] [place] Internal Specialist: Amandeep Lockhart M.D.,PhD ALT [Catalytic activity/Vol] 40 U/L High 6-29 [facility] Comment on above: Performed By: #### 6 399, 46463 #### [facility] of [address], [address] [place], [place] [id number] Internal Specialist: Chetan Stovall MD #### [id number] #### [facility] [place], [place] Internal Specialist: Amandeep Lockhart M.D.,PhD AST [Catalytic activity/Vol] 31 U/L High 10-30 [facility] Comment on above: Performed By: #### 6 399, 30275 #### [facility] of [address], [address] [place] [address] Internal Specialist: Chetan Stovall MD #### [id number] #### [facility]/[place] [id number] [facility] [place] Internal Specialist: Amandeep Lockhart M.D.,PhD Bilirubin [Mass/Vol] 0.8 mg/dL Normal 0.2-1.2 [facility] Comment on above: Performed By: #### 6 399, 42370 #### [facility] of [address], [address] [place] [address] Internal Specialist: Chetan Stovall MD #### [id number] #### [facility] [id number] [place] [address] Dr [place] Internal Specialist: Amandeep Lockhart M.D.,PhD BUN/CREATININE RATIO SEE NOTE: Normal 03-18 [facility] Comment on above: Result Comment: Not Reported: BUN and Creatinine are within reference range. Performed By: #### 6 399, 83197 #### [facility] of [address], [address] [place] [address] Internal Specialist: Chetan Stovall MD #### [id number] #### [facility]/[address] [place] Internal Specialist: Amandeep Lockhart M.D.,PhD Calcium [Mass/Vol] 9.9 mg/dL Normal 8.6-10.2 [facility] Comment on above: Performed By: #### 6 399, 73547 #### [facility] of [address], [address] [place], [place] [id number] Internal Specialist: Chetan Stovall MD #### [id number] #### [facility] [place] Internal Specialist: Amandeep Lockhart M.D.,PhD Chloride [Moles/Vol] 104 mmol/L Normal 98-110 [facility] Comment on above: Performed By: #### 6 399, 05066 #### [facility] of [address], [address] [place], [place] [address] Internal Specialist: Chetan Stovall MD #### [id number] #### [facility]/[address] [place], [place] Internal Specialist: Amandeep Lockhart M.D.,PhD CO2 [Moles/Vol] 24 mmol/L Normal 20-32 [facility] Comment on above: Performed By: #### 6 399, 13927 #### [facility] of [address] Internal Specialist: Chetan Stovall MD #### [id number] #### [facility]/[address] [place], [place] Internal Specialist: Amandeep Lockhart M.D.,PhD Creatinine [Mass/Vol] 0.69 mg/dL Normal 0.50-0.97 [facility] Comment on above: Performed By: #### 6 399, 11991 #### [facility] of [place] [id number] Internal Specialist: Cehtan Stovall MD #### [id number] #### [facility]/[address] [place], [place] Internal Specialist: Amandeep Lockhart M.D.,PhD GFR/1.73 sq M.predicted among non-blacks MDRD (S/P/Bld) [Vol rate/Area] 118 mL/min/{1.73_m2} Normal > OR = 60 [facility] Comment on above: Performed By: #### 6 399, 33221 #### [facility] of [address], [address] [place], [place] [id number] Internal Specialist: Chetan Stovall MD #### [id number] #### [facility] [address] [place] [address] Dr [place] Internal Specialist: Amandeep Lockhart M.D.,PhD Globulin (S) [Mass/Vol] 2.3 g/dL Normal 1.9-3.7 [facility] Comment on above: Performed By: #### 6 399, 51643 #### [facility] of [address], [address] [place], [place] [address] Internal Specialist: Chetan Stovall MD #### [id number] #### [facility] [place] Internal Specialist: Amandeep Lockhart M.D.,PhD Glucose [Mass/Vol] 79 mg/dL Normal 65-99 [facility] Comment on above: Result Comment: Fasting reference interval Performed By: #### 6 399, 00597 #### [facility] of [address], [address] [place] [address] Internal Specialist: Chetan Stovall MD #### [id number] #### [facility] [address] [place] [address] [place] Internal Specialist: Amandeep Lockhart M.D.,PhD Potassium [Moles/Vol] 3.5 mmol/L Normal 3.5-5.3 [facility] Comment on above: Performed By: #### 6 399, 85113 #### [facility] of [address], [address] [place] [address] Internal Specialist: Chetan Stovall MD #### [id number] #### [facility] [place] Internal Specialist: Amandeep Lockhart M.D.,PhD Protein [Mass/Vol] 7.5 g/dL Normal 6.1-8.1 [facility] Comment on above: Performed By: #### 6 399, 56193 #### [facility] of [address], [address] [place] [address] Internal Specialist: Chetan Stovall MD #### [id number] #### [facility] [place] Internal Specialist: Amandeep Lockhart M.D.,PhD Sodium [Moles/Vol] 139 mmol/L Normal 135-146 [facility] Comment on above: Performed By: #### 6 399, 55772 #### [facility] [address], [address] [place] [address] Internal Specialist: Chetan Stovall MD #### [id number] #### [facility] [place] Internal Specialist: Amandeep Lockhart M.D.,PhD Urea nitrogen [Mass/Vol] 9 mg/dL Normal 7-25 [facility] Comment on above: Performed By: #### 6 399, 76733 #### [facility] [address], [address] [place] [address] Internal Specialist: Chetan Stovall MD #### [id number] #### [facility] [place] Internal Specialist: Amandeep Lockhart M.D.,PhD LAMOTRIGINEon 01-31-2025 LAMOTRIGINE 3.5 mcg/mL Normal 2.5-15.0 [facility] Comment on above: Result Comment: This test was developed and its analytical performance characteristics have been determined by [facility] [place]. It has not been cleared or approved by the U.S. Food and Drug Administration. This assay has been validated pursuant to the CLIA regulations and is used for clinical purposes. Performed By: #### 6 399, 02192 #### [facility] [address], [address] [place], [place] [id number] Internal Specialist: Chetan Stovall MD #### [id number] #### [facility] [place] Internal Specialist: Amandeep Lockhart M.D.,PhD CBC W Auto Differential pane l (Bld)on 01-30-2025 Basophils (Bld) [#/Vol] 21 10*3/uL [facility] Basophils/100 WBC (Bld) 0.4 % [facility] Eosinophils (Bld) [#/Vol] 80 10*3/uL [facility] Eosinophils/100 WBC (Bld) 1.5 % [facility] Erythrocyte distribution width (RBC) [Ratio] 12.9 % 11.0 - 15.0 % [facility] Hematocrit (Bld) [Volume fraction] 41.1 % 35.0 - 45.0 % [facility] Hemoglobin (Bld) [Mass/Vol] 13.4 g/dL 11.7 - 15.5 g/dL [facility] Lymphocytes (Bld) [#/Vol] 1813 10*3/uL [facility] Lymphocytes/100 WBC (Bld) 34.2 % [facility] MCH (RBC) [Entitic mass] 28.3 pg 27.0 - 33.0 pg [facility] MCHC (RBC) [Mass/Vol] 32.6 g/dL 32.0 - 36.0 g/dL [facility] Comment on above: For adults, a slight decrease in the calculated MCHC value (in the range of 30 to 32 g/dL) is most likely not clinically significant; however, it should be interpreted with caution in correlation with other red cell parameters and the patient's clinical condition. MCV (RBC) [Entitic vol] 86.9 fL 80.0 - 100.0 fL [facility] Monocytes (Bld) [#/Vol] 313 10*3/uL [facility] Monocytes/100 WBC (Bld) 5.9 % [facility] Neutrophils (Bld) [#/Vol] 3074 10*3/uL [facility] Neutrophils/100 WBC (Bld) 58 % [facility] Platelet mean volume (Bld) [Entitic vol] 10 fL 7.5 - 12.5 fL [facility] Platelets (Bld) [#/Vol] 315 10*3/uL [facility] RBC (Bld) [#/Vol] 4.73 10*6/uL [facility] WBC (Bld) [#/Vol] 5.3 10*3/uL [facility] H ealthcare Performing Organizat ion Information Site ID: QPT Name: [facility] Address: [address] [place] [address], [address] [place] [address] Director: Chetan Stovall MD [facility] Validic [facility] e XR CHEST 2 VIEWSon XR CHEST [...] (COVID-19) RNA MIGUELITO+probe Ql (Unsp spec) Negative [facility] Other COVID + FLU Quick Testing Negative [facility] Other US PELVIS AND TRANSVAGon US PELVIS [...] by: AMARILIS VELÁSQUEZ Date: 2023-01-01 11:59 Normal [facility] PAP ACOG PANEL 2: 21 to 29on 03-24-2022 . . Normal [facility] Comment on above: Performed By: #### 4 [id number] #### [facility] [address] [place] [address] Dr. Avel Santizo Age Gdln ACOG Testing 21-29 Normal [facility] Comment on above: Performed By: #### 4 [id number] #### [facility] [address] [place] [address] Dr. Avel Santizo DIAGNOSIS: Comment Normal [facility] Comment on above: Result Comment: NEGA TIVE FOR INTRAEPITHELIAL LESION OR MALIGNANCY. PREDOMINANCE OF COCCOBACILLI CONSISTENT WITH SHIFT IN VAGINAL THANIA IS PRESENT. Performed By: #### 4 [id number] #### [facility] [address] [place] [address] Dr. Avel Santizo Methodology: Comment Normal [facility] Comment on above: Result Comment: This liquid based ThinPrep(R) pap test was screened with the use of an image guided system. Performed By: #### 4 [id number] #### [facility] [address] [place] [address] Dr. Avel Santizo Note: Comment Normal [facility] Comment on above: Result Comment: The Pap smear is a screening test designed to aid in the detection of premalignant and malignant conditions of the uterine cervix. It is not a diagnostic procedure and should not be used as the sole means of detecting cervical cancer. Both false-positive and false-negative reports do occur. . Performed By: #### 4 [id number] #### [facility] [address] [place] [address] Dr. Avel Santizo Performed by: Comment Normal [facility] Comment on above: Result Comment: Jennifer Beregr Data Report Analyst (ASCP) Performed By: #### 4 [id number] #### [facility] [address] [place] [address] Dr. Avel Santizo Reflex Criteria: Comment Normal [facility] Comment on above: Result Comment: The HPV DNA reflex criteria were not met with this specimen result therefore, no HPV testing was performed. . Performed By: #### 4 [id number] #### [facility] [address] [place] [address] Dr. Avel Santizo Specimen adequacy: Comment Normal [facility] Comment on above: Result Comment: Sati sfactory for evaluation. Endocervical and/or squamous metaplastic cells (endocervical component) are present. Performed By: #### 4 [id number] #### [facility] [address] [place] [address] Dr. Avel Santizo VAGINITIS/VAGINOSIS DNA PROB Mitch 03-22-2022 Alba species Negative Normal Negative [facility] Comment on above: Performed By: #### V AGINT #### [facility] [address] [place] [address] [address] Avel Santizo Gardnerella vaginalis Positive Abnormal Negative [facility] Comment on above: Performed By: #### V AGINT #### [facility] [address] [place] [address] [address] Avel Santizo Trichomonas vaginalis Negative Normal Negative [facility] Comment on above: Performed By: #### V AGINT #### [facility] [address] [place] [address] [address] Avel Santizo Complete Blood Count with Au to Diffon 01-16-2022 Basophils (Bld) [#/Vol] 0.03 10*3/uL Normal 0.00-0.20 [facility] Comment on above: Performed By: #### C BCAD #### [facility] [address], [place] [id number] Basophils/100 WBC (Bld) 0.4 % Normal [facility] Comment on above: Performed By: #### C BCAD #### [facility] [address], [place] [id number] Eosinophils (Bld) [#/Vol] 0.16 10*3/uL Normal 0.02-0.50 [facility] Comment on above: Performed By: #### C BCAD #### [facility] [address], [place] [id number] Eosinophils/100 WBC (Bld) 2.3 % Normal [facility] Comment on above: Performed By: #### C BCAD #### [facility] [address], [place] [id number] Erythrocyte distribution width (RBC) [Ratio] 12.5 % Normal 11.0-15.0 [facility] Comment on above: Performed By: #### C BCAD #### [facility] [address], [place] [id number] Hematocrit (Bld) [Volume fraction] 39.3 % Normal 35.0-47.0 [facility] Comment on above: Performed By: #### C BCAD #### [facility] [address], [place] [id number] Hemoglobin (Bld) [Mass/Vol] 12.9 g/dL Normal 11.6-15.5 [facility] Specialist Comment on above: Performed By: #### C BCAD #### [facility] [address], [place] [id number] Lymphocytes (Bld) [#/Vol] 2.3 10*3/uL Normal 0.9-3.9 [facility] Specialist Comment on above: Performed By: #### C BCAD #### [facility] [address], [place] [id number] Lymphocytes/100 WBC (Bld) 32.5 % Normal [facility] Specialist Comment on above: Performed By: #### C BCAD #### [facility] [address], [place] [id number] MCH (RBC) [Entitic mass] 28.0 pg Normal 27.0-33.0 [facility] Specialist Comment on above: Performed By: #### C BCAD #### [facility] [address], [place] [id number] MCHC (RBC) [Mass/Vol] 32.8 g/dL Normal 32.0-36.0 [facility] Specialist Comment on above: Performed By: #### C BCAD #### [facility] [address], [place] [id number] MCV (RBC) [Entitic vol] 85 fL Normal 80-100 [facility] Specialist Comment on above: Performed By: #### C BCAD #### [facility] [address], [place] [id number] Monocytes (Bld) [#/Vol] 0.5 10*3/uL Normal 0.2-0.9 [facility] Specialist Comment on above: Performed By: #### C BCAD #### [facility] [address], [place] [id number] Monocytes/100 WBC (Bld) 6.7 % Normal [facility] Specialist Comment on above: Performed By: #### C BCAD #### [facility] [address], [place] [id number] Neutrophils (Bld) [#/Vol] 4.0 10*3/uL Normal 1.5-7.8 [facility] Comment on above: Performed By: #### C BCAD #### [facility] [address], [place] [id number] Neutrophils/100 WBC (Bld) 57.7 % Normal [facility] Comment on above: Performed By: #### C BCAD #### [facility] [address], [place] [id number] Platelet mean volume (Bld) [Entitic vol] 9.60 fL Normal 7.50-12.50 [facility] Comment on above: Performed By: #### C BCAD #### [facility] [address], [place] [id number] Platelets (Bld) [#/Vol] 353 10*3/uL Normal 140-400 [facility] Specialist Comment on above: Performed By: #### C BCAD #### [facility] [address], [place] [id number] RBC (Bld) [#/Vol] 4.61 10*6/uL Normal 3.90-5.20 [facility] Comment on above: Performed By: #### C BCAD #### [facility] [address], [place] [id number] RDW-SD 39.0 fL Normal 37.0-50.0 [facility] Specialist Comment on above: Performed By: #### C BCAD #### [facility] [address], [place] [id number] WBC (Bld) [#/Vol] 7.0 10*3/uL Normal 3.8-11.0 [facility] Comment on above: Performed By: #### C BCAD #### [facility] [address], [place] [id number] History and Physicalon 06-26 History and Physical [...] injectable kit, 0.3 mg, IM, Once, PRN Gordon-Linyah 0.25 mg-35 mcg oral tablet, 1 tabs, Oral, Daily predniSONE 20 mg oral tablet, 20 mg, 1 tabs, Oral, BID Vitamin B12 with Folic Acid sublingual tablet, 1 tabs, SL, Daily Inpatient No active inpatient medications Prescriptions baclofen 10 mg oral tablet, 10 mg, Oral, [id number] Times, PRN DME, See Instructions gabapentin 100 [...] qualifying data available. Electronically signed by ___ Carolina HARDY, Taylor Bruce 06/26/19 09:38 EDT Normal [facility] Ambulatory Patient Education on 06-12-2019 Ambulatory Patient Education Patient Education Materials Name: Unique Haque Current Date: 06/12/2019 13:12:59 [place] : 1990 The following sheet(s) are the Patient Education Leaflets for Unique Haque Patient Name: You are scheduled for a: *Please allow up to 2 hours for your appointment. Late arrivals may result in delay or postponement of procedure. Date/Time of procedure: Please arrive at: Date/Time of procedure: Please arrive at: Please check in at: [facility] in the Pain Management Department [address] [facility], 3rd floor [facility] inside the Emergency Room at [address] *Due to the sedation given for the procedure, you will not be permitted to drive until the following day. For this reason, you will need to bring a lead driver to stay with you and drive [...] (a medicated soap) prior to your surgery. *[place] teeth, rinse with water, but do not swallow. *Please wear comfortable clothing, without metal zippers or snaps. Do not wear contact lenses. Do wear your hearing aid. Please leave all jewelry and valuables at home; you may wear your wedding ring. *Please note that due to limited space, your family member/lead driver will need to wait in the waiting area while you are in the procedure area. Absolutely no children should attend an appointment for an injection. *All prescription refills must be requested in advance. No prescription refills requested on the day of a procedure will be available until at least 3 business days later. *If your procedure is done in [place], you will be receiving a statement from [facility] for the professional (physician's) billing fees and for the technical (hospital's) fees and a separate statement for the anesthesia provider. If your procedure is done in [place], you will be receiving a statement from [facility] for professional (physician's) billing fees, technical [...] or concerns, please contact the appropriate office: [facility] ([place] office) [phone] [facility] ([place] office) [phone] Your follow up appointment is scheduled for: AT: [facility] Pain Management [address] [facility], 3rd floor [facility] Management [address] [place], [place] [address], [facility] [address] [facility], 2nd floor clinic, [place] [address] [facility] ? WHAT TO EXPECT AFTER THE [...] increase pain. (for example, bending, twisting, walking, manager stars). Try to avoid pain medication or sleeping [...] the office immediately if noted. Contact stimulator sales representative with questions regarding stimulator use.(see rep [...] call office immediately if noted. Contact stimulator sales representative with questions regarding stimulator use.(see rep [...] and call immediately if noted. Contact stimulator sales representative with questions regarding stimulator use.(see rep card) Nerve Root Injection The nerve root injection is a procedure where a local anesthetic and steroid solution are administered near the nerve as it exits the spinal canal. This is done under fluoroscopy (watching under live x-ray) to deliver the drug to the precise location. Am I a candidate for a nerve root injection? At [facility], the provider examining you will decide whether [...] procedure. You are required to have a lead driver remain in the facility before and [...] home the morning of the procedure. Normal [facility] Alethea Hernandez 06-12-2019 Alethea Gifford --- Final No growth at 5 days. Normal [facility] Comment on above: Performed By: #### C [id number] #### [facility] [address] [place] [address] Pain Management Office/Clini c Noteon 06-12-2019 Pain [...] Yes PM testing type: MRI-T/S, L/S, RIGHT [id number] HIP PM Bowel Bladder: Denies PM Demeanor: [...] 10 mg oral tablet, 10 mg, Oral, [id number] Times, PRN Depakote 250 mg oral delayed release tablet, 250 mg, 1 tabs, Oral, BID DME, See Instructions EpiPen 2-Karl 0.3 mg injectable kit, 0.3 mg, IM, Once, PRN gabapentin 100 mg oral capsule, 100 mg, Oral, TID Gordon-Linyah 0.25 mg-35 mcg oral tablet, 1 tabs, [...] Taylor Figueroa MD 06/26/19 14:28 EDT Normal [facility] Inpatient Clinical Summaryon 06-08-2019 Inpatient Clinical Summary [address] [address] Clinical Summary Person Information Name: Unique Haque Age: 28 Years : 1990 Sex: Female PCP: Sha Shukla MD, Annabel Martinez Marital Status: Single Phone: PCP: [phone] Race: White Ethnicity: Not or Language: Kuwaiti Visit Id: Visit Reason: Back pain; Leg pain-swelling; Leg Pain Speciality: Acuity: Enc Type: Observation Med Service: Emergency Medicine Arrival: 06/07/2019 02:53:00 Discharge: Dispo Type: Place in Observation Address: [facility] Becca Alfaro [facility] [address] Diagnosis: 1:Right low back pain; 2:Inability to [...] Martinez, 1 to 2 days Transmit to [facility] 06/08/19 10:51:00 EDT, Home Health, PT/OT Allergies [...] every day. Last Dose: __ norgestimate-ethinyl estradiol (Gordon-Linyah 0.25 mg-35 mcg oral tablet) 1 Tabs [...] under the tongue) every day. norgestimate-ethinyl estradiol (Gordon-Linyah 0.25 mg-35 mcg oral tablet) 1 Tabs Oral (given by mouth) every day. predniSONE (predniSONE 20 mg oral tablet) 1 Tabs Oral (given by mouth) 2 times a day for 5 Days. Care Team Members: Attending Physician: Didi HARDY, [facility] Consulting Physician: Stuart WANG MD, Adrian Mir Referring Physician: Follow up: Normal [facility] Neurosurgery Progress Noteon 06-08-2019 Neurosurgery Progress [...] Inhale, q4hr, PRN baclofen, 10 mg, Oral, [id number] Times, PRN Depakote, 250 mg, Oral, BID docusate sodium, 100 mg, Oral, Daily, PRN gabapentin, 100 mg, Oral, TID ketorolac, 30 mg, 1 mL, IV Push, q6hr, PRN Lidoderm 5% topical film, 1 patches, Topical, Daily MiraLax, 17 g, 1 EA, Oral, Daily, PRN naloxone, 0.4 mg, 1 mL, IV Push, q2min, PRN [place] 5 mg-325 mg oral tablet, 1 tabs, [...] Davidson III, MD 06/08/19 06:13 EDT Normal [facility] .eGFRon 06-07-2019 eGFR AA >60 Normal >=60 [facility] Comment on above: Result Comment: Resu lt = 0-14.9 mL/min/1.73 m2 Kidney failure or Dialysis Result = 15-29 mL/min/1.73 m2 Severe decrease in GFR Result = 30-59 mL/min/1.73 m2 Moderate decrease in GFR Result >= 60 mL/min/1.73 m2 Normal or increased GFR Performed By: #### C [id number] #### [address] [address] eGFR Non-AA >60 Normal >=60 [facility] Comment on above: Result Comment: Resu [...] for medication dosing. Performed By: #### C [id number] #### [address] [address] Basic Metabolic Profon 06-07 (cont.) Normal [facility] Comment on above: Result Comment: Aver age GFR for 20-29 years old: 116 mL/min/1.73sq m Chronic Kidney Disease: <60 mL/min/1.73sq m Kidney failure: <15 mL/min/1.73sq m eGFR calculated using average adult body mass. Additional eGFR calculator available at: http://www.HouzeMe.Sift Science/multiple_crcl_2012.htm Performed By: #### B MP, CDP #### [facility] [address] [place] [address] Horticultural Manager: Dilip Segura MD Anion gap [Moles/Vol] 15 mmol/L Normal 9-17 [facility] Comment on above: Performed By: #### B MP, CDP #### [facility] [address] [place], [place] [id number] Horticultural Manager: Dilip Segura MD BUN/CRE Ratio 11 Normal 9-20 [facility] Comment on above: Performed By: #### B MP, CDP #### [facility] [address] [place], [place] 324[address]83 Horticultural Manager: Dilip Segura MD Calcium [Mass/Vol] 9.2 mg/dL Normal 8.6-10.4 [facility] Comment on above: Performed By: #### B MP, CDP #### [facility] [address] [place], [place] 433[address]83 Horticultural Manager: Dilip Segura MD Chloride [Moles/Vol] 102 mmol/L Normal 98-107 [facility] Comment on above: Performed By: #### B MP, CDP #### [facility] [address] [place], [place] [address]83 Horticultural Manager: Dilip Segura MD CO2 [Moles/Vol] 22 mmol/L Normal 20-31 [facility] Comment on above: Performed By: #### B MP, CDP #### [facility] [address] [place], [place] [address] Horticultural Manager: Dilip Segura MD Creatinine [Mass/Vol] 0.56 mg/dL Normal 0.50-0.90 [facility] Comment on above: Performed By: #### B MP, CDP #### [facility] [address] [place], [place] 6[address]83 Horticultural Manager: Dilip Segura MD GFR, Amer >60 Normal >60 [facility] Comment on above: Performed By: #### B MP, CDP #### [facility] [address] [place], [place] [phone] Horticultural Manager: Dilip Segura MD GFR,non Amer >60 Normal >60 [facility] Comment on above: Performed By: #### B MP, CDP #### [facility] [address] [place], [place] 2408083 Horticultural Manager: Dilip Segura MD Glucose [Mass/Vol] 153 mg/dL High 70-99 [facility] Comment on above: Performed By: #### B MP, CDP #### [facility] [address] [place], [place] 477[address]283 Horticultural Manager: Dilip Segura MD Potassium [Moles/Vol] 3.6 mmol/L Low 3.7-5.3 [facility] Comment on above: Performed By: #### B MP, CDP #### [facility] [address] [place], [place] 3477683 Horticultural Manager: Dilip Segura MD Sodium [Moles/Vol] 139 mmol/L Normal 135-144 [facility] Comment on above: Performed By: #### B MP, CDP #### [facility] [address] [place], [place] 254[address]83 Horticultural Manager: Dilip Segura MD Staging: Normal [facility] Comment on above: Result Comment: Stag e 1: Some kidney damage normal GFR Stage 2: Mild kidney damage GFR 60-89 Stage 3: Moderate kidney damage GFR 30-59 Stage 4: Severe kidney damage GFR 15-29 Stage 5: Severe kidney damage GFR <15 ESRD - chronic treatment by dialysis or transplant Performed By: #### B MP, CDP #### [facility] [address] [place], [place] 134[address]3 Horticultural Manager: Dilip Segura MD Urea nitrogen [Mass/Vol] 6 mg/dL Normal 6-20 [facility] Comment on above: Performed By: #### B MP, CDP #### [facility] [address] [place], [place] 6970483 Horticultural Manager: Dilip Segura MD Basic Metabolic Profileon Anion gap [Moles/Vol] 16 mmol/L Normal 7-17 [facility] Comment on above: Performed By: #### C [id number] #### [address] [address] Calcium [Mass/Vol] 9.4 mg/dL Normal 8.5-10.3 [facility] Comment on above: Performed By: #### C [id number] #### [address] [address] Chloride [Moles/Vol] 104 mmol/L Normal 98-110 [facility] Comment on above: Performed By: #### C [id number] #### [address] [address] CO2 [Moles/Vol] 23 mmol/L Normal 22-32 [facility] Comment on above: Performed By: #### C [id number] #### [address] [address] Creatinine [Mass/Vol] 0.54 mg/dL Normal 0.44-1.03 [facility] Comment on above: Performed By: #### C [id number] #### [address] [address] Glucose [Mass/Vol] 122 mg/dL High 74-118 [facility] Comment on above: Performed By: #### C [id number] #### [address] [address] Potassium [Moles/Vol] 4.1 mmol/L Normal 3.4-4.8 [facility] Comment on above: Performed By: #### C [id number] #### [address] [address] Sodium [Moles/Vol] 139 mmol/L Normal 133-142 [facility] Comment on above: Performed By: #### C [id number] #### [address] [address] Urea nitrogen [Mass/Vol] 5 mg/dL Low 8-26 [facility] Comment on above: Performed By: #### C [id number] #### [address] [address] Urea nitrogen/Creatinin e [Mass ratio] 9.3 mg/mg Low 10.0-20.0 [facility] Comment on above: Performed By: #### C [id number] #### [address] [address] CBCon 06-07-2019 Erythrocyte distribution width (RBC) [Ratio] 14.5 % Normal 11.6-14.8 [facility] Comment on above: Performed By: #### C BCI #### [address] [address] Hematocrit (Bld) [Volume fraction] 35.9 % Low 36.0-46.0 [facility] Comment on above: Performed By: #### C BCI #### [address] [address] Hemoglobin (Bld) [Mass/Vol] 12.1 g/dL Normal 12.0-16.0 [facility] Comment on above: Performed By: #### C BCI #### [address] [address] MCH (RBC) [Entitic mass] 28.1 pg Normal 27.0-35.0 [facility] Comment on above: Performed By: #### C BCI #### [address] [address] MCHC (RBC) [Mass/Vol] 33.7 % Normal 31.0-37.0 [facility] Comment on above: Performed By: #### C BCI #### [address] [address] MCV (RBC) [Entitic vol] 83.2 fL Normal 80.0-100.0 [facility] Comment on above: Performed By: #### C BCI #### [address] [address] Platelet mean volume (Bld) [Entitic vol] 7.8 fL Normal 6.7-10.6 [facility] Comment on above: Performed By: #### C BCI #### [address] [address] Platelets (Bld) [#/Vol] 366 x10*3/mcL High 150-350 [facility] Comment on above: Performed By: #### C BCI #### [address] [address] RBC (Bld) [#/Vol] 4.31 x10*6/mcL Normal 3.80-5.20 [facility] Comment on above: Performed By: #### C BCI #### [address] [address] WBC (Bld) [#/Vol] 12.4 x10*3/mcL High 4.5-11.0 [facility] Comment on above: Performed By: #### C BCI #### [address] [address] CBC with Diffon 06-07-2019 Abs. Basophil 0.03 k/uL Normal 0.00-0.20 [facility] Comment on above: Performed By: #### B SAMSON, CDP #### [facility] [address] [place] [address] Horticultural Manager: Dilip Segura MD Abs.Imm.Granulocyt e 0.08 k/uL Normal 0.00-0.30 [facility] Comment on above: Performed By: #### B SAMSON, CDP #### [facility] [address] [place] [address] Horticultural Manager: Dilip Segura MD Abs.Neutrophil (Seg) 11.32 k/uL High 1.50-8.10 [facility] Comment on above: Performed By: #### B SAMSON, CDP #### [facility] [address] [place] [address] Horticultural Manager: Diilp Segura MD Basophils/100 WBC (Bld) 0 % Normal 0-2 [facility] Comment on above: Performed By: #### B MP, CDP #### [facility] [address] [place], [place] [id number] Horticultural Manager: Dilip Segura MD Eosinophils (Bld) [#/Vol] 10*3/uL Normal 0.00-0.44 [facility] Comment on above: Performed By: #### B MP, CDP #### [facility] [address] [place], [place] 28[address]283 Horticultural Manager: Dilip Segura MD Eosinophils/100 WBC (Bld) 0 % Low 1-4 [facility] Comment on above: Performed By: #### B MP, CDP #### [address] [place] [address] Horticultural Manager: Dilip Segura MD Erythrocyte distribution width (RBC) [Ratio] 13.6 % Normal 11.8-14.4 [facility] Comment on above: Performed By: #### B MP, CDP #### [address] [place] [address] Horticultural Manager: Dilip Segura MD Hematocrit (Bld) [Volume fraction] 37.2 % Normal 36.3-47.1 [facility] Comment on above: Performed By: #### B MP, CDP #### [address] [place], [facility] Horticultural Manager: Dilip Segura MD Hemoglobin (Bld) [Mass/Vol] 11.8 g/dL Low 11.9-15.1 [facility] Comment on above: Performed By: #### B MP, CDP #### [address] [place], [place] [id number] Horticultural Manager: Dilip Segura MD Immature granulocytes (Bld) [#/Vol] 1 % High 0 [facility] Comment on above: Performed By: #### B MP, CDP #### [facility] [address] [place] [address] Horticultural Manager: Dilip Segura MD Lymphocytes (Bld) [#/Vol] 1.23 10*3/uL Normal 1.10-3.70 [facility] Comment on above: Performed By: #### B MP, CDP #### [facility] [address] [place] [address] Horticultural Manager: Dilip Segura MD Lymphocytes/100 WBC (Bld) 9 % Low 24-43 [facility] Comment on above: Performed By: #### B MP, CDP #### [facility] [address] [place] [address] Horticultural Manager: Dilip Segura MD MCH (RBC) [Entitic mass] 27.8 pg Normal 25.2-33.5 [facility] Comment on above: Performed By: #### B MP, CDP #### [facility] [address] [place], [place] [address]783 Horticultural Manager: Dilip Segura MD MCHC (RBC) [Mass/Vol] 31.7 g/dL Normal 28.4-34.8 [facility] Comment on above: Performed By: #### B MP, CDP #### [facility] [address] [place], [facility]83 Horticultural Manager: Dilip Segura MD MCV (RBC) [Entitic vol] 87.5 fL Normal 82.6-102.9 [facility] Comment on above: Performed By: #### B MP, CDP #### [facility] [address] [place] [address] Horticultural Manager: Dilip Segura MD Monocytes (Bld) [#/Vol] 0.52 10*3/uL Normal 0.10-1.20 [facility] Comment on above: Performed By: #### B MP, CDP #### [facility] [address] [place], [place] 488[address]183 Horticultural Manager: Dilip Segura MD Monocytes/100 WBC (Bld) 4 % Normal 3-12 [facility] Comment on above: Performed By: #### B MP, CDP #### [facility] [address] [place], [place] [address]39883 Horticultural Manager: Dilip Segura MD Neutrophil (Seg) 86 % High 36-65 [facility] Comment on above: Performed By: #### B MP, CDP #### [facility] [address] [place], [place] 3460483 Horticultural Manager: Dilip Segura MD NRBC Automated 0.0 per 100 WBC Normal 0.0 [facility] Comment on above: Performed By: #### B MP, CDP #### [facility] [address] [place], [place] [address]16783 Horticultural Manager: Dilip Segura MD Platelet mean volume (Bld) [Entitic vol] 9.3 fL Normal 8.1-13.5 [facility] Comment on above: Performed By: #### B MP, CDP #### [address] [place], [place] [address]83 Horticultural Manager: Dilip Segura MD Platelets (Bld) [#/Vol] 357 10*3/uL Normal 138-453 [facility] Comment on above: Performed By: #### B MP, CDP #### [facility] [address] [place], [place] 4240383 Horticultural Manager: Dilip Segura MD RBC (Bld) [#/Vol] 4.25 10*6/uL Normal 3.95-5.11 [facility] Comment on above: Performed By: #### B MP, CDP #### [address] [place], [place] 1228983 Horticultural Manager: Dilip Segura MD WBC (Bld) [#/Vol] 13.2 10*3/uL High 3.5-11.3 [facility] Comment on above: Performed By: #### B MP, CDP #### [facility] [address] [place], [place] 8[address]83 Horticultural Manager: Dilip Segura MD Auto Diff Performed NOT REPORTED Normal [facility] Comment on above: Performed By: #### B MP, CDP #### [facility] [address] [place], [place] 7[address]83 Horticultural Manager: Dilip Segura MD Platelets (Bld) [#/Vol] NOT REPORTED Normal [facility] Comment on above: Performed By: #### B MP, CDP #### [facility] [address] [place], [place] 1244883 Horticultural Manager: Dilip Segura MD RBC morphology finding Nom (Bld) NOT REPORTED Normal [facility] Comment on above: Performed By: #### B MP, CDP #### [facility] [address] [place], [place] 132[address]83 Horticultural Manager: Dilip Segura MD WBC Morphology NOT REPORTED Normal [facility] Comment on above: Performed By: #### B MP, CDP #### [facility] [address] [place], [place] [address]598383 Horticultural Manager: Dilip Segura MD CRPon 06-07-2019 CRP [Mass/Vol] 0.79 mg/dL High 0.00-0.75 [facility] Comment on above: Result Comment: CRP measurement is useful for assessment of non-specific INFLAMMATORY RESPONSE to infection or injury AND is a sensitive MARKER of ACUTE INFLAMMATION including CARDIAC RISK ASSESSMENT. CARDIAC patients with elevated CRP are POTENTIALLY at a HIGHER RISK OF FUTURE CARDIAC EVENTS. Performed By: #### C RP #### [facility] [address] [place] [address] CT LUMBAR SPINE WO CONTRASTo n 06-07-2019 [...] Eduardo Boyd DO 06/07/19 Final result Normal [facility] CT Lumbar Spine WO Contrasto n 06-07-2019 Unremarkable non-contrast CT of the lumbar spine. [facility] [employer] Ankit, Mhpn Incoming Radiant Results From [employer] - 06/07/2019 1:09 AM EDT EXAMINATION: CT [...] Unremarkable non-contrast CT of the lumbar spine. [facility]: CT OF T HE LUMBAR SPINE [...] No paraspinal mass is seen. Prior cholecystectomy. [facility], [place] Official Court Reporter Progress Noteon 06-07-[address] Reporter Progress Note Met with patient regarding transitions [...] ___ Azucena Bradley 06/07/19 09:58 EDT Normal [facility] ED Clinical Summaryon 2018 ED Clinical Summary [address] [address] ED Clinical Summary Person Information Name: Unique Haque Andreina[place] Age: 28 Years : 1990 Sex: Female PCP: Sha Shukla MD, Annabel Martinez Marital Status: Single Phone: Race: White Ethnicity: Not or Language: Kuwaiti Visit Reason: Back pain; Leg pain-swelling; Leg Pain Acuity: 3 Enc Type: Observation Med Service: Emergency Medicine Arrival: 06/07/2019 02:53:00 Discharge: LOS: 000 03:07 Checkin: 06/07/2019 02:53:00 Checkout: 06/07/2019 06:00:06 Dispo Type: Place in Observation Address: [address] [place] [address] Provider Notes: History of Present Illness Patient [...] EDT, Ortho/Neuro 6th floor, 06/07/19 5:31:00 EDT, Pedro Garcia MD, [place] MD, Madhusudhan Request for Admit 06/07/19 5:29:00 EDT, 06/07/19 5:29:00 EDT, Ortho/Neuro 6th floor Patient Education Information: [facility] Poison Help line: . [facility] Hotline: [place] Tobacco Quit Line: [place], [place]) [address]: [phone] [place], [place]) [address]: [phone] [facility] [address] [place], [place]: [phone] Normal [facility] ED Note-Physicianon 06-07-20 ED Note-Physician Chief Complaint pt comes from [place] [facility] c[facility]greg[facility] right leg pain/numbness History of Present Illness [...] HARDY, Lazarus Sood Electronically signed by ___ Casey Kenny MD 06/07/19 05:39 EDT Normal [facility] ESRon 06-07-2019 ESR (Bld) [Velocity] 11 mm/h Normal 0-23 [facility] Comment on above: Performed By: #### E SR #### [facility] [address] [place] [address] HCG, ,Urineon 06-07 Beta HCG ( test) Ql (U) Negative Normal NEG [facility] Comment on above: Result Comment: Spec imens with hCG levels near the threshold of the test (25 mIU/mL) may give a negative or indeterminate result. In such cases, another test should be performed with a new specimen in 48-72 hours. If early is suspected clinically in this setting, correlation with quantitative serum b-hCG level is suggested. [facility] has confirmed the use of plasma for this test. This has not been cleared or approved by the U.S. Food and Drug Administration. The FDA has determined that such clearance is not necessary. Performed By: #### U AX, DULCE[place], [facility] #### [facility] [address] [place] [address] Horticultural Manager: Dilip Segura MD History and Physicalon 06-07 History and Physical Chief [facility]umb[facility] History of [...] data available. Electronically signed by ___ Didi [facility]ARDY [facility] 06/07/19 07:21 EDT Normal [facility] MRI Hip w/o Contrast Righton 06-07-2019 [...] Electronically Signed in Other Vendor System) Normal [facility] MRI Spine Lumbar w/o Contras ton [...] Electronically Signed in Other Vendor System) Normal [facility] MRI Spine Thoracic w/o Contr fawad [...] Electronically Signed in Other Vendor System) Normal [facility] Neurosurgery Consultationon 06-07-2019 Neurosurgery Consultation Chief [...] ulnar neuropathy-patient was offered ulnar transposition in [facility] and the patient refused. Patient has chronic [...] fasciitis and subsequently followed up with a drum cleaner who informed her that she did not [...] subsequently went to the emergency room in [place] and was transferred to [facility]. Patient denies any recent infections, fevers, chills. 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 with [...] to confrontation, no nystagmus, no evidence of Niurka syndrome, equal facies, equal auditory perception to [...] sedimentation rate 11 Imaging: MRI thoracic spine [facility] May 2019 unremarkable MRI lumbar spine [facility] May 2019 reveals annular tear L3 4 [...] Time spent evaluating the patient-approximately 25 minutes [id number] Problem List/Past Medical History Ongoing Sacroiliac pain [...] Davidson III, MD 06/07/19 06:39 EDT Normal [facility] Progress Note - [employer] Progress Note [...] H 366 (JUN 07) Na 139 (SEP 11) K 4.1 (SEP ) CO2 23 (SEP ) Cl 104 (JUN 07) Cr 0.54 (JUN [...] Inhale, q4hr, PRN baclofen, 10 mg, Oral, z1eg-Haeagxxc Times, PRN Depakote, 250 mg, Oral, BID docusate sodium, 100 mg, Oral, Daily, PRN gabapentin, 100 mg, Oral, TID ketorolac, 30 mg, 1 mL, IV Push, q6hr, PRN Lidoderm 5% topical film, 1 patches, Topical, Daily methocarbamol, 750 mg, Oral, HS (at bedtime) MiraLax, 17 g, 1 EA, Oral, Daily, PRN naloxone, 0.4 mg, 1 mL, IV Push, q2min, PRN [place] 5 mg-325 mg oral tablet, 1 tabs, [...] Dose: 06/07/19 10:01:00 EDT, Dispense From Location: [employer] baclofen, 10 mg, Oral, Tab, l0ge-Qkhpkavp Times, PRN spasm, First Dose: 06/07/19 9:24:00 EDT, Dispense From Location: Pivbajk-EUW-6N divalproex sodium, 250 mg, Oral, Tab-DR, BID, First Dose: 06/07/19 10:14:00 EDT, Dispense From Location: Yejrvut-MQA-4E gabapentin, 100 mg, Oral, Cap, TID, First Dose: 06/07/19 14:00:00 EDT, Dispense From Location: Lcodiel-ONV-1Q hydrocodone-acetaminoph en, 1 tabs, Oral, Tab, q4hr, PRN severe pain [7-10 on pain scale], First Dose: 06/07/19 10:10:00 EDT, Dispense From Location: Vsmmtrr-RRM-6Q methocarbamol, 750 mg, Oral, Tab, HS (at bedtime), First Dose: 06/07/19 21:00:00 EDT, Dispense From Location: [employer] Communication Order Consult to Case Management Occupational Therapy Evaluation and Treatment Inpatient Referral to Pain Specialist Electronically signed by ___ Kat Jeffries CNP 06/07/19 10:52 EDT Normal [facility] UA w/Reflex Cultureon 2018 Acetoacetic Acid,Ur Negative Normal NEG [facility] Comment on above: Performed By: #### ALEXANDRA PAIGE UHCG #### [facility] [address] [place] [address] Horticultural Manager: Dilip Segura MD Bilirubin, SemiQt,Ur Negative Normal NEG [facility] Comment on above: Performed By: #### ALEXANDRA PAIGE UHCG #### [facility] [address] [place], [place] [phone] Horticultural Manager: Dilip Segura MD Color (U) YELLOW Normal YEL [facility] Comment on above: Performed By: #### U AX, UMICAO, UHCG #### [facility] [address] [place], [place] [address] Horticultural Manager: Dilip Segura MD Glucose Ql (U) Negative Normal NEG [facility] in Hospital Comment on above: Performed By: #### U AX, UMICAO, UHCG #### [facility] [address] [place], [place] [address] Horticultural Manager: Dilip Segura MD Hemoglobin, Ur TRACE Abnormal NEG [facility] Comment on above: Performed By: #### U AX, UMICAO, UHCG #### [facility] [address] [place] [address] Dr. [place], [place] [phone] Horticultural Manager: Dilip Segura MD Leukocyte esterase Test strip Ql (U) Negative Normal [facility] Comment on above: Performed By: #### U AX, UMICAO, CG #### [address] [place], [place] [address]83 Horticultural Manager: Dilip Segura MD Nitrite,Ur Negative Normal [facility] Comment on above: Performed By: #### U AX, UMICAO, UHCG #### [facility] [address] [place] [address] [address] [place], [place] [id number] Horticultural Manager: Dilip Segura MD pH (U) 6.5 [pH] Normal 5.0-9.0 [facility] Comment on above: Performed By: #### U AX, UMICAO, UHCG #### [facility] [address] [place], [place] [address]83 Horticultural Manager: Dilip Segura MD Protein Ql (U) Negative Normal NEG [facility] Comment on above: Performed By: #### U AX, UMICAO, UHCG #### [facility] [address] [place], [place] [address]283[address] Horticultural Manager: Dilip Segura MD Specific gravity (U) [Rel density] 1.025 High 1.010-1.020 [facility] Comment on above: Performed By: #### U [facility]DRA [facility] #### [facility] [address] [place], [place] [address] Horticultural Manager: Dilip Segura MD Turbidity CLEAR Normal CLEAR [facility] Comment on above: Performed By: #### U [facility] #### [facility] [address] [place], [place] [address]83 Horticultural Manager: Dilip Segura MD Urobilinogen,Ur Normal Normal NORM [facility] Comment on above: Performed By: #### U [facility] [facility] #### [facility] [address] [place], [place] [id number] Horticultural Manager: Dilip Segura MD Comment NOT REPORTED Normal [facility] Comment on above: Performed By: #### U GERSON [facility] #### [facility] [address] [place], [place] [id number] Horticultural Manager: Dilip Segura MD S [facility] 06-07-2019 Creatinine [Mass/Vol] 51.3 mg/dL Normal [facility] Comment on above: Performed By: #### C [id number] #### [facility] [address] [place] [address] Ur Amph Scrn Negative Normal NEG = <1000 [facility] Comment on above: Performed By: #### C D:[id number] #### [facility] [address] [place] [id number] Ur Lala Scrn Negative Normal NEG = <200 [facility] Comment on above: Performed By: #### C [id number] #### [address] [place] [address] Ur Benzodia Scrn Negative Normal NEG = <200 [facility] Comment on above: Performed By: #### C D:[id number] #### [facility] [address] [place] [address] Ur Cannab Scrn Negative Normal NEG = <50 [facility] Comment on above: Performed By: #### C [id number] #### [address] [address] Ur Cocaine Scrn Negative Normal NEG = <300 [facility] Comment on above: Performed By: #### C [id number] #### [address] [address] Ur Methadone Scn Negative Normal NEG = <300 [facility] Comment on above: Performed By: #### C [id number] #### [address] [address] Ur Opiate Scrn Negative Normal NEG = <300 [facility] Comment on above: Performed By: #### C [id number] #### [address] [address] Ur Oxy Screen Negative Normal NEG = <100 [facility] Comment on above: Performed By: #### C D:[id number] #### [address] [address] Ur Oxy Scrn Qnt 0 ng/mL Normal <=99 [facility] Comment on above: Performed By: #### C D:[id number] #### [address] [address] Ur PCP Scrn Negative Normal NEG = <25 [facility] Comment on above: Performed By: #### C D:[id number] #### [address] [address] UA pH 8.0 Abnormal 4.5 - 7.8 [facility] Comment on above: Performed By: #### C D:[id number] #### [address] [place] [address] UA Spec Grav 1.009 Normal 1.003-1.035 [facility] Comment on above: Performed By: #### C D:[id number] #### [address] [address] Urinalysis,Microon 9 ----- Normal [facility] Comment on above: Performed By: #### U ALEXANDRA NIETO [facility] #### [facility] [address] [place] [id number] Horticultural Manager: Dilip Segura MD Bacteria LM.HPF (Urine sed) [#/Area] 1+ Abnormal NONE [facility] Comment on above: Performed By: #### [facility] #### [address] [place] [phone] Horticultural Manager: Dilip Segura MD Epithelial cells LM.HPF (Urine sed) [#/Area] 2 TO 5 Normal 0-25 [facility] Comment on above: Performed By: #### ALEXANDRA PAIGE [facility] #### [address] [place] [phone] Horticultural Manager: Dilip Segura MD Mucus Strands 3+ Abnormal [facility] Comment on above: Performed By: #### U ALEXANDRA NIETO [facility] #### [facility] [address] [place] [id number] Horticultural Manager: Dilip Segura MD RBC (U) [#/Vol] 0 TO 2 Normal 0-2 [facility] Comment on above: Performed By: #### [facility] #### [facility] [address] [place] [address] Horticultural Manager: Dilip Segura MD WBC (U) [#/Vol] 0 TO 2 Normal 0-5 [facility] Comment on above: Performed By: #### U AX, UMICAO, UHCG #### [facility] [address] [place] [address] Horticultural Manager: Dilip Segura MD Amorphous sediment LM Ql (Urine sed) NOT REPORTED Normal NONE [facility] Comment on above: Performed By: #### U AX, UMICAO, UHCG #### [facility] [address] [place] [address] Horticultural Manager: Dilip Segura MD Casts LM.LPF (Urine sed) [#/Area] NOT REPORTED Normal [facility] Comment on above: Performed By: #### [facility], [facility] #### [facility] [address] [place] [address] Horticultural Manager: Dilip Segura MD Crystals LM Nom (Urine sed) NOT REPORTED Normal [facility] Comment on above: Performed By: #### U AX, [facility], [facility] #### [facility] [address] [place] [address] Horticultural Manager: Dilip Segura MD Epithelial, Renal NOT REPORTED Normal 0 [facility] Comment on above: Performed By: #### U AX, UMICAO, CG #### [facility] [address] [place] [address] Horticultural Manager: Dilip Segura MD Other Observations NOT REPORTED Normal NREQ [facility] Comment on above: Performed By: #### U AX, UMICAO, UHCG #### [facility] [address] [place] [address] Horticultural Manager: Dilip Segura MD Trichomonas NOT REPORTED Normal NONE [facility] Comment on above: Performed By: #### U AX, UMICAO, UHCG #### [facility] [address] [place], [place] [id number] Horticultural Manager: Dilip Segura MD Yeast LM Ql (Urine sed) NOT REPORTED Normal NONE [facility] Comment on above: Performed By: #### U GERSON, ALEXANDRA, [facility] #### [facility] [address] [place] [address] Horticultural Manager: Dilip Segura MD XR Hip 2-3 [...] Electronically Signed in Other Vendor System) Normal [facility] Basic Metabolic Panelon 05-28 Anion gap [Moles/Vol] 15 mmol/L 9 - 17 mmol/L [employer] Bun/Cre Ratio 11 [place] Calcium [Mass/Vol] 9.2 mg/dL 8.6 - 10. 4 mg/dL [facility] [place] Chloride [Moles/Vol] 102 mmol/L 98 - 107 mmol/L [facility] [place] CO2 [Moles/Vol] 22 mmol/L 20 - 31 mmol/L [facility] [place] Creatinine [Mass/Vol] 0.56 mg/dL 0.5 - 0.9 mg/dL [employer] GFR >60 >60 mL/min [employer] GFR Non- >60 >60 mL/min [employer] Glucose [Mass/Vol] 153 mg/dL High 70 - 99 mg/dL [employer] Interpretation and review of laboratory results Abnormal [employer] Potassium [Moles/Vol] 3.6 mmol/L Low 3.7 - 5.3 mmol/L [employer] Sodium [Moles/Vol] 139 mmol/L 135 - 144 mmol/L [employer] Urea nitrogen [Mass/Vol] 6 mg/dL 6 - 20 mg/dL [employer] CBC auto differentialon 05-28 Basophils (Bld) [#/Vol] 0.03 10*3/uL [employer] Basophils/100 WBC (Bld) 0 % 0 - 2 % [employer] Differential Type NOT REPORTED [employer] Eosinophils (Bld) [#/Vol] 10*3/uL [employer] Eosinophils/100 WBC (Bld) 0 % Low 1 - 4 % [employer] Erythrocyte distribution width (RBC) [Ratio] 13.6 % 11.8 - 14.4 % [employer] Hematocrit (Bld) [Volume fraction] 37.2 % 36.3 - 47.1 % [employer] Hemoglobin (Bld) [Mass/Vol] 11.8 g/dL Low 11.9 - 15.1 g/dL [employer] Immature granulocytes (Bld) [#/Vol] 1 % High 0 [employer] Immature granulocytes (Bld) [#/Vol] 0.08 10*3/uL [employer] Interpretation and review of laboratory results Abnormal [employer] Lymphocytes (Bld) [#/Vol] 1.23 10*3/uL [employer] Lymphocytes/100 WBC (Bld) 9 % Low 24 - 43 % [employer] MCH (RBC) [Entitic mass] 27.8 pg 25.2 - 33.5 pg [employer] MCHC (RBC) [Mass/Vol] 31.7 g/dL 28.4 - 34.8 g/dL [employer] MCV (RBC) [Entitic vol] 87.5 fL 82.6 - 102.9 fL [employer] Monocytes (Bld) [#/Vol] 0.52 10*3/uL [employer] Monocytes/100 WBC (Bld) 4 % 3 - 12 % [employer] Platelet mean volume (Bld) [Entitic vol] 9.3 fL 8.1 - 13.5 fL [employer] Platelets (Bld) [#/Vol] 357 10*3/uL [employer] Platelets (Bld) [#/Vol] NOT REPORTED [employer] RBC (Bld) [#/Vol] 4.25 10*6/uL 3.95 - 5.1 1 m/uL [employer] RBC morphology finding Nom (Bld) NOT REPORTED [employer] Segmented neutrophils/100 WBC (Bld) 86 % High 36 - 65 % [employer] Segs Absolute 11.32 High [place] WBC (Bld) [#/Vol] 0.0 10*3/uL 0.0 per 10 0 WBC [employer] WBC (Bld) [#/Vol] 13.2 10*3/uL High [employer] WBC Morphology NOT REPORTED [place] Metabolic Panelon 06-06-2019 GFR/1.73 sq M predicted among non-blacks MDRD (S/P/Bld) [Vol rate/Area] [employer] Comment on above: Stage 1: Some [...] body mass. Additional eGFR calculator available at: http://www.[employer]/multiple_crcl_2012.htm Microscopic Urinalysison Amorphous, UA NOT REPORTED None [place] Bacteria, UA 1+ Abnormal None [place] Casts UA NOT REPORTED /LPF [place] Crystals UA NOT REPORTED None /HPF [place] Epithelial Cells UA 2 TO 5 [employer] Interpretation and review of laboratory results Abnormal [employer] Mucus, UA 3+ Abnormal None [employer] Other Observations UA NOT REPORTED NOT REQ. [employer] RBC (U) [#/Vol] 0 TO 2 [place] Renal Epithelial, Urine NOT REPORTED 0 /HPF [employer] Trichomonas, UA NOT REPORTED None [facility] [place] WBC, UA 0 TO 2 [employer] Yeast, UA NOT REPORTED None [place] - [employer] , Urineon 9 Beta HCG ( test) Ql (U) Negative NEGATIVE [employer] Comment on above: Specimens with hCG l evels near the threshold of the test (25 mIU/mL) may give a negative or indeterminate result. In such cases, another test should be performed with a new specimen in 48-72 hours. If early is suspected clinically in this setting, correlation with quantitative serum b-hCG level is suggested. [facility] has confirmed the use of plasma for this test. This has not been cleared or approved by the U.S. Food and Drug Administration. The FDA has determined that such clearance is not necessary. Urinalysis Reflex to Culture on 06-06-2019 Bilirubin Urine Negative NEGATIVE [place] Color, UA YELLOW YELLOW [employer] Glucose, Ur Negative NEGATIVE [employer] Interpretation and review of laboratory results Abnormal [employer] Ketones Ql (U) Negative NEGATIVE [place] Leukocyte esterase Test strip Ql (U) Negative NEGATIVE [employer] Nitrite, Urine Negative NEGATIVE [place] pH, UA 6.5 [employer] Protein (U) [Mass/Vol] Negative NEGATIVE [employer] Specific [place], UA 1.025 High [employer] Turbidity UA CLEAR CLEAR [place] Urinalysis Comments NOT REPORTED [employer] Urine Hgb TRACE Abnormal NEGATIVE [employer] Urobilinogen, Urine Normal Normal [employer] XR FOOT RIGHT (MIN 3 VIEWS)o [...] Casey Hanna MD 05/22/19 Final result Normal [facility] No acute osseous abnormality or arthropathic features identified. [employer] EXAMINATION: THREE X RAY VIEWS OF THE RIGHT FOOT 05/22/2019 1:19 pm COMPARISON: None. HISTORY: ORDERING SYSTEM PROVIDED HISTORY: pain to foot TECHNOLOGIST PROVIDED HISTORY: pain to foot FINDINGS: No fracture or malalignment identified. The joint spaces are maintained. Bipartite medial sesamoid. No discrete soft tissue abnormality identified. [employer] Ankit, Mhpn Incoming Radiant Results From [employer] - 05/22/2019 1:26 PM EDT EXAMINATION: THREE XRAY VIEWS OF THE RIGHT FOOT 05/22/2019 1:19 pm COMPARISON: None. HISTORY: ORDERING SYSTEM PROVIDED HISTORY: pain to foot TECHNOLOGIST PROVIDED HISTORY: pain to foot FINDINGS: No fracture or malalignment identified. The joint spaces are maintained. Bipartite medial sesamoid. No discrete soft tissue abnormality identified. IMPRESSION: No acute osseous abnormality or arthropathic features identified. [employer] Vital Signs Date Time Vital Sign Value Performing Clinician Facility 05-29-2025 10:37-0400 Body mass index (BMI) [Ratio] 27.02 kg/m2 Oralia MENDEZ Work Phone: [facility] 05-29-2025 10:37-0400 Body weight 71.4 kg Oralia MENDEZ Work Phone: [facility] 05-29-2025 10:37-0400 Diastolic blood pressure 72 mm[Hg] Oralia MENDEZ Work Phone: [facility] 05-29-2025 10:37-0400 Systolic blood pressure 120 mm[Hg] Oralia MENDEZ Work Phone: [facility] 05-18-2025 14:19-0400 Body height 162.6 cm Annabel Shukla MD Work Phone: [facility] 05-18-2025 14:19-0400 Body mass index (BMI) [Ratio] 26.09 kg/m2 Annabel Shukla MD Work Phone: [facility] 05-18-2025 14:19-0400 Body weight 68.95 kg Annabel Shukla MD Work Phone: [facility] 05-18-2025 14:19-0400 Diastolic blood pressure 78 mm[Hg] Annabel Shukla MD Work Phone: [facility] 05-18-2025 14:19-0400 Heart rate 78 /min Annabel Shukla MD Work Phone: [facility] 05-18-2025 14:19-0400 Respiratory rate 18 /min Annabel Shukla MD Work Phone: [facility] 05-18-2025 14:19-0400 SaO2% (BldA) [Mass fraction] 99 % Annabel Shukla MD Work Phone: [facility] 05-18-2025 14:19-0400 Systolic blood pressure 118 mm[Hg] Annabel Shukla MD Work Phone: [facility] 05-01-2025 [id number] Body height 162.6 cm Annabel Shukla MD Work Phone: [facility] 05-01-2025 10:11-0400 Body mass index (BMI) [Ratio] 26.3 kg/m2 Annabel Shukla MD Work Phone: [facility] 05-01-2025 10:11-0400 Body weight 69.49 kg Annabel Shukla MD Work Phone: [facility] 05-01-2025 10:11-0400 Diastolic blood pressure 70 mm[Hg] Annabel Shukla MD Work Phone: [facility] 05-01-2025 10:11-0400 Heart rate 74 /min Annabel Shukla MD Work Phone: [facility] 05-01-2025 10:11-0400 SaO2% (BldA) [Mass fraction] 96 % Annabel Shukla MD Work Phone: [facility] 05-01-2025 10:11-0400 Systolic blood pressure 118 mm[Hg] Annabel Shukla MD Work Phone: [facility] 04-10-2025 10:39-0400 Body height 162.6 cm Annabel Shukla MD Work Phone: [facility] 04-10-2025 10:39-0400 Body mass index (BMI) [Ratio] 26.71 kg/m2 Annabel Shukla MD Work Phone: [facility] 04-10-2025 10:39-0400 Body weight 70.58 kg Annabel Shukla MD Work Phone: [facility] 04-10-2025 10:39-0400 Diastolic blood pressure 78 mm[Hg] Annabel Shukla MD Work Phone: [facility] 04-10-2025 10:39-0400 Heart rate 70 /min Annabel Shukla MD Work Phone: [facility] 04-10-2025 10:39-0400 SaO2% (BldA) [Mass fraction] 99 % Annabel Shukla MD Work Phone: [facility] 04-10-2025 10:39-0400 Systolic blood pressure 122 mm[Hg] Annabel Shukla MD Work Phone: [facility] 04-02-2025 14:39-0400 Body height 162.6 cm Van Aguila DO Work Phone: [facility] 04-02-2025 14:39-0400 Body mass index (BMI) [Ratio] 28.49 kg/m2 Van Aguila DO Work Phone: [facility] 04-02-2025 14:39-0400 Body weight 75.3 kg Van Aguila DO Work Phone: [facility] 03-28-2025 08:57-0400 Body height 162.6 cm Jeison Delgado MD Work Phone: [facility] 03-28-2025 08:57-0400 Body mass index (BMI) [Ratio] 28.49 kg/m2 Jeison Delgado MD Work Phone: [facility] 03-28-2025 08:57-0400 Body weight 75.3 kg Jeison Delgado MD Work Phone: [facility] 03-28-2025 08:57-0400 Diastolic blood pressure 74 mm[Hg] Jeison Delgado MD Work Phone: [facility] 03-28-2025 08:57-0400 Heart rate 79 /min Jeison Delgado MD Work Phone: [facility] 03-28-2025 08:57-0400 Systolic blood pressure 124 mm[Hg] Jeison Delgado MD Work Phone: [facility] 02-14-2025 10:26-0400 Body height 162.6 cm Jeison Delgado MD Work Phone: [facility] 02-14-2025 10:26-0400 Body mass index (BMI) [Ratio] 28.49 kg/m2 Jeison Delgado MD Work Phone: [facility] 02-14-2025 10:26-0400 Body weight 75.3 kg Jeison Delgado MD Work Phone: [facility] 02-14-2025 10:26-0400 Diastolic blood pressure 77 mm[Hg] Jeison Delgado MD Work Phone: [facility] 02-14-2025 10:26-0400 Heart rate 78 /min Jeison Delgado MD Work Phone: [facility] 02-14-2025 10:26-0400 Systolic blood pressure 136 mm[Hg] Jeison Delgado MD Work Phone: [facility] 01-29-2025 11:58-0400 Body height 162.6 cm Anabelle Hachuckenburg SURVEYOR HELPER Work Phone: [facility] 01-29-2025 11:58-0400 Body mass index (BMI) [Ratio] 28.49 kg/m2 Anabelle Hackenburg SURVEYOR HELPER Work Phone: [facility] 01-29-2025 11:58-0400 Body weight 75.3 kg Anabelle Nadyaenburg SURVEYOR HELPER Work Phone: [facility] 01-29-2025 11:58-0400 Diastolic blood pressure 70 mm[Hg] Anabelle Hachuckenburg SURVEYOR HELPER Work Phone: [facility] 01-29-2025 11:58-0400 Heart rate 66 /min Anabelle Hackenburg SURVEYOR HELPER Work Phone: [facility] 01-29-2025 11:58-0400 Respiratory rate 18 /min Anabelle Hachuckenburg SURVEYOR HELPER Work Phone: [facility] 01-29-2025 11:58-0400 SaO2% (BldA) [Mass fraction] 98 % Anabelle Hachuckenburg SURVEYOR HELPER Work Phone: [facility] 01-29-2025 11:58-0400 Systolic blood pressure 118 mm[Hg] Anabelle Hackenburg SURVEYOR HELPER Work Phone: [facility] 01-09-2025 10:19-0400 Body height 162.6 cm Debi Brian SURVEYOR HELPER Work Phone: [facility] 01-09-2025 10:19-0400 Body mass index (BMI) [Ratio] 29.7 kg/m2 Debi Brian SURVEYOR HELPER Work Phone: [facility] 01-09-2025 10:19-0400 Body weight 78.47 kg Debi Torres SURVEYOR HELPER Work Phone: [facility] 01-09-2025 10:19-0400 Diastolic blood pressure 78 mm[Hg] Debi Torres SURVEYOR HELPER Work Phone: [facility] 01-09-2025 10:19-0400 Heart rate 67 /min Debi Torres SURVEYOR HELPER Work Phone: [facility] 01-09-2025 10:19-0400 Respiratory rate 16 /min Debi Torres SURVEYOR HELPER Work Phone: [facility] 01-09-2025 10:19-0400 SaO2% (BldA) [Mass fraction] 100 % Debi Torres SURVEYOR HELPER Work Phone: [facility] 01-09-2025 10:19-0400 Systolic blood pressure 118 mm[Hg] Debi Torres SURVEYOR HELPER Work Phone: [facility] 09-25-2023 10:30-0500 Body height 162.56 cm Ana Moore Other [facility] Other 09-25-2023 10:30-0500 Body mass index (BMI) [Ratio] 28.42 kg/m2 Ana Moore Other [facility] Other 09-25-2023 10:30-0500 Body temperature 98.2 [degF] Ana Moore Other [facility] Other 09-25-2023 10:30-0500 Body weight 75.12 kg Ana Moore Other [facility] Other 09-25-2023 10:30-0500 Respiratory rate 18 /min Ana Moore Other [facility] Other 09-25-2023 10:30-0500 SaO2% (BldA) [Mass fraction] 96 % Ana Moore Other [facility] Other 06-06-2019 22:30-0400 BMI (Body Mass Index) 23.17 kg/m2 [facility] [place] 06-06-2019 22:30-0400 Body Temperature 98.6 [degF] [facility] [place] 06-06-2019 22:30-0400 Body weight 61.24 kg [facility] [place] 06-06-2019 22:30-0400 BP Diastolic 87 mm[Hg] [facility] [place] 06-06-2019 22:30-0400 BP Systolic 125 mm[Hg] [facility] [place] 06-06-2019 22:30-0400 Height 162.6 cm [facility] [place] 06-06-2019 22:30-0400 Pulse (Heart Rate) 93 /min [facility] [place] 06-06-2019 22:30-0400 Pulse Oximetry 98 % [facility] [place] 06-06-2019 22:30-0400 Respiratory Rate 16 /min [facility] [place] 05-22-2019 13:46-0400 Respiratory Rate 16 /min [facility] [place] 05-22-[facility] 13:09-0400 Body Temperature 97.9 [degF] Annabel [facility] [place] 05-22-2019 13:09-0400 BP Diastolic 91 mm[Hg] Annabel [facility] [place] 05-22-2019 13:09-0400 BP Systolic 128 mm[Hg] [facility] [place] 05-22-2019 13:09-0400 Pulse (Heart Rate) 78 /min Annabel [facility] [place] 05-22-2019 13:09-0400 Pulse Oximetry 99 % Annabel Ibarra [employer] Encounters Encounter Date Encounter Type Care Provider Facility Start: 05-29-2025 End: 05-29-2025 Bamboo flowsheet Oralia MENDEZ Work Phone: [facility] Start: 05-29-2025 End: 05-29-2025 Bamboo flowsheet Oralia MENDEZ Work Phone: [facility] Start: 05-29-2025 End: 05-29-2025 Patient encounter procedure Oralia MENDEZ Work Phone: [facility] Work Phone: Start: 05-29-2025 End: 05-29-2025 Periodic preventive med est patient 18-39 yrs Oralia MENDEZ Work Phone: [facility] Comment on above: Well woman exam with routine gynecological exam; Chronic vaginitis Start: 05-18-2025 End: 05-18-2025 Office outpatient visit 15 minutes Annabel Shukla MD Work Phone: [facility] Comment on above: Right wrist pain (Pr imary Dx); Epigastric pain Start: 05-18-2025 End: 05-18-2025 ambulatory ANNABEL SHUKLA Not Available Start: 05-18-2025 End: 05-18-2025 Bamboo flowsheet Annabel Shukla MD Work Phone: [facility] Start: 05-18-2025 End: 05-18-2025 Bamboo flowsheet Annabel Shukla MD Work Phone: [facility] Start: 05-01-2025 End: 05-01-2025 Bamboo flowsheet Annabel Shukla MD Work Phone: [facility] Start: 05-01-2025 End: 05-01-2025 Bamboo flowsheet Annabel Shukla MD Work Phone: [facility] Start: 05-01-2025 End: 05-01-2025 Office outpatient visit 15 minutes Annabel Shukla MD Work Phone: [facility] Comment on above: Epigastric pain (Kassie pj Dx); Arthralgia, unspecified joint Start: 05-01-2025 End: 05-01-2025 ambulatory ANNABEL SHUKLA Not Available Start: 04-10-2025 End: 04-10-2025 Bamboo flowsheet Annabel Shukla MD Work Phone: [facility] Start: 04-10-2025 End: 04-10-2025 Bamboo flowsheet Annabel Shukla MD Work Phone: [facility] Start: 04-10-2025 End: 04-10-2025 Office outpatient visit 25 minutes Annabel Shukla MD Work Phone: [facility] Comment on above: Weight loss, uninten tional (Primary Dx); Epigastric pain; Elevated liver enzymes; Lymphadenopathy Start: 04-10-2025 End: 04-10-2025 ambulatory ANNABEL SHUKLA Not Available Start: 04-09-2025 End: 04-09-2025 ambulatory VAN AGUILA Not Available Start: 04-02-2025 End: 04-02-2025 Office outpatient visit 25 minutes [facility] Comment on above: LAD (lymphadenopathy ), supraclavicular Start: 04-02-2025 End: 04-02-2025 ambulatory VAN W MURCEK Not Available Start: 04-02-2025 End: 04-02-2025 Bamboo flowsheet aVn Camk DO Work Phone: [facility] Start: 04-02-2025 End: 04-02-2025 Bamboo flowsheet Van Camk DO Work Phone: [facility] Start: 03-28-2025 End: 03-28-2025 Bamboo flowsbhumika Delgado [...] Departed Referred Bret Rose MD Work Phone: [facility] Start: 03-01-2025 End: 03-01-2025 ambulatory Bret Rose [facility] Work Phone: Start: 02-14-2025 End: 02-14-2025 Bamboo flowsbhumika Delgado MD Work Phone: [facility] Start: 02-14-2025 End: 02-14-2025 Bamboo deanna Delgado MD Work Phone: [facility] Start: 02-14-2025 End: 02-14-2025 Office outpatient new 45 minutes Jeison Delgado MD Work Phone: [facility] Comment on above: Enlarged lymph nodes Start: 02-14-2025 End: 02-14-2025 ambulatory JEISON DELGADO Not Available Start: 02-07-2025 End: 02-07-2025 ambulatory ANABELLE A HACKENBURG Not Available Start: 02-03-2025 End: 02-03-2025 Orders Only Anabelle A [place] SURVEYOR HELPER Work Phone: [facility] Comment on above: Enlarged lymph nodes (Primary Dx); Lymphadenopathy Start: 02-01-2025 End: 02-01-2025 ambulatory ANABELLE IRVIN Not Available Start: 01-29-2025 End: 01-29-2025 Bamboo flowsheet Anabelle Irvin SURVEYOR HELPER Work Phone: [facility] Start: 01-29-2025 End: 01-30-2025 Bamboo flowsheet Anabelle A Vin[place] SURVEYOR HELPER Work Phone: [facility] Start: 01-29-2025 End: 01-30-2025 External Result Encounter Debi Reynagaoll SURVEYOR HELPER Work Phone: [facility] Unsolicited Start: 01-29-2025 End: 02-01-2025 Follow-up encounter Anabelle Irvin SURVEYOR HELPER Work Phone: [facility] Start: 01-29-2025 End: 01-29-2025 Office outpatient visit 25 minutes Anabelle Irvin SURVEYOR HELPER Work Phone: [facility] Comment on above: Generalized pruritus (Primary Dx); Lymphadenopathy; Weight loss, unintentional Start: 01-29-2025 End: 01-29-2025 ambulatory ANABELLE IRVIN Not Available Start: 01-09-2025 End: 01-09-2025 Office outpatient visit 15 minutes Debi Reynagaoll SURVEYOR HELPER Work Phone: [facility] [place] Comment on above: Seizure disorder (CM S/HCC) (Primary Dx); Encounter for medication monitoring; Mood disorder (CMS/HCC); Headache, unspecified headache type; Dizziness Start: 01-09-2025 End: 01-09-2025 ambulatory DEBI BRIAN Not Available Start: 09-25-2023 End: 09-25-2023 ambulatory Ana Moore Other [facility] Other Start: 09-25-2023 Office outpatient ne w 20 minutes Ana Moore [facility] [place] Start: 01-01-2023 End: 01-02-[address] JHONATAN HOOPER . Facility: Start: 12-31-2022 End: 01-01-[address] NONE LISTED REQUEST Facility: Start: 11-25-2022 End: 11-25-2022 ambulatory MD Annabel Shukla Work Phone: [facility] Work Phone: Start: 11-25-2022 End: 11-25-2022 Patient encounter procedure MD Annabel Shukla Work Phone: [facility] [place] Work Phone: Start: 03-19-2022 End: 03-19-[address] JHONATAN HOOPER . Facility: Start: 06-28-2020 End: 07-15-2020 Patient encounter procedure SERA ESPANA Facility:[facility] Start: 06-26-2019 End: 06-26-2019 Patient encounter procedure Annabel Shukla Facility:[facility] Start: 06-07-2019 End: 06-08-2019 Patient encounter procedure PEDRO GARCIA Facility:[facility] Start: 06-07-2019 End: 06-07-2019 Emergency department patient visit [facility] Katharina [facility] Start: 06-06-2019 End: 06-07-2019 Emergency department patient visit Johny Polo Work Phone: [facility] ED Start: 05-22-2019 End: 05-22-2019 Emergency department patient visit [facility] Start: 05-22-2019 End: 05-22-2019 [facility] Comment on above: Plantar fasciitis (P rimary Dx) Procedures Date Procedure Procedure Detail Performing Clinician Start: 01-29-2025 Complete blood count with white cell differential, automated Debi Torres SURVEYOR HELPER Work Phone: Start: 03-19-2022 Microscopic observat ion [Identifier] in Cervix by Cyto stain Debi Torres NP Work Phone: Start: 06-07-2019 Ct lumbar spine w/o contrast material ANNABEL IBARRA Start: 06-07-2019 Basic metabolic pane l calcium total ANNABEL IBARRA Start: 06-07-2019 Blood count complete auto&auto difrntl wbc ANNABEL IBARRA Start: 06-07-2019 Urinalysis microscop ic only ANNABEL IBARRA Start: 06-07-2019 Urine test visual color cmprsn meths ANNABEL IBARRA Start: 06-07-2019 Urnls dip stick/tabl et rgnt auto w/o microscopy ANNABEL IBARRA Start: 06-06-2019 Ct lumbar spine w/o contrast material Johny A Tubis Work Phone: Start: 06-06-2019 Basic metabolic pane l calcium total Johny A Chris Work Phone: Start: 06-06-2019 Blood count complete auto&auto difrntl wbc Johny A Chris Work Phone: Start: 06-06-2019 Urinalysis microscop ic only Johny A Chris Work Phone: Start: 06-06-2019 Urine test visual [...] 03-19-2027 Screening for malignant neoplasm of cervix [facility] Start: 06-04-2026 End: 06-04-2026 Patient encounter procedure 06/04/2026 9:00 AM EDT Procedure Visit [facility] [address] [place] [address] Jhonatan Hooper, DO [address] [place] [address] MISAELDenisse Eula THOMPSON Start: 07-17-2025 End: 07-17-2025 Patient encounter procedure 07/17/2025 11:00 AM EDT Office Visit [facility] [address] [address] [place] [address] Debi Torres NP [address] [place] [address] [facility] [place] Start: 05-29-2025 End: 05-29-2025 Patient encounter procedure [facility] Comment on above: Arrived Start: 05-28-2025 Influenza vaccination [facility] Start: 05-18-2025 End: 05-18-2025 Patient encounter procedure 05/18/2025 2:20 PM EDT Office Visit [facility] [address] [place] [address] Annabel Shukla MD [address] [place], [place] [id number] Arrived [facility] Comment on above: Arrived Start: 05-07-2025 End: 05-07-2025 Patient encounter procedure 05/07/2025 2:15 PM EDT Office Visit [facility] [place] [address] [place] [phone] Van Aguila, [address] [place] [address] [facility] [place] Start: 05-01-2025 End: 05-01-2026 Nuclear Ab [Titer] in Serum by Immunofluorescence [facility] Lab Routine Arthralgia, unspecified joint Expected: 05/01/2025 (Approximate), Expires: 05/01/2026 [facility] Work Phone: Comment on above: Expected: 05/01/2025 (Approximate), Expi res: 05/01/2026 Start: 05-01-2025 End: 05-01-2025 Patient encounter procedure 05/01/2025 10:20 AM EDT Office Visit [facility] [address] [place] [phone] Annabel Shukla MD [address] [place] [address] Arrived [facility] Comment on above: Arrived Start: 04-10-2025 End: 04-10-2026 CBC W Auto Differential panel - Blood CBC and differential Lab Routine Weight loss, unintentional Expected: 04/10/2025 (Approximate), Expires: 04/10/2026 [facility] Work Phone: Comment on above: Expected: 04/10/2025 (Approximate), Expi res: 04/10/2026 Start: 04-10-2025 End: 04-10-2026 Erythrocyte sedimentation rate Sedimentation rate, automated Lab Routine Weight loss, unintentional Expected: 04/10/2025 (Approximate), Expires: 04/10/2026 [facility] Comment on above: Expected: 04/10/2025 (Approximate), Expi res: 04/10/2026 Start: 04-10-2025 End: 04-10-2026 Lactate dehydrogenase [Enzymatic activity/volume] in Serum or Plasma by Lactate to pyruvate reaction Lactate dehydrogenase Lab Routine Weight loss, unintentional Expected: 04/10/2025 (Approximate), Expires: 04/10/2026 [facility] Comment on above: Expected: 04/10/2025 (Approximate), Expi res: 04/10/2026 Start: 04-10-2025 End: 04-10-2026 Protein electrophoresis, serum Protein electrophoresis, serum Lab Routine Weight loss, unintentional Expected: 04/10/2025 (Approximate), Expires: 04/10/2026 [facility] Comment on above: Expected: 04/10/2025 (Approximate), Expi res: 04/10/2026 Start: 04-10-2025 End: 04-10-2025 Patient encounter procedure 04/10/2025 10:40 AM EDT Office Visit [facility] [address] [facility] [place] [phone] Annabel Shukla MD [address] [facility] [place] [address] Arrived [facility] Comment on above: Arrived Start: 04-02-2025 End: 04-02-2025 Patient encounter procedure 04/02/2025 3:00 PM EDT Office Visit [facility] [place] [address] [place] [address] Van Aguila W, DO [address] [place] [address] LAD (lymphadenopathy), supraclavicular [facility] [place] Comment [...] Visit [facility] [address] [place] [address] Jeison Delgado MD [address] [place] [address] Arrived [facility] Comment on above: Arrived Start: 02-14-2025 End: 02-14-2025 Patient encounter procedure 02/14/2025 10:30 AM EDT Office Visit [facility] [address] [place] [address] Jeison Delgado MD [address] [place] [address] Enlarged lymph nodes [facility] Comment [...] Ancillary Procedure [facility] [address] [place] [address] [facility] Start: 01-29-2025 End: 01-29-2026 [...] EDT Office Visit [facility] [address] [place] [address] Anabelle Irvin NP [address] [place] [address] Arrived [facility] Comment on above: Arrived Start: 01-09-2025 End: [...] medication monitoring Expected: 01/09/2025 (Approximate), Expires: 01/09/2026 [facility] Comment on above: Expected: 01/09/2025 (Approximate), Expi res: 01/09/2026 Start: 01-09-2025 End: 01-09-2026 Lamotrigine level Lamotrigine level Lab Routine Encounter for medication monitoring Expected: 01/09/2025 (Approximate), Expires: 01/09/2026 [facility] Comment on above: Expected: 01/09/2025 (Approximate), Expi res: 01/09/2026 Start: 11-25-2022 MR Unspecified body region [facility] Start: 11-25-2022 MRI of head MR head/brain wo/w con [facility] Start: 05-28-2019 Influenza vaccination Flu vaccine (#1) [employer] [place] Start: 2013 Cervical cancer screen Cervical cancer screen [employer] [place] Start: 2011 DTaP/Tdap/Td vaccine (1 - Tdap) DTaP/Tdap/Td vaccine (1 - Tdap) [employer] Start: 2007 HIV screen HIV screen [employer] [place] Start: 2007 HPV vaccine (1 - Female 3-dose series) HPV vaccine (1 - Female 3-dose series) [employer] Start: 2005 Varicella Vaccine (1 of 2 - 13+ 2-dose series) Varicella Vaccine (1 of 2 - 13+ 2-dose series) [facility], [place] Cytology Cervical or vaginal smear or scraping study Pap Smear Pathology and Cytology Routine Well woman exam with routine gynecological exam Ordered: 05/29/2025 [facility] Work Phone: Comment on above: Ordered: 05/29/2025 Human papilloma viru s DNA [Presence] in Unspecified specimen by Probe with amplification HPV DNA probe, amplified Microbiology Routine Well woman exam with routine gynecological exam Ordered: 05/29/2025 [facility] Comment on above: Ordered: 05/29/2025 Immunizations Immunization Date Immunization Notes Care Provider Laura perea 06-07-2021 influenza, injectabl e, quadrivalent, preservative free Debi Torres SURVEYOR HELPER Work Phone: [facility] 06-07-2021 influenza virus vacc ine, unspecified formulation Debi Torres SURVEYOR HELPER Work Phone: [facility] 01-28-2021 Moderna SARS-CoV-2 Vaccination Debi Torres SURVEYOR HELPER Work Phone: [facility] 12-30-2020 Moderna SARS-CoV-2 Vaccination Debi Torres SURVEYOR HELPER Work Phone: [facility] 08-28-2019 influenza, seasonal, injectable Debi Torres SURVEYOR HELPER Work Phone: [facility] 06-05-2019 influenza, injectabl e, quadrivalent, preservative free Debi Torres SURVEYOR HELPER Work Phone: [facility] 06-05-2019 Seasonal trivalent influenza vaccine, adjuvanted, preservative free Debi Torres SURVEYOR HELPER Work Phone: [facility] 10-08-2014 tetanus toxoid, redu kip diphtheria toxoid, and acellular pertussis vaccine, adsorbed Debi Torres SURVEYOR HELPER Work Phone: [facility] Payers Date Payer Category Payer Private Health Insurance [facility] [id number] 2025 Self-pay [id number] 2023 Private Health Insurance [id number] 2019 Unknown 2019 Unknown [facility] xxxxxxxxxxxx 2019-Present [phone] [address] [place] [address] xxxxxxxxxxxx [id number] 1992 Unknown [id number] 2.16.840.1.106227.3.579.2.1 73 1992 Unknown [id number] 2.16.840.1.069546.3.579.2.1 73 1992 Unknown [id number] 2.16.840.1.042111.3.579.2.1 96 1992 Unknown [id number] 2.16.840.1.685444.3.579.2.1 96 1992 Unknown [id number] 2.16.840.1.808022.3.579.2.6 47 1992 Unknown [id number] 2.16.840.1.537416.3.579.2.5 93 1992 Unknown [id number] 2.16.840.1.552392.3.579.2.5 93 1992 Unknown [id number] 2.16.840.1.981571.3.579.2.5 93 1992 Unknown [id number] 2.16.840.1.731283.3.579.2.5 93 1992 Unknown [id number] 2.16.840.1.948177.3.579.2.7 18 1992 Unknown [id number] 2.16.840.1.620044.3.579.2.1 259 1992 Unknown [id number] 2.16.840.1.645587.3.579.2.1 259 1992 Unknown [id number] 2.16.840.1.437256.3.579.2.1 259 1992 Unknown [id number] 2.16.840.1.187735.3.579.2.1 259 1992 Unknown [id number] 2.16.840.1.746122.3.579.2.1 259 1992 Unknown [id number] 2.16.840.1.331387.3.579.2.1 259 1992 Unknown [id number] 2.16.840.1.958677.3.579.2.1 259 1992 Unknown [id number] 2.16.840.1.256334.3.579.2.1 259 1992 Unknown [id number] 2.16.840.1.182247.3.579.2.1 259 1992 Unknown [id number] 2.16.840.1.023315.3.579.2.1 259 1992 Unknown [id number] 2.16.840.1.855948.3.579.2.1 259 1992 Unknown [id number] 2.16.840.1.614540.3.579.2.1 259 1992 Unknown [id number] 2.16.840.1.591666.3.579.2.1 259 1959 Unknown [id number] Unknown [id number] 2.16.840.1.420899.19 Unknown [id number] 2.16840.1.655933.3.579.2.5 31 Social History Date Type Detail Facility Start: 05-22-2019 End: 06-06-2019 Tobacco smoking status CAIS Never smoker Daphney [facility] EDGAR NOEL Start: 1990 [facility] Start: 1990 Sex Assigned At Female [facility] Start: 09-16-2023 End: 05-18-2025 Sex Assigned At [facility] Start: 02-27-2023 End: 02-14-2025 Tobacco smoking status CAIS Ex-smoker [facility] History of tobacco use Current smoker [facility] History of tobacco use Cigarette Smoker [facility] Start: 02-27-2023 End: 02-14-2025 Tobacco use and exposure Smokeless tobacco non-user [facility] Start: 01-09-2025 End: 05-29-2025 Alcoholic beverage intake Ex-drinker (finding) [facility] Start: 09-16-2023 End: 05-18-2025 History of Social function [facility] Within the last year , have you been afraid of your partner or ex-partner? No [facility] Do you belong to any clubs or organizations such as cheondoism groups, unions, fraternal [...] Healthcare Start: 03-01-2023 Alcohol Comment caffeine: coffee [facility] Start: 02-14-2025 Tobacco Comment Smoked for 3 months in High school [facility] Tobacco smoking stat [facility] Unknown if ever smoked [facility] Work Phone: Start: 03-02-2025 Sex Female (finding) [facility] Clinical Notes 09-25-2023 to 05-29-2025 VANESSA Hidalgo - 05/29/2025 10:30 AM Nida Shukla MD - 05/18/2025 2:20 PM Nida Shukla MD - 05/01/2025 10:20 AM Nida Shukla MD - 04/10/2025 10:40 AM EDT Note Date & Type Note Facility 05-29-2025 History of Presen t illness Narrative Reason for Appointment: Patient ID: Unique Haque [...] Diagnosis Date Noted Asthma without status asthmaticus ([facility]) 01/26/2023 Mixed anxiety and depressive disorder 01/26/2023 Epilepsy ([facility]) 01/26/2023 Iron deficiency anemia 01/26/2023 Low grade squamous intraepithelial lesion (LGSIL) on cervicovaginal cytologic smear 01/26/2023 Other atopic dermatitis 01/26/2023 Panic attacks 01/26/2023 Vitamin D deficiency 01/26/2023 Abnormal gait 11/16/2019 Anemia affecting ([facility]) 10/27/2016 Echogenic bowel of fetus on ultrasound 10/28/2016 Joint pain 03/04/2023 Pain of left upper arm 06/10/2020 Positive antinuclear antibody 03/04/2023 Primary insomnia 05/17/2018 Ulnar neuropathy 03/04/2023 Sciatica 06/05/2019 Exacerbation of asthma ([facility]) 11/05/2016 Seizure disorder during ([facility]) 10/27/2016 Seizure ([facility]) 04/08/2018 Panic disorder 08/30/2015 Atopic dermatitis 11/14/2019 Cervicalgia 05/20/2023 Vertigo of central origin 05/20/2023 Balance disorder 05/20/2023 Sore throat 11/19/2023 Anxiety 03/28/2025 Lymphadenopathy 03/28/2025 Resolved Ambulatory Problems Diagnosis Date Noted No Resolved Ambulatory Problems Past Medical History: Diagnosis Date Allergic Asthma ([facility]) BMI 28.0-28.9,adult Cholecystitis COVID-19 Depression Elbow fracture Generalized epilepsy ([facility]) Groin pain Low grade squamous intraepithelial lesion (LGSIL) on Papanicolaou smear of cervix Pap smear of cervix to confirm normal smear following abnormal smear Seizures ([facility]) Shingles Strain of muscle, fascia and tendon of long head of biceps, left arm, initial encounter Torticollis HISTORY PAST MEDICAL HISTORY SOCIAL HISTORY Past Medical History: Diagnosis Date Allergic Anxiety Asthma ([facility]) BMI 28.0-28.9,adult Cholecystitis COVID-19 Depression Elbow fracture Generalized epilepsy ([facility]) Groin pain Low grade squamous intraepithelial lesion (LGSIL) on Papanicolaou smear of cervix Pap smear of cervix to confirm normal smear following abnormal smear Seizures ([facility]) Shingles Strain of muscle, fascia and tendon [...] LAPAROTOMY FRACTURE SURGERY elbow fracture HYSTERECTOMY 2020 [place] LAP,DIAGNOSTIC ABDOMEN VAGINAL DELIVERY WISDOM TOOTH EXTRACTION [...] nursing note reviewed. Exam conducted with a deflash and wash operator present. Vitals: Estimated body mass index is 27.02 kg/m as calculated from the following: Height as [...] of: VANESSA Hidalgo documented in this encounter [facility] 05-18-2025 History of Presen t illness Narrative Subjective ?Quick Links Last Note in Specialty [...] x-ray and follow up. She experiences throbbing pain that radiates up to her elbow, particularly [...] She inquires about a referral to a reserve officer. She started an anti-inflammatory diet last week. 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 Vital signs: Within normal limits Musculoskeletal: Diminished thumb strength and limited wrist movement on the right side. Tenderness noted along the scaphoid and thumb. Extremities: Mild [...] pain radiating up to her elbow, numbness in her thumb, and difficulty with thumb movement and strength. - There is minimal bruising observed. An x-ray of the right hand has been ordered to assess for any fractures or other abnormalities. - An x-ray has been ordered to assess for any fractures or other abnormalities. . If pain persists, a referral to orthopedics or an MRI of the wrist may be considered. - She is advised to continue wearing the splint over the weekend until further instructions are provided based on the x-ray results. 2. Gastroenterology referral: - A referral to a reserve officer will be placed today as it was noted in the previous visit that this was needed. documented in this encounter [facility] 05-01-2025 History of Presen t illness Narrative [...] several years. She has previously consulted a reserve officer who found no abnormalities and also saw [...] legs and arms. She recalls seeing a guardian ad litem between 2013 and 2015 due to arm pain and a nerve issue in her elbow. The guardian ad litem suggested surgery, but she declined as it [...] alleviating abdominal pain. - Referral to a reserve officer will be made for further evaluation. She [...] the CHINTAN test. documented in this encounter [facility] 04-10-2025 History of Presen t illness Narrative [...] will be monitored. documented in this encounter [facility] 04-02-2025 History of Presen t illness Narrative [...] LAPAROTOMY FRACTURE SURGERY elbow fracture HYSTERECTOMY 2020 [place] LAP,DIAGNOSTIC ABDOMEN VAGINAL DELIVERY WISDOM TOOTH EXTRACTION [...] min Stress: No Stress Concern Present (09/16/2023) [employer] [place] [employer] - Occupational Stress Questionnaire Feeling of Stress : Only a little Social Connections: Moderately Integrated (09/16/2023) Social Connection and Isolation Panel [NHANES] Frequency of Communication with Friends and Family: More than three times a week Frequency of Social Gatherings with Friends and Family: Never Attends L[employer] Day Services: Never Active Member of Clubs or [...] in a month documented in this encounter [facility] 03-28-2025 History of Presen t illness Narrative [...] Diagnosis Date Noted Asthma without status asthmaticus (HCC) 01/26/2023 Mixed anxiety and depressive disorder 01/26/2023 Epilepsy (HCC) 01/26/2023 Iron deficiency anemia 01/26/2023 Low grade squamous intraepithelial lesion (LGSIL) on cervicovaginal cytologic smear 01/26/2023 Other atopic dermatitis 01/26/2023 Panic attacks 01/26/2023 Vitamin D deficiency 01/26/2023 Abnormal gait 11/16/2019 Anemia affecting ([facility]) 10/27/2016 Echogenic bowel of fetus on ultrasound 10/28/2016 Joint pain 03/04/2023 Pain of left upper arm 06/10/2020 Positive antinuclear antibody 03/04/2023 Primary insomnia 05/17/2018 Ulnar neuropathy 03/04/2023 Sciatica 06/05/2019 Exacerbation of asthma ([facility]) 11/05/2016 Seizure disorder during ([facility]) 10/27/2016 Seizure ([facility]) 04/08/2018 Panic disorder 08/30/2015 Atopic dermatitis 11/14/2019 Cervicalgia 05/20/2023 Vertigo of central origin 05/20/2023 Balance disorder 05/20/2023 Sore throat 11/19/2023 Anxiety 03/28/2025 Lymphadenopathy 03/28/2025 Resolved Ambulatory Problems Diagnosis Date Noted No Resolved Ambulatory Problems Past Medical History: Diagnosis Date Allergic Asthma ([facility]) BMI 28.0-28.9,adult Cholecystitis COVID-19 Depression Elbow fracture Generalized epilepsy ([facility]) Groin pain Low grade squamous intraepithelial lesion (LGSIL) on Papanicolaou smear of cervix Pap smear of cervix to confirm normal smear following abnormal smear Seizures ([facility]) Shingles Strain of muscle, fascia and tendon of long head of biceps, left arm, initial encounter Torticollis Past Surgical History: Procedure Laterality Date APPENDECTOMY 2012 CHOLECYSTECTOMY COLONOSCOPY EGD EXPLORATORY LAPAROTOMY FRACTURE SURGERY elbow fracture HYSTERECTOMY 2020 [place] LAP,DIAGNOSTIC ABDOMEN VAGINAL DELIVERY WISDOM TOOTH EXTRACTION [...] opinion and tx. documented in this encounter [facility] 02-27-2025 Note Education Materials Oncology Surgery to [...] provider. Document Revised: 03/06/2024 Document Reviewed: 03/06/2024 [email or web address] Patient Education ? 2023 [employer]. Surgery to Biopsy a Lymph Node: What [...] can't use soap and water, use hand asphalt roller operator. ? Change your bandage. ? Leave stitches or skin glue alone. ? Leave tape strips alone unless you're told to take them off. You may trim the edges of the tap (more content not included)... [facility] 02-14-2025 History of Presen t illness [...] Diagnosis Date Noted Asthma without status asthmaticus ([facility]) 01/26/2023 Mixed anxiety and depressive disorder 01/26/2023 Epilepsy 01/26/2023 Iron deficiency anemia 01/26/2023 Low grade squamous intraepithelial lesion (LGSIL) on cervicovaginal cytologic smear 01/26/2023 Other atopic dermatitis 01/26/2023 Panic attacks ([facility]) 01/26/2023 Vitamin D deficiency 01/26/2023 Abnormal gait 11/16/2019 Anemia affecting 10/27/2016 Echogenic bowel of fetus on ultrasound 10/28/2016 Joint pain 03/04/2023 Pain of left upper arm 06/10/2020 Positive antinuclear antibody 03/04/2023 Primary insomnia 05/17/2018 Ulnar neuropathy 03/04/2023 Sciatica 06/05/2019 Exacerbation of asthma ([facility]) 11/05/2016 Seizure disorder during ([facility]) 10/27/2016 Seizure ([facility]) 04/08/2018 Panic disorder ([facility]) 08/30/2015 Atopic dermatitis 11/14/2019 Cervicalgia 05/20/2023 Vertigo of central origin 05/20/2023 Balance disorder 05/20/2023 Sore throat 11/19/2023 Resolved Ambulatory Problems Diagnosis Date Noted No Resolved Ambulatory Problems Past Medical History: Diagnosis Date Allergic Anxiety Asthma BMI 28.0-28.9,adult Cholecystitis COVID-19 Depression ([facility]) Elbow fracture Generalized epilepsy ([facility]) Groin pain Low grade squamous intraepithelial lesion (LGSIL) on Papanicolaou smear of cervix Pap smear of cervix to confirm normal smear following abnormal smear Seizures ([facility]) Shingles Strain of muscle, fascia and tendon of long head of biceps, left arm, initial encounter Torticollis Past Surgical History: Procedure Laterality Date APPENDECTOMY 2012 CHOLECYSTECTOMY COLONOSCOPY EGD EXPLORATORY LAPAROTOMY FRACTURE SURGERY elbow fracture HYSTERECTOMY 2020 MO LAP,DIAGNOSTIC ABDOMEN VAGINAL DELIVERY WISDOM TOOTH EXTRACTION [...] an excisional bx. documented in this encounter [facility] 02-03-2025 Telephone encount er Note Please let her know that Dr. Delgado wants her to get a neck CT. The order is in. Once she gets that scheduled, she should call their office to schedule an appointment. [facility] 02-03-2025 Miscellaneous Notes Formattin g of this note might be different from the original. Please let her know that Dr. Delgado wants her to get a neck CT. The order is in. Once she gets that scheduled, she should call their office to schedule an appointment. documented in this encounter [facility] 02-01-2025 Telephone encount er Note Pt does not have preference. Go ahead and schedule [facility] 02-01-2025 Miscellaneous Notes Formattin g of this note might be different from the original. Pt does not have preference. Go ahead and schedule documented in this encounter [facility] 01-29-2025 History of Presen t illness Narrative [...] her hand, attributed to frequent use of asphalt roller operator. She has no history of thyroid disease, [...] job to stay at home with the [employer] and works 2 days a week from 11-3. SUBJECTIVE: MEDICATIONS: Current Outpatient Medications Medication Instructions [...] the blood work. documented in this encounter [facility] 01-09-2025 History of Presen t illness Narrative [...] EXPLORATORY LAPAROTOMY FRACTURE SURGERY elbow fracture HYSTERECTOMY MO LAP,DIAGNOSTIC ABDOMEN VAGINAL DELIVERY WISDOM TOOTH EXTRACTION [...] wrist extensors , wrist flexor , and perinatology physician strength 5/5. LUE strength deltoid , biceps , triceps , wrist extensors , wrist flexor , and perinatology physician strength 5/5. RLE strength iliopsoas, quadriceps, tibialis [...] knee reflex 2+. Sellers's sign negative. Coordination: [id number] testing normal. Rapid alternating movements are normal. Gait: Normal. Review and summary of old records: CMP on 09/23/2023: Within normal limits aside from BUN 6 (L). GFR 124. MRI brain with and without contrast [place] [facility] [place]/22: No acute cranial pathology or abnormal postcontrast enhancement. There is a punctate nonspecific focus of T2 and FLAIR hyperintense signal in the subcortical white matter of the parasagittal right frontal lobe. Routine EEG at [facility] on 11/18/22: Normal. The patient states she also had an EEG completed in [place], [place], previously which she was told was normal. Assessment/Plan Diagnoses and all orders for this visit: Seizure disorder ([facility]) Ms. Haque is a 34-year-old female with [...] symptoms or neurologic concerns. Debi Torres NP [facility] documented in this encounter [facility] 09-25-2023 Evaluation note Encounter Date Diagnosis Assessment [...] understanding and is agreeable to treatment plan. [facility] Other Evaluation noteNo assessment information available [facility] Work Phone: Evaluation note* Diagnosis Seizure disorder (CMS/HCC)- Primary Unspecified epilepsy without mention of intractable epilepsy Encounter for medication monitoring Encounter for therapeutic drug monitoring Mood disorder (CMS/HCC) Unspecified episodic mood disorder Headache, unspecified headache type Dizziness Dizziness and giddiness documented in this encounter [facility]* Diagnosis Generalized pruritus- Primary Unspecified pruritic disorder Lymphadenopathy Enlargement of lymph nodes Weight loss, unintentional Loss of weight documented in this encounter [facility] note* Diagnosis Enlarged lymph nodes- Primary Enlargement of lymph nodes Lymphadenopathy Enlargement of lymph nodes documented in this encounter [facility] note* Diagnosis Enlarged lymph nodes Enlargement of lymph nodes documented in this encounter [facility] note* Diagnosis LAD (lymphadenopathy), supraclavicular- Primary documented in this encounter [facility] note* Diagnosis LAD (lymphadenopathy), supraclavicular documented in this encounter [facility] Healthcare[facility] note* Diagnosis Weight loss, unintentional- Primary [...] unspecified joint documented in this encounter [facility]* Diagnosis Weight loss, unintentional- Primary Loss of weight Epigastric pain Abdominal pain, epigastric Elevated liver enzymes Other nonspecific abnormal serum enzyme levels Lymphadenopathy Enlargement of lymph nodes Right wrist pain- Primary Pain in joint, forearm Epigastric pain Abdominal pain, epigastric Right wrist pain Pain in joint, forearm documented in this encounter [facility]* Diagnosis Weight loss, unintentional- Primary Loss of weight Epigastric pain Abdominal pain, epigastric Elevated liver enzymes Other nonspecific abnormal serum enzyme levels Lymphadenopathy Enlargement of lymph nodes Well woman exam with routine gynecological exam Routine gynecological examination Chronic vaginitis Unspecified vaginitis and vulvovaginitis documented in this encounter [facility] Narrative - Reported* Type Description Date Medical History Seizures Medical History chronic depression Surgical History elbow surgery 2001 Surgical History appendectomy 2012 Surgical History cholecystectomy 2014 Surgical History laparoscopy 2019 Surgical History hysterectomy 2020 Hospitalization History See Above [facility] Other Discharge Instructions * Instructions* oYlanda Francisco PA-C - 05/22/2019 Ice and stretch your foot. Call to arrange follow-up with forensic identification specialist for continued pain. * Attachments The following attachments cannot be sent through Care Everywhere. 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 Advance Directives and Living Will Power of Batter Mixer Advance Directive Response Recorded Date/ Time Advance [...] Nodes Specialty Diagnoses / Procedures Referred By Besty levi Referred To Contact Otolaryngology Diagnoses Enlarged lymph nodes Procedures MO OFFICE/OUTPATIENT [facility] MDM 60 MINUTES Anabelle Irvin NP [address] [place] [address] Phone: tel: fax: Jeison Delgado MD [address] [address] Phone: tel: fax: Referral ID Status Reason Start Date Expiration Date V isits Requested Visits Authorized [id number] Closed Specialty Services Required 02/02/2025 08/01/2025 1 1 Reason Comments Enlarged lymph nodes Follow up [facility] 03/01/25 Reason Comments Swollen Glands Shirley referral Specialty Diagnoses / Procedures Referred By Betsy levi Referred To Contact Otolaryngology Diagnoses LAD (lymphadenopathy), supraclavicular Procedures MO OFFICE/OUTPATIENT [facility] MDM 60 MINUTES Jeison Delgado MD [address] [place] [address] Phone: tel: fax: Van Aguila, [address] [place] [address] Phone: tel: fax: Referral ID Status Reason Start Date Expiration Date V isits Requested Visits Authorized [id number] Closed Specialty Services Required 03/28/2025 09/24/2025 1 1 Reason Comments Follow-up Reason Comments ER Follow-up Reason Comments [facility] Visit INFORMATION SOURCE (unrecogn ized section and content) DATE CREATED AUTHOR 06/07/2019 [facility] DATE CREATED AUTHOR AUTHOR'S ORGANIZ ATION 07/20/2019 [facility] DATE CREATED AUTHOR AUTHOR'S ORGANIZ ATION 07/14/2020 [facility] DATE CREATED AUTHOR AUTHOR'S ORGANIZ ATION 01/18/2022 [facility] dical Specialist DATE CREATED AUTHOR AUTHOR'S ORGANIZ ATION 01/29/2023 [facility] DATE CREATED AUTHOR AUTHOR'S ORGANIZ ATION 02/02/2025 [facility] DATE CREATED AUTHOR AUTHOR'S ORGANIZ ATION 03/08/2025 [facility] DATE CREATED AUTHOR AUTHOR'S ORGANIZ ATION 03/20/2025 [facility] DATE CREATED AUTHOR AUTHOR'S ORGANIZ ATION 05/23/2025 [facility] dical Specialists EPIC Care Teams (unrecognized sec tion and content) Team Status: Inactive Member Role Status Dates Edgar Chase DO Attending Provider Active Annabel Shukla MD Primary Care Provider Active Team Status: Active Member Role Status Dates Annabel Shukla MD Primary Care Provider Active Service Liaison Representative Relationship Specialty Start Date End Date Annabel Shukla MD [address] [place] [address] PCP - General Family Medicine 02/16/23 Jhonatan Hooper DO [address] [place] [address] [place] [address] PCP - [facility] 09/27/24 Anabelle Irvin NP [address] [place] [address] Nurse Practitioner Family Medicine 02/16/23 Service Liaison Representative Relationship Specialty Start Date End Date Annabel Shukla MD [address] [place] [address] PCP - General Family Medicine 02/16/23 Jhonatan Hooper DO [address] [place] [address] [place] [address] PCP [facility] 09/27/24 Anabelle Irvin NP [address] [place] [address] Nurse Practitioner Family Medicine 02/16/23 Service Liaison Representative Relationship Specialty Start Date End Date Annabel Shukla MD [address] [place] [address] PCP - General Family Medicine 02/16/23 Jhonatan Hooper, [address] [place] [address] [place] [address] PCP - [facility] 09/27/24 Anabelle Irvin NP [address] [place] [address] Nurse Practitioner Family Medicine 02/16/23 Service Liaison Representative Relationship Specialty Start Date End Date Annabel Shukla MD [address] [place] [address] PCP - General Family Medicine 02/16/23 Jhonatan Hooper DO [facility] [place] [address] PCP - [facility] 09/27/24 Anabelle Irvin NP [address] [place] [address] Nurse Practitioner Family Medicine 02/16/23 Service Liaison Representative Relationship Specialty Start Date End Date Annabel Shukla MD [address] [place] [address] PCP - General Family Medicine 02/16/23 Jhonatan Hooper DO [facility] [place] [address] PCP - [facility] 09/27/24 Anabelle Irvin NP [address] [place] [address] Nurse Practitioner Family Medicine 02/16/23 Service Liaison Representative Relationship Specialty Start Date End Date Annabel Shukla MD [address] [place] [address] PCP - General Family Medicine 02/16/23 Jhonatan Hooper, [facility] [place] [address] PCP - [facility] 09/27/24 Anabelle Irvin NP [address] [place] [address] Nurse Practitioner Family Medicine 02/16/23 Akiko Bhagat, [facility] Marketing Forecaster Family Medicine 02/07/25 Service Liaison Representative Relationship Specialty Start Date End Date Annabel Shukla MD [address] [place] [address] PCP - General Family Medicine 02/16/23 Jhonatan Hooper DO [address] [place] [address] [place] [address] PCP - [facility] 09/27/24 Anabelle Irvin NP [address] [facility] [place] [address] Nurse Practitioner Family Medicine 02/16/23 Akiko Bhagat, [facility] Marketing Forecaster Family Medicine 02/07/25 Team Status: Inactive Member Role Status Dates Bret Rose MD Attending Provider Active Start: March 01, 2025 End: March 01, 2025 Service Liaison Representative Relationship Specialty Start Date End Date Annabel Shukla MD [address] [place] [address] PCP - General Family Medicine 02/16/23 Jhonatan Hooper DO [address] [place] [address] [place] [address] PCP - [facility] 09/27/24 Anabelle Irvin NP [address] [place] [address] Nurse Practitioner Family Medicine 02/16/23 Service Liaison Representative Relationship Specialty Start Date End Date Annabel Shukla MD [address] [place] [address] PCP - General Family Medicine 02/16/23 Jhonatan Hooper, [facility] [place] [address] PCP - [facility] 09/27/24 Anabelle Irvin NP [address] [facility] [place] [address] Nurse Practitioner Family Medicine 02/16/23 Service Liaison Representative Relationship Specialty Start Date End Date Annabel Shukla MD [address] [facility] [place] [address] PCP - General Family Medicine 02/16/23 Jhonatan Hooper, [facility] [place] [address] PCP - [facility] 09/27/24 Anabelle Irvin NP [address] [place] [address] Nurse Practitioner Family Medicine 02/16/23 Service Liaison Representative Relationship Specialty Start Date End Date Annabel Shukla MD [address] [facility] [place] [address] PCP - General Family Medicine 02/16/23 Jhonatan Hooper, [facility] [place] [address] PCP - [facility] 09/27/24 Anabelle Irvin NP [address] [facility] [place] [address] Nurse Practitioner Family Medicine 02/16/23 Service Liaison Representative Relationship Specialty Start Date End Date Annabel Shukla MD [address] [place] [address] PCP - General Family Medicine 02/16/23 Anabelle Irvin NP [address] [place] [address] Nurse Practitioner Family Medicine 02/16/23 Service Liaison Representative Relationship Specialty Start Date End Date Annabel Shukla MD [address] [place] [address] PCP - General Family Medicine 02/16/23 Anabelle Irvin NP [address] [place] [address] Nurse Practitioner Family Medicine 02/16/23 Service Liaison Representative Relationship Specialty Start Date End Date Annabel Shukla MD [address] [place] [address] PCP - General Family Medicine 02/16/23 Anabelle Irvin NP [address] [place] [address] Nurse Practitioner Family Medicine 02/16/23 Service Liaison Representative Relationship Specialty Start Date End Date Annabel Shukla MD [address] [place] [address] PCP - General Family Medicine 02/16/23 Anabelle Irvin NP [address] [place] [address] Nurse Practitioner Family Medicine 02/16/23 Service Liaison Representative Relationship Specialty Start Date End Date Annabel Shukla MD [address] [place] [address] PCP - General Family Medicine 02/16/23 Anabelle Irvin NP [address] [place] [address] Nurse Practitioner Family Medicine 02/16/23 Goals (unrecognized [...] BE BASED ON THE PRIMARY CLINICAL RECORDS. [facility] [employer] [facility] provides no warranty or guarantee of the accuracy or completeness of information in this document.
[2025-05-31 12:10] LABS: Age Gdln ACOG Testing Note (.); IGP, Aptima HPV, rfx 16/18,45 Note (.)
== END 2025-05-29 12:37 | disposition home or self-care (01) ==
LOC: LAB 12:36
PROVIDERS: PCP Family Medicine; Visit Provider Physician Assistant
DX: Z01.419 Encounter for gynecological examination (general) (routine) without abnormal findings (principal)
CPT/HCPCS: 87624; 88175